=== PATIENT | female | born 1950 | race Caucasian/White ===

== ENCOUNTER → 2018-07-02 | Outpatient (CLI) | payer MEDICARE ==
[2018-07-02 11:30] LABS: ALT 34 U/L (9-52); AST 30 U/L (14-36); Albumin 4.3 g/dL (3.5-5.0); Alkaline Phosphatase 88 U/L (38-126); Anion Gap 11 mmol/L; Blood Urea Nitrogen 9 mg/dL (7-17); Calcium 9.6 mg/dL (8.4-10.2); Carbon Dioxide 23 mmol/L (22-30); Chloride 93 mmol/L (98-107); Glucose 94 mg/dL (74-99); Potassium 4.2 mmol/L (3.5-5.1); Sodium 127 mmol/L (137-145); Total Bilirubin 0.9 mg/dL (0.2-1.3); Total Protein 7.5 g/dL (6.3-8.2)
== END | disposition home or self-care (01) ==
LOC: LABWHC1 10:16
PROVIDERS: ATTEND Surgery Plastic and Reconstructive Surgery
DX: K57.32 Diverticulitis of large intestine without perforation or abscess without bleeding (principal)
CPT/HCPCS: 36415; 80053

== ENCOUNTER → 2018-07-08 | Outpatient (CLI) | payer MEDICARE | END | disposition home or self-care (01) | LOC: LABWHC1 11:08 | PROVIDERS: ATTEND Surgery Plastic and Reconstructive Surgery | DX: K57.32 Diverticulitis of large intestine without perforation or abscess without bleeding (principal) | CPT/HCPCS: 36415; 86850; 86900; 86901 ==

== ENCOUNTER 2018-07-19 07:30 | Inpatient (IN) | payer MEDICARE, OTHER ==
[2018-07-12 17:30] VITALS: BMI 36.6
[~2018-07-19 07:30] MED LIST: DEXAMETHASONE SOD PHOSPHATE 10 MG/ML 1 ML VIAL IV ONE; HEPARIN SODIUM,PORCINE 5,000 UNIT/ML 1 ML VIAL SQ ONE; LIDOCAINE 1% 20 ML VIAL (10MG/ML) FOR IV START INTRADERMA PRN; MIDAZOLAM 2 MG/2 ML VIAL IV PRN; ONDANSETRON 4 MG/2 ML VIAL IVP ONE; ceFAZolin IN SWFI 2 GM/20 ML SYRINGE IVP ONE; fentaNYL (PF) 50 MCG/ML 2 ML AMP IV PRN; metroNIDAZOLE-NS PMX 500 MG in SALINE 1 100ML.BAG IVPB ONE
[2018-07-19] MEDS ORDERED: ALVIMOPAN 12 MG CAPSULE PO ONE (11:05)
[2018-07-19] MEDS ORDERED: Antibiotics per Pharmacy 1 EACH MISC MISCELLANE PRN (11:05)
[2018-07-19] MEDS ORDERED: ACETAMINOPHEN TAB 500 MG TAB PO ONE (11:05)
--- NOTE | 2018-07-19 11:05 | P.GSHP ---
History of Present Illness H&P Date: 07/19/18 CHIEF COMPLAINT: History of colostomy. HISTORY OF PRESENT ILLNESS: Omaira Vazquez is a 68-year-old female who had a colostomy creation over one year ago by a different provider. She has developed parastomal hernia. She reports increased lower abdominal pain and gas bloat. She completed cardiac risk assessment where Dr. Piedra adjusted her blood pressure medication. Now the patient presents for further evaluation and management. She labors as a mckeon. PAST MEDICAL HISTORY: Please see list. PAST SURGICAL HISTORY: Please see list. MEDICATIONS: Please see list. ALLERGIES: Please see list. SOCIAL HISTORY: No illicit drug use FAMILY HISTORY: No reports of Crohn disease or ulcerative colitis. REVIEW OF ORGAN SYSTEMS: Additionally reports: CONSTITUTIONAL: No fevers or chills. HEENT: Denies any trouble with vision, hearing or nosebleeds. No difficulty swallowing. LYMPHATIC: The patient denies any lumps and bumps around the neck. ENDOCRINE: Denies any thyroid disorders. Denies any blood sugar glucose intolerance. RESPIRATORY: Denies pneumonia. Denies any troubles with breathing or dyspnea on exertion. CARDIOVASCULAR: Denies any chest pain, palpitations, or recent heart attacks. On coumadin. GASTROINTESTINAL: Denies fatty food intolerance. Denies change in bowel habits and gas bloat. Has colostomy. GENITOURINARY: Denies any blood in urine or increased urinary frequency. MUSCULOSKELETAL: Has back pain, stiffness or joint arthritis. NEUROLOGIC: Denies any numbness or tingling along the distal extremities. No seizure disorders or headaches. PSYCHIATRIC: Denies any depression or suicidal ideation. HEMATOLOGIC: Denies any abnormal bleeding or bruising. BREASTS: Denies any breast lumps, pain or nipple discharge. SKIN: No current skin cancer. No rash. PHYSICAL EXAM: Patient is a 67-year-old female. Abdomen: Palpable parastomal hernia. Ostomy patent with solid stool. Well healed midline incision. GENERAL: Well developed and in no acute distress. Pleasant. HEENT: No sclera icterus. Extraocular movements grossly intact. Moist buccal mucosa. Head is atraumatic, normocephalic. Hears conversational speech. No nasal drainage. NECK: Supple without lymphadenopathy. No JV distention. CHEST: Non-labored respirations and equal bilateral excursions. CARDIOVASCULAR: Regular rate and rhythm. Palpable 2+ radial pulses. MUSCULOSKELETAL: No clubbing, cyanosis or edema. NEUROLOGIC: No focal or lateralizing signs. PSYCH: Appropriate affect. Alert and oriented to person, place and time. SKIN: Well perfused. Good skin turgor. MISCELLANEOUS: Cardiology recommendations were reviewed with Lisinopril increase from 10 mg to 20 mg. STUDIES: Colonoscopy completed with diverticulosis. ASSESSMENT: 1. History of diverticulitis perforation. 2. History of colostomy reversal. 3. History of hypertensive heart disease. PLAN: 1. I have gone over the nutritional aspect of increasing her strength for surgery. I have asked her to undergo an 80 gm high protein low calorie diet. 2. Preoperative expectations including inpatient hospitalization for 7-10 days was described. 3. She will need an enhanced colon recovery protocol. The office will obtain package. 4. The patient and family are agreeable to proceed with surgery for the month of June to July. 5. Also, postoperative recovery and placement of a wound V.A.C. and drain were also reviewed in detail. Past Medical History Past Medical History: Hypertension, Osteoarthritis (OA) Additional Past Medical History / Comment(s): HX Low Sodium. HX STOMACH ULCER. PERFORATED DIVERTICULTUM, COLOSTOMY 03/2016. LT KNEE OA PAIN. C/O ABD GAS PAIN FOR FEW DAYS. SPOUSE SAID PATIENT HAD STRESS TEST, PER DR GREY'S REQUEST. History of Any Multi-Drug Resistant Organisms: None Reported Past Surgical History: Bowel Resection, Orthopedic Surgery Additional Past Surgical History / Comment(s): TOTAL RT Knee, RT HIP. PERFORATED DIVERTICULUM W/ COLOSTOMY 03/2016. Past Anesthesia/Blood Transfusion Reactions: No Reported Reaction Additional Past Anesthesia/Blood Transfusion Reaction / Comment(s): Pt states she did receive blood with total knee surgery few weeks ago. Smoking Status: Former smoker - Past Family History Father Family Medical History: Coronary Artery Disease (CAD), Myocardial Infarction ([place] ), Renal Disease Additional Family Medical History / Comment(s): Father of renal failure at the age of 72 yrs. Mother Family Medical History: Cancer Additional Family Medical History / Comment(s): Mother had colon cancer and of this at age 67 yrs. Medications and Allergies Home Medications Medication Instructions Recorded Confirmed Type Lisinopril [Zestril] 20 mg PO DAILY 03/22/16 07/12/18 History Triamterene-Hctz 37.5-25Mg 1 cap PO DAILY 03/22/16 07/12/18 History [Dyazide 37.5-25 Capsule] Cholecalciferol (Vitamin D3) 2,000 unit PO DAILY 07/12/18 07/12/18 History [Vitamin D3] Gas Release (Otc) 1 - 2 cap PO DIRECTED PRN 07/12/18 History Lisinopril [Zestril] 10 mg PO HS 07/12/18 07/12/18 History Allergies Allergy/AdvReac Type Severity Reaction Status Date / Time lactose AdvReac C/O GAS Verified 07/12/18 17:35
[2018-07-19] MEDS: LACTATED RINGERS 1,000 ML IV SCH (14:26)
[2018-07-19 14:31] LABS: Basophils % (A) 1 %; Eosinophils # (A) 0.1 k/uL (0-0.7); Eosinophils % (A) 2 %; HCT 43.9 % (34.0-46.0); HGB 14.6 gm/dL (11.4-16.0); Lymphocytes # (A) 1.5 k/uL (1.0-4.8); Lymphocytes % (A) 19 %; MCH 30.5 pg (25.0-35.0); MCHC 33.4 g/dL (31.0-37.0); MCV 91.5 fL (80.0-100.0); Mean Platelet Volume 7.2; Monocytes # (A) 0.5 k/uL (0-1.0); Monocytes % (A) 6 %; Neutrophils # (A) 5.7 k/uL (1.3-7.7); Neutrophils % (A) 71 %; Platelet Count 237 k/uL (150-450)
[2018-07-19 14:31] LABS: Glucose,Whole Blood 83 mg/dL (75-99)
[2018-07-19 14:41] LABS: INR 1.2 (<1.2); Prothrombin Time 11.1 sec (9.0-12.0)
[2018-07-19 14:46] LABS: ALT 33 U/L (9-52); AST 35 U/L (14-36); Albumin 4.3 g/dL (3.5-5.0); Alkaline Phosphatase 75 U/L (38-126); Anion Gap 13 mmol/L; Blood Urea Nitrogen 11 mg/dL (7-17); Calcium 9.3 mg/dL (8.4-10.2); Carbon Dioxide 21 mmol/L (22-30); Chloride 93 mmol/L (98-107); Glucose 87 mg/dL (74-99); Potassium 3.7 mmol/L (3.5-5.1); Sodium 127 mmol/L (137-145); Total Bilirubin 1.3 mg/dL (0.2-1.3); Total Protein 7.3 g/dL (6.3-8.2)
[2018-07-19] MEDS ORDERED: diphenhydrAMINE 50 MG/ML 1 ML VIAL ONE (17:29)
[2018-07-19] MEDS ORDERED: HYDROmorphone (PF) 1 MG/ML ONE (17:29)
[2018-07-19] MEDS ORDERED: LIDOCAINE 1% INJ 10MG/ML (20 ML MDV) ONE (17:29)
[2018-07-19] MEDS ORDERED: MORPHINE SULFATE 10 MG/ML SYRINGE ONE (17:29)
[2018-07-19] MEDS ORDERED: DEXAMETHASONE SOD PHOS (MDV) 100 MG/10 ML VIAL ONE (17:29)
[2018-07-19] MEDS ORDERED: GLYCOPYRROLATE 0.2 MG/ML 2 ML VIAL ONE (17:29)
[2018-07-19] MEDS ORDERED: SUCCINYLCHOLINE CHLORIDE 100 MG/5 ML SYR IV ONE (17:29)
[2018-07-19] MEDS ORDERED: NEOSTIGMINE 1 MG/ML 10 ML VIAL ONE (17:29)
[2018-07-19] MEDS ORDERED: ROCURONIUM BROMIDE 10 MG/ML 10 ML VIAL IV ONE (17:29)
[2018-07-19] MEDS ORDERED: ONDANSETRON 4 MG/2 ML VIAL ONE (17:29)
[2018-07-19] MEDS ORDERED: PHENYLEPHRINE-0.9% NACL SYG 1 MG/10 ML SYRINGE ONE (17:29)
[2018-07-19] MEDS ORDERED: PROPOFOL 10 MG/ML 20 ML VIAL IV ONE (17:29)
[2018-07-19] MEDS ORDERED: fentaNYL (PF) 50 MCG/ML 2 ML AMP ONE (17:29)
[2018-07-19] MEDS ORDERED: MIDAZOLAM 2 MG/2 ML VIAL ONE (17:29)
[2018-07-19] MEDS ORDERED: ePHEDrine SULFATE/0.9% NACL/PF 50 MG/5 ML SYRINGE IV ONE (17:29)
[2018-07-19] MEDS ORDERED: LACTATED RINGERS 1,000 ML IV ONE ×4 (18:12→21:47)
[2018-07-19] MEDS ORDERED: SODIUM CHLORIDE 0.9% 50 ML with ceFAZolin 2,000 MG IV ONE ×2 (21:15)
[2018-07-19] MEDS ORDERED: HYDROmorphone 1 MG/ML 1 ML SYRINGE IVP PRN (22:48)
[2018-07-19] MEDS ORDERED: ONDANSETRON 4 MG/2 ML VIAL IVP PRN (22:48)
--- NOTE | 2018-07-19 23:04 | P.PCN ---
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 Takedown of descending colostomy 2. Extensive lysis of adhesions over 3 hours 3. Reduction and closure of incarcerated parastomal hernia, descending colostomy 4. Pericardial lavage 3 L normal saline 5. Reduction of mesenteric colon volvulus 6. Drainage of right simple ovarian cyst 5 cm 7. Colostomy reversal using a 25 mm EEA 8. Application of portable wound VAC along colostomy closure side and midline incision 9. Placement of XIX ELOY drain right lower quadrant 10. Intraoperative colonoscopy for sigmoidoscopy Anesthesia: BRUCE Surgeon: Moon Kelly Estimated Blood Loss (ml): 300 Pathology: other (Parastomal hernia sac, descending colostomy, sigmoid colon) Condition: stable Disposition: floor Operative Findings: 1. Intra-abdominal adhesions over 3 hours lysing adhesions including intraloop adhesions and colostomy volvulus 2. Intraoperative colonoscopy performed to assess remnant rectal length of 18- 20 cm from the anal verge 3. Moderately redundant transverse colon extending into pelvis 4. Parastomal hernia containing contents of omentum including descending colon within the subcutaneous tissue reduced and closed 5. Dense lower midline cicatrix from previous surgery 6. EEA using 25 mm stapler from severely spastic colon 7. End to side anastomosis performed via air anterior colotomy of descending colon with anvil along the rectum using pursestring suture 8. Complex 5 cm right ovarian cyst drained to allow access of the rectum 9. ELOY drain placed within the pelvis 10. Complete full-thickness donuts 11. Multiple interloop adhesions with findings of intermittent small bowel obstruction lysed 12. Skin closure using skin chon after cleansing the skin with dilute hydrogen peroxide
[2018-07-20] MEDS: LACTATED RINGERS 1,000 ML IV SCH (00:22)
[2018-07-20] MEDS: SODIUM CHLORIDE 0.9% 1,000 ML IV SCH ×2 (00:23→08:53)
[2018-07-20] MEDS: ceFAZolin IN SWFI 2 GM/20 ML SYRINGE IVP SCH ×2 (00:44→08:51)
[2018-07-20] MEDS: METOCLOPRAMIDE 5 MG/ML 2 ML VIAL IVP SCH ×4 (00:45→17:15)
[2018-07-20] MEDS: metroNIDAZOLE-NS PMX 500 MG in SALINE 1 100ML.BAG IVPB SCH ×4 (00:45→17:17)
[2018-07-20] MEDS: HEPARIN SODIUM,PORCINE 5,000 UNIT/ML 1 ML VIAL SQ SCH ×3 (00:45→15:39)
[2018-07-20] MEDS: ONDANSETRON 4 MG/2 ML VIAL IVP SCH ×4 (00:46→17:17)
[2018-07-20 07:46] LABS: HCT 49.8 % (34.0-46.0); HGB 15.7 gm/dL (11.4-16.0); MCH 29.8 pg (25.0-35.0); MCHC 31.5 g/dL (31.0-37.0); MCV 94.5 fL (80.0-100.0); Platelet Count 248 k/uL (150-450); RBC 5.27 m/uL (3.80-5.40); RDW 12.2 % (11.5-15.5); WBC 26.2 k/uL (3.8-10.6)
[2018-07-20 07:55] LABS: Anion Gap 14 mmol/L; Blood Urea Nitrogen 11 mg/dL (7-17); Calcium 8.4 mg/dL (8.4-10.2); Carbon Dioxide 17 mmol/L (22-30); Chloride 98 mmol/L (98-107); Glucose 148 mg/dL (74-99); Potassium 3.9 mmol/L (3.5-5.1); Sodium 129 mmol/L (137-145)
[2018-07-20] MEDS: KETOROLAC 30 MG/ML 1 ML VIAL IVP PRN ×2 (08:48→17:16)
[2018-07-20] MEDS: PANTOPRAZOLE 40 MG/10 ML VIAL IVP SCH (08:49)
[2018-07-20] MEDS: ALVIMOPAN 12 MG CAPSULE PO SCH ×2 (08:59→20:35)
[2018-07-20] MEDS ORDERED: FAMOTIDINE 20 MG/2 ML VIAL IV SCH (09:00)
[2018-07-20] MEDS ORDERED: PIPERACILLIN-TAZOBACTAM 3.375 GM in DEXTROSE/WATER 1 50ML.BAG IVPB SCH (10:15)
--- NOTE | 2018-07-20 10:15 | P.PN ---
Progress Note - Text Progress Note Date: 07/20/18 The patient is status post reversal of colostomy. She is doing quite well. There is no bowel function. Her incisions clean dry tach. The pervena wound care devices in place. Status post reversal colostomy. Patient is doing fairly well postoperatively 1. We will continue supportive care.
[2018-07-20 10:54] LABS: Band Neutrophils % 7 %; Lymphocytes # (M) 1.05 k/uL (1.0-4.8); Monocytes # (M) 1.31 k/uL (0-1.0); Neutrophils % (M) 85 %; Nucleated Red Blood Cells 0 /100 WBC (0-0); Total Cells Counted 200
[2018-07-20] MEDS: LEVOFLOXACIN 500MG-D5W PMX 500 MG in DEXTROSE/WATER 1 100ML.BAG IVPB SCH (11:21)
--- NOTE | 2018-07-20 22:56 | CONS ---
CONSULTATION DATE OF CONSULTATION: 07/20/18. REASON FOR CONSULTATION: Medical management requested by Dr. Kelly. CONSULTATION: This is a 68-year-old patient of Dr. Meek Disla who back in March of 2016 had a perforated sigmoid colon resulting in colostomy. The patient underwent reversal of the same. Post reversal the patient had some pain, has a NG tube in place. Lying in bed, tired. No chest pain or shortness of breath. The patient has a slight cough, getting IV fluids. Chronic stable medical conditions include hypertension, osteoarthritis, stomach ulcers. REVIEW OF SYSTEMS: CONSTITUTIONAL: Tired. HEENT: NG tube in place. RESPIRATORY: None. Slight cough. CARDIOVASCULAR: None. GASTROINTESTINAL: As above. GENITOURINARY: None. MUSCULOSKELETAL: Arthritic pain in joints. DERMATOLOGICAL: Had some varicose stasis dermatitis. HEMATOLOGIC, LYMPHATICS: None. PSYCHIATRY: None. NEUROLOGICAL: None. PAST MEDICAL HISTORY: Hypertension, osteoarthritis, stomach ulcer, perforated diverticulosis, left knee arthritis pain. PAST SURGICAL HISTORY: Bowel resection, colostomy, total right knee, right hip replacement, perforated sigmoid diverticulosis with colostomy in 2015. SOCIAL HISTORY: , does not smoke or drink alcohol. FAMILY HISTORY: Coronary artery disease. Father of renal failure. HOME MEDICATIONS: 1. Dyazide 37.5/25 1 capsule p.o. daily. 2. Zestril 10 mg p.o. q.h.s. 3. Gas Relief [id number] p.r.n. 4. Vitamin D3 2000 units p.o. daily. ALLERGIES: To LACTOSE. PHYSICAL EXAMINATION: Temperature 98, pulse 91, respiration 14, blood pressure 116/69, pulse ox 97 percent on 2 L. GENERAL APPEARANCE: Well built, BMI 36.7, lying in bed, tired-appearing. EYES: Pupils equal. Conjunctivae normal. HEENT: External appearance of nose and ears normal. Oral cavity dry. NG tube in place. NECK: JVD unable to assess. Mass not palpable. RESPIRATORY: Effort normal. Lungs, slightly decreased breath sounds. CARDIOVASCULAR: 1st and 2nd sounds normal. No edema. ABDOMEN: Tender, dressing over the stitches. Bowel sounds sluggish. Liver and spleen not palpable. LYMPHATIC: No lymph node palpable in neck or axillae. PSYCHIATRY: Alert and oriented x3. Mood and affect normal. NEUROLOGICAL: Pupils equal. Cranial nerves grossly intact. Power and sensation grossly intact. INVESTIGATIONS: White count 8, repeat 26.2, hemoglobin 14.6, sodium 127, bicarb 21. ASSESSMENT: 1. Reversal of colostomy. 2. Hyponatremia, suspect hypoosmolar. The patient is not really eating. 3. Metabolic acidosis. 4. Essential hypertension. 5. Primary osteoarthritis. 6. Obesity; BMI 36.7. 7. Leukocytosis likely reactive. PLAN: Patient is on IV Levaquin and Flagyl to cover infectious aspects. Also getting IV fluids. Also on Entereg, enhance bowel movements. NG tube is in place. We will follow I's and O's closely. Repeat electrolytes in the morning. Venodyne boots are in place for DVT prophylaxis. Care was discussed with the patient. Questions were answered. Thank you Dr. Kelly. MAGDALENA / GABIN: [id number] /
[2018-07-21] MEDS: metroNIDAZOLE-NS PMX 500 MG in SALINE 1 100ML.BAG IVPB SCH ×4 (00:25→17:02)
[2018-07-21] MEDS: ONDANSETRON 4 MG/2 ML VIAL IVP SCH ×4 (00:25→17:02)
[2018-07-21] MEDS: METOCLOPRAMIDE 5 MG/ML 2 ML VIAL IVP SCH ×4 (00:26→16:58)
[2018-07-21] MEDS: SODIUM CHLORIDE 0.9% 1,000 ML IV SCH ×3 (00:26→14:40)
[2018-07-21] MEDS: HEPARIN SODIUM,PORCINE 5,000 UNIT/ML 1 ML VIAL SQ SCH ×3 (00:26→17:02)
[2018-07-21] MEDS: KETOROLAC 30 MG/ML 1 ML VIAL IVP PRN (00:43)
[2018-07-21 07:37] LABS: Basophils % (A) 0 %; Eosinophils % (A) 0 %; HCT 38.2 % (34.0-46.0); Lymphocytes # (A) 0.9 k/uL (1.0-4.8); Lymphocytes % (A) 7 %; MCH 30.7 pg (25.0-35.0); MCV 93.1 fL (80.0-100.0); Mean Platelet Volume 7.6; Monocytes # (A) 0.8 k/uL (0-1.0); Monocytes % (A) 6 %; Neutrophils # (A) 11.2 k/uL (1.3-7.7); Neutrophils % (A) 86 %; Platelet Count 218 k/uL (150-450); RDW 12.3 % (11.5-15.5); WBC 12.9 k/uL (3.8-10.6)
[2018-07-21 07:38] LABS: HGB 12.6 gm/dL (11.4-16.0)
[2018-07-21 07:49] LABS: Anion Gap 9 mmol/L; Blood Urea Nitrogen 14 mg/dL (7-17); Carbon Dioxide 18 mmol/L (22-30); Chloride 104 mmol/L (98-107); Glucose 82 mg/dL (74-99); Potassium 3.7 mmol/L (3.5-5.1); Sodium 131 mmol/L (137-145)
[2018-07-21] MEDS: ALVIMOPAN 12 MG CAPSULE PO SCH ×2 (08:08→21:00)
[2018-07-21] MEDS: PANTOPRAZOLE 40 MG/10 ML VIAL IVP SCH (08:08)
[2018-07-21] MEDS: LEVOFLOXACIN 500MG-D5W PMX 500 MG in DEXTROSE/WATER 1 100ML.BAG IVPB SCH (11:50)
--- NOTE | 2018-07-21 12:43 | P.PN ---
Progress Note - Text Progress Note Date: 07/21/18 The patient has complaints of incisional pain. She has been roughly stable overnight. Her white count has gone from 26 yesterday to 12 today. On exam her vital signs are stable. Her abdomen soft. Her incision site is clean dry tach. Status post reversal of colostomy. Patient has had no significant bowel function. We will advance her diet once her bowel function is improved. Dr. Preciado will resume her care tomorrow.
--- NOTE | 2018-07-21 16:46 | PN ---
PROGRESS NOTE DATE OF SERVICE: 07/21/18. PRESENT COMPLAINT: Abdominal surgery. INTERVAL HISTORY: Patient is status post reversal of colostomy. NG tube remains in place. The patient also got abdominal drain. Slight cough. Resting in bed. Breathing is stable. REVIEW OF SYSTEMS: Done for constitutional, cardiovascular, GI, pulmonary; relevant findings as above. The patient can feel her gas rumbling but no flatus. CURRENT MEDICATIONS: Reviewed that include IV Levaquin, IV Flagyl, IV fluids. PHYSICAL EXAMINATION: Temperature 98, pulse 72, respiration 14, blood pressure 140/78, pulse 96 percent on 2 L. GENERAL APPEARANCE: Lying in bed, awake, tired. EYES: Pupils equal. Conjunctivae normal. HEENT: External appearance of nose and ears normal. Oral cavity dry. NG tube in place. NECK: JVD unable to assess. Mass not palpable. Respiratory effort normal. LUNGS: Diminished breath sounds. CARDIOVASCULAR: First and second sounds. No edema. ABDOMEN: Tender. Abdominal binder in place. A drain in place. Dressing over the incision site. PSYCHIATRY: Alert and oriented x3. Mood and affect normal. INVESTIGATIONS: White count 12.9, potassium 3.7, bicarb 18, BUN 14, creatinine 0.74, sodium 131. ASSESSMENT: 1. Reversal of colostomy. 2. Hyponatremia, suspect hypoosmolar. 3. Metabolic acidosis. 4. Essential hypertension. 5. Primary osteoarthritis. 6. Obesity; BMI 36.7. 7. Leukocytosis likely reactive, improving. Continue current medication and treatment plan. Will add bicarb to the IV fluids. Care was discussed with the patient. Follow. MMODL / IJN: [id number] /
[2018-07-21] MEDS: SODIUM CHLORIDE 0.9% 1,000 ML with SODIUM BICARB (1 MEQ/ML) 50 ML IV SCH ×2 (17:02)
[2018-07-22] MEDS: ONDANSETRON 4 MG/2 ML VIAL IVP SCH ×5 (00:07→23:46)
[2018-07-22] MEDS: METOCLOPRAMIDE 5 MG/ML 2 ML VIAL IVP SCH ×5 (00:07→23:46)
[2018-07-22] MEDS: HEPARIN SODIUM,PORCINE 5,000 UNIT/ML 1 ML VIAL SQ SCH ×4 (00:08→23:46)
[2018-07-22] MEDS: metroNIDAZOLE-NS PMX 500 MG in SALINE 1 100ML.BAG IVPB SCH ×5 (00:08→23:46)
[2018-07-22] MEDS: SODIUM CHLORIDE 0.9% 1,000 ML with SODIUM BICARB (1 MEQ/ML) 50 ML IV SCH ×6 (05:23→23:51)
[2018-07-22 08:07] LABS: Basophils % (A) 0 %; Eosinophils # (A) 0.1 k/uL (0-0.7); Eosinophils % (A) 1 %; HGB 11.7 gm/dL (11.4-16.0); Lymphocytes # (A) 0.9 k/uL (1.0-4.8); Lymphocytes % (A) 9 %; MCH 30.9 pg (25.0-35.0); MCHC 33.3 g/dL (31.0-37.0); MCV 92.7 fL (80.0-100.0); Mean Platelet Volume 7.7; Monocytes # (A) 0.5 k/uL (0-1.0); Monocytes % (A) 5 %; Neutrophils # (A) 8.1 k/uL (1.3-7.7); Neutrophils % (A) 84 %; Platelet Count 196 k/uL (150-450); RBC 3.77 m/uL (3.80-5.40); RDW 12.3 % (11.5-15.5); WBC 9.7 k/uL (3.8-10.6)
[2018-07-22 08:24] LABS: Anion Gap 10 mmol/L; Blood Urea Nitrogen 13 mg/dL (7-17); Calcium 8.1 mg/dL (8.4-10.2); Carbon Dioxide 19 mmol/L (22-30); Chloride 107 mmol/L (98-107); Glucose 82 mg/dL (74-99); Potassium 3.6 mmol/L (3.5-5.1); Sodium 136 mmol/L (137-145)
[2018-07-22] MEDS: PANTOPRAZOLE 40 MG/10 ML VIAL IVP SCH (09:15)
[2018-07-22] MEDS: ALVIMOPAN 12 MG CAPSULE PO SCH ×2 (09:15→20:08)
--- NOTE | 2018-07-22 09:29 | P.PN ---
<Brigitte Bruce - Last Filed: 07/22/18 11:46> Subjective Progress Note Date: 07/22/18 68-year-old female seen sitting up in a chair. Nasogastric tube to suction pervena wound VAC system in place abdominal binder on. States not passing gas no stool ELOY drain in place white count down to 9.7 patient states anxious to get the nasogastric tube out. Postop July 19 takedown of descending colostomy, extensive lysis of adhesions, reduction and closure of incarcerated peristomal hernia application wound VAC placement ELOY drain right lower quadrant reduction of mesenteric colon volvulus Objective - Vital Signs Vital signs: Vital Signs Temp 98.4 F 07/22/18 07:05 Pulse 65 07/22/18 07:05 Resp 17 07/22/18 07:06 BP 131/71 07/22/18 07:05 Pulse Ox 95 07/22/18 07:05 Intake & Output 07/21/18 07/22/18 07/22/18 18:59 06:59 18:59 Intake Total 200 1300 Output Total 510 55 Balance -310 1245 Intake: Intake, IV Titration 200 1300 Amount Levofloxacin 500Mg-D5w 100 Pmx 500 mg In Dextrose/ Water 1 100ml.bag @ 100 mls/hr IVPB Q24HR@1100 [facility] Rx#:[id number] Sodium Chloride 0.9% 1, 1100 000 ml @ 100 mls/hr IV . [id number] [facility] with Sodium Bicarb (1 Meq/ml) 50 ml Rx#:[id number] metroNIDAZOLE-NS PMX 500 100 200 mg In Saline 1 100ml.bag @ 100 mls/hr IVPB Q6HR [facility] Rx#:[id number] Output: Gastric Drainage 100 Drainage 10 55 Abdomen 10 55 Urine 400 Uretheral (Lee) 200 Other: Voiding Method Bedside Commode Bedside Commode Bedside Commode # Voids 1 3 1 - Exam Physical exam 68-year-old female sitting up in a chair appears in no acute distress Lungs on room air no shortness of breath adequate air movement Heart S1-S2 audible regular denying chest pain Abdomen abdominal binder in place ELOY drain right lower quadrant serous drainage nasal gastric tube connected to suction no bowel movement not passing gas few hypoactive bowel tones present urinating no difficulty Extremities Venodyne's on to the bilateral lower extremities - Labs CBC & Chem 7: 07/22/18 07:36 07/22/18 07:36 Labs: Abnormal Lab Results - Last 24 Hours (Table) 07/22/18 07/22/18 Range/Units 07:36 07:36 RBC 3.77 L (3.80-5.40) m/uL Neutrophils # 8.1 H (1.3-7.7) k/uL Lymphocytes # 0.9 L (1.0-4.8) k/uL Sodium 136 L (137-145) mmol/L Carbon Dioxide 19 L (22-30) mmol/L Calcium 8.1 L (8.4-10.2) mg/dL Assessment and Plan Assessment: Impression History of perforated diverticulitis with descending colostomy Morbid obesity BMI 36.7 Peristomal hernia Hypertensive heart disease July 19 status post takedown of descending colostomy, extensive lysis of adhesions, reduction and closure of incarcerated parastomal hernia descending colostomy, reduction of mesenteric colon volvulus, placement ELOY drain right lower quadrant, placement portable wound VAC Leukocytosis likely reactive improving Plan Continue postop surgical care Remove the nasal gastric tube now start clear liquids monitor response Pain control Increase activity Wound VAC as ordered IV Levaquin and Flagyl as ordered DVT and GI prophylaxis The above impression and plan of care have been discussed and directed by signing physician. Brigitte Bruce nurse practitioner acting as scribe for signing physician. <Moon Kelly N - Last Filed: 07/22/18 14:34> Objective - Vital Signs Vital signs: Vital Signs Temp 98.4 F 07/22/18 07:05 Pulse 65 07/22/18 07:05 Resp 17 07/22/18 07:06 BP 131/71 07/22/18 07:05 Pulse Ox 95 07/22/18 07:05 Intake & Output 07/21/18 07/22/18 07/22/18 18:59 06:59 18:59 Intake Total 200 1300 30 Output Total 510 55 Balance -310 1245 30 Intake: Intake, IV Titration 200 1300 Amount Levofloxacin 500Mg-D5w 100 Pmx 500 mg In Dextrose/ Water 1 100ml.bag @ 100 mls/hr IVPB Q24HR@1100 [facility] Rx#:[id number] Sodium Chloride 0.9% 1, 1100 000 ml @ 100 mls/hr IV . [id number] [facility] with Sodium Bicarb (1 Meq/ml) 50 ml Rx#:[id number] metroNIDAZOLE-NS PMX 500 100 200 mg In Saline 1 100ml.bag @ 100 mls/hr IVPB Q6HR [facility] Rx#:[id number] Oral 30 Output: Gastric Drainage 100 Drainage 10 55 Abdomen 10 55 Urine 400 Uretheral (Lee) 200 Other: Voiding Method Bedside Commode Bedside Commode Bedside Commode # Voids 1 3 1 - Labs CBC & Chem 7: 07/22/18 07:36 07/22/18 07:36 Labs: Abnormal Lab Results - Last 24 Hours (Table) 07/22/18 07/22/18 Range/Units 07:36 07:36 RBC 3.77 L (3.80-5.40) m/uL Neutrophils # 8.1 H (1.3-7.7) k/uL Lymphocytes # 0.9 L (1.0-4.8) k/uL Sodium 136 L (137-145) mmol/L Carbon Dioxide 19 L (22-30) mmol/L Calcium 8.1 L (8.4-10.2) mg/dL
[2018-07-22] MEDS: LEVOFLOXACIN 500MG-D5W PMX 500 MG in DEXTROSE/WATER 1 100ML.BAG IVPB SCH (10:25)
--- NOTE | 2018-07-22 14:36 | P.PN ---
Progress Note - Text Progress Note Date: 07/22/18 Patient seen and evaluated. At the time of my assessment she appeared increasingly dyspneic. She had wheezing on exam. Dressing along the midline reassessed for leaks for wound VAC and clean dry and intact.. No signs of infection. WBC normal. Hemoglobin low. Chest x-ray recommended. Incentive spirometry advised. Albuterol nebulizer started.
--- NOTE | 2018-07-22 15:33 | XR ---
EXAMINATION TYPE: XR chest 2V DATE OF EXAM: 07/22/2018 COMPARISON: Prior chest x-ray 03/28/2016 HISTORY: Wheezing TECHNIQUE: Frontal and lateral views of the chest are obtained. FINDINGS: There is no pleural effusion or pneumothorax seen. Bandlike areas of increased density in the central lungs are compatible with atelectasis. Patient is rotated, exam is expiratory. The cardi ac silhouette size is stable. The osseous structures are intact. IMPRESSION: Expiratory rotated exam. Probable atelectasis rather than pneumonia, follow-up recommend ed.
[2018-07-22] MEDS: ALBUTEROL NEBULIZED 2.5 MG/3 ML INHALATION SCH ×3 (16:27→20:47)
--- NOTE | 2018-07-22 17:49 | P.OP ---
Date of Procedure: 07/19/18 Description of Procedure: SURGEON: NICOLAS KELLY MD Preoperative Diagnosis: 1. History of perforated diverticulitis 2. Descending colostomy status 3. Hyponatremia, chronic 4. Hypertensive heart disease 5. Morbid obesity due to excess calories, BMI 36.7 6. Parastomal hernia Postoperative Diagnosis: 1. History of perforated diverticulitis 2. Descending colostomy status 3. Hyponatremia, chronic 4. Hypertensive heart disease 5. Morbid obesity due to excess calories, BMI 36.7 6. Severe intra-abdominal adhesions 7. Internal hernias of greater omentum 8. Parastomal hernia 9. 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 Interloop small bowel adhesions 11. Right simple ovarian cyst, 5 cm Procedure(s) Performed: 1. Takedown of descending colostomy 2. Extensive lysis of adhesions over 3 hours 3. Reduction and closure of incarcerated parastomal hernia, descending colostomy 4. Peritoneal lavage 3 L normal saline 5. Reduction of mesenteric descending colon volvulus 6. Drainage of right simple ovarian cyst 5 cm 7. Colostomy reversal using a 25 mm EEA 8. Application of PREVENA wound VAC along colostomy closure site and midline incision 9. Placement of#19 ELOY drain right lower quadrant 10. Intraoperative colonoscopy for sigmoidoscopy Anesthesia: GETA Surgeon: Nicolas Kelly Estimated Blood Loss (ml): 300 Pathology: other (Parastomal hernia sac, descending colostomy, sigmoid colon) Condition: stable Disposition: floor Operative Findings: 1. Intra-abdominal adhesions over 3 hours lysis of adhesions including intraloop adhesions and take down of colostomy volvulus 2. Intraoperative colonoscopy performed to assess remnant rectal length of 18- 20 cm from the anal verge 3. Moderately redundant transverse colon extending into pelvis 4. Parastomal hernia containing contents of omentum including descending colon within the subcutaneous tissue reduced and closed 5. Dense lower midline cicatrix from previous surgery 6. EEA using 25 mm stapler for severely spastic colon 7. End to side anastomosis performed via anterior colotomy of descending colon with anvil along the rectum using pursestring suture 8. Complex 5 cm right ovarian cyst drained to allow access to the rectum 9. ELOY drain placed within the pelvis 10. Complete full-thickness donuts 11. Multiple interloop adhesions lysed with findings of intermittent small bowel obstruction 12. Skin closure using skin chon after cleansing the skin with dilute hydrogen peroxide INDICATIONS: The patient is a 68-year-old female who was electively scheduled for a descending colostomy reversal secondary to perforated diverticulitis almost 2 years ago. She underwent an enhanced colon recovery program. Benefits and risks of surgical intervention were described in detail. Informed consent was obtained. DESCRIPTION: The patient was brought to the operating room. After general induction, a Lee catheter was placed. The abdomen was prepped and draped in standard sterile fashion. Ioban draping was also placed. A 4 x 4 was used to cover her colostomy site. Prior to incision, a timeout protocol was confirmed with surgical team regarding patient's name including procedures to be performed. Preoperative medications were confirmed. Attention was brought to the abdomen whereby a well healed lower midline incision was encountered. Next, a #10 blade was used to enter along the epigastrium and extended down to the pubis. Carefully the abdomen was entered using electro- Bovie cautery. The greater omentum was adhered to the abdominal wall. Adhesions were addressed with a combination of blunt dissection with minimal electro-Bovie cautery. Interloop adhesions were similarly addressed using Metzenbaum scissors. Internal hernia was identified of the greater omentum and divided using a LigaSure. All adhesions were addressed from the ligament of Treitz to the ileocecal valve. Extensive lysis adhesions were performed for over 3 hours. The small bowel was found adherent to the deep pelvis and remnant sigmoid colon which was also divided. No enterotomies occurred. Next, the rectal stump was palpated. I went to the foot of the bed to perform an intraoperative flexible sigmoidoscopy and confirm the length of the rectal stump prior to proceed with takedown of the colostomy. Length of rectal stump was 18 to 20 cm was confirmed. I re-scrubbed into the case. Attention is now brought to the colostomy site where #10 blade was used to incise around the colostomy into the subcutaneous tissue. A Bovie cautery was used to circumferentially dissect the ostomy to the fascia. Next a large peristomal hernia was encountered involving majority of the descending colon including the omentum immediately deep to the skin. [place] retractors were used to provide exposure. From within the abdomen, the colostomy was carefully dissected free from the abdominal wall. Spillage of stool did occur in the case hence contaminated. A large right simple ovarian cyst was identified obscuring view of the rectal stump. Pursestring suture using 4-0 Prolene was made along the anterior surface of the cyst wall and incised using Bovie cautery. The cyst was drained to provide exposure of the rectal stump. A colotomy was made along the anterior surface of the rectal stump for placement of a 25 mm anvil. A pursestring suture was placed using 2-0 Prolene and the 25 mm anvil was secured. A transverse colon was highly redundant extending into the pelvis. Next, via the open colotomy site of the descending colon a 25 mm ILS was inserted and the anvil and staple were mated for 1 minute. The donuts were inspected and intact. The colotomy was closed using Kynded 60 mm purple stapler. The abdomen was irrigated using 3000 mL of normal saline The peritoneal lavage. A round #19 Eder drain was placed anterior to the staple line and exited via the right lower abdomen. A drain stitch of 2-0 nylon was placed. Hemostasis was checked. The colostomy site was oversewn via the peritoneum and abdominal wall using double-stranded 0 PDS. Along the skin site of the colostomy, the wound was irrigated using dilute hydrogen peroxide. 0-Vicryl was used for closure of the fascia from the subcutaneous portion. The abdomen was inspected for hemostasis and closed using 2 sutures of double- stranded 0 PDS from inferiorly and superiorly. The skin was cleansed and the Ioban draping was removed. An Optifoam small square dressing was placed over the drain site. The colostomy site was closed transversely using skin chon with redundant skin excised. A customizable Prevena wound VAC system was placed over the skin colostomy site and at the midline as it was closed transversely. The apparatus was set to suction. At the end of the procedure, needle, sponge, and instrument count had been verified correct by the surgical services tech. The patient was sent to the postanesthesia care unit in stable condition. Intraoperative findings were described to the patient's family.
[2018-07-22] MEDS: LISINOPRIL 10 MG TAB PO SCH (20:08)
[2018-07-23] MEDS: ONDANSETRON 4 MG/2 ML VIAL IVP SCH ×4 (05:47→23:38)
[2018-07-23] MEDS: METOCLOPRAMIDE 5 MG/ML 2 ML VIAL IVP SCH ×4 (05:47→23:39)
[2018-07-23] MEDS: metroNIDAZOLE-NS PMX 500 MG in SALINE 1 100ML.BAG IVPB SCH ×4 (05:47→23:39)
--- NOTE | 2018-07-23 06:15 | PN ---
PROGRESS NOTE DATE OF SERVICE: 07/22/18. PRESENTING COMPLAINT: Abdominal surgery. INTERVAL HISTORY: Patient is status post reversal of colostomy. NG tube was taken out. Has an abdominal drain. Slight cough, minimal wheezing. Has been allowed clear liquid diet. REVIEW OF SYSTEMS: Done for constitutional, cardiovascular, GI, pulmonary; relevant findings as above. The patient has not passed any flatus. CURRENT MEDICATIONS: Reviewed that include IV Levaquin, IV Flagyl, IV fluids. EXAMINATION: Temperature 98.4, pulse 55, respiration 17, blood pressure 130/71, pulse ox 95 percent on room air. GENERAL APPEARANCE: Lying in bed, awake tired. EYES: Pupils equal. Conjunctivae normal. HEENT: External appearance of nose and ears normal. Oral cavity dry. NECK: JVD unable to assess. Mass not palpable. RESPIRATORY: Effort normal. LUNGS: Diminished breath sounds, minimal wheezing. CARDIOVASCULAR: 1st and 2nd sounds normal. No edema. ABDOMEN: Some tenderness, binder in place and drain is in place. Dressing on the incision site. PSYCHIATRY: Alert and oriented x3. Mood and affect normal. INVESTIGATIONS: White count 9.7, potassium 3.6. BUN and creatinine normal. ASSESSMENT: 1. Reversal of colostomy. 2. Hyponatremia, suspect hypoosmolar. 3. Metabolic acidosis. 4. Essential hypertension. 5. Primary osteoarthritis. 6. Obesity; BMI 36.7. 7. Leukocytosis likely reactive with clinical improvement. 8. Bronchospasm. PLAN: Continue medication and treatment plan. Continue IV fluids, bicarb, antibiotics and bronchodilators to be used. Care was discussed with the patient. Follow. MMODL / IJN: [id number] /
[2018-07-23] MEDS: HEPARIN SODIUM,PORCINE 5,000 UNIT/ML 1 ML VIAL SQ SCH ×3 (08:24→23:38)
[2018-07-23] MEDS: TRIAMTERENE-HCTZ 37.5-25MG 1 EACH CAP PO SCH (08:24)
[2018-07-23] MEDS: PANTOPRAZOLE 40 MG/10 ML VIAL IVP SCH (08:24)
[2018-07-23] MEDS: ALVIMOPAN 12 MG CAPSULE PO SCH ×2 (08:24→21:12)
[2018-07-23] MEDS: ALBUTEROL NEBULIZED 2.5 MG/3 ML INHALATION SCH ×4 (08:40→21:00)
[2018-07-23 08:41] LABS: Anion Gap 10 mmol/L; Blood Urea Nitrogen 16 mg/dL (7-17); Calcium 8.3 mg/dL (8.4-10.2); Carbon Dioxide 20 mmol/L (22-30); Chloride 108 mmol/L (98-107); Glucose 90 mg/dL (74-99); Potassium 3.8 mmol/L (3.5-5.1); Sodium 138 mmol/L (137-145)
--- NOTE | 2018-07-23 09:23 | P.PN ---
<Autumn Brucene M - Last Filed: 07/23/18 09:16> Subjective Progress Note Date: 07/23/18 68-year-old female sitting up in a chair bathing. Nursing reports patient just returned from ambulating in the hallway with physical therapy. Sats on room air 97%. Patient states does not feel short of breath. No conversational dyspnea noted no cough noted able to use incentive spirometer with coaching can achieve 1000. Lungs posterior diminished few bilateral prolonged expiratory wheezing noted afebrile labs reviewed reportedly tolerating a diet of clear liquids Postop July 19 takedown of descending colostomy, extensive lysis of adhesions, reduction and closure of incarcerated peristomal hernia application wound VAC placement ELOY drain right lower quadrant reduction of mesenteric colon volvulus Objective - Vital Signs Vital signs: Vital Signs Temp 98.4 F 07/23/18 08:19 Pulse 65 07/23/18 08:19 Resp 17 07/23/18 08:19 BP 163/82 07/23/18 08:19 Pulse Ox 97 07/23/18 08:19 Intake & Output 07/22/18 07/23/18 07/23/18 18:59 06:59 18:59 Intake Total 151 1200 Output Total 20 15 Balance 131 1185 Intake: Intake, IV Titration 1000 Amount Sodium Chloride 0.9% 1, 1000 000 ml @ 100 mls/hr IV . [id number] YURY with Sodium Bicarb (1 Meq/ml) 50 ml Rx#:[id number] Oral 151 Other 200 Output: Drainage 20 15 Abdomen 20 15 Other: Voiding Method Bedside Commode Bedside Commode Bedside Commode # Voids 1 1 - Exam Physical exam 68-year-old female sitting up in a chair taking a bath appears in no acute distress Lungs posterior diminished at the bases a few prolonged expiratory wheezing no cough noted on room air sats 97% no shortness of breath with conversation or activity Heart S1-S2 audible regular Abdomen prevena wound system in place surgical dressing site dry surgical tenderness appropriate states belching no gas reports no nausea no vomiting nondistended urinating no difficulty per patient report ELOY drain in place serous drainage Extremities no edema noted - Labs CBC & Chem 7: 07/22/18 07:36 07/23/18 08:03 Labs: Abnormal Lab Results - Last 24 Hours (Table) 07/23/18 Range/Units 08:03 Chloride 108 H (98-107) mmol/L Carbon Dioxide 20 L (22-30) mmol/L Calcium 8.3 L (8.4-10.2) mg/dL Assessment and Plan Assessment: Impression History of perforated diverticulitis with descending colostomy Morbid obesity BMI 36.7 Peristomal hernia Hypertensive heart disease July 19 status post takedown of descending colostomy, extensive lysis of adhesions, reduction and closure of incarcerated parastomal hernia descending colostomy, reduction of mesenteric colon volvulus, placement ELOY drain right lower quadrant, placement portable wound VAC Leukocytosis likely reactive improving Plan Continue postop surgical care Pain control Increase activity Wound VAC as ordered IV Levaquin and Flagyl as ordered DVT and GI prophylaxis heparin and protonix The above impression and plan of care have been discussed and directed by signing physician. Brigitte Bruce nurse practitioner acting as scribe for signing physician. <Moon Kelly N - Last Filed: 07/23/18 13:54> Objective - Vital Signs Vital signs: Vital Signs Temp 98.4 F 07/23/18 08:19 Pulse 80 07/23/18 10:40 Resp 17 07/23/18 08:19 BP 163/82 07/23/18 08:19 Pulse Ox 97 07/23/18 08:19 Intake & Output 07/22/18 07/23/18 07/23/18 18:59 06:59 18:59 Intake Total 151 1200 Output Total 20 15 Balance 131 1185 Intake: Intake, IV Titration 1000 Amount Sodium Chloride 0.9% 1, 1000 000 ml @ 100 mls/hr IV . [id number] YURY with Sodium Bicarb (1 Meq/ml) 50 ml Rx#:[id number] Oral 151 Other 200 Output: Drainage 20 15 Abdomen 20 15 Other: Voiding Method Bedside Commode Bedside Commode Bedside Commode # Voids 1 1 1 - Labs CBC & Chem 7: 07/23/18 08:03 07/23/18 08:03 Labs: Abnormal Lab Results - Last 24 Hours (Table) 07/23/18 07/23/18 Range/Units 08:03 08:03 RBC 3.78 L (3.80-5.40) m/uL Lymphocytes # 0.9 L (1.0-4.8) k/uL Chloride 108 H (98-107) mmol/L Carbon Dioxide 20 L (22-30) mmol/L Calcium 8.3 L (8.4-10.2) mg/dL Assessment and Plan Plan: Had long discussion with on the phone. Will arrange for home healthcare with possibility of rehab needs if needed. She is overall doing very well. Prolonged antibiotics for contaminated case.
[2018-07-23] MEDS: LEVOFLOXACIN 500MG-D5W PMX 500 MG in DEXTROSE/WATER 1 100ML.BAG IVPB SCH (10:13)
[2018-07-23 10:19] LABS: Basophils % (A) 0 %; Eosinophils # (A) 0.1 k/uL (0-0.7); Eosinophils % (A) 1 %; HCT 35.7 % (34.0-46.0); HGB 11.5 gm/dL (11.4-16.0); Lymphocytes # (A) 0.9 k/uL (1.0-4.8); Lymphocytes % (A) 10 %; MCH 30.5 pg (25.0-35.0); MCHC 32.3 g/dL (31.0-37.0); MCV 94.5 fL (80.0-100.0); Mean Platelet Volume 7.8; Monocytes # (A) 0.5 k/uL (0-1.0); Monocytes % (A) 6 %; Neutrophils # (A) 7.2 k/uL (1.3-7.7); Neutrophils % (A) 83 %; Platelet Count 255 k/uL (150-450); RBC 3.78 m/uL (3.80-5.40); RDW 12.5 % (11.5-15.5); WBC 8.8 k/uL (3.8-10.6)
[2018-07-23] MEDS: SODIUM CHLORIDE 0.9% 1,000 ML with SODIUM BICARB (1 MEQ/ML) 50 ML IV SCH ×4 (12:04→20:50)
[2018-07-23] MEDS: LISINOPRIL 10 MG TAB PO SCH (21:12)
--- NOTE | 2018-07-23 22:29 | PN ---
PROGRESS NOTE DATE OF SERVICE: 07/23/2018 PRESENTING COMPLAINT: Abdominal surgery. INTERVAL HISTORY: Patient is status post reversal of colostomy and tolerating a diet, has not had any flatus or bowel movements. Sitting up. Pain is controlled. No nausea or vomiting. REVIEW OF SYSTEMS: Done for constitutional, cardiovascular, GI, pulmonary; relevant findings as above. CURRENT MEDICATIONS: Reviewed that include: 1. Levaquin and. 2. Flagyl. EXAMINATION: Temperature 98.4, pulse 73, respirations 18, blood pressure 152/77, pulse ox 94% on room air. GENERAL: Sitting at the edge of bed, awake. EYES: Pupils equal. Conjunctivae normal. HEENT: External nose and ears normal. Oral cavity normal. NECK: JVD not raised. Mass not palpable. RESPIRATORY: Effort normal. LUNGS: Improved air entry and no wheezing. CARDIOVASCULAR: First and second sounds normal. No edema. ABDOMEN: Soft, some tenderness with a binder in place and a Hemovac in place. PSYCH: AO x3. Mood and affect were normal. INVESTIGATIONS: White count 8.8, potassium 3.8. ASSESSMENT: 1. Reversal of colostomy. 2. Hyponatremia, suspect hypoosmolar. 3. Metabolic acidosis. 4. Essential hypertension. 5. Primary osteoarthritis. 6. Obesity; BMI 36.7. 7. Leukocytosis, likely reactive from surgery with improvement. 8. Bronchospasm, clinically improving. PLAN: Continue current medication and treatment plan. Care was discussed with the patient. Questions were answered. MMODL / IJN: [id number] /
[2018-07-24 02:35] LABS: Appearance,Urine Cloudy (Clear); Bilirubin,Urine Negative (Negative); Blood,Urine Negative (Negative); Budding Yeast,Urine Occasional /hpf; Color,Urine Light Red; Glucose,Urine (UA) Negative (Negative); Ketones,Urine 2+ (Negative); Leukocyte Esterase,Urine Large (Negative); Mucus,Urine Rare /hpf; Nitrite,Urine Negative (Negative); PH, Urine 6.5 (5.0-8.0); Protein,Urine Negative (Negative); RBC,Urine 6 /hpf (0-5); Specific Gravity,Urine 1.019 (1.001-1.035); Squamous Epithelial Cell,Urine 8 /hpf (0-4); Urobilinogen,Urine <2.0 mg/dL (<2.0); WBC,Urine 35 /hpf (0-5)
[2018-07-24] MEDS: metroNIDAZOLE-NS PMX 500 MG in SALINE 1 100ML.BAG IVPB SCH ×4 (06:04→23:51)
[2018-07-24] MEDS: METOCLOPRAMIDE 5 MG/ML 2 ML VIAL IVP SCH ×4 (06:05→23:51)
[2018-07-24] MEDS: ONDANSETRON 4 MG/2 ML VIAL IVP SCH ×4 (06:05→23:51)
[2018-07-24] MEDS: SODIUM CHLORIDE 0.9% 1,000 ML with SODIUM BICARB (1 MEQ/ML) 50 ML IV SCH ×4 (06:05→14:22)
[2018-07-24 08:09] LABS: Anion Gap 12 mmol/L; Blood Urea Nitrogen 15 mg/dL (7-17); Calcium 8.3 mg/dL (8.4-10.2); Carbon Dioxide 19 mmol/L (22-30); Chloride 107 mmol/L (98-107); Glucose 107 mg/dL (74-99); Potassium 3.5 mmol/L (3.5-5.1); Sodium 138 mmol/L (137-145)
[2018-07-24] MEDS: ALBUTEROL NEBULIZED 2.5 MG/3 ML INHALATION SCH ×3 (08:22→16:28)
[2018-07-24] MEDS: PANTOPRAZOLE 40 MG/10 ML VIAL IVP SCH (09:54)
[2018-07-24] MEDS: ALVIMOPAN 12 MG CAPSULE PO SCH ×2 (09:54→20:09)
[2018-07-24] MEDS: HEPARIN SODIUM,PORCINE 5,000 UNIT/ML 1 ML VIAL SQ SCH ×3 (09:55→23:52)
[2018-07-24] MEDS: TRIAMTERENE-HCTZ 37.5-25MG 1 EACH CAP PO SCH (10:07)
--- NOTE | 2018-07-24 10:36 | P.PN ---
<Brigitte Bruce - Last Filed: 07/24/18 10:35> Subjective Progress Note Date: 07/24/18 68-year-old seen at bedside resting comfortably in bed reports no nausea no vomiting. pureed diet tolerated states no bowel movement not passing gas no labs pending potassium 3.5 afebrile E[address]Y drain in place serous drainage. Abdomen soft surgical tenderness appropriate prevena wound system in place Discharge plan in progress case therapist pursuing rehab closer to patient's home in [place] Postop July 19 takedown of descending colostomy, extensive lysis of adhesions, reduction and closure of incarcerated peristomal hernia application wound VAC placement ELOY drain right lower quadrant reduction of mesenteric colon volvulus Objective - Vital Signs Vital signs: Vital Signs Temp 98 F 07/24/18 07:44 Pulse 72 07/24/18 08:32 Resp 16 07/24/18 07:44 BP 163/80 07/24/18 07:44 Pulse Ox 96 07/24/18 07:44 Intake & Output 07/23/18 07/24/18 07/24/18 18:59 06:59 18:59 Output Total 5 Balance -5 Output: Drainage 5 Abdomen 5 Other: Voiding Method Bedside Commode Bedside Commode Bedside Commode # Voids 1 1 - Exam Physical exam 68-year-old female sitting up in bed appears in no acute distress Lungs on room air sats 96% no shortness of breath at rest or conversation. No cough noted not able to appreciate any wheezing this morning Heart S1-S2 audible regular Abdomen prevena wound system in place surgical dressing site dry surgical tenderness appropriate states no gas reports no nausea no vomiting nondistended urinating no difficulty per patient report ELOY drain in place serous drainage no stool tolerating a pureed diet Extremities no edema noted - Labs CBC & Chem 7: 07/23/18 08:03 07/24/18 06:54 Labs: Abnormal Lab Results - Last 24 Hours (Table) 07/24/18 07/24/18 Range/Units 00:54 06:54 Carbon Dioxide 19 L (22-30) mmol/L Glucose 107 H (74-99) mg/dL Calcium 8.3 L (8.4-10.2) mg/dL Urine Appearance Cloudy H (Clear) Urine Ketones 2+ H (Negative) Ur Leukocyte Esterase Large H (Negative) Urine RBC 6 H (0-5) /hpf Urine WBC 35 H (0-5) /hpf Ur Squamous Epith Cells 8 H (0-4) /hpf Urine Mucus Rare H (None) /hpf Urine Yeast (Budding) Occasional H (None) /hpf Assessment and Plan Assessment: Impression History of perforated diverticulitis with descending colostomy Morbid obesity BMI 36.7 Peristomal hernia Hypertensive heart disease July 19 status post takedown of descending colostomy, extensive lysis of adhesions, reduction and closure of incarcerated parastomal hernia descending colostomy, reduction of mesenteric colon volvulus, placement ELOY drain right lower quadrant, placement portable wound VAC Leukocytosis likely reactive improving Plan Discharge plan ECF Continue postop surgical care Pain control Increase activity Wound VAC as ordered IV Levaquin and Flagyl as ordered Prolonged antibiotics for contaminated case will be needed DVT and GI prophylaxis heparin and protonix The above impression and plan of care have been discussed and directed by signing physician. Brigitte Burce nurse practitioner acting as scribe for signing physician. <Moon Kelly N - Last Filed: 07/24/18 12:37> Objective - Vital Signs Vital signs: Vital Signs Temp 98 F 07/24/18 07:44 Pulse 76 07/24/18 11:13 Resp 16 07/24/18 07:44 BP 163/80 07/24/18 07:44 Pulse Ox 96 07/24/18 07:44 Intake & Output 07/23/18 07/24/18 07/24/18 18:59 06:59 18:59 Output Total 5 30 Balance -5 -30 Output: Drainage 5 30 Abdomen 5 30 Other: Voiding Method Bedside Commode Bedside Commode Bedside Commode # Voids 1 1 - Labs CBC & Chem 7: 07/23/18 08:03 07/24/18 06:54 Labs: Abnormal Lab Results - Last 24 Hours (Table) 07/24/18 07/24/18 Range/Units 00:54 06:54 Carbon Dioxide 19 L (22-30) mmol/L Glucose 107 H (74-99) mg/dL Calcium 8.3 L (8.4-10.2) mg/dL Urine Appearance Cloudy H (Clear) Urine Ketones 2+ H (Negative) Ur Leukocyte Esterase Large H (Negative) Urine RBC 6 H (0-5) /hpf Urine WBC 35 H (0-5) /hpf Ur Squamous Epith Cells 8 H (0-4) /hpf Urine Mucus Rare H (None) /hpf Urine Yeast (Budding) Occasional H (None) /hpf
[2018-07-24] MEDS: LEVOFLOXACIN 500MG-D5W PMX 500 MG in DEXTROSE/WATER 1 100ML.BAG IVPB SCH (11:56)
--- NOTE | 2018-07-24 12:43 | P.DS ---
Providers Date of admission: 07/19/18 12:31 Expected date of discharge: 07/24/18 Attending physician: Moon Kelly Consults: 07/19/18 22:54 Consult Physician Routine Consulting Provider: Poncho Cote Consult Reason/Comments: Medical management Do you want consulting provider notified?: Yes Primary care physician: Meek Patel Disla - Discharge Diagnosis(es) (1) Colostomy status Current Visit: Yes Status: Acute (2) Parastomal hernia with obstruction, without gangrene Current Visit: Yes Status: Acute (3) Peritoneal adhesions Current Visit: Yes Status: Acute (4) Morbid (severe) obesity due to excess calories Current Visit: Yes Status: Acute (5) Hyponatremia Current Visit: Yes Status: Acute Hospital Course: Postoperative Diagnosis: 1. History of perforated diverticulitis 2. Descending colostomy status 3. Hyponatremia, chronic 4. Hypertensive heart disease 5. Morbid obesity due to excess calories, BMI 36.7 6. Severe intra-abdominal adhesions 7. Internal hernias of greater omentum 8. Parastomal hernia 9. 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 Interloop small bowel adhesions 11. Right simple ovarian cyst, 5 cm COURSE: The patient is a 68-year-old female with previous history of perforated diverticulitis and descending colostomy status. She had a parastomal hernia. She underwent colostomy reversal with repair of peristomal hernia including extensive lysis of adhesions. Postprocedure her pain was controlled. Her surgical case was contaminated hence antibiotics was continued throughout the extent of her care. Medical consultation was obtained for generalized medical care. Prior to discharge, she was tolerating diet. No reports of nausea and vomiting. Her dressings were changed including removal of wound VAC system. No signs of infection was identified. She was maintained on Levaquin and Flagyl for a history of contaminated case which we'll continue following discharge. I personally contacted the patient's regarding her overall care and immediately to follow-up upon discharge. Pertinent Studies: Chest xray demonstrated atelectasis. No evidence of pneumonia Procedures: Procedure(s) Performed: 1. Takedown of descending colostomy 2. Extensive lysis of adhesions over 3 hours 3. Reduction and closure of incarcerated parastomal hernia, descending colostomy 4. Peritoneal lavage 3 L normal saline 5. Reduction of mesenteric descending colon volvulus 6. Drainage of right simple ovarian cyst 5 cm 7. Colostomy reversal using a 25 mm EEA 8. Application of PREVENA wound VAC along colostomy closure site and midline incision 9. Placement of#19 ELOY drain right lower quadrant 10. Intraoperative colonoscopy for sigmoidoscopy Anesthesia: BRUCE Surgeon: Moon Kelly Estimated Blood Loss (ml): 300 Pathology: other (Parastomal hernia sac, descending colostomy, sigmoid colon) Condition: stable Disposition: floor Operative Findings: 1. Intra-abdominal adhesions over 3 hours lysis of adhesions including intraloop adhesions and take down of colostomy volvulus 2. Intraoperative colonoscopy performed to assess remnant rectal length of 18- 20 cm from the anal verge 3. Moderately redundant transverse colon extending into pelvis 4. Parastomal hernia containing contents of omentum including descending colon within the subcutaneous tissue reduced and closed 5. Dense lower midline cicatrix from previous surgery 6. EEA using 25 mm stapler for severely spastic colon 7. End to side anastomosis performed via anterior colotomy of descending colon with anvil along the rectum using pursestring suture 8. Complex 5 cm right ovarian cyst drained to allow access to the rectum 9. ELOY drain placed within the pelvis 10. Complete full-thickness donuts 11. Multiple interloop adhesions lysed with findings of intermittent small bowel obstruction 12. Skin closure using skin chon after cleansing the skin with dilute hydrogen peroxide Patient Condition at Discharge: Fair Plan - Discharge Summary Discharge Rx Participant: Yes New Discharge Prescriptions: New HYDROcodone/APAP 5-325MG [Sprague 5-325] 1 tab PO Q4HR PRN 3 Days #18 tab PRN Reason: Pain metroNIDAZOLE [Flagyl] 500 mg PO TID #15 tab Levofloxacin [Levaquin] 500 mg PO DAILY #5 tab Continue Triamterene-Hctz 37.5-25Mg [Dyazide 37.5-25 Capsule] 1 cap PO DAILY Lisinopril [Zestril] 10 mg PO HS Discontinued Cholecalciferol (Vitamin D3) [Vitamin D3] 2,000 unit PO DAILY Gas Release (Otc) 1 - 2 cap PO DIRECTED PRN PRN Reason: GAS Discharge Medication List Triamterene-Hctz 37.5-25Mg [Dyazide 37.5-25 Capsule] 1 cap PO DAILY 03/22/16 [ History] Lisinopril [Zestril] 10 mg PO HS 07/12/18 [History] HYDROcodone/APAP 5-325MG [Sprague 5-325] 1 tab PO Q4HR PRN 3 Days #18 tab [Rx] Levofloxacin [Levaquin] 500 mg PO DAILY #5 tab 07/24/18 [Rx] metroNIDAZOLE [Flagyl] 500 mg PO TID #15 tab 07/24/18 [Rx] Follow up Appointment(s)/Referral(s): Moon Kelyl MD [STAFF PHYSICIAN] - 07/29/18 4:30 pm Patient Instructions/Handouts: Rc-[place] Drain Care (DC), Abdominal Binder (DC), Open Colostomy Reversal (DC) Activity/Diet/Wound Care/Special Instructions: No showering. No bath tub soaks. Sponge bath only. DO NOT REMOVE DRESSING. No lifting over 4 pounds in 4 weeks. May have soft diet. Discharge Disposition: HOME WITH HOME HEALTH SERVICES
[2018-07-24] MEDS ORDERED: HYDROmorphone 4 MG TABLET PO PRN (13:45)
[2018-07-24] MEDS ORDERED: HYDROcodone/APAP 5-325MG 1 EACH TAB PO PRN (18:42)
[2018-07-24] MEDS ORDERED: POTASSIUM CHLORIDE ER 20 MEQ TAB.ER PO STA (18:44)
--- NOTE | 2018-07-24 18:53 | XR ---
EXAMINATION TYPE: XR chest 2V DATE OF EXAM: 07/24/2018 COMPARISON: 07/22/2018 HISTORY: Cough TECHNIQUE: Frontal and lateral views of the chest are obtained. FINDINGS: There is some linear density in the lower lung hernandez. There is no heart failure. Bony tho rax is intact. Heart size is normal. There is poor inspiration. IMPRESSION: Bilateral atelectasis unchanged compared to last exam. No gross heart failure.
[2018-07-24 19:15] LABS: Basophils % (A) 0 %; Eosinophils # (A) 0.2 k/uL (0-0.7); Eosinophils % (A) 2 %; HCT 37.1 % (34.0-46.0); HGB 12.2 gm/dL (11.4-16.0); Lymphocytes # (A) 0.8 k/uL (1.0-4.8); Lymphocytes % (A) 7 %; MCH 30.4 pg (25.0-35.0); MCHC 32.8 g/dL (31.0-37.0); MCV 92.6 fL (80.0-100.0); Monocytes # (A) 0.6 k/uL (0-1.0); Monocytes % (A) 6 %; Neutrophils # (A) 8.5 k/uL (1.3-7.7); Neutrophils % (A) 84 %; Platelet Count 263 k/uL (150-450); RBC 4.01 m/uL (3.80-5.40); RDW 12.8 % (11.5-15.5); WBC 10.2 k/uL (3.8-10.6)
[2018-07-24] MEDS: LISINOPRIL 10 MG TAB PO SCH (20:09)
[2018-07-24] MEDS: BUDESONIDE 1 MG/2 ML NEBU INHALATION SCH (20:56)
[2018-07-24] MEDS: IPRATROPIUM-ALBUTEROL 3 ML NEB INHALATION SCH (20:56)
--- NOTE | 2018-07-24 23:39 | PN ---
PROGRESS NOTE DATE OF SERVICE: 07/24/2018 PRESENTING COMPLAINT: Wheezing. INTERVAL HISTORY: Patient is status post reversal of colostomy. Tolerating some diet. No nausea, vomiting. Sitting up. Later in the evening patient was having a bit more wheezing, minimal cough. REVIEW OF SYSTEMS: Done for constitutional, cardiovascular, GI, pulmonary; relevant findings as above. CURRENT MEDICATIONS: Reviewed. They include bronchodilator, IV Levaquin and Flagyl. PHYSICAL EXAMINATION: Temperature 98.8, pulse 82, respiration 20, blood pressure 142/84, pulse ox 95%. GENERAL APPEARANCE: Sitting up. Awake. EYES: Pupils equal. Conjunctivae normal. HEENT: External appearance of nose and ears normal. Oral cavity normal. NECK: JVD not raised. Mass not palpable. RESPIRATORY: Effort increased. LUNGS: Some wheezing. CARDIOVASCULAR: First and second sounds normal. No edema. ABDOMEN: Soft, non-tender. Liver and spleen not palpable. Binder in place. Drain in place. PSYCHIATRY: Alert and oriented x3. Mood and affect normal. INVESTIGATIONS: Chest x-ray shows atelectasis. White count 10.2. ASSESSMENT: 1. Reversal of colostomy. 2. Hyponatremia; suspect hypo-osmolar. 3. Metabolic acidosis. 4. Essential hypertension. 5. Primary osteoarthritis. 6. Obesity; body mass index 36.7. 7. Leukocytosis, likely reactive from surgery, improved. 8. Bronchospasm and a worsening bout today. 9. Bilateral bronchiectasis. PLAN: Patient to use incentive spirometry. Will increase breathing treatments every 4 hours. Change to DuoNeb until tomorrow. Give a short course of inhaled steroids. Patient otherwise does not have any prior pulmonary history and has not smoked in the past. Hopefully incentive spirometry will help. MMODL / IJN: [id number] /
[2018-07-25] MEDS: IPRATROPIUM-ALBUTEROL 3 ML NEB INHALATION SCH ×2 (02:39→08:48)
[2018-07-25] MEDS: metroNIDAZOLE-NS PMX 500 MG in SALINE 1 100ML.BAG IVPB SCH (06:05)
[2018-07-25] MEDS: METOCLOPRAMIDE 5 MG/ML 2 ML VIAL IVP SCH (06:05)
[2018-07-25] MEDS: ONDANSETRON 4 MG/2 ML VIAL IVP SCH (06:05)
[2018-07-25] MEDS: BUDESONIDE 1 MG/2 ML NEBU INHALATION SCH (08:48)
[2018-07-25] MEDS: PANTOPRAZOLE 40 MG/10 ML VIAL IVP SCH (09:27)
[2018-07-25] MEDS: ALVIMOPAN 12 MG CAPSULE PO SCH (09:28)
[2018-07-25] MEDS: HEPARIN SODIUM,PORCINE 5,000 UNIT/ML 1 ML VIAL SQ SCH (09:28)
--- NOTE | 2018-07-25 10:53 | P.PN ---
Subjective Progress Note Date: 07/25/18 She is tolerating diet. She passed flatus yesterday. No bowel movement. No abdominal distention. Objective - Vital Signs Vital signs: Vital Signs Temp 98.6 F 07/24/18 23:47 Pulse 80 07/24/18 23:47 Resp 20 07/24/18 23:47 BP 148/79 07/24/18 23:47 Pulse Ox 97 07/24/18 23:47 Intake & Output 07/24/18 07/25/18 07/25/18 18:59 06:59 18:59 Output Total 580 10 Balance -580 -10 Output: Drainage 30 10 Abdomen 30 10 Urine 550 Other: Voiding Method Bedside Commode # Voids 1 - Exam GENERAL: Well developed and in no acute distress. Pleasant. HEENT: No sclera icterus. Extraocular movements grossly intact. Moist buccal mucosa. Head is atraumatic, normocephalic. Hears conversational speech. No nasal drainage. NECK: Supple without lymphadenopathy. No JV distention. CHEST: Non-labored respirations and equal bilateral excursions. Resolved wheezing this morning. CARDIOVASCULAR: Regular rate and rhythm. Palpable 2+ radial pulses. ABDOMEN: Soft, dressing intact and changed yesterday with Optifoam. ELOY serosanguinous. MUSCULOSKELETAL: No clubbing, cyanosis or edema. NEUROLOGIC: No focal or lateralizing signs. Cranial nerves II-12 grossly intact PSYCH: Appropriate affect. Alert and oriented to person, place and time. SKIN: Good skin turgor. Well perfused. - Labs CBC & Chem 7: 07/24/18 18:59 07/24/18 06:54 Labs: Abnormal Lab Results - Last 24 Hours (Table) 07/24/18 Range/Units 18:59 Neutrophils # 8.5 H (1.3-7.7) k/uL Lymphocytes # 0.8 L (1.0-4.8) k/uL Assessment and Plan (1) Colostomy status Current Visit: Yes Status: Acute Code(s): Z93.3 - COLOSTOMY STATUS SNOMED Code(s): 629199074 (2) Parastomal hernia with obstruction, without gangrene Current Visit: Yes Status: Acute Code(s): K43.3 - PARASTOMAL HERNIA WITH OBSTRUCTION, WITHOUT GANGRENE SNOMED Code(s): 621045560 (3) Peritoneal adhesions Current Visit: Yes Status: Acute Code(s): K66.0 - PERITONEAL ADHESIONS ( POSTPROCEDURAL) (POSTINFECTION) SNOMED Code(s): 07843472 (4) Morbid (severe) obesity due to excess calories Current Visit: Yes Status: Acute Code(s): E66.01 - MORBID (SEVERE) OBESITY DUE TO EXCESS CALORIES SNOMED Code(s): 341218709 (5) Hyponatremia Current Visit: Yes Status: Acute Code(s): E87.1 - HYPO-OSMOLALITY AND HYPONATREMIA SNOMED Code(s): 47329361 Plan: 1. Agreeable with transfer to rehab 2. Follow up in office in 5 days. 3. Soft diet.
[2018-07-25 11:29] VITALS: BP 155/97; PULSE 85; RESP 16; TEMP 97.8
[2018-07-28] MEDS ORDERED: METOPROLOL TARTRATE 25 MG TAB PO SCH (09:00)
--- NOTE | 2018-07-28 12:38 | PN ---
PROGRESS NOTE DATE OF SERVICE: 07/25/18 PRESENT COMPLAINT: Tired. INTERVAL HISTORY: Patient is status post reversal of colostomy. Tolerating a diet. No nausea, vomiting. The patient has been having wheezing yesterday evening, ordered inhaled steroids and bronchodilators. The patient refused the same. She did not want to take it. Up and about. Denies any abdominal pain. REVIEW OF SYSTEMS: Done for constitutional, cardiovascular, GI, pulmonary; relevant findings as above. CURRENT MEDICATIONS: Reviewed include Levaquin and Flagyl. EXAMINATION: Temperature 97.8, pulse 85, respiration 16, blood pressure 150/97, pulse ox 98 percent on room air. GENERAL APPEARANCE: Sitting up, awake, comfortable. EYES: Pupils equal. Conjunctivae normal. HEENT: External appearance of nose and ears normal. Oral cavity normal. NECK: JVD not raised. Mass not palpable. RESPIRATORY: Effort increased. Lungs improved air entry. CARDIOVASCULAR: 1st and 2nd sounds normal. No edema. ABDOMEN: Soft, nontender. Liver and spleen not palpable. Binder in place. PSYCHIATRY: Alert and oriented x3. Mood and affect normal. INVESTIGATIONS: White count 10.2, hemoglobin 12.2. ASSESSMENT: 1. Reversal of colostomy. 2. Hyponatremia, suspect hypoosmolar. 3. Metabolic acidosis. 4. Essential hypertension. 5. Primary osteoarthritis. 6. Obesity; BMI 36.7. 7. Leukocytosis likely reactive from surgery, improved. 8. Bronchospasm. The patient did not want to take her inhalers prescribed that is bronchodilators. 9. Bilateral bronchiectasis on the x-ray. PLAN: Care was discussed with the patient. Bronchospasm actually is improved, very keen to go home. She is not keen to bronchodilators and that will be discontinued. Should follow with Dr. Kelly and her family doctor. Other surgical DC orders as per Dr. Kelly. MMODL / IJN: [id number] /
== END 2018-07-25 11:28 | disposition home health service (06) | DRG 329 ==
LOC: 2ORMAIN 12:31 → 3SUR 23:12
PROVIDERS: ADMIT Surgery Plastic and Reconstructive Surgery; ATTEND Surgery Plastic and Reconstructive Surgery
PROC: 0DBM0ZZ Excision of Descending Colon, Open Approach (ICD-10-PCS; 2018-07-19)
PROC: 0WQF0ZZ Repair Abdominal Wall, Open Approach (ICD-10-PCS; 2018-07-19)
PROC: 0DNW0ZZ Release Peritoneum, Open Approach (ICD-10-PCS; 2018-07-19)
PROC: 0DSM0ZZ Reposition Descending Colon, Open Approach (ICD-10-PCS; 2018-07-19)
PROC: 0U900ZZ Drainage of Right Ovary, Open Approach (ICD-10-PCS; 2018-07-19)
PROC: 0W9G00Z Drainage of Peritoneal Cavity with Drainage Device, Open Approach (ICD-10-PCS; 2018-07-19)
PROC: 0DJD8ZZ Inspection of Lower Intestinal Tract, Via Natural or Artificial Opening Endoscopic (ICD-10-PCS; 2018-07-19)
PROC: 3E1M38Z Irrigation of Peritoneal Cavity using Irrigating Substance, Percutaneous Approach (ICD-10-PCS; 2018-07-19)
PROC: 0DQV0ZZ Repair Mesentery, Open Approach (ICD-10-PCS; principal; 2018-07-19 15:05)
DX: K94.09 Other complications of colostomy (principal); K56.2 Volvulus; K56.50 Intestinal adhesions [bands], unspecified as to partial versus complete obstruction; E87.1 Hypo-osmolality and hyponatremia; E87.2 Acidosis; K43.3 Parastomal hernia with obstruction, without gangrene; Q43.8 Other specified congenital malformations of intestine; Y83.3 Surgical operation with formation of external stoma as the cause of abnormal reaction of the patient, or of later complication, without mention of misadventure at the time of the procedure; D72.828 Other elevated white blood cell count; I11.9 Hypertensive heart disease without heart failure; J47.9 Bronchiectasis, uncomplicated; J98.01 Acute bronchospasm; K25.7 Chronic gastric ulcer without hemorrhage or perforation; K58.9 Irritable bowel syndrome, unspecified; M17.12 Unilateral primary osteoarthritis, left knee; N83.291 Other ovarian cyst, right side; Z68.36 Body mass index [BMI] 36.0-36.9, adult; Z80.0 Family history of malignant neoplasm of digestive organs; Z82.49 Family history of ischemic heart disease and other diseases of the circulatory system; Z84.1 Family history of disorders of kidney and ureter; Z87.891 Personal history of nicotine dependence; Z96.641 Presence of right artificial hip joint; Z96.651 Presence of right artificial knee joint; K45.8 Other specified abdominal hernia without obstruction or gangrene
CPT/HCPCS: 36415; 71046; 80048; 80053; 81001; 85025; 85610; 86850; 86900; 86901; 88304; 88305; 88307; 94640

== ENCOUNTER 2018-07-26 20:43 | Inpatient (IN) | payer MEDICARE, OTHER ==
--- NOTE | 2018-07-26 21:40 | ED ---
General Adult HPI - General Chief complaint: Recheck/Abnormal Lab/Rx Stated complaint: hypotension Time Seen by Provider: 07/26/18 21:11 Source: patient, EMS Mode of arrival: EMS Limitations: no limitations - History of Present Illness Initial comments: Omaira is a 68-year-old female who presents to our emergency department via ambulance from an outside facility for further evaluation of possible postoperative infection. The patient had a reversal of her colostomy last week in this hospital, she was doing well in the postoperative period however over the past day has developed worsening abdominal pain and reports she's just not feeling well. Today she noted that there was yellow and whitish or pus appearing discharge from around her drainage tube. The patient had labs drawn at her long-term care facility and was told that she had leukocytosis with a white count of greater than 18, this prompted them to transfer her to the hospital where she had basic labs drawn and was given a dose of Levaquin and Flagyl. Patient denies any fevers, chills, nausea or vomiting. She reports she had been eating well until today. She denies any chest pain palpitations or shortness of breath, she states that she wheezes at baseline and doesn't feel like her COPD is exacerbated at this time. She does note worsening edema of her bilateral lower extremities which is attributed to fluid she received from the hospital. - Related Data Home Medications Medication Instructions Recorded Confirmed Triamterene-Hctz 37.5-25Mg 1 cap PO DAILY 03/22/16 07/26/18 [Dyazide 37.5-25 Capsule] Lisinopril [Zestril] 10 mg PO DAILY 07/12/18 07/26/18 Previous Rx's Medication Instructions Recorded HYDROcodone/APAP 5-325MG [[place] 1 tab PO Q4HR PRN 3 Days #18 tab 07/24/18 5-325] Levofloxacin [Levaquin] 500 mg PO DAILY #5 tab 07/24/18 metroNIDAZOLE [Flagyl] 500 mg PO TID #15 tab 07/24/18 Allergies Allergy/AdvReac Type Severity Reaction Status Date / Time lactose AdvReac Unknown C/O GAS Verified 07/26/18 22:47 Review of Systems ROS Statement: Those systems with pertinent positive or pertinent negative responses have been documented in the HPI. ROS Other: All systems not noted in ROS Statement are negative. Past Medical History Past Medical History: Hypertension, Osteoarthritis (OA) Additional Past Medical History / Comment(s): HX Low Sodium. HX STOMACH ULCER. PERFORATED DIVERTICULTUM, COLOSTOMY 03/2016. LT KNEE OA PAIN. C/O ABD GAS PAIN FOR FEW DAYS. SPOUSE SAID PATIENT HAD STRESS TEST, PER DR KELLY'S REQUEST. History of Any Multi-Drug Resistant Organisms: None Reported Past Surgical History: Bowel Resection, Orthopedic Surgery Additional Past Surgical History / Comment(s): TOTAL RT Knee, RT HIP. PERFORATED DIVERTICULUM W/ COLOSTOMY 03/2016. Past Anesthesia/Blood Transfusion Reactions: No Reported Reaction Additional Past Anesthesia/Blood Transfusion Reaction / Comment(s): Pt states she did receive blood with total knee surgery few weeks ago. Past Psychological History: No Psychological Hx Reported Smoking Status: Never smoker Past Alcohol Use History: None Reported Past Drug Use History: None Reported - Past Family History Father Family Medical History: Coronary Artery Disease (CAD), Myocardial Infarction ([place] ), Renal Disease Additional Family Medical History / Comment(s): Father of renal failure at the age of 72 yrs. Mother Family Medical History: Cancer Additional Family Medical History / Comment(s): Mother had colon cancer and of this at age 67 yrs. General Exam - General Exam Comments Initial Comments: GENERAL: Chronically ill-appearing, appears uncomfortable HENT: Normocephalic, Atraumatic. Neck is soft and supple. No significant lymphadenopathy is noted. Oropharynx is clear. Moist mucous membranes. Neck has full range of motion without eliciting any pain. EYES: The sclera were anicteric and conjunctiva were pink and moist. Extraocular movements were intact and pupils were equal round and reactive to light. Eyelids were unremarkable. PULMONARY: Wheezing in all lung hernandez CARDIOVASCULAR: There is a regular rate and rhythm without any murmurs gallops or rubs. ABDOMEN: Abdomen is soft, there is some midline and left lower abdominal dressing in place with no blush, no surrounding erythema or tenderness to palpation. There is a drain in the right lower quadrant with dressing with serosanguineous and purulent fluid noted. SKIN: Surgical incisions as noted above NEUROLOGIC: Patient is alert and oriented x3. Cranial nerves II through XII are grossly intact. MUSCULOSKELETAL: Normal extremities with adequate strength and full range of motion. Bilateral lower extremity edema LYMPHATICS: No significant lymphadenopathy is noted PSYCHIATRIC: Normal psychiatric evaluation. Limitations: no limitations Limitations: no limitations Course Vital Signs 07/26/18 07/26/18 07/27/18 20:49 21:26 00:09 Temperature 97.5 F L 97.3 F L Pulse Rate 117 H 107 H Respiratory 16 20 18 Rate Blood Pressure 108/61 121/58 O2 Sat by Pulse 95 94 L Oximetry EKG Findings - EKG Comments: EKG Findings:: EKG obtained at 2128, rate is 113, rhythm is sinus tachycardia, normal axis, normal intervals, [place] 120, QRS 104, QTC [address] elevations or depressions. Medical Decision Making - Medical Decision Making The patient was seen and evaluated, history was obtained from the patient, medical record as well as her surgeon at bedside Patient was evaluated an outside hospital and received IV Flagyl and Levaquin prior to arrival in our emergency department A sepsis workup as well as CT pulmonary embolism study, venous Dopplers and a CT of the abdomen were ordered As and imaging were reviewed There is no acute pulmonary embolism on CT however there does appear to be bilateral interstitial infiltrates suggestive of pneumonia, there is fluid in the abdomen and stranding, there is concern for ileus Patient admitted to Dr. Kelly - Lab Data Result diagrams: 07/26/18 22:23 07/26/18 22:23 Disposition Clinical Impression: HCAP (healthcare-associated pneumonia), Ileus following gastrointestinal surgery Disposition: ADMITTED IP TO THIS HOSP
--- NOTE | 2018-07-26 22:11 | P.GSHP ---
History of Present Illness H&P Date: 07/26/18 CHIEF COMPLAINT: New tachycardia HISTORY OF PRESENT ILLNESS: The patient is a 68-year-old female recently discharged from the hospital less than 48 hours ago. She was transferred to rehab at [facility] after hospitalization of approximately a week following colostomy reversal including lysis of adhesions and parastomal hernia repair. She was on IV antibiotics including levofloxacin and Flagyl during the hospitalization and had done well. She had been tolerating diet prior to discharge including voiding spontaneously and ambulating with physical therapy and occupational therapy. This morning, she had increased drainage from around her ELOY site. Her white blood cell count was checked and found to be over 18, 000 today whereas upon her initial arrival at the facility was normal yesterday. As result of these findings, patient was recommended transfer back to the hospital for further evaluation and assessment. She denies any increased dyspnea. I spoke to her who reports increased swelling of the lower legs bilaterally. The patient has had minimal urine output and only urinated once today. She reports no passage of flatus and no bowel movements. She reports mild increase abdominal pain. No reports of fevers. PAST MEDICAL HISTORY: See list. PAST SURGICAL HISTORY: See list. MEDICATIONS: See list. ALLERGIES: See list. SOCIAL HISTORY: No illicit drug use FAMILY HISTORY: No reports of Crohn's disease or inflammatory bowel disease REVIEW OF ORGAN SYSTEMS: CONSTITUTIONAL: No fevers or chills HEENT: No troubles with vision or hearing. No reports of dysphagia. ENDOCRINE: No reports of thyroid disorders. No diabetes. CARDIOVASCULAR: No heart attack. No chest pain. RESPIRATORY: Previous history of atelectasis. GASTROINTESTINAL: Recent colostomy reversal. Previous history of chronic constipation. NEURO: No reports of stroke or seizure disorders. PSYCH: No depression or suicidal ideation HEMATOLOGIC: No easy bruising or bleeding LYMPHATIC: The patient denies any lumps and bumps around the neck. GENITOURINARY: Denies any blood in urine or increased urinary frequency. MUSCULOSKELETAL: Denies back pain, stiffness or joint arthritis. SKIN: No skin cancer or rash per PHYSICAL EXAM: VITAL SIGNS: Currently stable. GENERAL: Well-developed in no acute distress. HEENT: No sclera icterus. Extraocular movements grossly intact. Moist buccal mucosa. Head is atraumatic, normocephalic. Hears conversational speech. No nasal drainage. NECK: Supple without lymphadenopathy. CHEST: Non-labored respirations and equal bilateral excursions. CARDIOVASCULAR: Tachycardic. 2+ radial pulses. ABDOMEN: Soft. Nondistended. No peritonitis. Minimal diffuse tenderness. Mental light dressing and left lateral dress in dry and intact with minimal serosanguineous shadowing. ELOY site with serous drainage around the tubing including serosanguineous drainage within the tubing. MUSCULOSKELETAL: No clubbing, cyanosis. 2+ bilateral pitting edema. NEUROLOGIC: No focal or lateralizing signs. Cranial nerves II through XII grossly intact. PSYCH: Appropriate affect. Alert and oriented to person, place and time. SKIN: Well perfused. Good skin turgor. LABS: Pending ASSESSMENT: 1. New tachycardia 2. History of leukocytosis 3. History of previous atelectasis 4. Status post colostomy reversal 5. Ileus 6. Urinary retention PLAN: 1. Recommend CT of the abdomen pelvis with increased drainage around ELOY site. 2. Recommend readmission following recent discharge and acute clinical change 3. Resume IV antibiotics levofloxacin and Flagyl 4. Ultrasound of the bilateral lower extremities for lower extremity edema 5. CT of the chest for increased risk for pulmonary embolism following recent hospitalization 6. Lee catheter placement for urinary retention Care plan discussed with patient and her who was on the phone Past Medical History Past Medical History: Hypertension, Osteoarthritis (OA) Additional Past Medical History / Comment(s): HX Low Sodium. HX STOMACH ULCER. PERFORATED DIVERTICULTUM, COLOSTOMY 03/2016. LT KNEE OA PAIN. C/O ABD GAS PAIN FOR FEW DAYS. SPOUSE SAID PATIENT HAD STRESS TEST, PER DR GREY'S REQUEST. History of Any Multi-Drug Resistant Organisms: None Reported Past Surgical History: Bowel Resection, Orthopedic Surgery Additional Past Surgical History / Comment(s): TOTAL RT Knee, RT HIP. PERFORATED DIVERTICULUM W/ COLOSTOMY 03/2016. Past Anesthesia/Blood Transfusion Reactions: No Reported Reaction Additional Past Anesthesia/Blood Transfusion Reaction / Comment(s): Pt states she did receive blood with total knee surgery few weeks ago. Past Psychological History: No Psychological Hx Reported Smoking Status: Never smoker Past Alcohol Use History: None Reported Past Drug Use History: None Reported - Past Family History Father Family Medical History: Coronary Artery Disease (CAD), Myocardial Infarction ([place] ), Renal Disease Additional Family Medical History / Comment(s): Father of renal failure at the age of 72 yrs. Mother Family Medical History: Cancer Additional Family Medical History / Comment(s): Mother had colon cancer and of this at age 67 yrs. Medications and Allergies Home Medications Medication Instructions Recorded Confirmed Type Triamterene-Hctz 37.5-25Mg 1 cap PO DAILY 03/22/16 07/26/18 History [Dyazide 37.5-25 Capsule] Lisinopril [Zestril] 10 mg PO DAILY 07/12/18 07/26/18 History HYDROcodone/APAP 5-325MG [[place] 1 tab PO Q4HR PRN 3 Days #18 tab 07/24/18 Rx 5-325] Levofloxacin [Levaquin] 500 mg PO DAILY #5 tab 07/24/18 07/26/18 Rx metroNIDAZOLE [Flagyl] 500 mg PO TID #15 tab 07/24/18 07/26/18 Rx Allergies Allergy/AdvReac Type Severity Reaction Status Date / Time lactose AdvReac C/O GAS Verified 07/26/18 20:57 Surgical - Exam Vital Signs Temp Pulse Resp BP Pulse Ox 97.5 F L 117 H 16 108/61 95 07/26/18 20:49 07/26/18 20:49 07/26/18 20:49 07/26/18 20:49 07/26/18 20:49
[2018-07-26] MEDS ORDERED: LEVOFLOXACIN 500MG-D5W PMX 500 MG in DEXTROSE/WATER 1 100ML.BAG IVPB STA (22:31)
[2018-07-26] MEDS ORDERED: metroNIDAZOLE-NS PMX 500 MG in SALINE 1 100ML.BAG IVPB STA (22:31)
[2018-07-26 22:34] LABS: Basophils % (A) 0 %; Eosinophils # (A) 0.4 k/uL (0-0.7); Eosinophils % (A) 2 %; HCT 49.5 % (34.0-46.0); Lymphocytes # (A) 0.9 k/uL (1.0-4.8); Lymphocytes % (A) 4 %; MCH 30.2 pg (25.0-35.0); MCHC 32.4 g/dL (31.0-37.0); MCV 93.1 fL (80.0-100.0); Mean Platelet Volume 7.8; Monocytes # (A) 0.7 k/uL (0-1.0); Monocytes % (A) 3 %; Neutrophils # (A) 21.5 k/uL (1.3-7.7); Neutrophils % (A) 91 %; Platelet Count 348 k/uL (150-450); RBC 5.32 m/uL (3.80-5.40); RDW 13.3 % (11.5-15.5); WBC 23.7 k/uL (3.8-10.6)
[2018-07-26 22:36] LABS: HGB 16.1 gm/dL (11.4-16.0)
[2018-07-26 22:42] LABS: INR 1.5 (<1.2); Partial Thromboplastin Time 26.6 sec (22.0-30.0)
[2018-07-26 22:43] LABS: Albumin 2.7 g/dL (3.5-5.0); Calcium 8.3 mg/dL (8.4-10.2); Potassium 3.8 mmol/L (3.5-5.1); Total Bilirubin 1.2 mg/dL (0.2-1.3)
[2018-07-26 23:05] LABS: Appearance,Urine Turbid (Clear); Bilirubin,Urine 1+ (Negative); Blood,Urine Trace (Negative); Budding Yeast,Urine Few /hpf; Color,Urine Dark Brown; Glucose,Urine (UA) Trace (Negative); Ketones,Urine Negative (Negative); Leukocyte Esterase,Urine Large (Negative); Mucus,Urine Many /hpf; Nitrite,Urine Negative (Negative); Protein,Urine 2+ (Negative); RBC,Urine 78 /hpf (0-5); Specific Gravity,Urine 1.026 (1.001-1.035); Squamous Epithelial Cell,Urine 52 /hpf (0-4); Urobilinogen,Urine <2.0 mg/dL (<2.0); WBC,Urine 92 /hpf (0-5)
[2018-07-26] MEDS ORDERED: SODIUM CHLORIDE 0.9% 1,000 ML IV ONE (23:07)
--- NOTE | 2018-07-26 23:54 | CT ---
EXAMINATION TYPE: CT chest angio for PE DATE OF EXAM: 07/26/2018 COMPARISON: None HISTORY: No prior, R/O PE, recent surgery 1 week ago on bowel, [id number] 65ml, due to elevated lab va jordon, DLP:1719.50 CT DLP: 425.60 mGycm Automated exposure control for dose reduction was used. CONTRAST: CT Chest for pulmonary embolism performed with with IV Contrast, patient injected with 65 mL of Isovu e 370. FINDINGS: There are 3-D post processed images. There is some coarsening of interstitial pulmonary markings. There is linear infiltrate and atelectas is at the posterior lung bases. There is mild pleural thickening at the left posterior lung base. The re is probably some fatty infiltration of the liver. There is no pericardial effusion. Heart appears enlarged. I see no filling defects in the pulmonary arteries. Thoracic aorta shows no evidence of aneurysm or d issection. Ascending aorta measures 3 cm. There is no mediastinal adenopathy. There are no hilar mass es. The bony thorax is intact. IMPRESSION: No evidence of pulmonary embolism. Bilateral lower lobe pulmonary infiltrates and atelectasis.
[2018-07-26] MEDS: DEXTROSE 5%-0.9% NACL 1,000 ML with POTASSIUM CHLORIDE 20 MEQ IV SCH ×2 (23:59)
--- NOTE | 2018-07-27 00:11 | CT ---
EXAMINATION TYPE: CT abdomen pelvis w con DATE OF EXAM: 07/26/2018 COMPARISON: 03/21/2016 HISTORY: No prior, recent surgery [address] on bowel CT DLP: 1293.90 mGycm Automated exposure control for dose reduction was used. TECHNIQUE: Helical acquisition of images was performed from the lung bases through the pelvis. CONTRAST: Performed without Oral Contrast and with IV Contrast, patient injected with 65 mL of Isovue 370. FINDINGS: The heart appears enlarged. There is some infiltrate and atelectasis in the left lower lobe with pleu ral thickening. There is mild atelectasis at the right posterior lung base. Liver shows no focal defect. Gallbladder appears normal. Spleen appears normal. There is no evidence of a pancreatic mass. There is no adrenal mass. Kidneys show satisfactory contrast opacification. There is no hydronephrosi s. There is a percutaneous abdominal drainage catheter that has tip in the anterior pelvis. There is fluid stranding in the small bowel mesentery. There is small amount of fluid in the paracolic gutters . There is no retroperitoneal adenopathy. There is no sign of free air. There are multiple distended loops of fluid-filled small bowel. There is distended right colon with fluid levels. There is anastom osis apparently at the sigmoid colon. Bony structures are intact. IMPRESSION: EXTENSIVE FLUID STRANDING IN THE ABDOMEN. FLUID IN THE LEFT PARACOLIC GUTTER. SIGMOID COLON SURGERY. THERE IS BEEN APPARENT RESECTION OF DIVERTICULA DISEASE IN THE SIGMOID COLON COMPARED TO OLD EXAM. NO FREE AIR. INFILTRATE AND ATELECTASIS IN THE LEFT LOWER LOBE. INTESTINAL FLUID LEVELS CONSISTENT WITH MODERATE ILEUS.
--- NOTE | 2018-07-27 00:12 | US ---
EXAMINATION TYPE: US venous doppler duplex LE BI DATE OF EXAM: 07/26/2018 11:52 PM COMPARISON: NONE CLINICAL HISTORY: DVT. Leg swelling SIDE PERFORMED: Bilateral TECHNIQUE: The lower extremity deep venous system is examined utilizing real time linear array sonog ashley with graded compression, doppler sonography and color-flow sonography. VESSELS IMAGED: External Iliac Vein (EIV) Common Femoral Vein Deep Femoral Vein Greater Saphenous Vein * Femoral Vein Popliteal Vein Small Saphenous Vein * Proximal Calf Veins (* superficial vessels) Right Leg: Negative for DVT Left Leg: Negative for DVT, proximal calf veins not visualized due to edema/ Left Antonio's Cyst= 7.5 x 2.9 x 3.7 cm IMPRESSION: No evidence of deep venous thrombosis in both legs. Left side popliteal cyst is noted.
[2018-07-27 03:08] LABS: Basophils % (A) 0 %; Eosinophils # (A) 0.3 k/uL (0-0.7); Eosinophils % (A) 1 %; HCT 47.3 % (34.0-46.0); HGB 14.8 gm/dL (11.4-16.0); Lymphocytes # (A) 0.8 k/uL (1.0-4.8); Lymphocytes % (A) 3 %; MCH 29.8 pg (25.0-35.0); MCHC 31.2 g/dL (31.0-37.0); MCV 95.5 fL (80.0-100.0); Mean Platelet Volume 7.2; Monocytes # (A) 0.7 k/uL (0-1.0); Monocytes % (A) 3 %; Neutrophils # (A) 21.8 k/uL (1.3-7.7); Neutrophils % (A) 92 %; Platelet Count 332 k/uL (150-450); RBC 4.95 m/uL (3.80-5.40); RDW 13.4 % (11.5-15.5); WBC 23.8 k/uL (3.8-10.6)
[2018-07-27 03:22] LABS: Albumin 2.4 g/dL (3.5-5.0); Calcium 8.1 mg/dL (8.4-10.2); Phosphorus 2.8 mg/dL (2.5-4.5); Total Bilirubin 1.2 mg/dL (0.2-1.3); Total Protein 4.7 g/dL (6.3-8.2)
[2018-07-27 03:25] LABS: Potassium 3.9 mmol/L (3.5-5.1)
[2018-07-27 03:26] LABS: Magnesium 1.9 mg/dL (1.6-2.3)
[2018-07-27] MEDS ORDERED: TRIAMTERENE-HCTZ 37.5-25MG 1 EACH CAP PO SCH (09:00)
[2018-07-27] MEDS ORDERED: LISINOPRIL 10 MG TAB PO SCH (09:00)
[2018-07-27] MEDS: ENOXAPARIN 40 MG/0.4 ML SYRINGE SQ SCH ×2 (09:30→09:37)
[2018-07-27] MEDS: PANTOPRAZOLE 40 MG/10 ML VIAL IV SCH (09:30)
[2018-07-27] MEDS: DOCUSATE 100 MG CAP PO SCH ×2 (09:30→21:45)
[2018-07-27] MEDS ORDERED: D5-0.9% NACL WITH KCL 20 MEQ/L 1,000 ML IV SCH (10:00)
[2018-07-27] MEDS: metroNIDAZOLE-NS PMX 500 MG in SALINE 1 100ML.BAG IVPB SCH ×3 (10:58→23:59)
[2018-07-27] MEDS: DEXTROSE 5%-0.9% NACL 1,000 ML with POTASSIUM CHLORIDE 20 MEQ IV SCH ×2 (11:00)
[2018-07-27] MEDS ORDERED: SODIUM CHLORIDE 0.9% 1,000 ML IV ONE ×2 (13:42→15:54)
[2018-07-27] MEDS ORDERED: LEVOFLOXACIN 750MG-D5W PMX 750 MG in DEXTROSE/WATER 1 150ML.BAG IVPB SCH (14:00)
--- NOTE | 2018-07-27 16:07 | P.PN ---
Subjective Progress Note Date: 07/27/18 HISTORY OF PRESENT ILLNESS: The patient is a 68-year-old female who is POD 7 from a colostomy reversal including parastomal hernia repair, extensive lysis of adhesions. She was recently discharged and return back to hospital 48 hours after developing acute dehydration and oliguria. She presented to the hospital yesterday. She presents with severe dehydration including leukocytosis and oliguria hence her admission. She reports feeling fair. No increased abdominal pain. Her family is at bedside. She has history of medical noncompliance with her pulmonary care including incentive spirometry. She denies any passage of flatus. She denies any bowel movements. She does have personal history of previous chronic constipation and hyponatremia as well. She reports moderate thirst. She had poor urine output at her outside facility. She is currently undergoing fluid boluses. PHYSICAL EXAM: GENERAL: Well-developed in no distress. HEENT: No scleral icterus. Extraocular movements grossly intact. Hears conversational speech. No nasal drainage. NECK: Supple without lymphadenopathy. CHEST: Nonlabored respirations with equal bilateral excursions. CARDIOVASCULAR: Regular rate and regular rhythm. Distal 2+ pulses. ABDOMEN: No peritonitis. Soft. Mild distention. Midline dressing and left lower quadrant dressing intact with minimal serosanguineous shadowing. ELOY site dressing change. ELOY serosanguineous. MUSCULOSKELETAL: No clubbing, cyanosis. 2+ bilateral lower extremity edema NEURO: No focal or lateralizing signs. Cranial nerves 2 through 12 grossly within normal limits. PSYCH: Alert and oriented to person, place and time. SKIN: Good skin turgor. Well perfused. ASSESSMENT: 1. Expected postoperative ileus 2. Acute dehydration with oliguria and acute kidney injury 3. Personal history of hyponatremia 4. Status post colostomy reversal PLAN: 1. Additional consultants including nephrology requested with acute kidney injury and baseline history of pre-existing hyponatremia 2. Pulmonary consultation for atelectasis and potential underlying COPD 3. Medical management for medical comorbidities 4. Infectious disease consultation for antibiotic management. Patient had previous perforation in March 2016 demonstrating multiple resistant organisms to penicillin and Unasyn and may benefit from adjustment of antibiotics 5. Full inpatient admission anticipated beyond 2 days 6. Reglan for Perez motility 7. Send ELOY fluid for cultures and tailor antibiotics Objective - Vital Signs Vital signs: Vital Signs Temp 97.8 F 07/27/18 07:56 Pulse 112 H 07/27/18 07:56 Resp 16 07/27/18 07:56 BP 109/75 07/27/18 07:56 Pulse Ox 94 L 07/27/18 07:56 Intake & Output 07/26/18 07/27/18 07/27/18 18:59 06:59 18:59 Output Total 225 Balance -225 Weight 87.997 kg Output: Urine 225 Uretheral (Lee) 225 Other: Voiding Method Bedside Commode Indwelling Catheter - Labs CBC & Chem 7: 07/27/18 02:52 07/27/18 02:52 Labs: Abnormal Lab Results - Last 24 Hours (Table) 07/26/18 07/26/18 07/26/18 Range/Units 22:23 22:23 22:23 WBC 23.7 H (3.8-10.6) k/uL Hgb 16.1 H D (11.4-16.0) gm/dL Hct 49.5 H (34.0-46.0) % Neutrophils # 21.5 H (1.3-7.7) k/uL Lymphocytes # 0.9 L (1.0-4.8) k/uL PT 14.0 H (9.0-12.0) sec INR 1.5 H (<1.2) Sodium (137-145) mmol/L Carbon Dioxide (22-30) mmol/L BUN 31 H (7-17) mg/dL Creatinine 1.24 H (0.52-1.04) mg/dL Glucose 130 H (74-99) mg/dL Plasma Lactic Acid Roel (0.7-2.0) mmol/L Calcium 8.3 L (8.4-10.2) mg/dL Total Protein 5.0 L (6.3-8.2) g/dL Albumin 2.7 L (3.5-5.0) g/dL Urine Appearance (Clear) Urine Protein (Negative) Urine Glucose (UA) (Negative) Urine Blood (Negative) Urine Bilirubin (Negative) Ur Leukocyte Esterase (Negative) Urine RBC (0-5) /hpf Urine WBC (0-5) /hpf Ur Squamous Epith Cells (0-4) /hpf Urine Mucus (None) /hpf Urine Yeast (Budding) (None) /hpf 07/26/18 07/26/18 07/27/18 Range/Units 22:23 22:38 02:52 WBC 23.8 H (3.8-10.6) k/uL Hgb (11.4-16.0) gm/dL Hct 47.3 H (34.0-46.0) % Neutrophils # 21.8 H (1.3-7.7) k/uL Lymphocytes # 0.8 L (1.0-4.8) k/uL PT (9.0-12.0) sec INR (<1.2) Sodium (137-145) mmol/L Carbon Dioxide (22-30) mmol/L BUN (7-17) mg/dL Creatinine (0.52-1.04) mg/dL Glucose (74-99) mg/dL Plasma Lactic Acid Roel 2.2 H* (0.7-2.0) mmol/L Calcium (8.4-10.2) mg/dL Total Protein (6.3-8.2) g/dL Albumin (3.5-5.0) g/dL Urine Appearance Turbid H (Clear) Urine Protein 2+ H (Negative) Urine Glucose (UA) Trace H (Negative) Urine Blood Trace H (Negative) Urine Bilirubin 1+ H (Negative) Ur Leukocyte Esterase Large H (Negative) Urine RBC 78 H (0-5) /hpf Urine WBC 92 H (0-5) /hpf Ur Squamous Epith Cells 52 H (0-4) /hpf Urine Mucus Many H (None) /hpf Urine Yeast (Budding) Few H (None) /hpf 07/27/18 Range/Units 02:52 WBC (3.8-10.6) k/uL Hgb (11.4-16.0) gm/dL Hct (34.0-46.0) % Neutrophils # (1.3-7.7) k/uL Lymphocytes # (1.0-4.8) k/uL PT (9.0-12.0) sec INR (<1.2) Sodium 135 L (137-145) mmol/L Carbon Dioxide 20 L (22-30) mmol/L BUN 31 H (7-17) mg/dL Creatinine 1.06 H (0.52-1.04) mg/dL Glucose 142 H (74-99) mg/dL Plasma Lactic Acid Roel (0.7-2.0) mmol/L Calcium 8.1 L (8.4-10.2) mg/dL Total Protein 4.7 L (6.3-8.2) g/dL Albumin 2.4 L (3.5-5.0) g/dL Urine Appearance (Clear) Urine Protein (Negative) Urine Glucose (UA) (Negative) Urine Blood (Negative) Urine Bilirubin (Negative) Ur Leukocyte Esterase (Negative) Urine RBC (0-5) /hpf Urine WBC (0-5) /hpf Ur Squamous Epith Cells (0-4) /hpf Urine Mucus (None) /hpf Urine Yeast (Budding) (None) /hpf Microbiology - Last 24 Hours (Table) 07/26/18 22:38 Urine Culture - Preliminary Urine,Clean Catch - Imaging and Cardiology CT scan - abdomen: report reviewed, image reviewed CT scan - chest: report reviewed, image reviewed (No abscess identified. Findings consistent with ileus with air within the colon and minimal within the rectum. No pulmonary embolism identified) CT scan - pelvis: report reviewed, image reviewed Assessment and Plan (1) Atelectasis Current Visit: Yes Status: Acute Code(s): J98.11 - ATELECTASIS SNOMED Code (s): 20103312 (2) Acute kidney injury Current Visit: Yes Status: Acute Code(s): N17.9 - ACUTE KIDNEY FAILURE, UNSPECIFIED SNOMED Code(s): 77249029 (3) Dehydration Current Visit: Yes Status: Acute Code(s): E86.0 - DEHYDRATION SNOMED Code( s): 68103504 (4) Leukocytosis Current Visit: Yes Status: Acute Code(s): D72.829 - ELEVATED WHITE BLOOD CELL COUNT, UNSPECIFIED SNOMED Code(s): 818998984 (5) Oliguria Current Visit: Yes Status: Acute Code(s): R34 - ANURIA AND OLIGURIA SNOMED Code(s): 27326654 (6) Ileus following gastrointestinal surgery Current Visit: Yes Status: Acute Code(s): K91.30 - POSTPROC INTESTINAL OBST , UNSP TO PARTIAL VERSUS COMPLETE SNOMED Code(s): 212522841 (7) Morbid (severe) obesity due to excess calories Current Visit: No Status: Acute Code(s): E66.01 - MORBID (SEVERE) OBESITY DUE TO EXCESS CALORIES SNOMED Code(s): 274665339 (8) Sigmoid diverticulitis Current Visit: No Status: Acute Code(s): K57.32 - DVTRCLI OF LG INT W/O PERFORATION OR ABSCESS W/O BLEEDING SNOMED Code(s): 133793442 (9) S/P colostomy takedown Current Visit: Yes Status: Acute Code(s): Z98.890 - OTHER SPECIFIED POSTPROCEDURAL STATES SNOMED Code(s): 87114653710091596 (10) Chronic constipation Current Visit: Yes Status: Acute Code(s): K59.09 - OTHER CONSTIPATION SNOMED Code(s): 158419950 (11) Hyponatremia Current Visit: No Status: Acute Code(s): E87.1 - HYPO-OSMOLALITY AND HYPONATREMIA SNOMED Code(s): 31149674
[2018-07-27] MEDS ORDERED: ONDANSETRON 4 MG/2 ML VIAL IVP PRN (16:22)
[2018-07-27] MEDS: PIPERACILLIN-TAZOBACTAM 3.375 GM in DEXTROSE/WATER 1 50ML.BAG IVPB SCH ×2 (17:18→23:59)
[2018-07-27] MEDS: METOCLOPRAMIDE 5 MG/ML 2 ML VIAL IVP SCH ×2 (17:21→23:59)
[2018-07-27] MEDS: SODIUM CHLORIDE 0.9% 1,000 ML IV SCH (17:43)
[2018-07-28] MEDS: METOCLOPRAMIDE 5 MG/ML 2 ML VIAL IVP SCH ×3 (05:24→18:27)
[2018-07-28] MEDS: metroNIDAZOLE-NS PMX 500 MG in SALINE 1 100ML.BAG IVPB SCH ×3 (05:24→18:27)
[2018-07-28] MEDS: SODIUM CHLORIDE 0.9% 1,000 ML IV SCH ×3 (05:24→20:33)
[2018-07-28 06:56] LABS: Basophils % (A) 0 %; Eosinophils # (A) 0.3 k/uL (0-0.7); Eosinophils % (A) 1 %; HCT 39.4 % (34.0-46.0); HGB 12.7 gm/dL (11.4-16.0); Lymphocytes # (A) 0.4 k/uL (1.0-4.8); Lymphocytes % (A) 2 %; MCH 30.7 pg (25.0-35.0); MCHC 32.2 g/dL (31.0-37.0); MCV 95.3 fL (80.0-100.0); Mean Platelet Volume 7.7; Monocytes # (A) 0.6 k/uL (0-1.0); Monocytes % (A) 3 %; Neutrophils # (A) 21.8 k/uL (1.3-7.7); Neutrophils % (A) 94 %; Platelet Count 334 k/uL (150-450); RBC 4.13 m/uL (3.80-5.40); RDW 13.3 % (11.5-15.5); WBC 23.3 k/uL (3.8-10.6)
[2018-07-28 07:09] LABS: ALT 16 U/L (9-52); AST 18 U/L (14-36); Albumin 2.2 g/dL (3.5-5.0); Alkaline Phosphatase 44 U/L (38-126); Anion Gap 9 mmol/L; Blood Urea Nitrogen 33 mg/dL (7-17); Calcium 7.8 mg/dL (8.4-10.2); Carbon Dioxide 19 mmol/L (22-30); Chloride 113 mmol/L (98-107); Glucose 100 mg/dL (74-99); Potassium 3.7 mmol/L (3.5-5.1); Sodium 141 mmol/L (137-145); Total Bilirubin 0.9 mg/dL (0.2-1.3); Total Protein 4.4 g/dL (6.3-8.2)
--- NOTE | 2018-07-28 08:26 | CONS ---
CONSULTATION DATE OF SERVICE: 07/27/2018. REASON FOR CONSULTATION: Possible infection. HISTORY OF PRESENT ILLNESS: The patient is a 68 -year-old female, who was recently admitted at this facility with the patient did underwent colostomy reversal including lysis of adhesion and parastomal hernia repair. The patient was treated with IV Levaquin and Flagyl and subsequently discharged to [facility] for rehabilitation. The patient apparently on rehab was noticed to have increased drainage around her ELOY tube site and also noticed to have elevated white count of 18,000. With these symptoms, the patient has been sent back to the [facility] ER for further evaluation of the same. The patient apparently was also complaining of some lower abdominal pain and bloating, more of a dull aching pain 4 to 5/10, and no radiation. The patient has felt nauseated but no vomiting and currently has not passed any gas or any bowel movement. With these symptoms, the patient has been evaluated. On arrival to the ER, the patient has been afebrile. The patient noticed to be tachycardic with a heart rate at 107 to 118. The patient is hemodynamically stable with no hypertension. The patient's white count was 23.7 and repeat is 23.8 today. The patient's urine noticed to be positive with large leukocyte esterase of 192 WBC. 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 No free air infiltrate the left lower lobe. The patient was started on Levaquin and Flagyl. Infectious Disease was consulted for further recommendations regarding antibiotic therapy. REVIEW OF SYSTEMS: Constitutional: Positive for weakness, chills but denies any high-grade fever. Eyes: No complaint. ENT no complaint. Respiratory: Mild cough. Cardiovascular: No complaint. Genitourinary as per HPI. GASTROINTESTINAL: As per HPI. Musculoskeletal: No complaint. Integumentary: No complaint. Psychological no complaint. Endocrine no complaint. Neurologic no complaint. PAST MEDICAL HISTORY: Significant for hypertension, osteoarthritis, history of stomach ulcer, perforated diverticulum and colostomy March of 2016, left knee osteoarthritis. PAST SURGICAL HISTORY: Bowel resection, colostomy and recent reversal, total right knee replacement, right hip surgery. SOCIAL HISTORY: No history of smoking, drinking or drug use. , lives with her . FAMILY HISTORY: Father history coronary disease and GA, . Mother history of colon cancer. from it age of 67. ALLERGIES: LACTOSE. MEDICATION: Medications include the patient is currently on Tylenol, Colace, Lovenox, Dilaudid, Fragmin, Lopressor, Levaquin, Flagyl, Zofran, Protonix. PHYSICAL EXAMINATION: Her blood pressure is 133/85 with a pulse of 118, temperature 97.9. She is 94% on room air. General description is an elderly female lying in bed in no distress. No tachypnea or accessory muscles of respiration use. HEENT: Shows no pallor or scleral icterus. Oral mucosa membranes are dry. No pharyngeal erythema or thrush. NECK: Trachea central. No thyromegaly. LUNGS: Unlabored breathing. Clear to auscultation anteriorly. No wheeze or crackles. Heart S1, S2. Tachycardic. ABDOMEN: Soft, mild tenderness. No guarding. No rigidity. ELOY drainage is mostly wet secretion. No blood. EXTREMITIES: No edema of feet. Skin examination: No rash or mass palpable. Neurological: Patient is awake, alert, oriented x3. Mood and affect normal. LABS: Hemoglobin is 14.8, white count 23.8. BUN of 31, creatinine 1.06. Electrolytes have been normal. Liver enzymes are normal. Urine has been positive. DIAGNOSTIC IMPRESSION AND PLAN: Patient admitted to the hospital with leukocytosis, tachycardia, in a patient who apparently did have increasing drainage around the CP site. The CT abdomen and pelvis shows extensive ascites. However, did not mention any perforated bowel or any evidence of any abscess. Source of elevated white count and the tachycardia could be abdominal. However underlying UTI or pneumonia not entirely excluded. The patient has been previously on Levaquin. We will concern for possible quinolone resistant pathogen. PLAN: 1. Discontinue the Levaquin. 2. We will start the patient on Zosyn 3.75 g q.8h and continue the Flagyl. 3. IV fluid. 4. We will follow up on clinical condition and culture closely to further adjust medication if needed. Thank you for this consultation. We will follow the patient along with you. MMODL / IJN: [id number] /
[2018-07-28] MEDS: ACETAMINOPHEN TAB 325 MG TAB PO PRN (08:28)
[2018-07-28] MEDS ORDERED: SODIUM CHLORIDE 0.9% 1,000 ML IV ONE ×2 (09:39→19:27)
[2018-07-28] MEDS ORDERED: SODIUM CHLORIDE 0.45% 1,000 ML IV SCH (09:45)
[2018-07-28] MEDS: PIPERACILLIN-TAZOBACTAM 3.375 GM in DEXTROSE/WATER 1 50ML.BAG IVPB SCH ×2 (10:15→16:51)
--- NOTE | 2018-07-28 11:00 | P.PN ---
Subjective Progress Note Date: 07/28/18 HISTORY OF PRESENT ILLNESS: The patient is a 68-year-old female who is POD 8 from a colostomy reversal including parastomal hernia repair, extensive lysis of adhesions. This morning, patient now complains of new onset acute and severe right lower quadrant abdominal pain. Nursing identified brown drainage around the ELOY which is new. Patient however has been afebrile and is currently on antibiotics. PHYSICAL EXAM: GENERAL: Well-developed in mild distress HEENT: No scleral icterus. Extraocular movements grossly intact. Hears conversational speech. No nasal drainage. NECK: Supple without lymphadenopathy. CHEST: Nonlabored respirations with equal bilateral excursions. CARDIOVASCULAR: Tachycardic. Distal 2+ pulses. ABDOMEN: Increased abdominal distention. Peritonitis on exam. Midline dressing intact. ELOY site with dark yellow brown drainage. MUSCULOSKELETAL: No clubbing, cyanosis. 3+ bilateral lower extremity edema NEURO: No focal or lateralizing signs. Cranial nerves 2 through 12 grossly within normal limits. : Dark urine. PSYCH: Alert and oriented to person, place and time. SKIN: Good skin turgor. Well perfused. ASSESSMENT: 1. New peritonitis on exam 2. s/p colostomy reversal PLAN: 1. Patient has been assessed by critical care team. Postoperative recurrent ICU discussed with Dr. Mckeon 2. I personally contacted the patient's regarding clinical change. We' ll proceed with exploratory laparotomy and placement of colostomy 3. Broad-spectrum antibiotics 4. Disposition pending resolution of peritonitis and recovery after surgery Objective - Vital Signs Vital signs: Vital Signs Temp 99 F 07/28/18 09:40 Pulse 111 H 07/28/18 08:12 Resp 24 07/28/18 08:12 BP 154/101 07/28/18 08:12 Pulse Ox 94 L 07/28/18 08:12 Intake & Output 07/27/18 07/28/18 07/28/18 18:59 06:59 18:59 Intake Total 1800 1200 Output Total 595 490 100 Balance 1205 710 -100 Weight 87.997 kg Intake: IV 1800 D5-0.9% NaCl with KCl 20 800 Meq/l 1,000 ml @ 100 mls/ hr IV .Q10H [facility] Rx#: [id number] Sodium Chloride 0.9% 1, 1000 000 ml @ 999 mls/hr IV . Q1H1M ONE Rx#:[id number] Intake, IV Titration 1200 Amount Sodium Chloride 0.9% 1, 1200 000 ml @ 100 mls/hr IV . Q10H [facility] Rx#:[id number] Output: Drainage 30 15 Right Lower Abdomen 30 15 Urine 565 475 100 Uretheral (Lee) 365 100 Other: Voiding Method Indwelling Catheter Indwelling Catheter - Labs CBC & Chem 7: 07/28/18 06:28 07/28/18 06:28 Labs: Abnormal Lab Results - Last 24 Hours (Table) 07/28/18 07/28/18 Range/Units 06:28 06:28 WBC 23.3 H (3.8-10.6) k/uL Neutrophils # 21.8 H (1.3-7.7) k/uL Lymphocytes # 0.4 L (1.0-4.8) k/uL Chloride 113 H (98-107) mmol/L Carbon Dioxide 19 L (22-30) mmol/L BUN 33 H (7-17) mg/dL Glucose 100 H (74-99) mg/dL Calcium 7.8 L (8.4-10.2) mg/dL Total Protein 4.4 L (6.3-8.2) g/dL Albumin 2.2 L (3.5-5.0) g/dL Microbiology - Last 24 Hours (Table) 07/27/18 13:45 Gram Stain - Preliminary [facility] Body Fluid Culture - Preliminary 07/26/18 22:23 Blood Culture - Preliminary Blood No Growth after 24 hours Assessment and Plan (1) Atelectasis Current Visit: Yes Status: Acute Code(s): J98.11 - ATELECTASIS SNOMED Code (s): 52098691 (2) Acute kidney injury Current Visit: Yes Status: Acute Code(s): N17.9 - ACUTE KIDNEY FAILURE, UNSPECIFIED SNOMED Code(s): 53019513 (3) Dehydration Current Visit: Yes Status: Acute Code(s): E86.0 - DEHYDRATION SNOMED Code( s): 82671719 (4) Leukocytosis Current Visit: Yes Status: Acute Code(s): D72.829 - ELEVATED WHITE BLOOD CELL COUNT, UNSPECIFIED SNOMED Code(s): 753716085 (5) Oliguria Current Visit: Yes Status: Acute Code(s): R34 - ANURIA AND OLIGURIA SNOMED Code(s): 90995802 (6) Ileus following gastrointestinal surgery Current Visit: Yes Status: Acute Code(s): K91.30 - POSTPROC INTESTINAL OBST , UNSP TO PARTIAL VERSUS COMPLETE SNOMED Code(s): 821576703 (7) Morbid (severe) obesity due to excess calories Current Visit: No Status: Acute Code(s): E66.01 - MORBID (SEVERE) OBESITY DUE TO EXCESS CALORIES SNOMED Code(s): 335196530 (8) Sigmoid diverticulitis Current Visit: No Status: Acute Code(s): K57.32 - DVTRCLI OF LG INT W/O PERFORATION OR ABSCESS W/O BLEEDING SNOMED Code(s): 737344965 (9) S/P colostomy takedown Current Visit: Yes Status: Acute Code(s): Z98.890 - OTHER SPECIFIED POSTPROCEDURAL STATES SNOMED Code(s): 83142207830340295 (10) Chronic constipation Current Visit: Yes Status: Acute Code(s): K59.09 - OTHER CONSTIPATION SNOMED Code(s): 774873974 (11) Hyponatremia Current Visit: No Status: Acute Code(s): E87.1 - HYPO-OSMOLALITY AND HYPONATREMIA SNOMED Code(s): 44911685 (12) Peritonitis Current Visit: Yes Status: Acute Code(s): K65.9 - PERITONITIS, UNSPECIFIED SNOMED Code(s): 19471458
[2018-07-28] MEDS: METOPROLOL TARTRATE 25 MG TAB PO SCH ×2 (11:14→20:09)
[2018-07-28] MEDS: PANTOPRAZOLE 40 MG/10 ML VIAL IV SCH (11:15)
[2018-07-28] MEDS: DOCUSATE 100 MG CAP PO SCH (11:16)
[2018-07-28] MEDS: ENOXAPARIN 40 MG/0.4 ML SYRINGE SQ SCH (11:16)
[2018-07-28] MEDS ORDERED: NALOXONE 0.4 MG/ML 1 ML VIAL IV PRN (12:02)
[2018-07-28 12:24] LABS: Magnesium 1.9 mg/dL (1.6-2.3)
[2018-07-28] MEDS ORDERED: SUCCINYLCHOLINE CHLORIDE 100 MG/5 ML SYR IV ONE (12:26)
[2018-07-28] MEDS ORDERED: ONDANSETRON 4 MG/2 ML VIAL ONE (12:26)
[2018-07-28] MEDS ORDERED: NEOSTIGMINE 1 MG/ML 10 ML VIAL ONE (12:26)
[2018-07-28] MEDS ORDERED: DEXAMETHASONE SOD PHOS (MDV) 100 MG/10 ML VIAL ONE (12:26)
[2018-07-28] MEDS ORDERED: GLYCOPYRROLATE 0.2 MG/ML 2 ML VIAL ONE (12:26)
[2018-07-28] MEDS ORDERED: VECURONIUM 10 MG VIAL IV ONE (12:26)
[2018-07-28] MEDS ORDERED: LIDOCAINE 1% INJ 10MG/ML (20 ML MDV) ONE (12:26)
[2018-07-28] MEDS ORDERED: PROPOFOL 10 MG/ML 20 ML VIAL IV ONE (12:26)
[2018-07-28] MEDS ORDERED: fentaNYL (PF) 50 MCG/ML 2 ML AMP ONE (12:26)
[2018-07-28] MEDS ORDERED: LACTATED RINGERS 1,000 ML IV ONE ×6 (12:26→14:34)
[2018-07-28] MEDS ORDERED: IV FLUID CONTINUATION 600 ML IV ONE (12:26)
--- NOTE | 2018-07-28 12:46 | P.CNPUL ---
History of Present Illness Consult date: 07/28/18 Requesting physician: Moon Grey Reason for consult: dyspnea, other Chief complaint: Acute abdominal pain, fever, chills, shortness of breath History of present illness: This is a 68-year-old white female patient who was brought to the emergency department via ambulance from [facility] for evaluation of acute abdominal pain in the right lower quadrant. Patient had a reversal of her colostomy last week by Dr. Preciado in this hospital, she was doing well in the postoperative period, and subsequently was discharged to [facility]. 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 Patient had a ELOY drain placed within the right lower abdomen. Originally patient had colostomy placed for history of perforated diverticulitis in 2016. Postop patient was treated with Levaquin and Flagyl for a history of contaminated case CT of abdomen with contrast showed some fluid stranding in the small bowel mesentery, and some fluid in the pericolic gutters, no sign of free air, multiple distended loops of fluid-filled small bowel, consistent with moderate ileus. Labs showed leukocytosis with a PVC of 23.7, hemoglobin of 16.1, INR 1.5, BUN of 31, creatinine 1.24, was normal lactic acid was 2.2, LFTs normal, urinalysis showed evidence of large amount of leuks, many white and red blood cells, and yeast. In the emergency department there was some yellow and brown discharge from around her ELOY drain which was sent for cultures. Patient states she had fever and chills. He states she has not been passing any stools, but she has been taking an oral intake. She noted worsening edema of her bilateral lower extremities. Denies any nausea or vomiting. CT angios was obtained, which was negative for any evidence of pulmonary embolism, and showed some strandy bilateral atelectasis. Patient was given a total of 3 L of IV fluids, she was started on Zosyn in addition to Flagyl, and Levaquin was discontinued. She remains afebrile, she is tachycardic with a heart rate in the 110's. Blood pressure is 154/101, she is still having tenderness in the right lower quadrant around the ELOY insertion site. Bowel sounds are active. Surgical incisions are covered with surgical dressings with shadowing of old blood on them. Lung sounds are positive for a few rhonchi, but no wheezing. Patient only has occasional cough with production of yellowish sputum. Patient is diaphoretic. Her urine output is low, only 30 mL an hour after fluid boluses, and her urine color is light brown. We spoke to Dr. Preciado, and patient is suspected to have dehydration elated to combination of moderate ileus and possibility of peritonitis. It was decided to give the patient additional 1 L bolus of 0.9 normal saline, obtain lactic acid. And patient is scheduled surgery sometime today by Dr. Preciado for reexploration. Review of Systems All systems: negative Constitutional: Denies chills, Denies fever Eyes: denies blurred vision, denies pain Ears, nose, mouth and throat: Denies headache, Denies sore throat Cardiovascular: Reports edema, Denies chest pain, Denies shortness of breath Respiratory: Reports dyspnea, Denies cough Gastrointestinal: Reports abdominal pain, Reports change in bowel habits, Denies diarrhea, Denies nausea, Denies vomiting Genitourinary: Denies dysuria, Denies hematuria Musculoskeletal: Denies myalgias Integumentary: Denies pruritus, Denies rash Neurological: Denies numbness, Denies weakness Psychiatric: Denies anxiety, Denies depression Endocrine: Denies fatigue, Denies weight change Past Medical History Past Medical History: Hypertension, Osteoarthritis (OA) Additional Past Medical History / Comment(s): HX Low Sodium. HX STOMACH ULCER. PERFORATED DIVERTICULTUM, COLOSTOMY 03/2016. LT KNEE OA PAIN. C/O ABD GAS PAIN FOR FEW DAYS. SPOUSE SAID PATIENT HAD STRESS TEST, PER DR GREY'S REQUEST. History of Any Multi-Drug Resistant Organisms: None Reported Past Surgical History: Bowel Resection, Orthopedic Surgery Additional Past Surgical History / Comment(s): TOTAL RT Knee, RT HIP. PERFORATED DIVERTICULUM W/ COLOSTOMY 03/2016. Past Anesthesia/Blood Transfusion Reactions: No Reported Reaction Additional Past Anesthesia/Blood Transfusion Reaction / Comment(s): Pt states she did receive blood with total knee surgery few weeks ago. Past Psychological History: No Psychological Hx Reported Smoking Status: Never smoker Past Alcohol Use History: None Reported Past Drug Use History: None Reported - Past Family History Father Family Medical History: Coronary Artery Disease (CAD), Myocardial Infarction ([place] ), Renal Disease Additional Family Medical History / Comment(s): Father of renal failure at the age of 72 yrs. Mother Family Medical History: Cancer Additional Family Medical History / Comment(s): Mother had colon cancer and of this at age 67 yrs. Medications and Allergies Home Medications Medication Instructions Recorded Confirmed Type Triamterene-Hctz 37.5-25Mg 1 cap PO DAILY 03/22/16 07/26/18 History [Dyazide 37.5-25 Capsule] Lisinopril [Zestril] 10 mg PO DAILY 07/12/18 07/26/18 History HYDROcodone/APAP 5-325MG [Irving 1 tab PO Q4HR PRN 3 Days #18 tab 07/24/18 Rx 5-325] Levofloxacin [Levaquin] 500 mg PO DAILY #5 tab 07/24/18 07/26/18 Rx metroNIDAZOLE [Flagyl] 500 mg PO TID #15 tab 07/24/18 07/26/18 Rx Allergies Allergy/AdvReac Type Severity Reaction Status Date / Time lactose AdvReac Unknown C/O GAS Verified 07/27/18 05:34 Physical Exam Vitals: Vital Signs Temp Pulse Resp BP Pulse Ox 07/28/18 09:40 99 F 07/28/18 09:39 98.3 F 07/28/18 09:32 99 F 07/28/18 08:12 98.4 F 111 H 24 154/101 94 L 07/28/18 00:52 98.7 F 112 H 18 151/88 95 07/27/18 21:36 97.9 F 118 H 18 133/85 94 L 07/27/18 13:39 97.5 F L 112 H 16 131/80 93 L Intake and Output 07/27/18 07/28/18 07/28/18 22:59 06:59 14:59 Intake Total 400 800 Output Total 290 490 100 Balance 110 310 -100 Intake: Intake, IV Titration 400 800 Amount Sodium Chloride 0.9% 1, 400 800 000 ml @ 100 mls/hr IV . Q10H [facility] Rx#:[id number] Output: Drainage 15 Right Lower Abdomen 15 Urine 290 475 100 Uretheral (Lee) 90 100 Other: Voiding Method Indwelling Catheter Indwelling Catheter Weight 87.997 kg GENERAL EXAM: Alert, pleasant, 68-year-old white female, diaphoretic, mildly dyspneic comfortable in no apparent distress. HEAD: Normocephalic/atraumatic. EYES: Normal reaction of pupils, equal size. Conjunctiva pink, sclera white. NOSE: Clear with pink turbinates. THROAT: No erythema or exudates. NECK: No masses, no JVD, no thyroid enlargement, no adenopathy. CHEST: No chest wall deformity. Symmetrical expansion. LUNGS: Equal air entry with no crackles, wheeze, a few rhonchi or dullness. CVS: Regular rate and rhythm, normal S1 and S2, no gallops, no murmurs, no rubs. Patient is tachycardic ABDOMEN: Soft, tender in the right lower quadrant, mildly distended, No hepatosplenomegaly, normal bowel sounds, and there is guarding of the abdomen in the right lower quadrant. There is a ELOY drain with small amount of serosanguineous output, small amount of greenish drainage noted on the gauze at the ELOY insertion site. Surgical incisions over left lower quadrant and in the mid abdomen covered with surgical dressings, with evidence of old sanguineous drainage on them. EXTREMITIES: No clubbing, 1+ edema edema in bilateral lower extremities, no cyanosis, 2+ pulses and upper and lower extremities. MUSCULOSKELETAL: Muscle strength and tone normal. SPINE: No scoliosis or deformity SKIN: No rashes CENTRAL NERVOUS SYSTEM: Alert and oriented -3. No focal deficits, tone is normal in all 4 extremities. PSYCHIATRIC: Alert and oriented -3. Appropriate affect. Intact judgment and insight. Results - Laboratory Findings CBC and BMP: 07/28/18 06:28 07/28/18 06:28 PT/INR, D-dimer PT 14.0 sec (9.0-12.0) H 07/26/18 22:23 INR 1.5 (<1.2) H 07/26/18 22:23 Abnormal lab findings: Abnormal Labs 07/26/18 07/26/18 07/26/18 22:23 22:23 22:23 WBC 23.7 H Hgb 16.1 H D Hct 49.5 H Neutrophils # 21.5 H Lymphocytes # 0.9 L PT 14.0 H INR 1.5 H Sodium Chloride Carbon Dioxide BUN 31 H Creatinine 1.24 H Glucose 130 H Plasma Lactic Acid Roel Calcium 8.3 L Total Protein 5.0 L Albumin 2.7 L Urine Appearance Urine Protein Urine Glucose (UA) Urine Blood Urine Bilirubin Ur Leukocyte Esterase Urine RBC Urine WBC Ur Squamous Epith Cells Urine Mucus Urine Yeast (Budding) 07/26/18 07/26/18 07/27/18 22:23 22:38 02:52 WBC 23.8 H Hgb Hct 47.3 H Neutrophils # 21.8 H Lymphocytes # 0.8 L PT INR Sodium Chloride Carbon Dioxide BUN Creatinine Glucose Plasma Lactic Acid Roel 2.2 H* Calcium Total Protein Albumin Urine Appearance Turbid H Urine Protein 2+ H Urine Glucose (UA) Trace H Urine Blood Trace H Urine Bilirubin 1+ H Ur Leukocyte Esterase Large H Urine RBC 78 H Urine WBC 92 H Ur Squamous Epith Cells 52 H Urine Mucus Many H Urine Yeast (Budding) Few H 07/27/18 07/28/18 07/28/18 02:52 06:28 06:28 WBC 23.3 H Hgb Hct Neutrophils # 21.8 H Lymphocytes # 0.4 L PT INR Sodium 135 L Chloride 113 H Carbon Dioxide 20 L 19 L BUN 31 H 33 H Creatinine 1.06 H Glucose 142 H 100 H Plasma Lactic Acid Roel Calcium 8.1 L 7.8 L Total Protein 4.7 L 4.4 L Albumin 2.4 L 2.2 L Urine Appearance Urine Protein Urine Glucose (UA) Urine Blood Urine Bilirubin Ur Leukocyte Esterase Urine RBC Urine WBC Ur Squamous Epith Cells Urine Mucus Urine Yeast (Budding) - Diagnostic Findings Chest x-ray: report reviewed, image reviewed Additional studies: CT angios results reviewed, CT abdomen Assessment and Plan Plan: Assessment: #1. Acute sepsis likely related to underlying peritonitis #2. Acute kidney injury related to the above #3. Dehydration due to moderate ileus and sepsis #4. Leucocytosis #5. Mild lactic acidosis #6. Recent colostomy reversal on 07/19/2018 with peritoneal lavage, and patient was sent to the subacute rehab on Levaquin and Flagyl for evidence of contaminated case #7. History of perforated diverticulitis with colon resection and colostomy placement in 2016 #8. Dyspnea , related to intra-abdominal sepsis obesity and abdominal pain, CT angios was negative for any evidence of PE, but showed strandy atelectasis at bilateral bases #9. Oliguria #10. Obesity #11. Acute urinary tract infection #12. Hypertension Plan: Case was discussed with surgery, patient was given addition 1 L IV fluid bolus, lactic acid has been ordered, and resulted in the normal value. Continue broad spectrum antibiotics, patient has been scheduled for surgery by Dr. Preciado sometime today for suspected underlying peritonitis. Patient has a high risk for postoperative complications related to sepsis, and she may need to be transferred to the intensive care for management. NT GI and DVT prophylaxis, patient remains nothing by mouth, she has been fluid resuscitated, and her lactic acid has improved. We'll continue to closely follow I performed a history & physical examination of the patient and discussed their management with my nurse practitioner, Lucy Paris. I reviewed the nurse practitioner's note and agree with the documented findings and plan of care. Lung sounds are positive for basilar crackles. The findings and the impression was discussed with the patient. I attest to the documentation by the nurse practitioner. Time with Patient: Greater than 30
--- NOTE | 2018-07-28 13:39 | P.PN ---
Progress Note - Text Patient is a in OR came in to evaluate the patient. will be evaluated tomorrow
[2018-07-28 16:41] LABS: Glucose,Whole Blood 93 mg/dL (75-99)
[2018-07-28] MEDS ORDERED: ACETAMINOPHEN IV (For NPO) 1,000 MG in EMPTY BAG 1 BAG IVPB ONE (17:00)
--- NOTE | 2018-07-28 17:10 | P.OP ---
Date of Procedure: 07/28/18 Description of Procedure: SURGEON: NICOLAS GREY MD PREOPERATIVE DIAGNOSES: 1. Previous history of perforated viscus from sigmoid diverticulitis with resultant descending colostomy 2. Status post colostomy reversal 3. Peritonitis 4. Dehydration 5. Hypertensive heart disease 6. Morbid obesity due to excess calories, BMI 36.7 7. Tachycardia 8. Leukocytosis 9. Systemic inflammatory response syndrome 10. Atelectasis 11. Bilateral lower extremity edema 12. Chronic hyponatremia 13. Acute tubular necrosis due to dehydration POSTOPERATIVE DIAGNOSES: 1. Previous history of perforated viscus from sigmoid diverticulitis with resultant descending colostomy 2. Status post colostomy reversal 3. Fecal peritonitis 4. Dehydration 5. Hypertensive heart disease 6. Morbid obesity due to excess calories, BMI 36.7 7. Tachycardia 8. Leukocytosis 9. Systemic inflammatory response syndrome 10. Atelectasis 11. Bilateral lower extremity edema 12. Chronic hyponatremia 13. Acute tubular necrosis due to dehydration 14. Perforated viscus ANESTHESIA: General ESTIMATED BLOOD LOSS: 100 mL. SPECIMENS REMOVED: Descending colon, aerobic and anaerobic culture peritoneal fluid, omentum COMPLICATIONS: None. OPERATION: 1. Exploratory laparotomy with descending colon resection for perforation 2. Descending colostomy. 3. Devitalized rectal stump. 4. Oma's procedure for perforated descending colon 5. Peritoneal lavage over 10 liters 6. Placement of intraabdominal #19 Eder drain along the right upper quadrant 7. Placement of intraabdominal #19 Eder drain along the right lower pelvis. 8. Placement of customizable PREVENA wound VAC system 9. Resection of omentum FINDINGS: 1. New perforation 4-cm proximal to colorectal anastomosis 2. Fecal peritonitis over 300 mL with fresh recent rupture 3. Diffuse fecal spillage along the bilateral upper abdomen, right lower quadrant, and contained small bowel interloop fluid collection INDICATIONS: The patient is a 68-year-old female who is postoperative day #9 status post descending colostomy reversal including extensive lysis of adhesions and repair of a parastomal hernia. Prior to discharge to rehab facility, patient was hemodynamics stable. She had no signs of infection. She then returned 48 hours later with new onset tachycardia, leukocytosis and dehydration. This morning however she reports new onset acute right lower quadrant abdominal pain. Clinical exam consistent with peritonitis. Benefits and risks of surgical intervention including replacement of her colostomy was described. All questions were answered and risks were reviewed with the patient including possibility of prolonged ventilatory status. Informed consent was obtained. DESCRIPTION: Patient was brought to the operating room after moderate IV hydration. She was started on IV antibiotics as well. The patient was placed in supine position whereby general induction was performed. Abdomen had been prepped and draped in the standard sterile fashion with placement of nasogastric tube. Lee catheter was present from the floor . Ioban draping was also placed to minimize any contamination to the skin. Skin chon were removed along the midline. Her previous ELOY drain was placed underneath Ioban dressing. Next, prior midline incision was reopened using hemostat. The subcutaneous tissue was without infection. The fascia was intact. The 0-Prolene's were cut using scissors and the abdomen was entered. No free spillage of peritoneal content was identified until attention was brought to the right lower quadrant. Immediately fresh enteric content was suctioned with anaerobic and aerobic cultures sent. No defined abscess was identified within the abdomen consistent with a very fresh perforation from the patient's clinical status change this morning. The transverse colon was moderately dilated. Adhesions were gently taken down using digital palpation without injury to the small bowel. A contained fluid collection was found between the small bowel of the distal jejunal mesentery and suctioned. For complete exposure of the pelvis, a universal retractor system was placed. The small bowel was toweled off along the upper abdomen. The colorectal anastomosis was intact. Three (3) centimeters proximal to the anastomosis, a fresh perforation of the descending colon was identified unrelated to her colorectal anastomosis. The descending colon was resected using purple loads of Covidien tri-stapler. Contour stapler was also used to resect just above the anastomosis. The omentum was densely adherent into the pelvis and resected to allow for her descending colostomy creation. The highly redundant transverse colon and descending colon was prepared and mobilized for her colostomy. The mesentery was thickened and addressed using Enseal LigaSure device. Specimens passed off include descending colon as well as omentum. Hemostasis was checked with electro Bovie cautery including Enseal. Peritoneal lavage was performed as fluid collection was confirmed along the bilateral upper abdomen including lower abdomen. Over 10-12 L of warm normal saline solution was used until the aspirant was clear. Her previous ELOY drain along the right lower quadrant was exchanged for a fresh ELOY tubing with extended length into the deep pelvis over the resected colon site. Separately, another drain was positioned along the right upper abdomen under liver and extending to the left upper abdomen. Next, attention was brought to the delivering and creating of the descending colostomy. A point along the abdominal wall and rectus muscle was selected for the colostomy. Trice was used to elevate the skin and a #10 blade was taken across in tangential manner to create the skin defect of approximately quarter-size. The fat of the skin was mobilized using a small rich. The rectus muscle was identified and scored with a cruciate scoring of electro- Bovie cautery. Next, using a muscle-splitting technique with a hemostat, the peritoneum was entered. The peritoneum was widened such that 3 fingerbreadths could easily pass for delivering and evaginating the descending portion of the colon through the skin. Next, the ELOY drains were tacked along the skin using a 2-0 nylon. JPs were attached to bulb suction. The midline incision was closed using double-stranded 0 PDS. Next, the subcutaneous tissue was copiously irrigated with normal saline and hydrogen peroxide. For the rest of the incision, stainless steel skin chon were applied. The midline incision was covered using PREVENA wound VAC and attention was brought to maturation of the colostomy. The staple edge was divided and removed. Next quadrant sutures at 12 o'clock, 3 o'clock, 6 o'clock, and 9 o'clock position was made using serosa and dermal bites using 3-0 Vicryl. Running suture 4-0 Monocryl was placed for the colostomy mucosa to dermal bites. Hemostasis was checked. A Coloplast was then placed. At the end of the procedure, needle, sponge, and instrument count had been verified correct by medical or surgical instrument maker. The patient's family was updated on level of care.
--- NOTE | 2018-07-28 17:35 | P.CONS ---
History of Present Illness - History of Present Illness This is a pleasant 68 years old female with past medical history of hypertension , hypernatremia, peptic ulcer, perforated diverticulum status post colostomy on 03/2016.. When I saw the patient in the PACU postop she was sleepy and could not provide information was taken from staff and medical records. Patient originally was transferred from [facility] for acute abdominal pain in the right upper quadrant. Patient had a reversal of her colostomy last week by Dr. Preciado in this hospital, she was doing well in the postoperative period, and subsequently was discharged to [facility]. However about 2 days ago, an increased drainage from around her ELOY site was noted. Her white blood cell count was checked and found to be over 18,000. As result of these findings, patient was recommended transfer back to the hospital for further evaluation and assessment. Also patient on admission was noticed to have look swollen and decreased urine, mostly prerenal acute kidney injury which is resolved now. Infectious disease has been requested and evaluated the patient. Patient is on Zosyn and Flagyl and IV fluids. Pulmonary team R following the case as well. CT angiogram of the chest showing no PE and possible bilateral lower lobe pulmonary infiltrates and atelectasis as per radiologist report. CT of the abdomen showing some fluid in the paracolic gutters and fluid stranding in this small bowel mesentery. No free air. On 07/28/2018 (the day of this note) patient underwent exploratory laparotomy with sigmoid colostomy, with new perforation 4 cm proximal to the colorectal anastomosis and fecal peritonitis and diffuse fecal spillage along the bilateral upper abdomen, right lower quadrant and contained small bowel interloop fluid collection. Review of Systems n/a as patient is drowsy postoperative Past Medical History Past Medical History: Hypertension, Osteoarthritis (OA) Additional Past Medical History / Comment(s): HX Low Sodium. HX STOMACH ULCER. PERFORATED DIVERTICULTUM, COLOSTOMY 03/2016. LT KNEE OA PAIN. C/O ABD GAS PAIN FOR FEW DAYS. SPOUSE SAID PATIENT HAD STRESS TEST, PER DR GREY'S REQUEST. History of Any Multi-Drug Resistant Organisms: None Reported Past Surgical History: Bowel Resection, Orthopedic Surgery Additional Past Surgical History / Comment(s): TOTAL RT Knee, RT HIP. PERFORATED DIVERTICULUM W/ COLOSTOMY 03/2016. Past Anesthesia/Blood Transfusion Reactions: No Reported Reaction Additional Past Anesthesia/Blood Transfusion Reaction / Comm: Pt states she did receive blood with total knee surgery few weeks ago. Past Psychological History: No Psychological Hx Reported Smoking Status: Never smoker Past Alcohol Use History: None Reported Past Drug Use History: None Reported - Past Family History Father Family Medical History: Coronary Artery Disease (CAD), Myocardial Infarction ([place] ), Renal Disease Additional Family Medical History / Comment(s): Father of renal failure at the age of 72 yrs. Mother Family Medical History: Cancer Additional Family Medical History / Comment(s): Mother had colon cancer and of this at age 67 yrs. Medications and Allergies Home Medications Medication Instructions Recorded Confirmed Type Triamterene-Hctz 37.5-25Mg 1 cap PO DAILY 03/22/16 07/26/18 History [Dyazide 37.5-25 Capsule] Lisinopril [Zestril] 10 mg PO DAILY 07/12/18 07/26/18 History HYDROcodone/APAP 5-325MG [[place] 1 tab PO Q4HR PRN 3 Days #18 tab 07/24/18 Rx 5-325] Levofloxacin [Levaquin] 500 mg PO DAILY #5 tab 07/24/18 07/26/18 Rx metroNIDAZOLE [Flagyl] 500 mg PO TID #15 tab 07/24/18 07/26/18 Rx Allergies Allergy/AdvReac Type Severity Reaction Status Date / Time lactose AdvReac Unknown C/O GAS Verified 07/27/18 05:34 Physical Exam Vitals: Vital Signs Temp Pulse Resp BP BP Pulse Ox 07/28/18 16:40 72 18 123/61 96 07/28/18 16:30 76 20 125/61 97 07/28/18 16:14 81 22 125/62 98 07/28/18 15:59 97.2 F L 92 16 113/55 97 07/28/18 09:40 99 F 07/28/18 09:39 98.3 F 07/28/18 09:32 99 F 07/28/18 08:12 98.4 F 111 H 24 154/101 94 L 07/28/18 00:52 98.7 F 112 H 18 151/88 95 07/27/18 21:36 97.9 F 118 H 18 133/85 94 L Intake and Output 07/28/18 07/28/18 07/28/18 06:59 14:59 22:59 Intake Total 800 3100 100 Output Total 490 100 250 Balance 310 3000 -150 Intake: IV 3100 100 Intake, IV Titration 800 Amount Sodium Chloride 0.9% 1, 800 000 ml @ 100 mls/hr IV . Q10H [facility] Rx#:[id number] Output: Drainage 15 Right Lower Abdomen 15 Urine 475 100 150 Uretheral (Lee) 100 Estimated Blood Loss 100 Other: Voiding Method Indwelling Catheter Weight 87.997 kg -GENERAL: The patient is drowsy and mildly confused from recent surgery from today, not in any acute distress. Well developed, well nourished. HEENT: Pupils are round and equally reacting to light. EOMI. No scleral icterus. No conjunctival pallor. Normocephalic, atraumatic. No pharyngeal erythema. No thyromegaly. CARDIOVASCULAR: S1 and S2 present. No murmurs, rubs, or gallops. PULMONARY: Chest is clear to auscultation, no wheezing or crackles. ABDOMEN: Soft, nontender, nondistended, normoactive bowel sounds. No palpable organomegaly. MUSCULOSKELETAL: No joint swelling or deformity. EXTREMITIES: No cyanosis, clubbing, or pedal edema. NEUROLOGICAL: Gross neurological examination did not reveal any focal deficits. SKIN: No rashes. Results CBC & Chem 7: 07/28/18 06:28 07/28/18 06:28 Labs: Abnormal Lab Results - Last 24 Hours (Table) 07/28/18 07/28/18 Range/Units 06:28 06:28 WBC 23.3 H (3.8-10.6) k/uL Neutrophils # 21.8 H (1.3-7.7) k/uL Lymphocytes # 0.4 L (1.0-4.8) k/uL Chloride 113 H (98-107) mmol/L Carbon Dioxide 19 L (22-30) mmol/L BUN 33 H (7-17) mg/dL Glucose 100 H (74-99) mg/dL Calcium 7.8 L (8.4-10.2) mg/dL Total Protein 4.4 L (6.3-8.2) g/dL Albumin 2.2 L (3.5-5.0) g/dL Microbiology - Last 24 Hours (Table) 07/27/18 13:45 Gram Stain - Preliminary [facility] Body Fluid Culture - Preliminary 07/26/18 22:23 Blood Culture - Preliminary Blood No Growth after 24 hours Assessment and Plan Assessment: Perforated colon , status post exploratory laparotomy Fecal peritonitis Dehydration hypertension h/o peptic ulcer perforated diverticulum status post colostomy on 03/2016 Plan: This is a pleasant 68 years old female presents with perforated viscus and:. Continue same treatment. Continue symptomatic treatment. Follow-up infectious disease recommendation and broad-spectrum antibiotics. Follow-up pulmonary recommendation. Continue with antibiotics and IV fluids. Follow up the culture results Monitor labs and vitals. Pain management. DVT and GI prophylaxis. Further recommendations is based on the clinical course of the patient DVT prophylaxis:On Lovenox GI prophylaxis: Protonix PT/OT: Pending Prognosis is guarded
[2018-07-28 18:54] LABS: Anion Gap 10 mmol/L; Blood Urea Nitrogen 33 mg/dL (7-17); Calcium 7.7 mg/dL (8.4-10.2); Carbon Dioxide 17 mmol/L (22-30); Chloride 115 mmol/L (98-107); Glucose 105 mg/dL (74-99); Magnesium 1.8 mg/dL (1.6-2.3); Sodium 142 mmol/L (137-145)
[2018-07-28 19:04] LABS: Potassium 5.4 mmol/L (3.5-5.1)
[2018-07-28] MEDS ORDERED: Magnesium Replacement Protocol 1 EACH MISC MISCELLANE PRN (19:27)
[2018-07-28] MEDS: MAGNESIUM SULFATE-D5W PMX 1 GM in DEXTROSE/WATER 1 100ML.BAG IVPB SCH ×2 (20:11→21:17)
[2018-07-28] MEDS ORDERED: LEVOFLOXACIN 500MG-D5W PMX 500 MG in DEXTROSE/WATER 1 100ML.BAG IVPB SCH (22:45)
--- NOTE | 2018-07-28 23:17 | PN ---
PROGRESS NOTE DATE OF SERVICE: 07/28/2018. REASON FOR FOLLOWUP: Perforated viscus with secondary peritonitis. INTERVAL HISTORY: The patient this morning was noticed to have stool like material coming thru her ELOY with concern for possible perforated viscus. Subsequently the patient was taken to the OR. The patient did have a laparotomy. The patient is status post resection of descending colon with collection of aerobic and anaerobic fluid for culture. Had creation of the Oma procedure. Patient seen in postop. The patient recovered from anesthesia. The pain was controlled with pain medication. No nausea, no vomiting. No chest pain, shortness of breath or cough. EXAMINATION: Blood pressure 115/62 with a pulse of 81, temperature 97.4, she is 99% on 2 L nasal cannula. General description is an elderly female lying in bed in no distress. Respiratory system unlabored breathing. Clear to auscultation anteriorly. Heart S1, S2. Regular rate and rhythm. Abdomen soft, nondistended. No guarding or rigidity. Extremities: No edema of the feet. LABS: BUN of 30 with creatinine 0.69. The cultures obtained from the have currently pending. Blood culture has been negative. DIAGNOSTIC IMPRESSION AND PLAN: Patient with perforated viscus with secondary peritonitis status post laparotomy and diverting colostomy. The patient currently covered with Zosyn which is likely to continue. We will follow cultures closely to adjust antibiotic further. Continue supportive care. MMODL / IJN: [id number] /
[2018-07-29] MEDS: METOCLOPRAMIDE 5 MG/ML 2 ML VIAL IVP SCH ×5 (00:01→23:14)
[2018-07-29] MEDS: metroNIDAZOLE-NS PMX 500 MG in SALINE 1 100ML.BAG IVPB SCH ×5 (00:01→23:10)
[2018-07-29] MEDS: PIPERACILLIN-TAZOBACTAM 3.375 GM in DEXTROSE/WATER 1 50ML.BAG IVPB SCH ×4 (00:01→23:14)
[2018-07-29 05:28] LABS: Basophils % (A) 0 %; Eosinophils # (A) 0.1 k/uL (0-0.7); Eosinophils % (A) 1 %; HCT 44.1 % (34.0-46.0); HGB 13.4 gm/dL (11.4-16.0); Hypochromasia Slight; Lymphocytes # (A) 0.4 k/uL (1.0-4.8); Lymphocytes % (A) 2 %; MCHC 30.5 g/dL (31.0-37.0); MCV 98.5 fL (80.0-100.0); Mean Platelet Volume 7.1; Monocytes # (A) 0.7 k/uL (0-1.0); Monocytes % (A) 3 %; Neutrophils # (A) 24.8 k/uL (1.3-7.7); Neutrophils % (A) 95 %; Platelet Count 390 k/uL (150-450); RBC 4.48 m/uL (3.80-5.40); RDW 13.3 % (11.5-15.5); WBC 26.1 k/uL (3.8-10.6)
[2018-07-29 05:35] LABS: INR 1.4 (<1.2); Prothrombin Time 13.2 sec (9.0-12.0)
[2018-07-29 05:45] LABS: ALT 25 U/L (9-52); AST 19 U/L (14-36); Albumin 1.9 g/dL (3.5-5.0); Alkaline Phosphatase 44 U/L (38-126); Anion Gap 9 mmol/L; Blood Urea Nitrogen 32 mg/dL (7-17); Calcium 7.7 mg/dL (8.4-10.2); Carbon Dioxide 18 mmol/L (22-30); Chloride 114 mmol/L (98-107); Glucose 112 mg/dL (74-99); Magnesium 2.1 mg/dL (1.6-2.3); Phosphorus 3.2 mg/dL (2.5-4.5); Potassium 4.1 mmol/L (3.5-5.1); Sodium 141 mmol/L (137-145); Total Bilirubin 1.2 mg/dL (0.2-1.3); Total Protein 3.9 g/dL (6.3-8.2)
[2018-07-29] MEDS: ACETAMINOPHEN TAB 325 MG TAB PO PRN ×2 (06:35→15:06)
[2018-07-29] MEDS: METOPROLOL TARTRATE 25 MG TAB PO SCH ×2 (08:05→21:31)
[2018-07-29] MEDS: ENOXAPARIN 40 MG/0.4 ML SYRINGE SQ SCH (08:05)
[2018-07-29] MEDS: PANTOPRAZOLE 40 MG/10 ML VIAL IV SCH (08:05)
[2018-07-29] MEDS: SODIUM CHLORIDE 0.9% 1,000 ML IV SCH ×2 (08:05→18:18)
[2018-07-29] MEDS ORDERED: FUROSEMIDE 10 MG/ML 4 ML VIAL IV STA (09:49)
--- NOTE | 2018-07-29 10:01 | P.NPCON ---
History of Present Illness - Reason for Consult acute renal failure - History of Present Illness Reason for consultation: Acute kidney injury History of present illness: Patient is a 68-year-old female seen in renal consultation for acute kidney injury. Her creatinine was 1.24 on admission and is down to 0.65 today. Patient presented to the hospital on July 26 with abdominal pain. Patient had a CAT scan of the abdomen and pelvis with IV contrast which revealed moderate ileus. She also had a CTA done which revealed no evidence of PE. About 10 days ago patient had a descending colostomy reversal and repair of parastomal hernia. Patient developed sudden right lower quadrant abdominal pain and went to the operating room on July 28. Patient underwent exploratory laparotomy with descending colon resection for perforated viscus. She is currently on ice chips. Admits to soreness at the surgical site. Denies chest pain. Admits to edema in her extremities. She is maintained on normal saline at 100 mL an hour. Denies any prior history of kidney disease. Denies use of NSAIDs. Hemodynamically stable. Vital signs are stable. General: The patient appeared well nourished and normally developed. HEENT: Head exam is unremarkable. Neck is without jugular venous distension. LUNGS: Lungs are clear to auscultation and percussion. Breath sounds decreased. HEART: Rate and Rhythm are regular. First and second heart sounds normal. No murmurs, rubs or gallops. ABDOMEN: Abdominal exam reveals normal bowel sounds. Non-tender and non- distended. No evidence of peritonitis. EXTREMITITES: 1+ edema. Past Medical History Past Medical History: Hypertension, Osteoarthritis (OA) Additional Past Medical History / Comment(s): HX Low Sodium. HX STOMACH ULCER. PERFORATED DIVERTICULTUM, COLOSTOMY 03/2016. LT KNEE OA PAIN. C/O ABD GAS PAIN FOR FEW DAYS. SPOUSE SAID PATIENT HAD STRESS TEST, PER DR GREY'S REQUEST. History of Any Multi-Drug Resistant Organisms: None Reported Past Surgical History: Bowel Resection, Orthopedic Surgery Additional Past Surgical History / Comment(s): TOTAL RT Knee, RT HIP. PERFORATED DIVERTICULUM W/ COLOSTOMY 03/2016. Past Anesthesia/Blood Transfusion Reactions: No Reported Reaction Additional Past Anesthesia/Blood Transfusion Reaction / Comment(s): Pt states she did receive blood with total knee surgery few weeks ago. Past Psychological History: No Psychological Hx Reported Smoking Status: Never smoker Past Alcohol Use History: None Reported Past Drug Use History: None Reported - Past Family History Father Family Medical History: Coronary Artery Disease (CAD), Myocardial Infarction ([place] ), Renal Disease Additional Family Medical History / Comment(s): Father of renal failure at the age of 72 yrs. Mother Family Medical History: Cancer Additional Family Medical History / Comment(s): Mother had colon cancer and of this at age 67 yrs. Medications and Allergies Home Medications Medication Instructions Recorded Confirmed Type Triamterene-Hctz 37.5-25Mg 1 cap PO DAILY 03/22/16 07/26/18 History [Dyazide 37.5-25 Capsule] Lisinopril [Zestril] 10 mg PO DAILY 07/12/18 07/26/18 History HYDROcodone/APAP 5-325MG [[place] 1 tab PO Q4HR PRN 3 Days #18 tab 07/24/18 Rx 5-325] Levofloxacin [Levaquin] 500 mg PO DAILY #5 tab 07/24/18 07/26/18 Rx metroNIDAZOLE [Flagyl] 500 mg PO TID #15 tab 07/24/18 07/26/18 Rx Allergies Allergy/AdvReac Type Severity Reaction Status Date / Time lactose AdvReac Unknown C/O GAS Verified 07/27/18 05:34 Physical Exam Vitals: Vital Signs Temp Pulse Pulse Resp BP BP Pulse Ox 07/29/18 09:00 85 24 101/63 95 07/29/18 08:00 97.5 F L 91 24 111/56 95 07/29/18 07:00 80 24 107/47 96 07/29/18 06:00 86 12 127/65 95 07/29/18 05:00 76 12 122/69 96 07/29/18 04:00 99.4 F 77 16 134/76 95 07/29/18 03:15 83 16 134/76 95 07/29/18 03:00 77 10 L 106/53 96 07/29/18 02:00 80 11 L 116/65 96 07/29/18 01:45 85 116/65 97 07/29/18 01:30 83 116/65 96 07/29/18 01:15 78 21 116/65 96 07/29/18 01:00 83 20 112/66 97 07/29/18 00:45 79 18 112/66 96 07/29/18 00:30 90 8 L 112/66 96 18 00:15 82 6 L 112/66 96 18 00:08 79 13 101/57 96 07/29/18 00:00 99.8 F H 88 18 101/57 95 18 23:45 87 16 109/58 96 18 23:30 84 16 99/58 97 07/28/18 23:15 81 14 105/57 97 07/28/18 23:00 82 8 L 108/59 97 18 22:45 85 8 L 102/59 97 18 22:30 79 10 L 103/54 98 07/28/18 22:15 77 10 L 103/60 97 07/28/18 22:00 80 16 114/63 98 07/28/18 21:45 79 12 106/58 99 07/28/18 21:30 89 10 L 97/59 98 07/28/18 21:15 97 6 L 99/62 99 07/28/18 21:00 84 12 100/60 97 18 20:45 78 10 L 114/63 99 18 20:44 97 07/28/18 20:30 79 8 L 114/70 97 07/28/18 20:15 88 12 133/70 95 07/28/18 20:00 81 14 115/62 99 07/28/18 19:45 97.4 F L 86 12 113/62 97 07/28/18 19:00 81 18 101/64 99 07/28/18 18:45 79 20 113/59 97 07/28/18 18:30 79 19 117/67 97 1618 18:15 77 20 119/66 97 18 18:00 78 20 125/66 98 1618 17:45 77 20 114/65 98 18 17:30 76 12 114/69 98 1618 17:15 75 14 119/64 98 16 17:00 97.4 F L 76 12 141/63 97 1618 16:45 75 95 1618 16:41 75 1618 16:40 72 18 123/61 96 1618 16:30 76 20 125/61 97 07/28/18 16:14 81 22 125/62 98 07/28/18 15:59 97.2 F L 92 16 113/55 97 Intake and Output 07/28/18 07/29/18 07/29/18 22:59 06:59 14:59 Intake Total 2125.0 1150 250 Output Total 472 400 120 Balance 1653.0 750 130 Intake: IV 2125.0 1150 250 ACETAMINOPHEN IV (For NPO 100 ) 1,000 mg In Empty Bag 1 bag @ 400 mls/hr IVPB ONCE ONE Rx#:[id number] Magnesium Sulfate-D5w Pmx 200 1 gm In Dextrose/Water 1 100ml.bag @ 100 mls/hr IVPB Q1H [facility] Rx#: [id number] Piperacillin-Tazobactam 3 50.0 50 50 .375 gm In Dextrose/Water 1 50ml.bag @ 12.5 mls/hr IVPB Q8HR [facility] Rx#: [id number] Sodium Chloride 0.9% 1, 575 900 200 000 ml @ 100 mls/hr IV . Q10H [facility] Rx#:[id number] Sodium Chloride 0.9% 1, 1000 000 ml @ 999 mls/hr IV . Q1H1M ONE Rx#:[id number] metroNIDAZOLE-NS PMX 500 100 200 mg In Saline 1 100ml.bag @ 100 mls/hr IVPB Q6HR [facility] Rx#:[id number] Output: Drainage 50 100 60 Right Lower Abdomen 30 80 40 Right Upper Abdomen 20 20 20 Urine 322 300 60 Estimated Blood Loss 100 Other: Voiding Method Indwelling Catheter Indwelling Catheter Indwelling Catheter Weight 108.4 kg Results - Lab Results Most recent lab results Calcium 7.7 mg/dL (8.4-10.2) L 07/29/18 04:39 Phosphorus 3.2 mg/dL (2.5-4.5) 07/29/18 04:39 Magnesium 2.1 mg/dL (1.6-2.3) 07/29/18 04:39 07/29/18 04:39 07/29/18 04:39 Assessment and Plan Plan: Assessment: 1. Nonoliguric acute kidney injury mostly prerenal improved with IV hydration. GFR back to baseline. 2. Metabolic acidosis secondary to IV fluids. 3. Volume overload. 4. Perforated viscus with secondary peritonitis status post exploratory laparotomy and and diverting colostomy on July 28. Plan: I will decrease rate of normal saline to 50 mL an hour. Lasix 40 mg IV once today. Continue to monitor renal function and urine output. Thank you for the consultation. I will continue to follow the patient with you during her hospital stay.
--- NOTE | 2018-07-29 10:16 | P.PN ---
Subjective Progress Note Date: 07/29/18 HISTORY OF PRESENT ILLNESS: The patient is a 68-year-old female who is POD 9 from a colostomy reversal including parastomal hernia repair, extensive lysis of adhesions, postop day #1 exploratory laparotomy with placement of descending colostomy. She had intraoperative findings of enteric contents and peritonitis. Today she reports feeling much better. She is in the ICU. She reports thirst. Her main concern includes moderate edema from her extremities. She has a history of being on chronic diuretics PHYSICAL EXAM: GENERAL: Well-developed in no acute distress HEENT: No scleral icterus. Extraocular movements grossly intact. Hears conversational speech. No nasal drainage. NECK: Supple without lymphadenopathy. CHEST: Nonlabored respirations with equal bilateral excursions. CARDIOVASCULAR: Tachycardic. Distal 2+ pulses. ABDOMEN: Soft. Bowel dressings clean dry and intact with wound VAC, PREVENA. Serosanguineous drainage. JPs upper and lower right side. No peritonitis. MUSCULOSKELETAL: No clubbing, cyanosis. 3+ bilateral lower extremity edema NEURO: No focal or lateralizing signs. Cranial nerves 2 through 12 grossly within normal limits. : Dark urine. PSYCH: Alert and oriented to person, place and time. SKIN: Good skin turgor. Well perfused. ASSESSMENT: 1. History of peritonitis status post exploratory laparotomy and colostomy creation 2. Leukocytosis PLAN: 1. Antibiotic management per infectious disease pending cultures from peritoneal fluid 2. Will likely need PICC line for history of peritonitis 3. May start clears. 4. Entereg protocol 5. PT and OT for likely rehab upon discharge Critical care time 22 minutes Objective - Vital Signs Vital signs: Vital Signs Temp 97.5 F L 07/29/18 08:00 Pulse 78 07/29/18 10:00 Resp 24 07/29/18 10:00 BP 118/69 07/29/18 10:00 Pulse Ox 96 07/29/18 10:00 Intake & Output 07/28/18 07/29/18 07/29/18 18:59 06:59 18:59 Intake Total 3500.0 2875.0 310 Output Total 420 552 145 Balance 3080.0 2323.0 165 Weight 108.4 kg Intake: IV 3500.0 2875.0 310 ACETAMINOPHEN IV (For NPO 100 ) 1,000 mg In Empty Bag 1 bag @ 400 mls/hr IVPB ONCE ONE Rx#:[id number] Magnesium Sulfate-D5w Pmx 200 1 gm In Dextrose/Water 1 100ml.bag @ 100 mls/hr IVPB Q1H [facility] Rx#: [id number] Piperacillin-Tazobactam 3 25.0 75.0 50 .375 gm In Dextrose/Water 1 50ml.bag @ 12.5 mls/hr IVPB Q8HR [facility] Rx#: [id number] Sodium Chloride 0.9% 1, 175 1300 260 000 ml @ 60 mls/hr IV . [id number] [facility] Rx#:[id number] Sodium Chloride 0.9% 1, 1000 000 ml @ 999 mls/hr IV . Q1H1M ONE Rx#:[id number] metroNIDAZOLE-NS PMX 500 300 mg In Saline 1 100ml.bag @ 100 mls/hr IVPB Q6HR [facility] Rx#:[id number] Output: Drainage 150 60 Right Lower Abdomen 110 40 Right Upper Abdomen 40 20 Urine 320 402 85 Uretheral (Lee) 100 Estimated Blood Loss 100 Other: Voiding Method Indwelling Catheter Indwelling Catheter Indwelling Catheter - Labs CBC & Chem 7: 07/29/18 04:39 07/29/18 04:39 Labs: Abnormal Lab Results - Last 24 Hours (Table) 07/28/18 07/28/18 07/29/18 Range/Units 06:28 18:24 04:39 WBC 26.1 H (3.8-10.6) k/uL MCHC 30.5 L (31.0-37.0) g/dL Neutrophils # 24.8 H (1.3-7.7) k/uL Lymphocytes # 0.4 L (1.0-4.8) k/uL PT (9.0-12.0) sec INR (<1.2) Potassium 5.4 H (3.5-5.1) mmol/L Chloride 113 H 115 H (98-107) mmol/L Carbon Dioxide 19 L 17 L (22-30) mmol/L BUN 33 H 33 H (7-17) mg/dL Glucose 100 H 105 H (74-99) mg/dL Calcium 7.8 L 7.7 L (8.4-10.2) mg/dL Total Protein 4.4 L (6.3-8.2) g/dL Albumin 2.2 L (3.5-5.0) g/dL 07/29/18 07/29/18 Range/Units 04:39 04:39 WBC (3.8-10.6) k/uL MCHC (31.0-37.0) g/dL Neutrophils # (1.3-7.7) k/uL Lymphocytes # (1.0-4.8) k/uL PT 13.2 H (9.0-12.0) sec INR 1.4 H (<1.2) Potassium (3.5-5.1) mmol/L Chloride 114 H (98-107) mmol/L Carbon Dioxide 18 L (22-30) mmol/L BUN 32 H (7-17) mg/dL Glucose 112 H (74-99) mg/dL Calcium 7.7 L (8.4-10.2) mg/dL Total Protein 3.9 L (6.3-8.2) g/dL Albumin 1.9 L (3.5-5.0) g/dL Microbiology - Last 24 Hours (Table) 07/28/18 13:06 Gram Stain - Preliminary Other - Other Wound Culture - Preliminary 07/28/18 13:06 Gram Stain - Preliminary Other - Other Wound Culture - Preliminary 07/26/18 22:38 Urine Culture - Final Urine,Clean Catch Rosangela sp,not albicans/galbr 07/26/18 22:23 Blood Culture - Preliminary Blood No Growth after 48 hours 07/28/18 13:06 Anaerobic Culture - Preliminary Other - Other 07/28/18 13:06 Anaerobic Culture - Preliminary Other - Other 07/27/18 13:45 Gram Stain - Preliminary [facility] Body Fluid Culture - Preliminary Assessment and Plan (1) Atelectasis Current Visit: Yes Status: Acute Code(s): J98.11 - ATELECTASIS SNOMED Code (s): 03047278 (2) Acute kidney injury Current Visit: Yes Status: Acute Code(s): N17.9 - ACUTE KIDNEY FAILURE, UNSPECIFIED SNOMED Code(s): 71132339 (3) Dehydration Current Visit: Yes Status: Acute Code(s): E86.0 - DEHYDRATION SNOMED Code( s): 77924686 (4) Leukocytosis Current Visit: Yes Status: Acute Code(s): D72.829 - ELEVATED WHITE BLOOD CELL COUNT, UNSPECIFIED SNOMED Code(s): 828406044 (5) Oliguria Current Visit: Yes Status: Acute Code(s): R34 - ANURIA AND OLIGURIA SNOMED Code(s): 58127964 (6) Ileus following gastrointestinal surgery Current Visit: Yes Status: Acute Code(s): K91.30 - POSTPROC INTESTINAL OBST , UNSP TO PARTIAL VERSUS COMPLETE SNOMED Code(s): 669966014 (7) Morbid (severe) obesity due to excess calories Current Visit: No Status: Acute Code(s): E66.01 - MORBID (SEVERE) OBESITY DUE TO EXCESS CALORIES SNOMED Code(s): 999218094 (8) Sigmoid diverticulitis Current Visit: No Status: Acute Code(s): K57.32 - DVTRCLI OF LG INT W/O PERFORATION OR ABSCESS W/O BLEEDING SNOMED Code(s): 591288245 (9) S/P colostomy takedown Current Visit: Yes Status: Acute Code(s): Z98.890 - OTHER SPECIFIED POSTPROCEDURAL STATES SNOMED Code(s): 36492838105108330 (10) Chronic constipation Current Visit: Yes Status: Acute Code(s): K59.09 - OTHER CONSTIPATION SNOMED Code(s): 752421789 (11) Hyponatremia Current Visit: No Status: Acute Code(s): E87.1 - HYPO-OSMOLALITY AND HYPONATREMIA SNOMED Code(s): 55383446 (12) Peritonitis Current Visit: Yes Status: Acute Code(s): K65.9 - PERITONITIS, UNSPECIFIED SNOMED Code(s): 19654369 (13) Colostomy status Current Visit: No Status: Acute Code(s): Z93.3 - COLOSTOMY STATUS SNOMED Code(s): 209535297
[2018-07-29 10:25] LABS: Hemoglobin A1C 5.5 % (4.0-6.0)
[2018-07-29] MEDS: ALVIMOPAN 12 MG CAPSULE PO SCH ×2 (12:27→21:31)
--- NOTE | 2018-07-29 12:47 | P.PN ---
Subjective Progress Note Date: 07/29/18 Principal diagnosis: Acute abdominal sepsis and peritonitis. This is a 68-year-old white female patient who was brought to the emergency department via ambulance from [facility] for evaluation of acute abdominal pain in the right lower quadrant. Patient had a reversal of her colostomy last week by Dr. Preciado in this hospital, she was doing well in the postoperative period, and subsequently was discharged to [facility]. 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 Patient had a ELOY drain placed within the right lower abdomen. Originally patient had colostomy placed for history of perforated diverticulitis in 2016. Postop patient was treated with Levaquin and Flagyl for a history of contaminated case CT of abdomen with contrast showed some fluid stranding in the small bowel mesentery, and some fluid in the pericolic gutters, no sign of free air, multiple distended loops of fluid-filled small bowel, consistent with moderate ileus. Labs showed leukocytosis with a PVC of 23.7, hemoglobin of 16.1, INR 1.5, BUN of 31, creatinine 1.24, was normal lactic acid was 2.2, LFTs normal, urinalysis showed evidence of large amount of leuks, many white and red blood cells, and yeast. In the emergency department there was some yellow and brown discharge from around her ELOY drain which was sent for cultures. Patient states she had fever and chills. He states she has not been passing any stools, but she has been taking an oral intake. She noted worsening edema of her bilateral lower extremities. Denies any nausea or vomiting. CT angios was obtained, which was negative for any evidence of pulmonary embolism, and showed some strandy bilateral atelectasis. Patient was given a total of 3 L of IV fluids, she was started on Zosyn in addition to Flagyl, and Levaquin was discontinued. She remains afebrile, she is tachycardic with a heart rate in the 110's. Blood pressure is 154/101, she is still having tenderness in the right lower quadrant around the ELOY insertion site. Bowel sounds are active. Surgical incisions are covered with surgical dressings with shadowing of old blood on them. Lung sounds are positive for a few rhonchi, but no wheezing. Patient only has occasional cough with production of yellowish sputum. Patient is diaphoretic. Her urine output is low, only 30 mL an hour after fluid boluses, and her urine color is light brown. We spoke to Dr. Preciado, and patient is suspected to have dehydration elated to combination of moderate ileus and possibility of peritonitis. It was decided to give the patient additional 1 L bolus of 0.9 normal saline, obtain lactic acid. And patient is scheduled surgery sometime today by Dr. Preciado for reexploration. Patient was reevaluated today on 07/29/2018, she underwent exploratory laparotomy yesterday, she underwent resection of descending colon for perforation, descending colostomy, Ford's procedure for perforated descending colon. She had peritoneal lavage with over 10 L. And she underwent placement of intra-abdominal Eder drain, 2, and underwent wound VAC system placement. Today the patient is on the ICU, she is on antibiotics as per infectious disease on the case, she is off mechanical ventilation, on nasal cannula, noted to be a bit dyspneic with any activity. Patient denies being short of breath, denies being in pain, she seems to be doing better than expected considering her surgical intervention. CBC showed leukocytosis with WBC of 26.1. Electrolytes are normal however her bicarb is 18 renal profile is normal. Objective - Vital Signs Vital signs: Vital Signs Temp 97.5 F L 07/29/18 08:00 Pulse 86 07/29/18 11:00 Resp 26 H 07/29/18 11:00 BP 127/73 07/29/18 11:00 Pulse Ox 95 07/29/18 11:00 Intake & Output 07/28/18 07/29/18 07/29/18 18:59 06:59 18:59 Intake Total 3500.0 2875.0 370 Output Total 420 552 445 Balance 3080.0 2323.0 -75 Weight 108.4 kg Intake: IV 3500.0 2875.0 370 ACETAMINOPHEN IV (For NPO 100 ) 1,000 mg In Empty Bag 1 bag @ 400 mls/hr IVPB ONCE ONE Rx#:[id number] Magnesium Sulfate-D5w Pmx 200 1 gm In Dextrose/Water 1 100ml.bag @ 100 mls/hr IVPB Q1H [facility] Rx#: [id number] Piperacillin-Tazobactam 3 25.0 75.0 50 .375 gm In Dextrose/Water 1 50ml.bag @ 12.5 mls/hr IVPB Q8HR [facility] Rx#: [id number] Sodium Chloride 0.9% 1, 175 1300 320 000 ml @ 60 mls/hr IV . [id number] [facility] Rx#:[id number] Sodium Chloride 0.9% 1, 1000 000 ml @ 999 mls/hr IV . Q1H1M [facility] Rx#:[id number] metroNIDAZOLE-NS PMX 500 300 mg In Saline 1 100ml.bag @ 100 mls/hr IVPB Q6HR [facility] Rx#:[id number] Output: Drainage 150 60 Right Lower Abdomen 110 40 Right Upper Abdomen 40 20 Urine 320 402 385 Uretheral (Lee) 100 Estimated Blood Loss 100 Other: Voiding Method Indwelling Catheter Indwelling Catheter Indwelling Catheter - Exam PHYSICAL EXAM: GENERAL: Physical exam revealed a 68-year-old female in no distress. Head: Atraumatic, normocephalic. HEENT: No scleral icterus. Extraocular movements grossly intact. Hears conversational speech. No nasal drainage. NECK: Supple without lymphadenopathy. CHEST: Diminished breath sounds at the bases, no crackles or rhonchi or wheezes , no chest wall tenderness. CARDIOVASCULAR: Tachycardic. Distal 2+ pulses. ABDOMEN: Soft. Bowel dressings clean dry and intact with wound VAC, Serosanguineous drainage. JPs upper and lower right side. MUSCULOSKELETAL: No clubbing, cyanosis. 3+ bilateral lower extremity edema NEURO: No focal or lateralizing signs. Cranial nerves 2 through 12 grossly within normal limits. : Dark urine. PSYCH: Alert and oriented to person, place and time. SKIN: Good skin turgor. No rashes. - Labs CBC & Chem 7: 07/29/18 04:39 07/29/18 04:39 Labs: Abnormal Lab Results - Last 24 Hours (Table) 07/28/18 07/29/18 07/29/18 Range/Units 18:24 04:39 04:39 WBC 26.1 H (3.8-10.6) k/uL MCHC 30.5 L (31.0-37.0) g/dL Neutrophils # 24.8 H (1.3-7.7) k/uL Lymphocytes # 0.4 L (1.0-4.8) k/uL PT (9.0-12.0) sec INR (<1.2) Potassium 5.4 H (3.5-5.1) mmol/L Chloride 115 H 114 H (98-107) mmol/L Carbon Dioxide 17 L 18 L (22-30) mmol/L BUN 33 H 32 H (7-17) mg/dL Glucose 105 H 112 H (74-99) mg/dL Calcium 7.7 L 7.7 L (8.4-10.2) mg/dL Total Protein 3.9 L (6.3-8.2) g/dL Albumin 1.9 L (3.5-5.0) g/dL 07/29/18 Range/Units 04:39 WBC (3.8-10.6) k/uL MCHC (31.0-37.0) g/dL Neutrophils # (1.3-7.7) k/uL Lymphocytes # (1.0-4.8) k/uL PT 13.2 H (9.0-12.0) sec INR 1.4 H (<1.2) Potassium (3.5-5.1) mmol/L Chloride (98-107) mmol/L Carbon Dioxide (22-30) mmol/L BUN (7-17) mg/dL Glucose (74-99) mg/dL Calcium (8.4-10.2) mg/dL Total Protein (6.3-8.2) g/dL Albumin (3.5-5.0) g/dL Microbiology - Last 24 Hours (Table) 07/28/18 09:46 Blood Culture - Preliminary Blood No Growth after 24 hours 07/28/18 13:06 Gram Stain - Preliminary Other - Other Wound Culture - Preliminary 07/28/18 13:06 Gram Stain - Preliminary Other - Other Wound Culture - Preliminary 07/26/18 22:38 Urine Culture - Final Urine,Clean Catch Rosangela sp,not albicans/galbr 07/26/18 22:23 Blood Culture - Preliminary Blood No Growth after 48 hours 07/28/18 13:06 Anaerobic Culture - Preliminary Other - Other 07/28/18 13:06 Anaerobic Culture - Preliminary Other - Other 07/27/18 13:45 Gram Stain - Preliminary [facility] Body Fluid Culture - Preliminary Assessment and Plan Assessment: #1. Acute abdominal sepsis secondary to perforation of descending colon and peritonitis, status post surgery as noted above, postoperative day #1. #2. Acute kidney injury related to the above #3. Dehydration due to moderate ileus and sepsis #4. Leucocytosis secondary to sepsis and peritonitis. #5. Mild lactic acidosis, secondary to sepsis #6. Recent colostomy reversal on 07/19/2018 with peritoneal lavage, and patient was sent to the subacute rehab on Levaquin and Flagyl for evidence of contaminated case #7. History of perforated diverticulitis with colon resection and colostomy placement in 2016 #8. Dyspnea , related to intra-abdominal sepsis obesity and abdominal pain, CT angios was negative for any evidence of PE, but showed strandy atelectasis at bilateral bases #9. Oliguria #10. Obesity #11. Acute urinary tract infection #12. Hypertension Recommendation: Continue antibiotics as per infectious disease on the case, continue GI and DVT prophylaxis, patient remains nothing by mouth for now, patient failed to keep her in the ICU for the next 24 hours, continues to have mild hyperchloremic metabolic acidosis, that will improve over the next 24 hours and then she could be transferred to a surgical bed. Time with Patient: Less than 30
[2018-07-29] MEDS: HYDROmorphone 1 MG/ML 1 ML SYRINGE IVP PRN ×2 (12:52→16:03)
--- NOTE | 2018-07-29 13:40 | P.PN ---
Subjective This is a pleasant 68 years old female with past medical history of hypertension , hypernatremia, peptic ulcer, perforated diverticulum status post colostomy on 03/2016.. When I saw the patient in the PACU postop she was sleepy and could not provide information was taken from staff and medical records. Patient originally was transferred from [facility] for acute abdominal pain in the right upper quadrant. Patient had a reversal of her colostomy last week by Dr. Preciado in this hospital, she was doing well in the postoperative period, and subsequently was discharged to [facility]. However about 2 days ago, an increased drainage from around her ELOY site was noted. Her white blood cell count was checked and found to be over 18,000. As result of these findings, patient was recommended transfer back to the hospital for further evaluation and assessment. Also patient on admission was noticed to have look swollen and decreased urine, mostly prerenal acute kidney injury which is resolved now. Infectious disease has been requested and evaluated the patient. Patient is on Zosyn and Flagyl and IV fluids. Pulmonary team R following the case as well. CT angiogram of the chest showing no PE and possible bilateral lower lobe pulmonary infiltrates and atelectasis as per radiologist report. CT of the abdomen showing some fluid in the paracolic gutters and fluid stranding in this small bowel mesentery. No free air. On 07/28/2018 (the day of this note) patient underwent exploratory laparotomy with sigmoid colostomy, with new perforation 4 cm proximal to the colorectal anastomosis and fecal peritonitis and diffuse fecal spillage along the bilateral upper abdomen, right lower quadrant and contained small bowel interloop fluid collection. 07/29/2018 Patient remains in the ICU. Patient is postop #1, for her sigmoid colostomy surgery from perforated viscus about 4 cm from her colorectal anastomosis. Looks tired and having difficulty talking because of her breathing and pain. She could not keep acid in all my questions. However she is awake and oriented. She has abdominal pain which looks controlled on the abdominal surgery site. Patient is on IV antibiotics Zosyn and Flagyl. Patient started on a clear liquid diet. Monitor vitals and lites culture results are still pending Objective - Vital Signs Vital signs: Vital Signs Temp 97.8 F 07/29/18 12:00 Pulse 83 07/29/18 13:00 Resp 24 07/29/18 13:00 BP 130/78 07/29/18 13:00 Pulse Ox 95 07/29/18 13:00 Intake & Output 07/28/18 07/29/18 07/29/18 18:59 06:59 18:59 Intake Total 3500.0 2875.0 790 Output Total 420 552 920 Balance 3080.0 2323.0 -130 Weight 108.4 kg Intake: IV 3500.0 2875.0 590 ACETAMINOPHEN IV (For NPO 100 ) 1,000 mg In Empty Bag 1 bag @ 400 mls/hr IVPB ONCE ONE Rx#:[id number] Magnesium Sulfate-D5w Pmx 200 1 gm In Dextrose/Water 1 100ml.bag @ 100 mls/hr IVPB Q1H [facility] Rx#: [id number] Piperacillin-Tazobactam 3 25.0 75.0 50 .375 gm In Dextrose/Water 1 50ml.bag @ 12.5 mls/hr IVPB Q8HR [facility] Rx#: [id number] Sodium Chloride 0.9% 1, 175 1300 440 000 ml @ 60 mls/hr IV . [id number] [facility] Rx#:[id number] Sodium Chloride 0.9% 1, 1000 000 ml @ 999 mls/hr IV . Q1H1M [facility] Rx#:[id number] metroNIDAZOLE-NS PMX 500 300 100 mg In Saline 1 100ml.bag @ 100 mls/hr IVPB Q6HR [facility] Rx#:[id number] Oral 200 Output: Drainage 150 60 Right Lower Abdomen 110 40 Right Upper Abdomen 40 20 Urine 320 402 860 Uretheral (Lee) 100 Estimated Blood Loss 100 Other: Voiding Method Indwelling Catheter Indwelling Catheter Indwelling Catheter - Exam -GENERAL: The patient is awake and oriented but she looks tired and dyspneic fluids with pain from her recent surgery. not in any acute distress. Well developed, well nourished. HEENT: Pupils are round and equally reacting to light. EOMI. No scleral icterus. No conjunctival pallor. Normocephalic, atraumatic. No pharyngeal erythema. No thyromegaly. CARDIOVASCULAR: S1 and S2 present. No murmurs, rubs, or gallops. PULMONARY: Chest is clear to auscultation, no wheezing or crackles. ABDOMEN: Abdomen looks soft. Tenderness from recent surgery. Dressing in place. Drains are in place. defer wound exam to the surgical team MUSCULOSKELETAL: No joint swelling or deformity. EXTREMITIES: No cyanosis, clubbing, or pedal edema. NEUROLOGICAL: Gross neurological examination did not reveal any focal deficits. SKIN: No rashes. - Labs CBC & Chem 7: 07/29/18 04:39 07/29/18 04:39 Labs: Abnormal Lab Results - Last 24 Hours (Table) 07/28/18 07/29/18 07/29/18 Range/Units 18:24 04:39 04:39 WBC 26.1 H (3.8-10.6) k/uL MCHC 30.5 L (31.0-37.0) g/dL Neutrophils # 24.8 H (1.3-7.7) k/uL Lymphocytes # 0.4 L (1.0-4.8) k/uL PT (9.0-12.0) sec INR (<1.2) Potassium 5.4 H (3.5-5.1) mmol/L Chloride 115 H 114 H (98-107) mmol/L Carbon Dioxide 17 L 18 L (22-30) mmol/L BUN 33 H 32 H (7-17) mg/dL Glucose 105 H 112 H (74-99) mg/dL Calcium 7.7 L 7.7 L (8.4-10.2) mg/dL Total Protein 3.9 L (6.3-8.2) g/dL Albumin 1.9 L (3.5-5.0) g/dL 07/29/18 Range/Units 04:39 WBC (3.8-10.6) k/uL MCHC (31.0-37.0) g/dL Neutrophils # (1.3-7.7) k/uL Lymphocytes # (1.0-4.8) k/uL PT 13.2 H (9.0-12.0) sec INR 1.4 H (<1.2) Potassium (3.5-5.1) mmol/L Chloride (98-107) mmol/L Carbon Dioxide (22-30) mmol/L BUN (7-17) mg/dL Glucose (74-99) mg/dL Calcium (8.4-10.2) mg/dL Total Protein (6.3-8.2) g/dL Albumin (3.5-5.0) g/dL Microbiology - Last 24 Hours (Table) 07/28/18 09:46 Blood Culture - Preliminary Blood No Growth after 24 hours 07/28/18 13:06 Gram Stain - Preliminary Other - Other Wound Culture - Preliminary 07/28/18 13:06 Gram Stain - Preliminary Other - Other Wound Culture - Preliminary 07/26/18 22:38 Urine Culture - Final Urine,Clean Catch Rosangela sp,not albicans/galbr 07/26/18 22:23 Blood Culture - Preliminary Blood No Growth after 48 hours 07/28/18 13:06 Anaerobic Culture - Preliminary Other - Other 07/28/18 13:06 Anaerobic Culture - Preliminary Other - Other 07/27/18 13:45 Gram Stain - Preliminary [facility] Fluid Culture - Preliminary Assessment and Plan Assessment: Perforated colon , status post exploratory laparotomy Fecal peritonitis Dehydration hypertension h/o peptic ulcer perforated diverticulum status post colostomy on 03/2016 Plan: This is a pleasant 68 years old female presents with perforated viscus and:. Continue same treatment. Continue symptomatic treatment. Follow-up infectious disease recommendation and broad-spectrum antibiotics. Follow-up pulmonary recommendation. Continue with antibiotics and IV fluids. Follow up the culture results Monitor labs and vitals. Pain management. DVT and GI prophylaxis. Further recommendations is based on the clinical course of the patient DVT prophylaxis:On Lovenox GI prophylaxis: Protonix PT/OT: Pending Prognosis is guarded
[2018-07-29] MEDS ORDERED: LIDOCAINE 2% SYG (PF) 100 MG/5 ML MISCELLANE ONE (14:02)
--- NOTE | 2018-07-29 14:39 | XR ---
EXAMINATION TYPE: XR chest 1V confirm line plcmt DATE OF EXAM: 07/29/2018 COMPARISON: 07/24/2018 HISTORY: PICC line insertion TECHNIQUE: Single frontal view of the chest is obtained. FINDINGS: Left-sided PICC line seen with the tip overlying the SVC. Bilateral consolidation and pleu ral effusion. Reduced inspiration. No pneumothorax. Arthropathy of the shoulders. Hypertrophic and de generative change of the spine. IMPRESSION: 1. Stable consolidation and pleural effusion 2. PICC line appears in good position.
--- NOTE | 2018-07-29 23:09 | PN ---
PROGRESS NOTE DATE OF SERVICE: 07/29/2018. REASON FOR FOLLOWUP: Abdominal sepsis with perforated bowel. INTERVAL HISTORY: The patient is currently afebrile. She is breathing comfortably. Denies any significant chest pain. Abdominal pain is currently controlled with pain medication. Some nausea, but no vomiting. Hemodynamically stable. EXAMINATION: Blood pressure 110/74 with a pulse of 80, temperature 97.8. She is 95% on 2 L nasal cannula. General description is an elderly female lying in bed in no distress. RESPIRATORY SYSTEM: Unlabored breathing, clear to auscultation anteriorly. HEART: S1, S2. Regular rate and rhythm. ABDOMEN: Soft, mildly distended. Minimal guarding. No rigidity. LABS: Hemoglobin 13.4, white count 6.1 with a BUN of 32, creatinine 0.65. DIAGNOSTIC IMPRESSION AND PLAN: Patient with secondary peritonitis from perforated , status post diverting colostomy and laparotomy. The patient is currently covered with Zosyn and Flagyl. We will continue watching her clinical course and white count closely, as well as culture and adjust antibiotic further on the basis of the culture report. Continue supportive care. MMODL / IJN: [id number] /
[2018-07-30 04:51] LABS: Basophils % (A) 0 %; Eosinophils # (A) 0.2 k/uL (0-0.7); Eosinophils % (A) 1 %; HCT 40.3 % (34.0-46.0); Lymphocytes # (A) 0.6 k/uL (1.0-4.8); Lymphocytes % (A) 2 %; MCH 30.8 pg (25.0-35.0); MCHC 32.4 g/dL (31.0-37.0); MCV 95.2 fL (80.0-100.0); Mean Platelet Volume 7.3; Monocytes # (A) 0.9 k/uL (0-1.0); Monocytes % (A) 4 %; Neutrophils # (A) 24.8 k/uL (1.3-7.7); Neutrophils % (A) 93 %; Platelet Count 338 k/uL (150-450); RBC 4.23 m/uL (3.80-5.40); RDW 13.4 % (11.5-15.5); WBC 26.6 k/uL (3.8-10.6)
[2018-07-30 05:01] LABS: Anion Gap 5 mmol/L; Blood Urea Nitrogen 36 mg/dL (7-17); Calcium 7.7 mg/dL (8.4-10.2); Carbon Dioxide 24 mmol/L (22-30); Chloride 111 mmol/L (98-107); Glucose 110 mg/dL (74-99); Magnesium 1.9 mg/dL (1.6-2.3); Phosphorus 2.9 mg/dL (2.5-4.5); Sodium 140 mmol/L (137-145)
[2018-07-30] MEDS: metroNIDAZOLE-NS PMX 500 MG in SALINE 1 100ML.BAG IVPB SCH ×3 (06:53→17:18)
[2018-07-30] MEDS: METOCLOPRAMIDE 5 MG/ML 2 ML VIAL IVP SCH ×3 (06:53→17:19)
[2018-07-30] MEDS: PANTOPRAZOLE 40 MG/10 ML VIAL IV SCH (08:22)
[2018-07-30] MEDS: PIPERACILLIN-TAZOBACTAM 3.375 GM in DEXTROSE/WATER 1 50ML.BAG IVPB SCH ×2 (08:24→15:26)
[2018-07-30] MEDS: ENOXAPARIN 40 MG/0.4 ML SYRINGE SQ SCH (08:24)
[2018-07-30] MEDS: ALVIMOPAN 12 MG CAPSULE PO SCH ×2 (08:24→22:17)
[2018-07-30] MEDS: METOPROLOL TARTRATE 25 MG TAB PO SCH ×2 (08:24→22:17)
--- NOTE | 2018-07-30 10:17 | XR ---
EXAMINATION TYPE: XR chest 1V portable DATE OF EXAM: 07/30/2018 COMPARISON: 07/29/2018 HISTORY: PICC line placement TECHNIQUE: Single frontal view of the chest is obtained. FINDINGS: There is bilateral consolidation small effusion. Left-sided PICC line noted. No pneumothor ax. Interstitium is prominent. Heart size stable. Hypertrophic change of the spine arthropathy of the shoulder. IMPRESSION: Bilateral infiltrate and pleural effusion is stable. Underlying pneumonia versus CHF.
[2018-07-30] MEDS ORDERED: ANIDULAFUNGIN 200 MG in SODIUM CHLORIDE 0.9% 200 ML IVPB ONE (10:19)
--- NOTE | 2018-07-30 10:28 | IR ---
PICC LINE PLACEMENT: HISTORY: Infection requiring long-term antibiotic therapy PROCEDURE: Ultrasound guidance of PICC line placement. LEARNING AND DEVELOPMENT SPECIALIST: Dr. Stover. COMPLICATIONS: None ANESTHESIA: 1. 1% Lidocaine locally. FINDINGS/TECHNIQUE: The procedure was explained to the patient. The risks, complications, benefits and alternatives were discussed and any questions were answered. Informed consent was obtained. The patient was placed supine on the fluoroscopic table and prepped and draped in the usual sterile fas ion. Utilizing a 21 gauge needle and sonographic guidance, access in the left basilic vein was achi eved and there is placement of a 0.018 guidewire. The vein is patent. A 5-F. sheath was placed over the guidewire. The guidewire and dilator were removed and a 5-F. Double lumen PICC line was placed through the sheath with the chest x-ray confirming the tip at the level of the SVC. The sheath was r emoved, the catheter was flushed and sutured into position. The patient was stable throughout the pr ocedure and remained stable upon discharge from the Department of Radiology. The vein puncture was patent under ultrasound. A penn scale image was obtained to document patency of the vein punctured. All elements of the maximal barrier technique were utilized. IMPRESSION: 1. Successful PICC line placement under ultrasound performed bedside within the ICU.
--- NOTE | 2018-07-30 10:31 | P.PN ---
Subjective Patient is seen in follow-up for acute kidney injury. Creatinine was 1.24 on admission and is now stable at 0.65. She continues to have edema in her extremity is. Patient underwent exploratory laparotomy with descending colon resection for perforated viscus on July 28. Admits to pain at the surgical site. Denies chest pain or shortness of breath. Vital signs are stable. General: The patient appeared well nourished and normally developed. HEENT: Head exam is unremarkable. Neck is without jugular venous distension. LUNGS: Lungs are clear to auscultation and percussion. Breath sounds decreased. HEART: Rate and Rhythm are regular. First and second heart sounds normal. No murmurs, rubs or gallops. ABDOMEN: Abdominal exam reveals normal bowel sounds. Non-tender and non- distended. No evidence of peritonitis. EXTREMITITES: 1+ edema. Objective - Vital Signs Vital signs: Vital Signs Temp 98.6 F 07/30/18 04:00 Pulse 109 H 07/30/18 09:00 Resp 22 07/30/18 09:00 BP 119/61 07/30/18 09:00 Pulse Ox 98 07/30/18 09:00 Intake & Output 07/29/18 07/30/18 07/30/18 18:59 06:59 18:59 Intake Total 1600 870.0 220 Output Total 1935 515 95 Balance -335 355.0 125 Weight 108.8 kg Intake: IV 1040 870.0 220 Piperacillin-Tazobactam 3 100 50.0 .375 gm In Dextrose/Water 1 50ml.bag @ 12.5 mls/hr IVPB Q8HR [facility] Rx#: [id number] Sodium Chloride 0.9% 1, 740 720 120 000 ml @ 60 mls/hr IV . [id number] [facility] Rx#:[id number] metroNIDAZOLE-NS PMX 500 200 100 100 mg In Saline 1 100ml.bag @ 100 mls/hr IVPB Q6HR [facility] Rx#:[id number] Oral 560 Output: Drainage 135 Right Lower Abdomen 100 Right Upper Abdomen 35 Urine 1800 515 95 Other: Voiding Method Indwelling Catheter Indwelling Catheter Indwelling Catheter - Labs CBC & Chem 7: 07/30/18 04:45 07/30/18 04:45 Labs: Abnormal Lab Results - Last 24 Hours (Table) 07/30/18 07/30/18 Range/Units 04:45 04:45 WBC 26.6 H (3.8-10.6) k/uL Neutrophils # 24.8 H (1.3-7.7) k/uL Lymphocytes # 0.6 L (1.0-4.8) k/uL Chloride 111 H (98-107) mmol/L BUN 36 H (7-17) mg/dL Glucose 110 H (74-99) mg/dL Calcium 7.7 L (8.4-10.2) mg/dL Microbiology - Last 24 Hours (Table) 07/26/18 22:23 Blood Culture - Preliminary Blood No Growth after 72 hours 07/27/18 13:45 Gram Stain - Preliminary [facility] Body Fluid Culture - Preliminary Rosangela albicans 07/28/18 13:06 Gram Stain - Preliminary Other - Other Wound Culture - Preliminary Yeast species 07/28/18 13:06 Gram Stain - Preliminary Other - Other Wound Culture - Preliminary Yeast species 07/28/18 09:46 Blood Culture - Preliminary Blood No Growth after 24 hours Assessment and Plan Plan: Assessment: 1. Nonoliguric acute kidney injury mostly prerenal improved with IV hydration. GFR back to baseline. 2. Metabolic acidosis secondary to IV fluids. Improved. 3. Volume overload. 4. Perforated viscus with secondary peritonitis status post exploratory laparotomy and and diverting colostomy on July 28. Plan: I will decrease rate of normal saline to 40 mL an hour. Repeat lasix 40 mg IV once today. Continue to monitor renal function and urine output.
[2018-07-30] MEDS ORDERED: FUROSEMIDE 10 MG/ML 4 ML VIAL IV STA (10:43)
[2018-07-30] MEDS ORDERED: FUROSEMIDE 10 MG/ML 4 ML VIAL ONE (10:54)
--- NOTE | 2018-07-30 10:54 | P.PN ---
Subjective Progress Note Date: 07/30/18 Principal diagnosis: Acute abdominal sepsis and peritonitis. This is a 68-year-old white female patient who was brought to the emergency department via ambulance from [facility] for evaluation of acute abdominal pain in the right lower quadrant. Patient had a reversal of her colostomy last week by Dr. Preciado in this hospital, she was doing well in the postoperative period, and subsequently was discharged to [facility]. 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 Patient had a ELOY drain placed within the right lower abdomen. Originally patient had colostomy placed for history of perforated diverticulitis in 2016. Postop patient was treated with Levaquin and Flagyl for a history of contaminated case CT of abdomen with contrast showed some fluid stranding in the small bowel mesentery, and some fluid in the pericolic gutters, no sign of free air, multiple distended loops of fluid-filled small bowel, consistent with moderate ileus. Labs showed leukocytosis with a PVC of 23.7, hemoglobin of 16.1, INR 1.5, BUN of 31, creatinine 1.24, was normal lactic acid was 2.2, LFTs normal, urinalysis showed evidence of large amount of leuks, many white and red blood cells, and yeast. In the emergency department there was some yellow and brown discharge from around her ELOY drain which was sent for cultures. Patient states she had fever and chills. He states she has not been passing any stools, but she has been taking an oral intake. She noted worsening edema of her bilateral lower extremities. Denies any nausea or vomiting. CT angios was obtained, which was negative for any evidence of pulmonary embolism, and showed some strandy bilateral atelectasis. Patient was given a total of 3 L of IV fluids, she was started on Zosyn in addition to Flagyl, and Levaquin was discontinued. She remains afebrile, she is tachycardic with a heart rate in the 110's. Blood pressure is 154/101, she is still having tenderness in the right lower quadrant around the ELOY insertion site. Bowel sounds are active. Surgical incisions are covered with surgical dressings with shadowing of old blood on them. Lung sounds are positive for a few rhonchi, but no wheezing. Patient only has occasional cough with production of yellowish sputum. Patient is diaphoretic. Her urine output is low, only 30 mL an hour after fluid boluses, and her urine color is light brown. We spoke to Dr. Preciado, and patient is suspected to have dehydration elated to combination of moderate ileus and possibility of peritonitis. It was decided to give the patient additional 1 L bolus of 0.9 normal saline, obtain lactic acid. And patient is scheduled surgery sometime today by Dr. Preciado for reexploration. Patient was reevaluated today on 07/29/2018, she underwent exploratory laparotomy yesterday, she underwent resection of descending colon for perforation, descending colostomy, Ford's procedure for perforated descending colon. She had peritoneal lavage with over 10 L. And she underwent placement of intra-abdominal Eder drain, 2, and underwent wound VAC system placement. Today the patient is on the ICU, she is on antibiotics as per infectious disease on the case, she is off mechanical ventilation, on nasal cannula, noted to be a bit dyspneic with any activity. Patient denies being short of breath, denies being in pain, she seems to be doing better than expected considering her surgical intervention. CBC showed leukocytosis with WBC of 26.1. Electrolytes are normal however her bicarb is 18 renal profile is normal. Reevaluated today on 07/30/2018, feeling much better compared to yesterday, in no form of respiratory distress. Pain is also under control. Renal functioning has significantly improved, creatinine today is 0.65. Continues to have leukocytosis, antibiotics are addressed by infectious disease on the case. Chest x-ray showed small bilateral pleural effusions left more so than right. And atelectasis. Objective - Vital Signs Vital signs: Vital Signs Temp 98.6 F 07/30/18 04:00 Pulse 77 07/30/18 10:00 Resp 22 07/30/18 10:00 BP 118/69 07/30/18 10:00 Pulse Ox 99 07/30/18 10:00 Intake & Output 07/29/18 07/30/18 07/30/18 18:59 06:59 18:59 Intake Total 1600 870.0 380 Output Total 1935 515 225 Balance -335 355.0 155 Weight 108.8 kg Intake: IV 1040 870.0 380 Piperacillin-Tazobactam 3 100 50.0 .375 gm In Dextrose/Water 1 50ml.bag @ 12.5 mls/hr IVPB Q8HR Y[facility]Y Rx#: [id number] Sodium Chloride 0.9% 1, 740 720 280 000 ml @ 40 mls/hr IV . Q24H YURY Rx#:[id number] metroNIDAZOLE-NS PMX 500 200 100 100 mg In Saline 1 100ml.bag @ 100 mls/hr IVPB Q6HR YURY Rx#:[id number] Oral 560 Output: Drainage 135 Right Lower Abdomen 100 Right Upper Abdomen 35 Urine 1800 515 225 Other: Voiding Method Indwelling Catheter Indwelling Catheter Indwelling Catheter - Exam PHYSICAL EXAM: GENERAL: Physical exam revealed a 68-year-old female in no distress. Head: Atraumatic, normocephalic. HEENT: No scleral icterus. Extraocular movements grossly intact. Hears conversational speech. No nasal drainage. NECK: Supple without lymphadenopathy. CHEST: Diminished breath sounds at the bases, no crackles or rhonchi or wheezes , no chest wall tenderness. CARDIOVASCULAR: Tachycardic. Distal 2+ pulses. ABDOMEN: Soft. Bowel dressings clean dry and intact with wound VAC, Serosanguineous drainage. JPs upper and lower right side. MUSCULOSKELETAL: No clubbing, cyanosis. 3+ bilateral lower extremity edema NEURO: No focal or lateralizing signs. Cranial nerves 2 through 12 grossly within normal limits. : Dark urine. PSYCH: Alert and oriented to person, place and time. SKIN: Good skin turgor. No rashes. - Labs CBC & Chem 7: 07/30/18 04:45 07/30/18 04:45 Labs: Abnormal Lab Results - Last 24 Hours (Table) 07/30/18 07/30/18 Range/Units 04:45 04:45 WBC 26.6 H (3.8-10.6) k/uL Neutrophils # 24.8 H (1.3-7.7) k/uL Lymphocytes # 0.6 L (1.0-4.8) k/uL Chloride 111 H (98-107) mmol/L BUN 36 H (7-17) mg/dL Glucose 110 H (74-99) mg/dL Calcium 7.7 L (8.4-10.2) mg/dL Microbiology - Last 24 Hours (Table) 07/26/18 22:23 Blood Culture - Preliminary Blood No Growth after 72 hours 07/27/18 13:45 Gram Stain - Preliminary [facility] Body Fluid Culture - Preliminary Rosangela albicans 07/28/18 13:06 Gram Stain - Preliminary Other - Other Wound Culture - Preliminary Yeast species 07/28/18 13:06 Gram Stain - Preliminary Other - Other Wound Culture - Preliminary Yeast species 07/28/18 09:46 Blood Culture - Preliminary Blood No Growth after 24 hours Assessment and Plan Assessment: #1. Acute abdominal sepsis secondary to perforation of descending colon and peritonitis, status post surgery as noted above, postoperative day #2 #2. Acute kidney injury related to the above #3. Dehydration due to moderate ileus and sepsis #4. Leucocytosis secondary to sepsis and peritonitis. #5. Mild lactic acidosis, secondary to sepsis #6. Recent colostomy reversal on 07/19/2018 with peritoneal lavage, and patient was sent to the subacute rehab on Levaquin and Flagyl for evidence of contaminated case #7. History of perforated diverticulitis with colon resection and colostomy placement in 2016 #8. Dyspnea , related to intra-abdominal sepsis obesity and abdominal pain, CT angios was negative for any evidence of PE, but showed strandy atelectasis at bilateral bases #9. Oliguria #10. Obesity #11. Acute urinary tract infection #12. Hypertension Recommendation: Continue antibiotics as per infectious disease on the case, continue GI and DVT prophylaxis, we will arrange for the patient be transferred out of the ICU to a regular medical floor/surgical floor, no need for telemetry , continue present treatment plan otherwise. We'll continue to follow. Continue incentive spirometry. Time with Patient: Less than 30
[2018-07-30] MEDS: SODIUM CHLORIDE 0.9% 1,000 ML IV SCH (11:24)
--- NOTE | 2018-07-30 13:20 | P.PN ---
<Autumn Brucemichael Ziegler - Last Filed: 07/30/18 13:09> Subjective Progress Note Date: 07/30/18 68-year-old female seen in the intensive care unit sitting up taking a clear liquid diet tolerating reports no nausea no vomiting. moderate amount of stool out of the ostomy. ELOY drain dressing around the drain site dry serous drainage. Surgical dressing site dry Antibiotics are being followed by infectious disease. White count 26 with leukocytosis. Electrolytes are normal. Patient states feeling better. Pain medication effective for pain control. Placement of prevena system in place July 28 exploratory laparotomy with descending colon resection for perforation, descending colostomy,Devitalized rectal stump. Peritoneal lavage over 10 L, Oma's procedure for perforated descending colon. Objective - Vital Signs Vital signs: Vital Signs Temp 98.6 F 07/30/18 04:00 Pulse 78 07/30/18 11:00 Resp 20 07/30/18 11:00 BP 117/65 07/30/18 11:00 Pulse Ox 97 07/30/18 11:00 Intake & Output 07/29/18 07/30/18 07/30/18 18:59 06:59 18:59 Intake Total 1600 870.0 380 Output Total 1935 515 225 Balance -335 355.0 155 Weight 108.8 kg Intake: IV 1040 870.0 380 Piperacillin-Tazobactam 3 100 50.0 .375 gm In Dextrose/Water 1 50ml.bag @ 12.5 mls/hr IVPB Q8HR Y[facility]Y Rx#: [id number] Sodium Chloride 0.9% 1, 740 720 280 000 ml @ 40 mls/hr IV . Q24H Y[facility] Rx#:[id number] metroNIDAZOLE-NS PMX 500 200 100 100 mg In Saline 1 100ml.bag @ 100 mls/hr IVPB Q6HR Y[facility]Y Rx#:[id number] Oral 560 Output: Drainage 135 Right Lower Abdomen 100 Right Upper Abdomen 35 Urine 1800 515 225 Other: Voiding Method Indwelling Catheter Indwelling Catheter Indwelling Catheter - Exam Physical exam 68-year-old female sitting up in bed in the ICU taking a clear liquid diet no nausea no vomiting Lungs adequate air movement clear Heart S1-S2 audible regular Abdomen abdominal binder in place with ELOY drain, Provena wound system in place soft nondistended surgical tenderness appropriate reports no nausea no vomiting indwelling Lee catheter in place states less abdominal pain stoma red Extremities no edema Venodyne and below the knee RIVKA hose in place - Labs CBC & Chem 7: 07/30/18 04:45 07/30/18 04:45 Labs: Abnormal Lab Results - Last 24 Hours (Table) 07/30/18 07/30/18 Range/Units 04:45 04:45 WBC 26.6 H (3.8-10.6) k/uL Neutrophils # 24.8 H (1.3-7.7) k/uL Lymphocytes # 0.6 L (1.0-4.8) k/uL Chloride 111 H (98-107) mmol/L BUN 36 H (7-17) mg/dL Glucose 110 H (74-99) mg/dL Calcium 7.7 L (8.4-10.2) mg/dL Microbiology - Last 24 Hours (Table) 07/28/18 09:46 Blood Culture - Preliminary Blood No Growth after 48 hours 07/26/18 22:23 Blood Culture - Preliminary Blood No Growth after 72 hours 07/27/18 13:45 Gram Stain - Preliminary [facility] Body Fluid Culture - Preliminary Rosangela albicans 07/28/18 13:06 Gram Stain - Preliminary Other - Other Wound Culture - Preliminary Yeast species 07/28/18 13:06 Gram Stain - Preliminary Other - Other Wound Culture - Preliminary Yeast species Assessment and Plan Assessment: Impression Present on admission abdominal pain with acute abdominal sepsis secondary to perforation of descending colon and peritonitis Postop July 28 exploratory laparotomy with descending colon resection for perforation, descending colostomy, Oma's procedure for perforated descending colon, Present on admission dehydration due to moderate ileus and sepsis Leukocytosis secondary to sepsis and peritonitis Recent colostomy reversal on 07/19/2018 with peritoneal lavage, and patient was sent to the subacute rehab on Levaquin and Flagyl for evidence of contaminated case Acute urinary tract infection Morbid Obesity BMI 45 due to excessive calories Shortness of breath dyspnea related to intra-abdominal sepsis, obesity and abdominal pain computed tomography scan was negative the chest for evidence of PE. Ileus following gastrointestinal surgery Sigmoid diverticulitis Status post colostomy Chronic constipation oliquria Acute kidney injury Atelectasis per chest x-ray Peritonitis Hyponatremia Plan Continue postop surgical care PT OT Advance diet as tolerated Ostomy teaching to be initiated ostomy nurse to see patient Pain control Increase activity DVT and GI prophylaxis IV antibiotics per infectious disease Dr. Hancock Continue ICU nurse emergency room management The above impression and plan of care have been discussed and directed by signing physician. Brigitte Bruce nurse practitioner acting as scribe for signing physician. <RobinMoon N - Last Filed: 07/31/18 07:16> Objective - Vital Signs Vital signs: Vital Signs Temp 98.5 F 07/31/18 01:02 Pulse 79 07/31/18 01:02 Resp 17 07/31/18 01:02 BP 140/81 07/31/18 01:02 Pulse Ox 95 07/31/18 01:02 Intake & Output 07/30/18 07/31/18 07/31/18 18:59 06:59 18:59 Intake Total 1210 Output Total 1725 300 Balance -515 -300 Weight 108.8 kg Intake: IV 850 Piperacillin-Tazobactam 3 50 .375 gm In Dextrose/Water 1 50ml.bag @ 12.5 mls/hr IVPB Q8HR [facility] Rx#: [id number] Sodium Chloride 0.9% 1, 600 000 ml @ 40 mls/hr IV . Q24H YURY Rx#:[id number] metroNIDAZOLE-NS PMX 500 200 mg In Saline 1 100ml.bag @ 100 mls/hr IVPB Q6HR Y[facility]Y Rx#:[id number] Oral 360 Output: Drainage 150 50 Medial Abdomen 150 Right Lower Abdomen 30 Right Upper Abdomen 20 Urine 1525 250 Stool 50 Other: Voiding Method Indwelling Catheter Bedpan # Voids 1 - Labs CBC & Chem 7: 07/30/18 04:45 07/30/18 04:45 Labs: Microbiology - Last 24 Hours (Table) 07/26/18 22:23 Blood Culture - Preliminary Blood No Growth after 96 hours 07/27/18 13:45 Gram Stain - Final [facility] Body Fluid Culture - Final Rosangela albicans 07/28/18 13:06 Gram Stain - Final Other - Other Wound Culture - Final Rosangela albicans 07/28/18 13:06 Gram Stain - Final Other - Other Wound Culture - Final Rosangela albicans 07/28/18 09:46 Blood Culture - Preliminary Blood No Growth after 48 hours Assessment and Plan (1) Atelectasis Current Visit: Yes Status: Acute Code(s): J98.11 - ATELECTASIS SNOMED Code (s): 66579387 (2) Acute kidney injury Current Visit: Yes Status: Acute Code(s): N17.9 - ACUTE KIDNEY FAILURE, UNSPECIFIED SNOMED Code(s): 92101240 (3) Dehydration Current Visit: Yes Status: Acute Code(s): E86.0 - DEHYDRATION SNOMED Code( s): 93628823 (4) Leukocytosis Current Visit: Yes Status: Acute Code(s): D72.829 - ELEVATED WHITE BLOOD CELL COUNT, UNSPECIFIED SNOMED Code(s): 914114631 (5) Oliguria Current Visit: Yes Status: Acute Code(s): R34 - ANURIA AND OLIGURIA SNOMED Code(s): 88186208 (6) Ileus following gastrointestinal surgery Current Visit: Yes Status: Acute Code(s): K91.30 - POSTPROC INTESTINAL OBST , UNSP TO PARTIAL VERSUS COMPLETE SNOMED Code(s): 187669130 (7) Morbid (severe) obesity due to excess calories Current Visit: No Status: Acute Code(s): E66.01 - MORBID (SEVERE) OBESITY DUE TO EXCESS CALORIES SNOMED Code(s): 028965032 (8) Sigmoid diverticulitis Current Visit: No Status: Acute Code(s): K57.32 - DVTRCLI OF LG INT W/O PERFORATION OR ABSCESS W/O BLEEDING SNOMED Code(s): 132782074 (9) S/P colostomy takedown Current Visit: Yes Status: Acute Code(s): Z98.890 - OTHER SPECIFIED POSTPROCEDURAL STATES SNOMED Code(s): 41473992059484931 (10) Chronic constipation Current Visit: Yes Status: Acute Code(s): K59.09 - OTHER CONSTIPATION SNOMED Code(s): 822812451 (11) Hyponatremia Current Visit: No Status: Acute Code(s): E87.1 - HYPO-OSMOLALITY AND HYPONATREMIA SNOMED Code(s): 62922841 (12) Peritonitis Current Visit: Yes Status: Acute Code(s): K65.9 - PERITONITIS, UNSPECIFIED SNOMED Code(s): 18450994 (13) Colostomy status Current Visit: No Status: Acute Code(s): Z93.3 - COLOSTOMY STATUS SNOMED Code(s): 620935105 Plan: Cultures now showing yeast from her peritoneal fluid. Antifungal started. WBC still elevated. Will send for CDiff as well.
[2018-07-30] MEDS: ACETAMINOPHEN TAB 325 MG TAB PO PRN (15:24)
--- NOTE | 2018-07-30 16:47 | P.PN ---
Subjective This is a pleasant 68 years old female with past medical history of hypertension , hypernatremia, peptic ulcer, perforated diverticulum status post colostomy on 03/2016.. When I saw the patient in the PACU postop she was sleepy and could not provide information was taken from staff and medical records. Patient originally was transferred from [facility] for acute abdominal pain in the right upper quadrant. Patient had a reversal of her colostomy last week by Dr. Preciado in this hospital, she was doing well in the postoperative period, and subsequently was discharged to [facility]. However about 2 days ago, an increased drainage from around her ELOY site was noted. Her white blood cell count was checked and found to be over 18,000. As result of these findings, patient was recommended transfer back to the hospital for further evaluation and assessment. Also patient on admission was noticed to have look swollen and decreased urine, mostly prerenal acute kidney injury which is resolved now. Infectious disease has been requested and evaluated the patient. Patient is on Zosyn and Flagyl and IV fluids. Pulmonary team R following the case as well. CT angiogram of the chest showing no PE and possible bilateral lower lobe pulmonary infiltrates and atelectasis as per radiologist report. CT of the abdomen showing some fluid in the paracolic gutters and fluid stranding in this small bowel mesentery. No free air. On 07/28/2018 (the day of this note) patient underwent exploratory laparotomy with sigmoid colostomy, with new perforation 4 cm proximal to the colorectal anastomosis and fecal peritonitis and diffuse fecal spillage along the bilateral upper abdomen, right lower quadrant and contained small bowel interloop fluid collection. 07/29/2018 Patient remains in the ICU. Patient is postop #1, for her sigmoid colostomy surgery from perforated viscus about 4 cm from her colorectal anastomosis. Looks tired and having difficulty talking because of her breathing and pain. She could not keep acid in all my questions. However she is awake and oriented. She has abdominal pain which looks controlled on the abdominal surgery site. Patient is on IV antibiotics Zosyn and Flagyl. Patient started on a clear liquid diet. Monitor vitals and lites culture results are still pending 07/30/2018 Patient is seen and examined by me at bedside in the ICU. Patient is awake lying in bed not in distress. She has expected pain at the surgical site. Her pain is controlled with medication. She is awake and oriented. However she is disoriented for why she is in the hospital, patient has been updated with the her situation, including the problems she suffering from and treatment plan and she is in agreement. Chart shows fungal infection, thus is been addressed by the infectious disease and patient is a started on antifungal. Patient remains on Zosyn and Flagyl. With leukocytosis around 20 6K. Patient with no chest pain in his breathing looks quiet. Critical care and put is appreciated. Patient remains in the ICU currently Review of systems CONSTITUTIONAL: No fever, no malaise, no fatigue. HEENT: No recent visual problems or hearing problems. Denied any sore throat. CARDIOVASCULAR: No orthopnea, PND, no palpitations, no syncope. PULMONARY: No shortness of breath, no cough, no hemoptysis. GASTROINTESTINAL: No diarrhea, no nausea, no vomiting, no abdominal pain. Normoactive bowel sounds. NEUROLOGICAL: No headaches, no weakness, no numbness. HEMATOLOGICAL: Denies any bleeding or petechiae. GENITOURINARY: Denies any burning micturition, frequency, or urgency. MUSCULOSKELETAL/RHEUMATOLOGICAL: Denies any joint pain, swelling, or any muscle pain. ENDOCRINE: Denies any polyuria or polydipsia. Objective - Vital Signs Vital signs: Vital Signs Temp 98.4 F 07/30/18 12:00 Pulse 79 07/30/18 14:00 Resp 16 07/30/18 14:00 BP 128/81 07/30/18 14:00 Pulse Ox 97 07/30/18 14:00 Intake & Output 07/29/18 07/30/18 07/30/18 18:59 06:59 18:59 Intake Total 1600 870.0 380 Output Total 1935 515 225 Balance -335 355.0 155 Weight 108.8 kg 108.8 kg Intake: IV 1040 870.0 380 Piperacillin-Tazobactam 3 100 50.0 .375 gm In Dextrose/Water 1 50ml.bag @ 12.5 mls/hr IVPB Q8HR Y[facility]Y Rx#: [id number] Sodium Chloride 0.9% 1, 740 720 280 000 ml @ 40 mls/hr IV . Q24H Y[facility]Y Rx#:[id number] metroNIDAZOLE-NS PMX 500 200 100 100 mg In Saline 1 100ml.bag @ 100 mls/hr IVPB Q6HR YURY Rx#:[id number] Oral 560 Output: Drainage 135 Right Lower Abdomen 100 Right Upper Abdomen 35 Urine 1800 515 225 Other: Voiding Method Indwelling Catheter Indwelling Catheter Indwelling Catheter - Exam -GENERAL: The patient is awake and oriented but she looks tired and dyspneic fluids with pain from her recent surgery. not in any acute distress. Well developed, well nourished. HEENT: Pupils are round and equally reacting to light. EOMI. No scleral icterus. No conjunctival pallor. Normocephalic, atraumatic. No pharyngeal erythema. No thyromegaly. CARDIOVASCULAR: S1 and S2 present. No murmurs, rubs, or gallops. PULMONARY: Chest is clear to auscultation, no wheezing or crackles. ABDOMEN: Abdomen looks soft. Tenderness from recent surgery. Dressing in place. Drains are in place. defer wound exam to the surgical team MUSCULOSKELETAL: No joint swelling or deformity. EXTREMITIES: No cyanosis, clubbing, or pedal edema. NEUROLOGICAL: Gross neurological examination did not reveal any focal deficits. SKIN: No rashes. - Labs CBC & Chem 7: 07/30/18 04:45 07/30/18 04:45 Labs: Abnormal Lab Results - Last 24 Hours (Table) 07/30/18 07/30/18 Range/Units 04:45 04:45 WBC 26.6 H (3.8-10.6) k/uL Neutrophils # 24.8 H (1.3-7.7) k/uL Lymphocytes # 0.6 L (1.0-4.8) k/uL Chloride 111 H (98-107) mmol/L BUN 36 H (7-17) mg/dL Glucose 110 H (74-99) mg/dL Calcium 7.7 L (8.4-10.2) mg/dL Microbiology - Last 24 Hours (Table) 07/28/18 09:46 Blood Culture - Preliminary Blood No Growth after 48 hours 07/26/18 22:23 Blood Culture - Preliminary Blood No Growth after 72 hours 07/27/18 13:45 Gram Stain - Preliminary [facility] Body Fluid Culture - Preliminary Rosangela albicans 07/28/18 13:06 Gram Stain - Preliminary Other - Other Wound Culture - Preliminary Yeast species 07/28/18 13:06 Gram Stain - Preliminary Other - Other Wound Culture - Preliminary Yeast species Assessment and Plan Assessment: Perforated colon , status post exploratory laparotomy Fecal peritonitis Fungal infection Dehydration hypertension h/o peptic ulcer perforated diverticulum status post colostomy on 03/2016 Plan: This is a pleasant 68 years old female presents with perforated viscus and:. Continue same treatment. Continue symptomatic treatment. Follow-up infectious disease recommendation and broad-spectrum antibiotics. Follow-up pulmonary recommendation. Continue with antibiotics and IV fluids. Follow up the culture results Monitor labs and vitals. Pain management. DVT and GI prophylaxis. Further recommendations is based on the clinical course of the patient DVT prophylaxis:On Lovenox GI prophylaxis: Protonix PT/OT: Pending Prognosis is guarded Thank you for consulting us, his feel free to contact us for any further clarification or questions.
--- NOTE | 2018-07-30 22:28 | PN ---
PROGRESS NOTE DATE OF SERVICE: 07/30/2018 REASON FOR FOLLOWUP: Secondary peritonitis from perforated bowel. INTERVAL HISTORY: The patient is afebrile. She is breathing comfortably, hemodynamically stable. Pain is currently controlled with pain medication. No nausea. No vomiting. No output in colostomy bag. No chest pain, shortness of breath or cough. PHYSICAL EXAMINATION: Blood pressure 134/72 with a pulse of 97, temperature 97. She is 91% on room air. General description is an elderly female lying in bed in no distress. RESPIRATORY SYSTEM: Unlabored breathing. Clear to auscultation anteriorly. HEART: S1, S2. Regular rate and rhythm. ABDOMEN: Soft. Mildly distended. No guarding or rigidity. LABS: BUN of 36, creatinine 0.65. White count still elevated at 26.6. The abdominal culture is showing Rosangela albicans; however, the urine is showing Rosangela glabrata. DIAGNOSTIC IMPRESSION AND PLAN: Patient with abdominal sepsis from a perforated bowel, status post operative repair for the same, now with the abdominal culture showing Rosangela albicans; however, urine showing Rosangela glabrata. We will start the patient on anidulafungin. Continue with Zosyn and Flagyl at this point. Continue with supportive care. MMODL / IJN: [id number] /
[2018-07-31] MEDS: METOCLOPRAMIDE 5 MG/ML 2 ML VIAL IVP SCH ×5 (01:23→23:46)
[2018-07-31] MEDS: metroNIDAZOLE-NS PMX 500 MG in SALINE 1 100ML.BAG IVPB SCH ×5 (01:23→23:49)
[2018-07-31] MEDS: PIPERACILLIN-TAZOBACTAM 3.375 GM in DEXTROSE/WATER 1 50ML.BAG IVPB SCH ×4 (01:23→23:49)
[2018-07-31] MEDS: ACETAMINOPHEN TAB 325 MG TAB PO PRN (02:16)
[2018-07-31 07:52] LABS: Basophils # (A) 0.1 k/uL (0-0.2); Basophils % (A) 1 %; Eosinophils # (A) 0.3 k/uL (0-0.7); Eosinophils % (A) 1 %; HCT 40.4 % (34.0-46.0); HGB 12.6 gm/dL (11.4-16.0); Lymphocytes # (A) 0.7 k/uL (1.0-4.8); Lymphocytes % (A) 3 %; MCH 29.8 pg (25.0-35.0); MCHC 31.3 g/dL (31.0-37.0); MCV 95.2 fL (80.0-100.0); Mean Platelet Volume 7.8; Monocytes # (A) 0.7 k/uL (0-1.0); Monocytes % (A) 3 %; Neutrophils % (A) 91 %; Platelet Count 317 k/uL (150-450); RBC 4.25 m/uL (3.80-5.40); RDW 13.2 % (11.5-15.5)
[2018-07-31 08:05] LABS: Anion Gap 9 mmol/L; Blood Urea Nitrogen 36 mg/dL (7-17); Calcium 7.6 mg/dL (8.4-10.2); Carbon Dioxide 22 mmol/L (22-30); Chloride 110 mmol/L (98-107); Glucose 95 mg/dL (74-99); Magnesium 1.6 mg/dL (1.6-2.3); Potassium 3.8 mmol/L (3.5-5.1); Sodium 141 mmol/L (137-145)
--- NOTE | 2018-07-31 08:47 | P.PN ---
<Brigitte Bruce M - Last Filed: 07/31/18 08:30> Subjective Progress Note Date: 07/31/18 A 68-year-old female seen at the bedside this morning moderate amount of liquid brown stool out of the ostomy patient was transferred out of the ICU yesterday. Patient states pain medication has been effective for pain control. Anxious to get up out of bed and start moving "" reportedly is tolerating very diet. Patients being followed by infectious disease for IV antibiotic recommendations. Currently has a prevena wound system in place. Surgical dressing site dry area ostomy moderate amount of brown stool but in the ostomy bag. ELOY drain serous drainage noted 68-year-old female who was recently discharged from the hospital less than 48 hours. Was transferred to a subacute rehab heart beat. Proximally a week following colostomy reversal including lisinopril adhesions and a parastomal hernia repair was done. At that admission patient was on IV antibiotics Flagyl and Levaquin. Has done well postop. Tolerating a diet voiding spontaneous ambulating with physical and occupational therapy. Was felt to be appropriate to transfer at that time to the subacute rehab and her repeat. Patient was noted at the rehab center have increased drainage from the ELOY drain site. White count was 18,000 with increase shortness of given the above findings patient was recommended to be transferred back to [facility] [place] for further evaluation patient was noted to have poor urine output at the subacute rehab center. Does have a personal history of prior chronic constipation as well as hyponatremia. Patient did have a CAT scan of the chest to rule out pulmonary emboli for the progressive shortness of breath show no evidence of a PE. July 28 exploratory laparotomy with descending colon resection for perforation, descending colostomy,Devitalized rectal stump. Peritoneal lavage over 10 L, Oma's procedure for perforated descending colon. Objective - Vital Signs Vital signs: Vital Signs Temp 98.5 F 07/31/18 01:02 Pulse 79 07/31/18 01:02 Resp 17 07/31/18 01:02 BP 140/81 07/31/18 01:02 Pulse Ox 95 07/31/18 01:02 Intake & Output 07/30/18 07/31/18 07/31/18 18:59 06:59 18:59 Intake Total 1210 Output Total 1725 300 Balance -515 -300 Weight 108.8 kg Intake: IV 850 Piperacillin-Tazobactam 3 50 .375 gm In Dextrose/Water 1 50ml.bag @ 12.5 mls/hr IVPB Q8HR [facility] Rx#: [id number] Sodium Chloride 0.9% 1, 600 000 ml @ 40 mls/hr IV . Q24H [facility] Rx#:[id number] metroNIDAZOLE-NS PMX 500 200 mg In Saline 1 100ml.bag @ 100 mls/hr IVPB Q6HR [facility] Rx#:[id number] Oral 360 Output: Drainage 150 50 Medial Abdomen 150 Right Lower Abdomen 30 Right Upper Abdomen 20 Urine 1525 250 Stool 50 Other: Voiding Method Indwelling Catheter Bedpan # Voids 1 - Exam Physical exam 68-year-old female sitting up in bed appears in no acute distress ostomy moderate amount of liquid stool leaking onto patient Lungs anterior diminished at the bases no audible wheezing on room air sats are 91% Heart S1-S2 audible regular no murmur denying chest pain Abdomen ostomy left lower quadrant moderate amount of liquid stool ELOY drain serous drainage noted dressing dry to prevena wound system surgical tenderness appropriate active bowel tones reportedly urinating no difficulty tolerating. pureed Diet reports no nausea no vomiting Extremities Venodyne's on to the bilateral lower extremities - Labs CBC & Chem 7: 07/31/18 07:18 07/31/18 07:18 Labs: Abnormal Lab Results - Last 24 Hours (Table) 07/31/18 07/31/18 Range/Units 07:18 07:18 WBC 21.0 H (3.8-10.6) k/uL Neutrophils # 19.0 H (1.3-7.7) k/uL Lymphocytes # 0.7 L (1.0-4.8) k/uL Chloride 110 H (98-107) mmol/L BUN 36 H (7-17) mg/dL Calcium 7.6 L (8.4-10.2) mg/dL Microbiology - Last 24 Hours (Table) 07/26/18 22:23 Blood Culture - Preliminary Blood No Growth after 96 hours 07/27/18 13:45 Gram Stain - Final [facility] Body Fluid Culture - Final Rosangela albicans 07/28/18 13:06 Gram Stain - Final Other - Other Wound Culture - Final Rosangela albicans 07/28/18 13:06 Gram Stain - Final Other - Other Wound Culture - Final Rosangela albicans 07/28/18 09:46 Blood Culture - Preliminary Blood No Growth after 48 hours Assessment and Plan Assessment: Impression Present on admission abdominal pain with acute abdominal sepsis secondary to perforation of descending colon and peritonitis Postop July 28 exploratory laparotomy with descending colon resection for perforation, descending colostomy, Oma's procedure for perforated descending colon, Present on admission dehydration due to moderate ileus and sepsis Leukocytosis secondary to sepsis and peritonitis Recent colostomy reversal on 07/19/2018 with peritoneal lavage, and patient was sent to the subacute rehab on Levaquin and Flagyl for evidence of contaminated case Acute urinary tract infection Morbid Obesity BMI 45 due to excessive calories Shortness of breath dyspnea related to intra-abdominal sepsis, obesity and abdominal pain computed tomography scan was negative the chest for evidence of PE. Ileus following gastrointestinal surgery Sigmoid diverticulitis Status post colostomy Chronic constipation oliquria Acute kidney injury Atelectasis per chest x-ray Peritonitis Hyponatremia Metabolic acidosis secondary to IV fluids improving Volume overload Nonoliguric acute kidney injury mostly prerenal improved with IV hydration. GFR back to baseline. Secondary peritonitis from perforated bowel Wound cultures showing Rosangela albicans Urine culture showing Rosangela glabrata Plan Continue postop surgical care PT OT Advance diet as tolerated Ostomy teaching to be initiated ostomy nurse to see patient Pain control Increase activity DVT and GI prophylaxis IV antibiotics per infectious disease Dr. Brooksed Monitor lab The above impression and plan of care have been discussed and directed by signing physician. Brigitte Bruce nurse practitioner acting as scribe for signing physician. <Moon Kelly N - Last Filed: 07/31/18 18:54> Objective - Vital Signs Vital signs: Vital Signs Temp 97.2 F L 07/31/18 14:58 Pulse 94 07/31/18 14:58 Resp 16 07/31/18 14:58 BP 128/71 07/31/18 14:58 Pulse Ox 98 07/31/18 14:58 Intake & Output 07/30/18 07/31/18 07/31/18 18:59 06:59 18:59 Intake Total 1210 Output Total 1725 400 625 Balance -515 400 -321 Weight 108.8 kg Intake: IV 850 Piperacillin-Tazobactam 3 50 .375 gm In Dextrose/Water 1 50ml.bag @ 12.5 mls/hr IVPB Q8HR [facility] Rx#: [id number] Sodium Chloride 0.9% 1, 600 000 ml @ 40 mls/hr IV . Q24H [facility] Rx#:[id number] metroNIDAZOLE-NS PMX 500 200 mg In Saline 1 100ml.bag @ 100 mls/hr IVPB Q6HR [facility] Rx#:[id number] Oral 360 Output: Drainage 150 50 25 Medial Abdomen 150 Right Lower Abdomen 30 20 Right Upper Abdomen 20 5 Urine 1525 250 600 Stool 50 100 Other: Voiding Method Indwelling Catheter Bedpan Incontinent # Voids 1 - Labs CBC & Chem 7: 07/31/18 07:18 07/31/18 07:18 Labs: Abnormal Lab Results - Last 24 Hours (Table) 07/31/18 07/31/18 Range/Units 07:18 07:18 WBC 21.0 H (3.8-10.6) k/uL Neutrophils # 19.0 H (1.3-7.7) k/uL Lymphocytes # 0.7 L (1.0-4.8) k/uL Chloride 110 H (98-107) mmol/L BUN 36 H (7-17) mg/dL Calcium 7.6 L (8.4-10.2) mg/dL Microbiology - Last 24 Hours (Table) 07/28/18 09:46 Blood Culture - Preliminary Blood No Growth after 72 hours 07/26/18 22:23 Blood Culture - Preliminary Blood No Growth after 96 hours 07/27/18 13:45 Gram Stain - Final [facility] Body Fluid Culture - Final Rosangela albicans 07/28/18 13:06 Gram Stain - Final Other - Other Wound Culture - Final Rosangela albicans 07/28/18 13:06 Gram Stain - Final Other - Other Wound Culture - Final Rosangela albicans Assessment and Plan (1) Atelectasis Current Visit: Yes Status: Acute Code(s): J98.11 - ATELECTASIS SNOMED Code (s): 32595480 (2) Acute kidney injury Current Visit: Yes Status: Acute Code(s): N17.9 - ACUTE KIDNEY FAILURE, UNSPECIFIED SNOMED Code(s): 21690637 (3) Dehydration Current Visit: Yes Status: Acute Code(s): E86.0 - DEHYDRATION SNOMED Code( s): 33999014 (4) Leukocytosis Current Visit: Yes Status: Acute Code(s): D72.829 - ELEVATED WHITE BLOOD CELL COUNT, UNSPECIFIED SNOMED Code(s): 146624350 (5) Oliguria Current Visit: Yes Status: Acute Code(s): R34 - ANURIA AND OLIGURIA SNOMED Code(s): 63055274 (6) Ileus following gastrointestinal surgery Current Visit: Yes Status: Acute Code(s): K91.30 - POSTPROC INTESTINAL OBST , UNSP TO PARTIAL VERSUS COMPLETE SNOMED Code(s): 267933291 (7) Morbid (severe) obesity due to excess calories Current Visit: No Status: Acute Code(s): E66.01 - MORBID (SEVERE) OBESITY DUE TO EXCESS CALORIES SNOMED Code(s): 928157237 (8) Sigmoid diverticulitis Current Visit: No Status: Acute Code(s): K57.32 - DVTRCLI OF LG INT W/O PERFORATION OR ABSCESS W/O BLEEDING SNOMED Code(s): 009715240 (9) S/P colostomy takedown Current Visit: Yes Status: Acute Code(s): Z98.890 - OTHER SPECIFIED POSTPROCEDURAL STATES SNOMED Code(s): 81009969521647268 (10) Chronic constipation Current Visit: Yes Status: Acute Code(s): K59.09 - OTHER CONSTIPATION SNOMED Code(s): 490699721 (11) Hyponatremia Current Visit: No Status: Acute Code(s): E87.1 - HYPO-OSMOLALITY AND HYPONATREMIA SNOMED Code(s): 79990855 (12) Peritonitis Current Visit: Yes Status: Acute Code(s): K65.9 - PERITONITIS, UNSPECIFIED SNOMED Code(s): 05666172 (13) Colostomy status Current Visit: No Status: Acute Code(s): Z93.3 - COLOSTOMY STATUS SNOMED Code(s): 009121741 Plan: 1. PICC line in place since yesterday for antibiotics 2. She is tolerating pureed diet 3. Edema in hands and legs moderately improved. 4. She will need new diuretics for home. Recommendations awaiting from nephrology as patient had chronic hyponatremia from her home medications 5. Rehab needed. 6. Anticipated discharge Sunday pending clearances from consultants.
--- NOTE | 2018-07-31 10:53 | P.PN ---
Subjective Progress Note Date: 07/31/18 Principal diagnosis: Acute abdominal sepsis and peritonitis, status post resection of descending colon for perforation This is a 68-year-old white female patient who was brought to the emergency department via ambulance from [facility] for evaluation of acute abdominal pain in the right lower quadrant. Patient had a reversal of her colostomy last week by Dr. Preciado in this hospital, she was doing well in the postoperative period, and subsequently was discharged to [facility]. 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 Patient had a ELOY drain placed within the right lower abdomen. Originally patient had colostomy placed for history of perforated diverticulitis in 2016. Postop patient was treated with Levaquin and Flagyl for a history of contaminated case CT of abdomen with contrast showed some fluid stranding in the small bowel mesentery, and some fluid in the pericolic gutters, no sign of free air, multiple distended loops of fluid-filled small bowel, consistent with moderate ileus. Labs showed leukocytosis with a PVC of 23.7, hemoglobin of 16.1, INR 1.5, BUN of 31, creatinine 1.24, was normal lactic acid was 2.2, LFTs normal, urinalysis showed evidence of large amount of leuks, many white and red blood cells, and yeast. In the emergency department there was some yellow and brown discharge from around her ELOY drain which was sent for cultures. Patient states she had fever and chills. He states she has not been passing any stools, but she has been taking an oral intake. She noted worsening edema of her bilateral lower extremities. Denies any nausea or vomiting. CT angios was obtained, which was negative for any evidence of pulmonary embolism, and showed some strandy bilateral atelectasis. Patient was given a total of 3 L of IV fluids, she was started on Zosyn in addition to Flagyl, and Levaquin was discontinued. She remains afebrile, she is tachycardic with a heart rate in the 110's. Blood pressure is 154/101, she is still having tenderness in the right lower quadrant around the ELOY insertion site. Bowel sounds are active. Surgical incisions are covered with surgical dressings with shadowing of old blood on them. Lung sounds are positive for a few rhonchi, but no wheezing. Patient only has occasional cough with production of yellowish sputum. Patient is diaphoretic. Her urine output is low, only 30 mL an hour after fluid boluses, and her urine color is light brown. We spoke to Dr. Preciado, and patient is suspected to have dehydration elated to combination of moderate ileus and possibility of peritonitis. It was decided to give the patient additional 1 L bolus of 0.9 normal saline, obtain lactic acid. And patient is scheduled surgery sometime today by Dr. Preciado for reexploration. Patient was reevaluated today on 07/29/2018, she underwent exploratory laparotomy yesterday, she underwent resection of descending colon for perforation, descending colostomy, Ford's procedure for perforated descending colon. She had peritoneal lavage with over 10 L. And she underwent placement of intra-abdominal Eder drain, 2, and underwent wound VAC system placement. Today the patient is on the ICU, she is on antibiotics as per infectious disease on the case, she is off mechanical ventilation, on nasal cannula, noted to be a bit dyspneic with any activity. Patient denies being short of breath, denies being in pain, she seems to be doing better than expected considering her surgical intervention. CBC showed leukocytosis with WBC of 26.1. Electrolytes are normal however her bicarb is 18 renal profile is normal. Reevaluated today on 07/30/2018, feeling much better compared to yesterday, in no form of respiratory distress. Pain is also under control. Renal functioning has significantly improved, creatinine today is 0.65. Continues to have leukocytosis, antibiotics are addressed by infectious disease on the case. Chest x-ray showed small bilateral pleural effusions left more so than right. And atelectasis. On 07/31/2018 patient seen in follow-up on surgical floor. Awake and alert, denies any acute distress. Incisional pain is reasonably controlled, patient has abdominal binder on. Patient has a wound VAC in place, right ELOY drain is draining serous fluid. Wound cultures were positive For Rosangela albicans. And patient is on Anidulafungin, Flagyl and Zosyn. Left abdominal colostomy is with the liquid brown output. Patient is tolerating clear liquids. No nausea, no vomiting. Patient is on 2 L per nasal cannula, and the pulse ox is 97%. Patient is afebrile. Lung sounds are clear, diminished at the bases, I asked effort is 250-500, and patient extensive coaching and encouragement. Patient has bilateral lower extremity edema, and she has received some Lasix. Objective - Vital Signs Vital signs: Vital Signs Temp 97.9 F 07/31/18 08:00 Pulse 102 H 07/31/18 08:00 Resp 18 07/31/18 08:00 BP 133/82 07/31/18 08:00 Pulse Ox 94 L 07/31/18 08:00 Intake & Output 07/30/18 07/31/18 07/31/18 18:59 06:59 18:59 Intake Total 1210 Output Total 1725 300 150 Balance -515 -300 -150 Weight 108.8 kg Intake: IV 850 Piperacillin-Tazobactam 3 50 .375 gm In Dextrose/Water 1 50ml.bag @ 12.5 mls/hr IVPB Q8HR [facility] Rx#: [id number] Sodium Chloride 0.9% 1, 600 000 ml @ 40 mls/hr IV . Q24H [facility] Rx#:[id number] metroNIDAZOLE-NS PMX 500 200 mg In Saline 1 100ml.bag @ 100 mls/hr IVPB Q6HR [facility] Rx#:[id number] Oral 360 Output: Drainage 150 50 Medial Abdomen 150 Right Lower Abdomen 30 Right Upper Abdomen 20 Urine 1525 250 150 Stool 50 Other: Voiding Method Indwelling Catheter Bedpan # Voids 1 - Exam PHYSICAL EXAM: GENERAL: Physical exam revealed a 68-year-old female in no distress. Head: Atraumatic, normocephalic. HEENT: No scleral icterus. Extraocular movements grossly intact. Hears conversational speech. No nasal drainage. NECK: Supple without lymphadenopathy. CHEST: Diminished breath sounds at the bases, no crackles or rhonchi or wheezes , no chest wall tenderness. CARDIOVASCULAR: Tachycardic. Distal 2+ pulses. ABDOMEN: Soft. Bowel dressings clean dry and intact with wound VAC, Serosanguineous drainage. JPs upper and lower right side. Left abdominal colostomy with liquid brown output MUSCULOSKELETAL: No clubbing, cyanosis. 3+ bilateral lower extremity edema NEURO: No focal or lateralizing signs. Cranial nerves 2 through 12 grossly within normal limits. : Dark urine. PSYCH: Alert and oriented to person, place and time. SKIN: Good skin turgor. No rashes. - Labs CBC & Chem 7: 07/31/18 07:18 07/31/18 07:18 Labs: Abnormal Lab Results - Last 24 Hours (Table) 07/31/18 07/31/18 Range/Units 07:18 07:18 WBC 21.0 H (3.8-10.6) k/uL Neutrophils # 19.0 H (1.3-7.7) k/uL Lymphocytes # 0.7 L (1.0-4.8) k/uL Chloride 110 H (98-107) mmol/L BUN 36 H (7-17) mg/dL Calcium 7.6 L (8.4-10.2) mg/dL Microbiology - Last 24 Hours (Table) 07/26/18 22:23 Blood Culture - Preliminary Blood No Growth after 96 hours 07/27/18 13:45 Gram Stain - Final [facility] Body Fluid Culture - Final Rosangela albicans 07/28/18 13:06 Gram Stain - Final Other - Other Wound Culture - Final Rosangela albicans 07/28/18 13:06 Gram Stain - Final Other - Other Wound Culture - Final Rosangela albicans 07/28/18 09:46 Blood Culture - Preliminary Blood No Growth after 48 hours Assessment and Plan Plan: Assessment: #1. Acute sepsis secondary to perforation of descending colon and peritonitis, status post surgery as noted above, postoperative day 3 #2. Acute kidney injury related to the above, resolved #3. Dehydration due to moderate ileus and sepsis, improved #4. Leucocytosis, improving #5. Mild lactic acidosis #6. Recent colostomy reversal on 07/19/2018 with peritoneal lavage, and patient was sent to the subacute rehab on Levaquin and Flagyl for evidence of contaminated case #7. History of perforated diverticulitis with colon resection and colostomy placement in 2016 #8. Dyspnea , related to intra-abdominal sepsis obesity and abdominal pain, CT angios was negative for any evidence of PE, but showed strandy atelectasis at bilateral bases #9. Oliguria #10. Obesity #11. Acute urinary tract infection #12. Hypertension Plan: Continue encouraging deep breathing and coughing, incentive spirometry use. Patient requires extensive coaching and encouragement with incentive spirometer. Antibiotics per ID service. No fever, no chills. Renal profile has improved, no altered mentation. Continue GI and DVT prophylaxis, patient received a dose of IV Lasix for swelling in bilateral lower extremities. We'll continue to follow. I performed a history & physical examination of the patient and discussed their management with my nurse practitioner, Lucy Paris. I reviewed the nurse practitioner's note and agree with the documented findings and plan of care. Lung sounds are clear, diminished at the bases. The findings and the impression was discussed with the patient. I attest to the documentation by the nurse practitioner. Time with Patient: Less than 30
--- NOTE | 2018-07-31 10:54 | P.PN ---
Subjective Patient is seen in follow-up for acute kidney injury. Creatinine was 1.24 on admission; VALERIE now resolved. Lower extremity edema improved. Patient underwent exploratory laparotomy with descending colon resection for perforated viscus on July 28. Denies chest pain or shortness of breath. Vital signs are stable. General: The patient appeared well nourished and normally developed. HEENT: Head exam is unremarkable. Neck is without jugular venous distension. LUNGS: Lungs are clear to auscultation and percussion. Breath sounds decreased. HEART: Rate and Rhythm are regular. First and second heart sounds normal. No murmurs, rubs or gallops. ABDOMEN: Abdominal exam reveals normal bowel sounds. Non-tender and non- distended. No evidence of peritonitis. EXTREMITITES: Trace edema. Objective - Vital Signs Vital signs: Vital Signs Temp 97.9 F 07/31/18 08:00 Pulse 102 H 07/31/18 08:00 Resp 18 07/31/18 08:00 BP 133/82 07/31/18 08:00 Pulse Ox 94 L 07/31/18 08:00 Intake & Output 07/30/18 07/31/18 07/31/18 18:59 06:59 18:59 Intake Total 1210 Output Total 1725 300 150 Balance -515 -300 -150 Weight 108.8 kg Intake: IV 850 Piperacillin-Tazobactam 3 50 .375 gm In Dextrose/Water 1 50ml.bag @ 12.5 mls/hr IVPB Q8HR [facility] Rx#: [id number] Sodium Chloride 0.9% 1, 600 000 ml @ 40 mls/hr IV . Q24H [facility] Rx#:[id number] metroNIDAZOLE-NS PMX 500 200 mg In Saline 1 100ml.bag @ 100 mls/hr IVPB Q6HR [facility] Rx#:[id number] Oral 360 Output: Drainage 150 50 Medial Abdomen 150 Right Lower Abdomen 30 Right Upper Abdomen 20 Urine 1525 250 150 Stool 50 Other: Voiding Method Indwelling Catheter Bedpan # Voids 1 - Labs CBC & Chem 7: 07/31/18 07:18 07/31/18 07:18 Labs: Abnormal Lab Results - Last 24 Hours (Table) 07/31/18 07/31/18 Range/Units 07:18 07:18 WBC 21.0 H (3.8-10.6) k/uL Neutrophils # 19.0 H (1.3-7.7) k/uL Lymphocytes # 0.7 L (1.0-4.8) k/uL Chloride 110 H (98-107) mmol/L BUN 36 H (7-17) mg/dL Calcium 7.6 L (8.4-10.2) mg/dL Microbiology - Last 24 Hours (Table) 07/26/18 22:23 Blood Culture - Preliminary Blood No Growth after 96 hours 07/27/18 13:45 Gram Stain - Final [facility] Body Fluid Culture - Final Rosangela albicans 07/28/18 13:06 Gram Stain - Final Other - Other Wound Culture - Final Rosangela albicans 07/28/18 13:06 Gram Stain - Final Other - Other Wound Culture - Final Rosangela albicans 07/28/18 09:46 Blood Culture - Preliminary Blood No Growth after 48 hours Assessment and Plan Plan: Assessment: 1. Nonoliguric acute kidney injury mostly prerenal improved with IV hydration. GFR back to baseline. 2. Metabolic acidosis secondary to IV fluids. Improved. 3. Volume overload. Improved. 4. Perforated viscus with secondary peritonitis status post exploratory laparotomy and and diverting colostomy on July 28. 5. Hypomagnesemia from poor oral intake. Plan: Maintain NS at 40 mL an hour. Status post 40 mg IV Lasix on July 29 and . Hold today. Continue to monitor renal function and urine output. Replace magnesium. 2 g IV today. Repeat electrolytes in the morning.
[2018-07-31] MEDS: ALVIMOPAN 12 MG CAPSULE PO SCH ×2 (11:19→23:47)
[2018-07-31] MEDS: PANTOPRAZOLE 40 MG/10 ML VIAL IV SCH (11:19)
[2018-07-31] MEDS: ENOXAPARIN 40 MG/0.4 ML SYRINGE SQ SCH (11:21)
[2018-07-31] MEDS: METOPROLOL TARTRATE 25 MG TAB PO SCH ×2 (11:21→23:47)
[2018-07-31] MEDS: ANIDULAFUNGIN 100 MG in SODIUM CHLORIDE 0.9% 100 ML IVPB SCH (11:22)
[2018-07-31] MEDS: SODIUM CHLORIDE 0.9% 1,000 ML IV SCH (13:47)
[2018-07-31] MEDS: MAGNESIUM SULFATE-D5W PMX 1 GM in DEXTROSE/WATER 1 100ML.BAG IVPB SCH ×2 (15:08→16:34)
[2018-07-31] MEDS ORDERED: FUROSEMIDE 10 MG/ML 4 ML VIAL IV STA (15:13)
--- NOTE | 2018-07-31 17:20 | P.PN ---
Subjective This is a pleasant 68 years old female with past medical history of hypertension , hypernatremia, peptic ulcer, perforated diverticulum status post colostomy on 03/2016.. When I saw the patient in the PACU postop she was sleepy and could not provide information was taken from staff and medical records. Patient originally was transferred from [facility] for acute abdominal pain in the right upper quadrant. Patient had a reversal of her colostomy last week by Dr. Preciado in this hospital, she was doing well in the postoperative period, and subsequently was discharged to [facility]. However about 2 days ago, an increased drainage from around her ELOY site was noted. Her white blood cell count was checked and found to be over 18,000. As result of these findings, patient was recommended transfer back to the hospital for further evaluation and assessment. Also patient on admission was noticed to have look swollen and decreased urine, mostly prerenal acute kidney injury which is resolved now. Infectious disease has been requested and evaluated the patient. Patient is on Zosyn and Flagyl and IV fluids. Pulmonary team R following the case as well. CT angiogram of the chest showing no PE and possible bilateral lower lobe pulmonary infiltrates and atelectasis as per radiologist report. CT of the abdomen showing some fluid in the paracolic gutters and fluid stranding in this small bowel mesentery. No free air. On 07/28/2018 (the day of this note) patient underwent exploratory laparotomy with sigmoid colostomy, with new perforation 4 cm proximal to the colorectal anastomosis and fecal peritonitis and diffuse fecal spillage along the bilateral upper abdomen, right lower quadrant and contained small bowel interloop fluid collection. 07/29/2018 Patient remains in the ICU. Patient is postop #1, for her sigmoid colostomy surgery from perforated viscus about 4 cm from her colorectal anastomosis. Looks tired and having difficulty talking because of her breathing and pain. She could not keep acid in all my questions. However she is awake and oriented. She has abdominal pain which looks controlled on the abdominal surgery site. Patient is on IV antibiotics Zosyn and Flagyl. Patient started on a clear liquid diet. Monitor vitals and lites culture results are still pending 07/30/2018 Patient is seen and examined by me at bedside in the ICU. Patient is awake lying in bed not in distress. She has expected pain at the surgical site. Her pain is controlled with medication. She is awake and oriented. However she is disoriented for why she is in the hospital, patient has been updated with the her situation, including the problems she suffering from and treatment plan and she is in agreement. Chart shows fungal infection, thus is been addressed by the infectious disease and patient is a started on antifungal. Patient remains on Zosyn and Flagyl. With leukocytosis around 20 6K. Patient with no chest pain in his breathing looks quiet. Critical care and put is appreciated. Patient remains in the ICU currently 07/31/18 Patient is back to the third surgical floor. She is more awake and placed in distress. However she still have decreased air entry in both sides. Patient was talked extensively about using incentive spirometry. She has bilateral leg swelling. Minimal abdominal pain at the surgical site. Her pain is controlled. Her leukocytosis is slightly improving from 2059 8.1K. Patient remains on antibiotics. With pulmonary, infectious. And nephrology team are following the case. Objective - Vital Signs Vital signs: Vital Signs Temp 97.2 F L 07/31/18 14:58 Pulse 94 07/31/18 14:58 Resp 16 07/31/18 14:58 BP 128/71 07/31/18 14:58 Pulse Ox 98 07/31/18 14:58 Intake & Output 07/30/18 07/31/18 07/31/18 18:59 06:59 18:59 Intake Total 1210 Output Total 1725 300 625 Balance -515 -300 -625 Weight 108.8 kg Intake: IV 850 Piperacillin-Tazobactam 3 50 .375 gm In Dextrose/Water 1 50ml.bag @ 12.5 mls/hr IVPB Q8HR YURY Rx#: [id number] Sodium Chloride 0.9% 1, 600 000 ml @ 40 mls/hr IV . Q24H YURY Rx#:[id number] metroNIDAZOLE-NS PMX 500 200 mg In Saline 1 100ml.bag @ 100 mls/hr IVPB Q6HR YURY Rx#:[id number] Oral 360 Output: Drainage 150 50 25 Medial Abdomen 150 Right Lower Abdomen 30 20 Right Upper Abdomen 20 5 Urine 1525 250 600 Stool 50 Other: Voiding Method Indwelling Catheter Bedpan Incontinent # Voids 1 - Exam -GENERAL: The patient is awake and oriented but she looks tired and dyspneic fluids with pain from her recent surgery. not in any acute distress. Well developed, well nourished. HEENT: Pupils are round and equally reacting to light. EOMI. No scleral icterus. No conjunctival pallor. Normocephalic, atraumatic. No pharyngeal erythema. No thyromegaly. CARDIOVASCULAR: S1 and S2 present. No murmurs, rubs, or gallops. PULMONARY: Chest is clear to auscultation, no wheezing or crackles. ABDOMEN: Abdomen looks soft. Tenderness from recent surgery. Dressing in place. Drains are in place. defer wound exam to the surgical team MUSCULOSKELETAL: No joint swelling or deformity. EXTREMITIES: No cyanosis, clubbing, or pedal edema. NEUROLOGICAL: Gross neurological examination did not reveal any focal deficits. SKIN: No rashes. - Labs CBC & Chem 7: 07/31/18 07:18 07/31/18 07:18 Labs: Abnormal Lab Results - Last 24 Hours (Table) 07/31/18 07/31/18 Range/Units 07:18 07:18 WBC 21.0 H (3.8-10.6) k/uL Neutrophils # 19.0 H (1.3-7.7) k/uL Lymphocytes # 0.7 L (1.0-4.8) k/uL Chloride 110 H (98-107) mmol/L BUN 36 H (7-17) mg/dL Calcium 7.6 L (8.4-10.2) mg/dL Microbiology - Last 24 Hours (Table) 07/28/18 09:46 Blood Culture - Preliminary Blood No Growth after 72 hours 07/26/18 22:23 Blood Culture - Preliminary Blood No Growth after 96 hours 07/27/18 13:45 Gram Stain - Final Rc-[facility] Body Fluid Culture - Final Rosangela albicans 07/28/18 13:06 Gram Stain - Final Other - Other Wound Culture - Final Rosangela albicans 07/28/18 13:06 Gram Stain - Final Other - Other Wound Culture - Final Rosangela albicans Assessment and Plan Assessment: Perforated colon , status post exploratory laparotomy Fecal peritonitis Fungal infection Dehydration hypertension h/o peptic ulcer perforated diverticulum status post colostomy on 03/2016 Plan: This is a pleasant 68 years old female presents with perforated viscus and:. Continue same treatment. Continue symptomatic treatment. Follow-up infectious disease recommendation and broad-spectrum antibiotics. Follow-up pulmonary recommendation. Continue with antibiotics and IV fluids. Follow up the culture results Monitor labs and vitals. Pain management. DVT and GI prophylaxis. Further recommendations is based on the clinical course of the patient DVT prophylaxis:On Lovenox GI prophylaxis: Protonix PT/OT: Pending Prognosis is guarded Thank you for consulting us, his feel free to contact us for any further clarification or questions.
--- NOTE | 2018-07-31 18:54 | P.PN ---
Progress Note - Text Progress Note Date: 07/31/18 1. PICC line in place since yesterday for antibiotics 2. She is tolerating pureed diet 3. Edema in hands and legs moderately improved. 4. She will need new diuretics for home. Recommendations awaiting from nephrology as patient had chronic hyponatremia from her home medications 5. Rehab needed. 6. Anticipated discharge Sunday pending clearances from consultants.
[2018-07-31 20:04] LABS: Glucose,Whole Blood 103 mg/dL (75-99)
--- NOTE | 2018-07-31 23:26 | PN ---
PROGRESS NOTE DATE OF SERVICE: 07/31/2018. REASON FOR FOLLOWUP: Abdominal abscess. INTERVAL HISTORY: The patient is currently afebrile. She is breathing comfortably. Patient denies having any chest pain or shortness of breath or cough. Abdominal pain is currently controlled with pain medication. No nausea, vomiting. EXAMINATION: Blood pressure is 119/76 with a pulse of 107, temperature of 99.2. She is 92% on room air. General description is an elderly female, lying in bed in no distress. RESPIRATORY SYSTEM: Unlabored breathing. Clear to auscultation anteriorly. HEART: S1, S2. Regular rate and rhythm. ABDOMEN: Soft. No tenderness. LABS: Hemoglobin 12.6, white count of 21,000. BUN of 36, creatinine 0.57. DIAGNOSTIC IMPRESSION AND PLAN: Patient with abdominal abscess from perforated colon, status post diverting colostomy. Culture has been predominantly Rosangela albicans; however, she did have some non- albicans Rosangela in her urine. The patient is currently on in addition to Zosyn. I will be recommending finishing therapy with Rocephin 2 g daily in addition to the Flagyl and Diflucan for a total of 10 days on discharge with close outpatient followup. Continue supportive care. MMODL / IJN: [id number] /
[2018-08-01] MEDS: metroNIDAZOLE-NS PMX 500 MG in SALINE 1 100ML.BAG IVPB SCH ×3 (06:21→17:47)
[2018-08-01] MEDS: METOCLOPRAMIDE 5 MG/ML 2 ML VIAL IVP SCH ×3 (06:22→17:46)
[2018-08-01 07:05] LABS: Basophils # (A) 0.1 k/uL (0-0.2); Basophils % (A) 1 %; Eosinophils # (A) 0.2 k/uL (0-0.7); Eosinophils % (A) 1 %; HCT 40.5 % (34.0-46.0); HGB 12.7 gm/dL (11.4-16.0); Lymphocytes # (A) 0.7 k/uL (1.0-4.8); Lymphocytes % (A) 5 %; MCH 29.7 pg (25.0-35.0); MCHC 31.4 g/dL (31.0-37.0); MCV 94.6 fL (80.0-100.0); Mean Platelet Volume 7.8; Monocytes # (A) 0.5 k/uL (0-1.0); Monocytes % (A) 3 %; Neutrophils # (A) 14.1 k/uL (1.3-7.7); Neutrophils % (A) 88 %; Platelet Count 351 k/uL (150-450); RBC 4.28 m/uL (3.80-5.40); RDW 13.3 % (11.5-15.5); WBC 15.9 k/uL (3.8-10.6)
[2018-08-01 07:42] LABS: ALT 29 U/L (9-52); AST 34 U/L (14-36); Albumin 1.9 g/dL (3.5-5.0); Alkaline Phosphatase 73 U/L (38-126); Anion Gap 9 mmol/L; Blood Urea Nitrogen 30 mg/dL (7-17); Calcium 7.3 mg/dL (8.4-10.2); Carbon Dioxide 25 mmol/L (22-30); Chloride 108 mmol/L (98-107); Glucose 101 mg/dL (74-99); Magnesium 1.7 mg/dL (1.6-2.3); Potassium 3.4 mmol/L (3.5-5.1); Sodium 142 mmol/L (137-145); Total Bilirubin 0.7 mg/dL (0.2-1.3); Total Protein 4.1 g/dL (6.3-8.2)
[2018-08-01] MEDS ORDERED: HYDROcodone/APAP 5-325MG 1 EACH TAB PO PRN (08:16)
[2018-08-01 09:02] VITALS: BMI 44.7
--- NOTE | 2018-08-01 09:18 | P.PN ---
<Brigitte Bruce M - Last Filed: 08/01/18 12:55> Subjective Progress Note Date: 08/01/18 68-year-old female sitting up in bed taking a pureed diet no new events. Denies any chest pain shortness of breath. No nausea no vomiting. Pain medication effective for pain control. Physical and occupational therapy at bedside Ostomy functioning moderate amount of stool. Surgical dressing site dry Noted patient was having episodes of SVT heart rate was up to 150-200 per nursing report patient was asymptomatic resting in bed denying chest pain dizziness lightheadedness or shortness of breath July 28 exploratory laparotomy with descending colon resection for perforation, descending colostomy,Devitalized rectal stump. Peritoneal lavage over 10 L, Oma's procedure for perforated descending colon. Recent July 19 takedown of descending colostomy, reversal of ostomy, extensive lysis of adhesions, reduction and closure of incarcerated parastomal hernia Objective - Vital Signs Vital signs: Vital Signs Temp 98.2 F 08/01/18 08:23 Pulse 109 H 08/01/18 08:23 Resp 20 08/01/18 08:23 BP 134/87 08/01/18 08:23 Pulse Ox 93 L 08/01/18 08:23 Intake & Output 07/31/18 08/01/18 08/01/18 18:59 06:59 18:59 Intake Total 200 Output Total 625 210 Balance -625 -210 200 Weight 107.5 kg 107.5 kg Intake: Oral 200 Output: Drainage 25 60 Right Lower Abdomen 20 30 Right Upper Abdomen 5 30 Urine 600 Stool 150 Other: Voiding Method Incontinent Diaper Diaper Incontinent Incontinent # Voids 1 - Exam Physical exam 68-year-old female sitting up in bed appears in no acute distress taking a diet Lungs anterior diminished at the bases no audible wheezing on room air sats are 93% no shortness of breath Heart S1-S2 audible regular no murmur denying chest pain episodes of SVT Abdomen nondistended surgical tenderness appropriate ostomy left lower quadrant moderate amount of liquid stool ELOY drain serous drainage noted dressing dry prevena wound system in place surgical tenderness appropriate active bowel tones reportedly urinating incontinently urine tolerating. pureed Diet reports no nausea no vomiting Extremities Venodyne's on to the bilateral lower extremities - Labs CBC & Chem 7: 08/01/18 06:34 08/01/18 06:34 Labs: Abnormal Lab Results - Last 24 Hours (Table) 07/31/18 08/01/18 08/01/18 Range/Units 20:01 06:34 06:34 WBC 15.9 H (3.8-10.6) k/uL Neutrophils # 14.1 H (1.3-7.7) k/uL Lymphocytes # 0.7 L (1.0-4.8) k/uL Potassium 3.4 L (3.5-5.1) mmol/L Chloride 108 H (98-107) mmol/L BUN 30 H (7-17) mg/dL Glucose 101 H (74-99) mg/dL POC Glucose (mg/dL) 103 H (75-99) mg/dL Calcium 7.3 L (8.4-10.2) mg/dL Total Protein 4.1 L (6.3-8.2) g/dL Albumin 1.9 L (3.5-5.0) g/dL Microbiology - Last 24 Hours (Table) 07/26/18 22:23 Blood Culture - Preliminary Blood No Growth after 120 hours 07/28/18 09:46 Blood Culture - Preliminary Blood No Growth after 72 hours Assessment and Plan Assessment: Impression Present on admission abdominal pain with acute abdominal sepsis secondary to perforation of descending colon and peritonitis Postop July 28 exploratory laparotomy with descending colon resection for perforation, descending colostomy, Oma's procedure for perforated descending colon, Present on admission dehydration due to moderate ileus and sepsis Leukocytosis secondary to sepsis and peritonitis Recent colostomy reversal on 07/19/2018 with peritoneal lavage, and patient was sent to the subacute rehab on Levaquin and Flagyl for evidence of contaminated case Acute urinary tract infection Morbid Obesity BMI 45 due to excessive calories Shortness of breath dyspnea related to intra-abdominal sepsis, obesity and abdominal pain computed tomography scan was negative the chest for evidence of PE. Ileus following gastrointestinal surgery Sigmoid diverticulitis Status post colostomy Chronic constipation oliquria Acute kidney injury Atelectasis per chest x-ray Peritonitis Chronic Hyponatremia suspect due to home medication Metabolic acidosis secondary to IV fluids improving Volume overload Nonoliguric acute kidney injury mostly prerenal improved with IV hydration. GFR back to baseline. Secondary peritonitis from perforated bowel Wound cultures showing Rosangela albicans Urine culture showing Rosangela glabrata Electrolyte imbalance hypokalemia, hypomagnesemia New-onset SVT Plan Consult cardiology for SVT Obtain an echocardiogram LV function Potassium and magnesium to be corrected Anticipate transfer back to the rehab center within 24 hours pending clearance from consulting Continue postop surgical care PT OT Advance diet as tolerated Pain control Increase activity DVT and GI prophylaxis IV antibiotics per infectious disease Dr. Hancock Diuretics per nephrology will need to be addressed at the time of discharge The above impression and plan of care have been discussed and directed by signing physician. Brigitte Bruce nurse practitioner acting as scribe for signing physician. <Moon Kelly N - Last Filed: 08/01/18 20:48> Objective - Vital Signs Vital signs: Vital Signs Temp 97.5 F L 08/01/18 19:52 Pulse 92 08/01/18 19:52 Resp 24 08/01/18 19:52 BP 138/65 08/01/18 19:52 Pulse Ox 92 L 08/01/18 19:52 Intake & Output 08/01/18 08/01/18 08/02/18 06:59 18:59 06:59 Intake Total 200 Output Total 210 320 Balance -210 -120 Weight 107.5 kg 107.5 kg Intake: Oral 200 Output: Gastric Drainage 100 Drainage 60 220 Medial Abdomen 150 Right Lower Abdomen 30 50 Right Upper Abdomen 30 20 Stool 150 Other: Voiding Method Diaper Diaper Incontinent Incontinent # Voids 1 2 - Labs CBC & Chem 7: 08/01/18 06:34 08/01/18 06:34 Labs: Abnormal Lab Results - Last 24 Hours (Table) 08/01/18 08/01/18 Range/Units 06:34 06:34 WBC 15.9 H (3.8-10.6) k/uL Neutrophils # 14.1 H (1.3-7.7) k/uL Lymphocytes # 0.7 L (1.0-4.8) k/uL Potassium 3.4 L (3.5-5.1) mmol/L Chloride 108 H (98-107) mmol/L BUN 30 H (7-17) mg/dL Glucose 101 H (74-99) mg/dL Calcium 7.3 L (8.4-10.2) mg/dL Total Protein 4.1 L (6.3-8.2) g/dL Albumin 1.9 L (3.5-5.0) g/dL Microbiology - Last 24 Hours (Table) 07/28/18 13:06 Anaerobic Culture - Final Other - Other 07/28/18 13:06 Anaerobic Culture - Final Other - Other 07/28/18 09:46 Blood Culture - Preliminary Blood No Growth after 96 hours 07/26/18 22:23 Blood Culture - Preliminary Blood No Growth after 120 hours Assessment and Plan (1) Atelectasis Current Visit: Yes Status: Acute Code(s): J98.11 - ATELECTASIS SNOMED Code (s): 01947531 (2) Acute kidney injury Current Visit: Yes Status: Acute Code(s): N17.9 - ACUTE KIDNEY FAILURE, UNSPECIFIED SNOMED Code(s): 45443439 (3) Dehydration Current Visit: Yes Status: Acute Code(s): E86.0 - DEHYDRATION SNOMED Code( s): 31485738 (4) Leukocytosis Current Visit: Yes Status: Acute Code(s): D72.829 - ELEVATED WHITE BLOOD CELL COUNT, UNSPECIFIED SNOMED Code(s): 494842576 (5) Oliguria Current Visit: Yes Status: Acute Code(s): R34 - ANURIA AND OLIGURIA SNOMED Code(s): 08157341 (6) Ileus following gastrointestinal surgery Current Visit: Yes Status: Acute Code(s): K91.30 - POSTPROC INTESTINAL OBST , UNSP TO PARTIAL VERSUS COMPLETE SNOMED Code(s): 443196968 (7) Morbid (severe) obesity due to excess calories Current Visit: No Status: Acute Code(s): E66.01 - MORBID (SEVERE) OBESITY DUE TO EXCESS CALORIES SNOMED Code(s): 850628500 (8) Sigmoid diverticulitis Current Visit: No Status: Acute Code(s): K57.32 - DVTRCLI OF LG INT W/O PERFORATION OR ABSCESS W/O BLEEDING SNOMED Code(s): 478464364 (9) S/P colostomy takedown Current Visit: Yes Status: Acute Code(s): Z98.890 - OTHER SPECIFIED POSTPROCEDURAL STATES SNOMED Code(s): 76923503943046141 (10) Chronic constipation Current Visit: Yes Status: Acute Code(s): K59.09 - OTHER CONSTIPATION SNOMED Code(s): 461332054 (11) Hyponatremia Current Visit: No Status: Acute Code(s): E87.1 - HYPO-OSMOLALITY AND HYPONATREMIA SNOMED Code(s): 36672123 (12) Peritonitis Current Visit: Yes Status: Acute Code(s): K65.9 - PERITONITIS, UNSPECIFIED SNOMED Code(s): 44678008 (13) Colostomy status Current Visit: No Status: Acute Code(s): Z93.3 - COLOSTOMY STATUS SNOMED Code(s): 788534083
[2018-08-01] MEDS: ALVIMOPAN 12 MG CAPSULE PO SCH ×2 (09:29→20:57)
[2018-08-01] MEDS: POTASSIUM CHLORIDE ER 20 MEQ TAB.ER PO SCH ×2 (09:29→12:19)
[2018-08-01] MEDS: METOPROLOL TARTRATE 25 MG TAB PO SCH ×3 (09:29→21:57)
[2018-08-01] MEDS: ENOXAPARIN 40 MG/0.4 ML SYRINGE SQ SCH (09:29)
[2018-08-01] MEDS: PIPERACILLIN-TAZOBACTAM 3.375 GM in DEXTROSE/WATER 1 50ML.BAG IVPB SCH ×2 (10:00→16:16)
[2018-08-01] MEDS: MAGNESIUM SULFATE-D5W PMX 1 GM in DEXTROSE/WATER 1 100ML.BAG IVPB SCH ×2 (10:36→16:04)
[2018-08-01] MEDS ORDERED: FUROSEMIDE 10 MG/ML 4 ML VIAL IV STA (11:30)
--- NOTE | 2018-08-01 11:30 | P.PN ---
Subjective Patient is seen in follow-up for acute kidney injury. Creatinine was 1.24 on admission; VALERIE now resolved. Lower extremity edema improved. Patient underwent exploratory laparotomy with descending colon resection for perforated viscus on July 28. Denies chest pain or shortness of breath. Tolerating oral intake. Vital signs are stable. General: The patient appeared well nourished and normally developed. HEENT: Head exam is unremarkable. Neck is without jugular venous distension. LUNGS: Lungs are clear to auscultation and percussion. Breath sounds decreased. HEART: Rate and Rhythm are regular. First and second heart sounds normal. No murmurs, rubs or gallops. ABDOMEN: Abdominal exam reveals normal bowel sounds. Non-tender and non- distended. No evidence of peritonitis. EXTREMITITES: Trace edema. Objective - Vital Signs Vital signs: Vital Signs Temp 98.2 F 08/01/18 08:23 Pulse 113 H 08/01/18 09:33 Resp 20 08/01/18 09:33 BP 112/76 08/01/18 09:33 Pulse Ox 93 L 08/01/18 09:33 Intake & Output 07/31/18 08/01/18 08/01/18 18:59 06:59 18:59 Intake Total 200 Output Total 625 210 Balance -625 -210 200 Weight 107.5 kg 107.5 kg Intake: Oral 200 Output: Drainage 25 60 Right Lower Abdomen 20 30 Right Upper Abdomen 5 30 Urine 600 Stool 150 Other: Voiding Method Incontinent Diaper Diaper Incontinent Incontinent # Voids 1 - Labs CBC & Chem 7: 08/01/18 06:34 08/01/18 06:34 Labs: Abnormal Lab Results - Last 24 Hours (Table) 07/31/18 08/01/18 08/01/18 Range/Units 20:01 06:34 06:34 WBC 15.9 H (3.8-10.6) k/uL Neutrophils # 14.1 H (1.3-7.7) k/uL Lymphocytes # 0.7 L (1.0-4.8) k/uL Potassium 3.4 L (3.5-5.1) mmol/L Chloride 108 H (98-107) mmol/L BUN 30 H (7-17) mg/dL Glucose 101 H (74-99) mg/dL POC Glucose (mg/dL) 103 H (75-99) mg/dL Calcium 7.3 L (8.4-10.2) mg/dL Total Protein 4.1 L (6.3-8.2) g/dL Albumin 1.9 L (3.5-5.0) g/dL Microbiology - Last 24 Hours (Table) 07/26/18 22:23 Blood Culture - Preliminary Blood No Growth after 120 hours 07/28/18 09:46 Blood Culture - Preliminary Blood No Growth after 72 hours Assessment and Plan Plan: Assessment: 1. Nonoliguric acute kidney injury mostly prerenal improved with IV hydration. GFR back to baseline. 2. Metabolic acidosis secondary to IV fluids. Improved. 3. Volume overload. Improved. 4. Perforated viscus with secondary peritonitis status post exploratory laparotomy and and diverting colostomy on July 28. 5. Hypomagnesemia from poor oral intake. 6. Hypokalemia from poor oral intake. Plan: Maintain NS at 40 mL an hour. Lasix 40 mg IV once today. Continue to monitor renal function and urine output. Potassium and magnesium being replaced. Repeat electrolytes in the morning.
[2018-08-01] MEDS: ANIDULAFUNGIN 100 MG in SODIUM CHLORIDE 0.9% 100 ML IVPB SCH (12:00)
[2018-08-01] MEDS: SODIUM CHLORIDE 0.9% 1,000 ML IV SCH (12:06)
--- NOTE | 2018-08-01 12:27 | P.PN ---
Subjective Progress Note Date: 08/01/18 Principal diagnosis: Acute abdominal sepsis and peritonitis, status post resection of descending colon for perforation This is a 68-year-old white female patient who was brought to the emergency department via ambulance from [facility] for evaluation of acute abdominal pain in the right lower quadrant. Patient had a reversal of her colostomy last week by Dr. Preciado in this hospital, she was doing well in the postoperative period, and subsequently was discharged to [facility]. 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 Patient had a ELOY drain placed within the right lower abdomen. Originally patient had colostomy placed for history of perforated diverticulitis in 2016. Postop patient was treated with Levaquin and Flagyl for a history of contaminated case CT of abdomen with contrast showed some fluid stranding in the small bowel mesentery, and some fluid in the pericolic gutters, no sign of free air, multiple distended loops of fluid-filled small bowel, consistent with moderate ileus. Labs showed leukocytosis with a PVC of 23.7, hemoglobin of 16.1, INR 1.5, BUN of 31, creatinine 1.24, was normal lactic acid was 2.2, LFTs normal, urinalysis showed evidence of large amount of leuks, many white and red blood cells, and yeast. In the emergency department there was some yellow and brown discharge from around her ELOY drain which was sent for cultures. Patient states she had fever and chills. He states she has not been passing any stools, but she has been taking an oral intake. She noted worsening edema of her bilateral lower extremities. Denies any nausea or vomiting. CT angios was obtained, which was negative for any evidence of pulmonary embolism, and showed some strandy bilateral atelectasis. Patient was given a total of 3 L of IV fluids, she was started on Zosyn in addition to Flagyl, and Levaquin was discontinued. She remains afebrile, she is tachycardic with a heart rate in the 110's. Blood pressure is 154/101, she is still having tenderness in the right lower quadrant around the ELOY insertion site. Bowel sounds are active. Surgical incisions are covered with surgical dressings with shadowing of old blood on them. Lung sounds are positive for a few rhonchi, but no wheezing. Patient only has occasional cough with production of yellowish sputum. Patient is diaphoretic. Her urine output is low, only 30 mL an hour after fluid boluses, and her urine color is light brown. We spoke to Dr. Preciado, and patient is suspected to have dehydration elated to combination of moderate ileus and possibility of peritonitis. It was decided to give the patient additional 1 L bolus of 0.9 normal saline, obtain lactic acid. And patient is scheduled surgery sometime today by Dr. Preciado for reexploration. Patient was reevaluated today on 07/29/2018, she underwent exploratory laparotomy yesterday, she underwent resection of descending colon for perforation, descending colostomy, Ford's procedure for perforated descending colon. She had peritoneal lavage with over 10 L. And she underwent placement of intra-abdominal Eder drain, 2, and underwent wound VAC system placement. Today the patient is on the ICU, she is on antibiotics as per infectious disease on the case, she is off mechanical ventilation, on nasal cannula, noted to be a bit dyspneic with any activity. Patient denies being short of breath, denies being in pain, she seems to be doing better than expected considering her surgical intervention. CBC showed leukocytosis with WBC of 26.1. Electrolytes are normal however her bicarb is 18 renal profile is normal. Reevaluated today on 07/30/2018, feeling much better compared to yesterday, in no form of respiratory distress. Pain is also under control. Renal functioning has significantly improved, creatinine today is 0.65. Continues to have leukocytosis, antibiotics are addressed by infectious disease on the case. Chest x-ray showed small bilateral pleural effusions left more so than right. And atelectasis. On 07/31/2018 patient seen in follow-up on surgical floor. Awake and alert, denies any acute distress. Incisional pain is reasonably controlled, patient has abdominal binder on. Patient has a wound VAC in place, right ELOY drain is draining serous fluid. Wound cultures were positive For Rosangela albicans. And patient is on Anidulafungin, Flagyl and Zosyn. Left abdominal colostomy is with the liquid brown output. Patient is tolerating clear liquids. No nausea, no vomiting. Patient is on 2 L per nasal cannula, and the pulse ox is 97%. Patient is afebrile. Lung sounds are clear, diminished at the bases, I asked effort is 250-500, and patient extensive coaching and encouragement. Patient has bilateral lower extremity edema, and she has received some Lasix. On 08/01/2018 patient seen again in follow-up on the surgical floor. Denies any acute distress, vital signs are stable, room air pulse ox is 93%, afebrile. On sounds are clear, diminished at the bases, IS effort is poor, at about 250 ML today. He is tolerating clear liquid diet, her ostomy is producing liquid brown output. Wound VAC remains in place, ELOY drain with small amount of serous fluid. Yesterday we gave patient a dose of IV Lasix for generalized edema. Patient is in negative fluid balance, still has bilateral lower extremity edema. Repeat today's chest x-ray, patient needs evaluation by physical therapy Objective - Vital Signs Vital signs: Vital Signs Temp 98.2 F 08/01/18 08:23 Pulse 113 H 08/01/18 09:33 Resp 20 08/01/18 09:33 BP 112/76 08/01/18 09:33 Pulse Ox 93 L 08/01/18 09:33 Intake & Output 07/31/18 08/01/18 08/01/18 18:59 06:59 18:59 Intake Total 200 Output Total 625 210 Balance -625 -210 200 Weight 107.5 kg 107.5 kg Intake: Oral 200 Output: Drainage 25 60 Right Lower Abdomen 20 30 Right Upper Abdomen 5 30 Urine 600 Stool 150 Other: Voiding Method Incontinent Diaper Diaper Incontinent Incontinent # Voids 1 - Exam PHYSICAL EXAM: GENERAL: Physical exam revealed a 68-year-old female in no distress. Head: Atraumatic, normocephalic. HEENT: No scleral icterus. Extraocular movements grossly intact. Hears conversational speech. No nasal drainage. NECK: Supple without lymphadenopathy. CHEST: Diminished breath sounds at the bases, no crackles or rhonchi or wheezes , no chest wall tenderness. CARDIOVASCULAR: Tachycardic. Distal 2+ pulses. ABDOMEN: Soft. Bowel dressings clean dry and intact with wound VAC, Serosanguineous drainage. JPs upper and lower right side. Left abdominal colostomy with liquid brown output MUSCULOSKELETAL: No clubbing, cyanosis. 3+ bilateral lower extremity edema NEURO: No focal or lateralizing signs. Cranial nerves 2 through 12 grossly within normal limits. PSYCH: Alert and oriented to person, place and time. SKIN: Good skin turgor. No rashes. - Labs CBC & Chem 7: 08/01/18 06:34 08/01/18 06:34 Labs: Abnormal Lab Results - Last 24 Hours (Table) 07/31/18 08/01/18 08/01/18 Range/Units 20:01 06:34 06:34 WBC 15.9 H (3.8-10.6) k/uL Neutrophils # 14.1 H (1.3-7.7) k/uL Lymphocytes # 0.7 L (1.0-4.8) k/uL Potassium 3.4 L (3.5-5.1) mmol/L Chloride 108 H (98-107) mmol/L BUN 30 H (7-17) mg/dL Glucose 101 H (74-99) mg/dL POC Glucose (mg/dL) 103 H (75-99) mg/dL Calcium 7.3 L (8.4-10.2) mg/dL Total Protein 4.1 L (6.3-8.2) g/dL Albumin 1.9 L (3.5-5.0) g/dL Microbiology - Last 24 Hours (Table) 07/28/18 09:46 Blood Culture - Preliminary Blood No Growth after 96 hours 07/26/18 22:23 Blood Culture - Preliminary Blood No Growth after 120 hours Assessment and Plan Plan: Assessment: #1. Acute sepsis secondary to perforation of descending colon and peritonitis, status post surgery as noted above, postoperative day 4 #2. Acute kidney injury related to the above, resolved #3. Dehydration due to moderate ileus and sepsis, improved #4. Leucocytosis, improving #5. Mild lactic acidosis, improved #6. Recent colostomy reversal on 07/19/2018 with peritoneal lavage, and patient was sent to the subacute rehab on Levaquin and Flagyl for evidence of contaminated case #7. History of perforated diverticulitis with colon resection and colostomy placement in 2016 #8. Dyspnea , related to intra-abdominal sepsis obesity and abdominal pain, CT angios was negative for any evidence of PE, but showed strandy atelectasis at bilateral bases #9. Oliguria #10. Obesity #11. Acute urinary tract infection #12. Hypertension Plan: Continue current medical treatment, continue coverage pulmonary toileting, deep breathing and coughing, increase activity, so physical therapy, for mobilization. Antibiotics per ID service, we'll repeat chest x-ray today. I performed a history & physical examination of the patient and discussed their management with my nurse practitioner, Lucy Paris. I reviewed the nurse practitioner's note and agree with the documented findings and plan of care. Lung sounds are clear, diminished at the bases. The findings and the impression was discussed with the patient. I attest to the documentation by the nurse practitioner. Time with Patient: Less than 30
--- NOTE | 2018-08-01 13:11 | XR ---
EXAMINATION TYPE: XR chest 1V portable DATE OF EXAM: 08/01/2018 COMPARISON: 07/30/2018 HISTORY: Shortness of breath TECHNIQUE: Single frontal view of the chest is obtained. FINDINGS: Bilateral infiltrate and pleural effusion stable. Left-sided PICC line noted. Arthropathy of the shoulders. No pneumothorax. Heart size stable. Hypertrophic and degenerative change of the spi ne. IMPRESSION: 1. Stable bilateral consolidation and pleural effusion.
--- NOTE | 2018-08-01 14:41 | P.CRDCN ---
<Eugenia Kumar A - Last Filed: 08/01/18 14:15> History of Present Illness History of present illness: Mrs. Vazquez is seen and examined resting comfortably in bed. She seems to have a flat affect but is responding appropriately. She is s/p resection of the descending colostomy for perforation with descending colostomy creation on 07/28 with placement of wound vac and drain. Infectious disease is following and guiding antibiotic therapy for sepsis. She is currently receiving IV antibiotics. We have been asked to see her post-operatively for persistent tachycardia. Telemetry tracings have been reviewed and indicate she has had sinus tachycardia as well as paroxysmal atrial tachycardia intermittently since admission. She was started on lopressor 25 mg BID on 07/28. Heart rate at the time of my exam is between 110-115 and regular. She denies symptoms of chest pain, shortness of breath, palpitations or dizziness. She has seen Dr. Piedra prior to initial surgery with Dr. Grey in March 2018. At that time she underwent echocardiogram and lexiscan stress test. Both were normal. EF 55% with mild AR noted. No evidence of reversible cardiac ischemia. Cardiac medications prior to admission were lisinopril 10 mg daily and dyazide 37.5/25 mg daily. Lisinopril has been discontinued and dyazide was never started. She was given 2 doses of IV lasix for generalized and lower extremity edema. She was initially treated in the ICU and is now on the surgical floor. Laboratory data reviewed, WBC 15.9, hgb 12.7, plt 351, sodium 142, potassium 3.4, creatinine 0.6, magnesium 1.7, lactic acid on admission 2.2 repeat 1.9. Review of Systems At the time of my exam: CONSTITUTIONAL: Denies fever. Denies chills. EYES: Denies blurred vision. Denies vision changes. Denies eye pain. EARS, NOSE, MOUTH & THROAT: Denies headache. Denies sore throat. Denies ear pain. CARDIOVASCULAR: Denies chest pain. Denies shortness of breath. Denies orthopnea. Denies PND. Denies palpitations. RESPIRATORY: Denies cough. GASTROINTESTINAL: Complains of abdominal discomfort. Denies diarrhea. Denies constipation. Denies nausea. Denies vomiting. MUSCULOSKELETAL: Denies myalgias. INTEGUMENTARY: Denies pruitis. Denies rash. NEUROLOGIC: Denies numbness. Denies tingling. Denies weakness. PSYCHIATRIC: Denies anxiety. Denies depression. ENDOCRINE: Denies fatigue. Denies weight change. Denies polydipsia. Denies polyurina. GENITOURINARY: Denies burning, hematuria or urgency with micturation. HEMATOLOGIC: Denies history of anemia. Denies bleeding. Past Medical History Past Medical History: Hypertension, Osteoarthritis (OA) Additional Past Medical History / Comment(s): HX Low Sodium. HX STOMACH ULCER. PERFORATED DIVERTICULTUM, COLOSTOMY 03/2016. LT KNEE OA PAIN. C/O ABD GAS PAIN FOR FEW DAYS. SPOUSE SAID PATIENT HAD STRESS TEST, PER DR GREY'S REQUEST. History of Any Multi-Drug Resistant Organisms: None Reported Past Surgical History: Bowel Resection, Orthopedic Surgery Additional Past Surgical History / Comment(s): TOTAL RT Knee, RT HIP. PERFORATED DIVERTICULUM W/ COLOSTOMY 03/2016. Past Anesthesia/Blood Transfusion Reactions: No Reported Reaction Additional Past Anesthesia/Blood Transfusion Reaction / Comment(s): Pt states she did receive blood with total knee surgery few weeks ago. Past Psychological History: No Psychological Hx Reported Smoking Status: Never smoker Past Alcohol Use History: None Reported Past Drug Use History: None Reported - Past Family History Father Family Medical History: Coronary Artery Disease (CAD), Myocardial Infarction (NM ), Renal Disease Additional Family Medical History / Comment(s): Father of renal failure at the age of 72 yrs. Mother Family Medical History: Cancer Additional Family Medical History / Comment(s): Mother had colon cancer and of this at age 67 yrs. Medications and Allergies Home Medications Medication Instructions Recorded Confirmed Type Triamterene-Hctz 37.5-25Mg 1 cap PO DAILY 03/22/16 07/26/18 History [Dyazide 37.5-25 Capsule] Lisinopril [Zestril] 10 mg PO DAILY 07/12/18 07/26/18 History HYDROcodone/APAP 5-325MG [Stanton 1 tab PO Q4HR PRN 3 Days #18 tab 07/24/18 Rx 5-325] Levofloxacin [Levaquin] 500 mg PO DAILY #5 tab 07/24/18 07/26/18 Rx metroNIDAZOLE [Flagyl] 500 mg PO TID #15 tab 07/24/18 07/26/18 Rx Allergies Allergy/AdvReac Type Severity Reaction Status Date / Time lactose AdvReac Unknown C/O GAS Verified 07/27/18 05:34 Physical Exam Vitals: Vital Signs Temp Pulse Pulse Resp BP BP Pulse Ox 08/01/18 09:33 113 H 20 112/76 93 L 08/01/18 08:23 98.2 F 109 H 20 134/87 93 L 08/01/18 00:00 107 H 14 07/31/18 23:48 97.9 F 107 H 17 128/73 94 L 07/31/18 20:56 99.2 F 107 H 14 118/76 92 L 07/31/18 14:58 97.2 F L 94 16 128/71 98 Intake and Output 07/31/18 08/01/18 08/01/18 22:59 06:59 14:59 Intake Total 200 Output Total 250 210 Balance -250 -210 200 Intake: Oral 200 Output: Drainage 60 Right Lower Abdomen 30 Right Upper Abdomen 30 Urine 250 Stool 150 Other: Voiding Method Diaper Diaper Incontinent Incontinent # Voids 1 1 2 Weight 107.5 kg 107.5 kg Blood pressure 112/76 heart rate 113 afebrile maintaining oxygen saturation on room air GENERAL: This is a 68-year-old female in no apparent distress at the time of my examination. Morbidly obese. Flat affect. HEENT: Head is atraumatic, normocephalic. Pupils are equal, round. Sclerae anicteric. Conjunctivae are clear. Mucous membranes of the mouth are moist. Neck is supple. There is no jugular venous distention. No carotid bruit is heard. LUNGS: Clear to auscultation no wheezes, rales or rhonchi. No chest wall tenderness is noted on palpation or with deep breathing. HEART: Regular, rapid rate and rhythm without murmurs, rubs or gallops. S1 and S2 heard. ABDOMEN: Soft, nontender. Wound vacuum drain in place. EXTREMITIES: Trace bilateral lower extremity nonpitting edema and no calf tenderness noted. VASCULAR: Radial and dorsalis pedis pulses palpated, no evidence of clubbing. NEUROLOGIC: Patient is awake, alert and oriented. Results 08/01/18 06:34 08/01/18 06:34 Cardiac Enzymes 08/01/18 Range/Units 06:34 AST 34 (14-36) U/L CBC 08/01/18 Range/Units 06:34 WBC 15.9 H (3.8-10.6) k/uL RBC 4.28 (3.80-5.40) m/uL Hgb 12.7 (11.4-16.0) gm/dL Hct 40.5 (34.0-46.0) % Plt Count 351 (150-450) k/uL Comprehensive Metabolic Panel 08/01/18 Range/Units 06:34 Sodium 142 (137-145) mmol/L Potassium 3.4 L (3.5-5.1) mmol/L Chloride 108 H (98-107) mmol/L Carbon Dioxide 25 (22-30) mmol/L BUN 30 H (7-17) mg/dL Creatinine 0.60 (0.52-1.04) mg/dL Glucose 101 H (74-99) mg/dL Calcium 7.3 L (8.4-10.2) mg/dL AST 34 (14-36) U/L ALT 29 (9-52) U/L Alkaline Phosphatase 73 (38-126) U/L Total Protein 4.1 L (6.3-8.2) g/dL Albumin 1.9 L (3.5-5.0) g/dL Current Medications Generic Name Dose Route Start Last Admin Trade Name Freq PRN Reason Stop Dose Admin Acetaminophen 650 mg 07/26/18 22:14 07/31/18 02:16 Tylenol Tab PO 650 mg Q6HR PRN Administration Mild Pain or Fever >= 100.5 Hydrocodone Bitart/Acetaminophen 1 each 08/01/18 08:16 Stanton 5-325 PO Q4HR PRN Pain Alvimopan 12 mg 07/29/18 10:30 08/01/18 09:29 Entereg PO 08/05/18 09:01 12 mg BID YURY Administration Enoxaparin Sodium 40 mg 07/27/18 09:00 08/01/18 09:29 Lovenox SQ 40 mg DAILY YURY Administration Metronidazole 500 mg/ IV 100 mls @ 100 mls/hr 07/27/18 12:00 08/01/18 13:40 Solution IVPB 100 mls/hr Q6HR YURY Administration Piperacillin/Tazobactam/ 50 mls @ 12.5 mls/hr 07/27/18 16:00 08/01/18 10:00 Dextrose 3.375 gm/ IV Solution IVPB 12.5 mls/hr Q8HR YURY Administration Sodium Chloride 1,000 mls @ 40 mls/hr 07/27/18 16:00 08/01/18 12:06 Saline 0.9% IV 40 mls/hr .Q24H YURY Administration Anidulafungin 100 mg/ Sodium 100 mls @ 84 mls/hr 07/31/18 09:00 08/01/18 12: 00 Chloride IVPB 84 mls/hr DAILY YURY Administration Metoclopramide HCl 5 mg 07/27/18 18:00 08/01/18 13:36 Reglan IVP 5 mg Q6HR YURY Administration Metoprolol Tartrate 25 mg 08/01/18 16:00 Lopressor PO TID YURY Miscellaneous Information 1 each 07/28/18 19:27 Magnesium Per Protocol MISCELLANE DAILY PRN Per Protocol Protocol Naloxone HCl 0.2 mg 07/28/18 12:02 Narcan IV Q2M PRN Opioid Reversal Ondansetron HCl 4 mg 07/27/18 16:22 Zofran IVP Q6HR PRN Nausea Pantoprazole Sodium 40 mg 08/02/18 07:30 Protonix PO AC-BRKFST YURY Intake and Output 07/31/18 08/01/18 08/01/18 22:59 06:59 14:59 Intake Total 200 Output Total 250 210 Balance -250 -210 200 Intake: Oral 200 Output: Drainage 60 Right Lower Abdomen 30 Right Upper Abdomen 30 Urine 250 Stool 150 Other: Voiding Method Diaper Diaper Incontinent Incontinent # Voids 1 1 2 Weight 107.5 kg 107.5 kg Patient Weight 08/02/18 06:59 Weight 107.5 kg 08/01/18 06:34 08/01/18 06:34 Assessment and Plan Assessment: ASSESSMENT Atrial tachycardia Acute sepsis secondary to perforated colon and peritonitis s/p colon resection and colostomy creation secondary to perforation after undergoing colostomy reversal Hypokalemia Leukocytosis, improving Lactic acidosis on admission History of hypertension PLAN Echocardiogram and doppler study have been obtained and will be reviewed. Obtain repeat EKG. Increase beta jose f therapy to TID dosing, additional dose of 25 mg to be given now. Check TSH with reflex to free T4. Ongoing telemetry monitoring. Further recommendations to follow. Thank you kindly for this consultation. Nurse Practitioner note has been reviewed, I agree with a documented findings and plan of care. Patient was seen and examined. <Rafita Avendanoronakeira - Last Filed: 08/01/18 18:17> History of Present Illness History of present illness: Review of her rhythm strips is suggestive of episodes of paroxysmal atrial fibrillation with rapid ventricular response. Patient is 68-year-old with history of hypertension. If there is no contraindication, patient should be considered for anticoagulation therapy. We'll increase the dose of the beta jose f. We'll also review the echocardiogram. I will discuss with the surgeon before initiating anti-coagulation therapy. Physical Exam Vitals: Vital Signs Temp Pulse Resp BP Pulse Ox 08/01/18 16:00 97.6 F 112 H 16 124/92 91 L 08/01/18 09:33 113 H 20 112/76 93 L 08/01/18 08:23 98.2 F 109 H 20 134/87 93 L 08/01/18 00:00 107 H 14 07/31/18 23:48 97.9 F 107 H 17 128/73 94 L 07/31/18 20:56 99.2 F 107 H 14 118/76 92 L Intake and Output 08/01/18 08/01/18 08/01/18 06:59 14:59 22:59 Intake Total 200 Output Total 210 100 Balance -210 100 Intake: Oral 200 Output: Gastric Drainage 100 Drainage 60 Right Lower Abdomen 30 Right Upper Abdomen 30 Stool 150 Other: Voiding Method Diaper Incontinent # Voids 1 2 Weight 107.5 kg 107.5 kg Results 08/01/18 06:34 08/01/18 06:34 Cardiac Enzymes 08/01/18 Range/Units 06:34 AST 34 (14-36) U/L CBC 08/01/18 Range/Units 06:34 WBC 15.9 H (3.8-10.6) k/uL RBC 4.28 (3.80-5.40) m/uL Hgb 12.7 (11.4-16.0) gm/dL Hct 40.5 (34.0-46.0) % Plt Count 351 (150-450) k/uL Comprehensive Metabolic Panel 08/01/18 Range/Units 06:34 Sodium 142 (137-145) mmol/L Potassium 3.4 L (3.5-5.1) mmol/L Chloride 108 H (98-107) mmol/L Carbon Dioxide 25 (22-30) mmol/L BUN 30 H (7-17) mg/dL Creatinine 0.60 (0.52-1.04) mg/dL Glucose 101 H (74-99) mg/dL Calcium 7.3 L (8.4-10.2) mg/dL AST 34 (14-36) U/L ALT 29 (9-52) U/L Alkaline Phosphatase 73 (38-126) U/L Total Protein 4.1 L (6.3-8.2) g/dL Albumin 1.9 L (3.5-5.0) g/dL Current Medications Generic Name Dose Route Start Last Admin Trade Name Freq PRN Reason Stop Dose Admin Acetaminophen 650 mg 07/26/18 22:14 07/31/18 02:16 Tylenol Tab PO 650 mg Q6HR PRN Administration Mild Pain or Fever >= 100.5 Hydrocodone Bitart/Acetaminophen 1 each 08/01/18 08:16 Stanton 5-325 PO Q4HR PRN Pain Alvimopan 12 mg 07/29/18 10:30 08/01/18 09:29 Entereg PO 08/05/18 09:01 12 mg BID YURY Administration Enoxaparin Sodium 40 mg 07/27/18 09:00 08/01/18 09:29 Lovenox SQ 40 mg DAILY YURY Administration Furosemide 40 mg 08/01/18 21:00 Lasix IV Q12HR YURY Metronidazole 500 mg/ IV 100 mls @ 100 mls/hr 07/27/18 12:00 08/01/18 17:47 Solution IVPB 100 mls/hr Q6HR YURY Administration Piperacillin/Tazobactam/ 50 mls @ 12.5 mls/hr 07/27/18 16:00 08/01/18 16:16 Dextrose 3.375 gm/ IV Solution IVPB 12.5 mls/hr Q8HR YURY Administration Sodium Chloride 1,000 mls @ 40 mls/hr 07/27/18 16:00 08/01/18 12:06 Saline 0.9% IV 40 mls/hr .Q24H YURY Administration Anidulafungin 100 mg/ Sodium 100 mls @ 84 mls/hr 07/31/18 09:00 08/01/18 12: 00 Chloride IVPB 84 mls/hr DAILY YURY Administration Metoclopramide HCl 5 mg 07/27/18 18:00 08/01/18 17:46 Reglan IVP 5 mg Q6HR YURY Administration Metoprolol Tartrate 25 mg 08/01/18 16:00 08/01/18 16:08 Lopressor PO 25 mg TID YURY Administration Miscellaneous Information 1 each 07/28/18 19:27 Magnesium Per Protocol MISCELLANE DAILY PRN Per Protocol Protocol Naloxone HCl 0.2 mg 07/28/18 12:02 Narcan IV Q2M PRN Opioid Reversal Ondansetron HCl 4 mg 07/27/18 16:22 Zofran IVP Q6HR PRN Nausea Pantoprazole Sodium 40 mg 08/02/18 07:30 Protonix PO AC-BRKFST YURY Intake and Output 08/01/18 08/01/18 08/01/18 06:59 14:59 22:59 Intake Total 200 Output Total 210 100 Balance -210 100 Intake: Oral 200 Output: Gastric Drainage 100 Drainage 60 Right Lower Abdomen 30 Right Upper Abdomen 30 Stool 150 Other: Voiding Method Diaper Incontinent # Voids 1 2 Weight 107.5 kg 107.5 kg Patient Weight 08/02/18 06:59 Weight 107.5 kg 08/01/18 06:34 08/01/18 06:34
--- NOTE | 2018-08-01 16:59 | P.PN ---
Subjective This is a pleasant 68 years old female with past medical history of hypertension , hypernatremia, peptic ulcer, perforated diverticulum status post colostomy on 03/2016.. When I saw the patient in the PACU postop she was sleepy and could not provide information was taken from staff and medical records. Patient originally was transferred from [facility] for acute abdominal pain in the right upper quadrant. Patient had a reversal of her colostomy last week by Dr. Preciado in this hospital, she was doing well in the postoperative period, and subsequently was discharged to [facility]. However about 2 days ago, an increased drainage from around her ELOY site was noted. Her white blood cell count was checked and found to be over 18,000. As result of these findings, patient was recommended transfer back to the hospital for further evaluation and assessment. Also patient on admission was noticed to have look swollen and decreased urine, mostly prerenal acute kidney injury which is resolved now. Infectious disease has been requested and evaluated the patient. Patient is on Zosyn and Flagyl and IV fluids. Pulmonary team R following the case as well. CT angiogram of the chest showing no PE and possible bilateral lower lobe pulmonary infiltrates and atelectasis as per radiologist report. CT of the abdomen showing some fluid in the paracolic gutters and fluid stranding in this small bowel mesentery. No free air. On 07/28/2018 (the day of this note) patient underwent exploratory laparotomy with sigmoid colostomy, with new perforation 4 cm proximal to the colorectal anastomosis and fecal peritonitis and diffuse fecal spillage along the bilateral upper abdomen, right lower quadrant and contained small bowel interloop fluid collection. 07/29/2018 Patient remains in the ICU. Patient is postop #1, for her sigmoid colostomy surgery from perforated viscus about 4 cm from her colorectal anastomosis. Looks tired and having difficulty talking because of her breathing and pain. She could not keep acid in all my questions. However she is awake and oriented. She has abdominal pain which looks controlled on the abdominal surgery site. Patient is on IV antibiotics Zosyn and Flagyl. Patient started on a clear liquid diet. Monitor vitals and lites culture results are still pending 07/30/2018 Patient is seen and examined by me at bedside in the ICU. Patient is awake lying in bed not in distress. She has expected pain at the surgical site. Her pain is controlled with medication. She is awake and oriented. However she is disoriented for why she is in the hospital, patient has been updated with the her situation, including the problems she suffering from and treatment plan and she is in agreement. Chart shows fungal infection, thus is been addressed by the infectious disease and patient is a started on antifungal. Patient remains on Zosyn and Flagyl. With leukocytosis around 20 6K. Patient with no chest pain in his breathing looks quiet. Critical care and put is appreciated. Patient remains in the ICU currently 07/31/18 Patient is back to the third surgical floor. She is more awake and placed in distress. However she still have decreased air entry in both sides. Patient was talked extensively about using incentive spirometry. She has bilateral leg swelling. Minimal abdominal pain at the surgical site. Her pain is controlled. Her leukocytosis is slightly improving from 2059 8.1K. Patient remains on antibiotics. With pulmonary, infectious. And nephrology team are following the case. 08/01/2018 Patient lying in bed and she is less dyspneic. Pain is more controlled. Patient has purulence of SVT this morning as high as 200. Patient has been evaluated by cardiology and the recommended carotid Doppler, increase beta jose f dose. Also they want to check TSH and free T4. Her leukocytosis is improving. Electrolytes has been replaced. Objective - Vital Signs Vital signs: Vital Signs Temp 97.6 F 08/01/18 16:00 Pulse 112 H 08/01/18 16:00 Resp 16 08/01/18 16:00 BP 124/92 08/01/18 16:00 Pulse Ox 91 L 08/01/18 16:00 Intake & Output 07/31/18 08/01/18 08/01/18 18:59 06:59 18:59 Intake Total 200 Output Total 625 210 100 Balance -625 -210 100 Weight 107.5 kg 107.5 kg Intake: Oral 200 Output: Gastric Drainage 100 Drainage 25 60 Right Lower Abdomen 20 30 Right Upper Abdomen 5 30 Urine 600 Stool 150 Other: Voiding Method Incontinent Diaper Diaper Incontinent Incontinent # Voids 1 2 - Exam -GENERAL: The patient is awake and oriented but she looks tired and dyspneic fluids with pain from her recent surgery. not in any acute distress. Well developed, well nourished. HEENT: Pupils are round and equally reacting to light. EOMI. No scleral icterus. No conjunctival pallor. Normocephalic, atraumatic. No pharyngeal erythema. No thyromegaly. CARDIOVASCULAR: S1 and S2 present. No murmurs, rubs, or gallops. PULMONARY: Chest is clear to auscultation, no wheezing or crackles. ABDOMEN: Abdomen looks soft. Tenderness from recent surgery. Dressing in place. Drains are in place. defer wound exam to the surgical team MUSCULOSKELETAL: No joint swelling or deformity. EXTREMITIES: No cyanosis, clubbing, or pedal edema. NEUROLOGICAL: Gross neurological examination did not reveal any focal deficits. SKIN: No rashes. - Labs CBC & Chem 7: 08/01/18 06:34 08/01/18 06:34 Labs: Abnormal Lab Results - Last 24 Hours (Table) 07/31/18 08/01/18 08/01/18 Range/Units 20:01 06:34 06:34 WBC 15.9 H (3.8-10.6) k/uL Neutrophils # 14.1 H (1.3-7.7) k/uL Lymphocytes # 0.7 L (1.0-4.8) k/uL Potassium 3.4 L (3.5-5.1) mmol/L Chloride 108 H (98-107) mmol/L BUN 30 H (7-17) mg/dL Glucose 101 H (74-99) mg/dL POC Glucose (mg/dL) 103 H (75-99) mg/dL Calcium 7.3 L (8.4-10.2) mg/dL Total Protein 4.1 L (6.3-8.2) g/dL Albumin 1.9 L (3.5-5.0) g/dL Microbiology - Last 24 Hours (Table) 07/28/18 09:46 Blood Culture - Preliminary Blood No Growth after 96 hours 07/26/18 22:23 Blood Culture - Preliminary Blood No Growth after 120 hours Assessment and Plan Assessment: Perforated colon , status post exploratory laparotomy Fecal peritonitis Fungal infection Dehydration hypertension h/o peptic ulcer perforated diverticulum status post colostomy on 03/2016 Plan: This is a pleasant 68 years old female presents with perforated viscus and:. Continue same treatment. Continue symptomatic treatment. Follow-up infectious disease recommendation and broad-spectrum antibiotics. Follow-up pulmonary recommendation. Continue with antibiotics and IV fluids. Follow up the culture results Monitor labs and vitals. Pain management. DVT and GI prophylaxis. Further recommendations is based on the clinical course of the patient DVT prophylaxis:On Lovenox GI prophylaxis: Protonix PT/OT: Pending Prognosis is guarded Thank you for consulting us, his feel free to contact us for any further clarification or questions.
[2018-08-01] MEDS: FUROSEMIDE 10 MG/ML 4 ML VIAL IV SCH (20:57)
--- NOTE | 2018-08-01 22:57 | PN ---
PROGRESS NOTE DATE OF SERVICE: 08/01/2018. REASON FOR FOLLOWUP: Abdominal abscess from a perforated bowel. INTERVAL HISTORY: The patient is afebrile. She is seen to have slight problem with arrhythmia for which Cardiology has been consulted. The patient denies having any chest pain, some shortness of breath. No cough. No abdominal pain. Did have output in her colostomy bag. EXAMINATION: Blood pressure is 132/65 with a pulse of 92, temperature 97.5. She is 92% on room air. General description is an elderly female lying in bed in no distress. RESPIRATORY SYSTEM: Unlabored breathing. Clear to auscultation anteriorly. HEART: S1, S2. Regular rate and rhythm. ABDOMEN: Soft. No tenderness. LABS: Hemoglobin is 12.7, white count 15.8. BUN of 30, creatinine 0.60. Stool for C. diff. has been negative. DIAGNOSTIC IMPRESSION AND PLAN: Patient with an abdominal abscess from an anastomosis leak, status post diverting colostomy, with the abdominal culture has been predominant the Rosangela albicans. Urine shows non-albicans Rosangela. The patient is currently on Zosyn, Flagyl and will be continued, simplifying the therapy she is stable from other consultants' standpoint. She already has a midline that can be used for outpatient antibiotic. Overall prognosis remains guarded. Continue supportive care. MMODL / IJN: [id number] /
[2018-08-02] MEDS: METOCLOPRAMIDE 5 MG/ML 2 ML VIAL IVP SCH ×2 (00:06→05:51)
[2018-08-02] MEDS: PIPERACILLIN-TAZOBACTAM 3.375 GM in DEXTROSE/WATER 1 50ML.BAG IVPB SCH ×3 (00:06→16:48)
[2018-08-02] MEDS: metroNIDAZOLE-NS PMX 500 MG in SALINE 1 100ML.BAG IVPB SCH ×4 (00:06→18:09)
[2018-08-02] MEDS: SODIUM CHLORIDE 0.9% 1,000 ML IV SCH (00:07)
[2018-08-02 08:00] LABS: ALT 23 U/L (9-52); AST 36 U/L (14-36); Albumin 1.9 g/dL (3.5-5.0); Alkaline Phosphatase 74 U/L (38-126); Anion Gap 9 mmol/L; Blood Urea Nitrogen 25 mg/dL (7-17); Carbon Dioxide 23 mmol/L (22-30); Chloride 110 mmol/L (98-107); Glucose 112 mg/dL (74-99); Magnesium 1.6 mg/dL (1.6-2.3); Potassium 3.5 mmol/L (3.5-5.1); Sodium 142 mmol/L (137-145); Total Bilirubin 0.8 mg/dL (0.2-1.3); Total Protein 4.4 g/dL (6.3-8.2)
[2018-08-02 08:07] LABS: Basophils # (A) 0.1 k/uL (0-0.2); Basophils % (A) 1 %; Eosinophils # (A) 0.1 k/uL (0-0.7); Eosinophils % (A) 1 %; HCT 40.4 % (34.0-46.0); HGB 12.3 gm/dL (11.4-16.0); Hypochromasia Slight; Lymphocytes # (A) 0.7 k/uL (1.0-4.8); Lymphocytes % (A) 4 %; MCH 29.8 pg (25.0-35.0); MCHC 30.5 g/dL (31.0-37.0); MCV 97.6 fL (80.0-100.0); Mean Platelet Volume 8.3; Monocytes # (A) 0.6 k/uL (0-1.0); Monocytes % (A) 3 %; Neutrophils % (A) 90 %; Platelet Count 298 k/uL (150-450); RBC 4.14 m/uL (3.80-5.40); RDW 13.3 % (11.5-15.5); WBC 17.8 k/uL (3.8-10.6)
--- NOTE | 2018-08-02 08:40 | US ---
EXAMINATION TYPE: US chest DATE OF EXAM: 08/02/2018 COMPARISON: Chest x-ray dated 08/01/2018 CLINICAL HISTORY: Markings for thoracentesis by pulmonary staff. Pleural effusion, exam done portable . TECHNIQUE: Targeted ultrasound of the posterior lower bilateral hemithoraces EXAM MEASUREMENTS: Right Pleural Effusion pocket size: 4.5 cm Right skin surface to fluid distance: 2.7 cm Left Pleural Effusion pocket size: 4.9 cm Left skin surface to fluid distance: 2.7 cm Right side marked for possible thoracentesis outside the dept. Left side marked for possible thoracentesis outside the dept. Pulmonologists are able to review the images in the patient?s EMR. IMPRESSIONS: Bilateral pleural effusions.
--- NOTE | 2018-08-02 09:07 | P.PN ---
<Autumn Brucemichael Ziegler - Last Filed: 08/02/18 08:54> Subjective Progress Note Date: 08/02/18 68-year-old female seen sitting up in bed taking a. pureed Diet reports no nausea vomiting currently the personnel monitor shows sinus tachycardia heart rate in the 110s. The day before the patient did have episodes of paroxysmal atrial fibrillation variable rates heart rate up in the 130 Cardiology consultation obtained noted beta jose f dose was increased. Electrolytes were corrected the potassium this morning 3.5 with a magnesium 1.6 ostomy functioning moderate amount of liquid stool wound system in place July 28 exploratory laparotomy with descending colon resection for perforation, descending colostomy,Devitalized rectal stump. Peritoneal lavage over 10 L, Oma's procedure for perforated descending colon. Recent July 19 takedown of descending colostomy, reversal of ostomy, extensive lysis of adhesions, reduction and closure of incarcerated parastomal hernia Objective - Vital Signs Vital signs: Vital Signs Temp 99.4 F 08/02/18 07:12 Pulse 99 08/02/18 07:12 Resp 20 08/02/18 07:12 BP 147/87 08/02/18 07:12 Pulse Ox 93 L 08/02/18 07:12 Intake & Output 08/01/18 08/02/18 08/02/18 18:59 06:59 18:59 Intake Total 200 550 Output Total 320 55 Balance -120 495 Weight 107.5 kg 104.5 kg Intake: IV 550 Piperacillin-Tazobactam 3 50 .375 gm In Dextrose/Water 1 50ml.bag @ 12.5 mls/hr IVPB Q8HR YURY Rx#: [id number] Sodium Chloride 0.9% 1, 400 000 ml @ 40 mls/hr IV . Q24H YURY Rx#:[id number] metroNIDAZOLE-NS PMX 500 100 mg In Saline 1 100ml.bag @ 100 mls/hr IVPB Q6HR YURY Rx#:[id number] Oral 200 Output: Gastric Drainage 100 Drainage 220 55 Medial Abdomen 150 Right Lower Abdomen 50 45 Right Upper Abdomen 20 10 Other: Voiding Method Diaper Diaper Diaper Incontinent Incontinent Incontinent # Voids 2 1 - Exam Physical exam 68-year-old female sitting up in bed currently taking a diet Lungs anterior clear no audible wheezing on room air sats are 93% no shortness of breath Heart S1-S2 audible regular no murmur denying chest pain episodes of SVT Abdomen nondistended surgical tenderness appropriate ostomy left lower quadrant moderate amount of liquid stool ELOY drain serous drainage noted dressing dry prevena wound system in place surgical tenderness appropriate active bowel tones reportedly urinating incontinently urine tolerating. pureed Diet reports no nausea no vomiting Extremities Venodyne's on to the bilateral lower extremities PICC line in place left upper extremity no redness - Labs CBC & Chem 7: 08/02/18 06:44 08/02/18 06:44 Labs: Abnormal Lab Results - Last 24 Hours (Table) 08/02/18 08/02/18 Range/Units 06:44 06:44 WBC 17.8 H (3.8-10.6) k/uL MCHC 30.5 L (31.0-37.0) g/dL Neutrophils # 16.0 H (1.3-7.7) k/uL Lymphocytes # 0.7 L (1.0-4.8) k/uL Chloride 110 H (98-107) mmol/L BUN 25 H (7-17) mg/dL Glucose 112 H (74-99) mg/dL Calcium 7.0 L (8.4-10.2) mg/dL Total Protein 4.4 L (6.3-8.2) g/dL Albumin 1.9 L (3.5-5.0) g/dL Microbiology - Last 24 Hours (Table) 07/26/18 22:23 Blood Culture - Final Blood No Growth after 144 hours 07/28/18 13:06 Anaerobic Culture - Final Other - Other 07/28/18 13:06 Anaerobic Culture - Final Other - Other 07/28/18 09:46 Blood Culture - Preliminary Blood No Growth after 96 hours Assessment and Plan Assessment: Impression Present on admission abdominal pain with acute abdominal sepsis secondary to perforation of descending colon and peritonitis Postop July 28 exploratory laparotomy with descending colon resection for perforation, descending colostomy, Oma's procedure for perforated descending colon, Present on admission dehydration due to moderate ileus and sepsis Leukocytosis secondary to sepsis and peritonitis Recent colostomy reversal on 07/19/2018 with peritoneal lavage, and patient was sent to the subacute rehab on Levaquin and Flagyl for evidence of contaminated case Acute urinary tract infection Morbid Obesity BMI 45 due to excessive calories Shortness of breath dyspnea related to intra-abdominal sepsis, obesity and abdominal pain computed tomography scan was negative the chest for evidence of PE. Ileus following gastrointestinal surgery Sigmoid diverticulitis Status post colostomy Chronic constipation oliquria Acute kidney injury Atelectasis per chest x-ray Peritonitis Chronic Hyponatremia suspect due to home medication Metabolic acidosis secondary to IV fluids improving Volume overload Nonoliguric acute kidney injury mostly prerenal improved with IV hydration. GFR back to baseline. Secondary peritonitis from perforated bowel Wound cultures showing Rosangela albicans Urine culture showing Rosangela glabrata Electrolyte imbalance hypokalemia, hypomagnesemia New-onset atrial tachycardia Plan Continue recommendations by cardiology Potassium and magnesium to be corrected Anticipate transfer back to the rehab center within 24 hours pending clearance from consulting Continue postop surgical care PT OT Advance diet as tolerated Pain control Increase activity DVT and GI prophylaxis IV antibiotics per infectious disease Dr. Hancock Diuretics per nephrology will need to be addressed at the time of discharge The above impression and plan of care have been discussed and directed by signing physician. Brigitte Bruce nurse practitioner acting as scribe for signing physician. <Moon Kelly N - Last Filed: 08/02/18 12:11> Objective - Vital Signs Vital signs: Vital Signs Temp 99.4 F 08/02/18 07:12 Pulse 99 08/02/18 07:12 Resp 20 08/02/18 07:12 BP 147/87 08/02/18 07:12 Pulse Ox 93 L 08/02/18 07:12 Intake & Output 08/01/18 08/02/18 08/02/18 18:59 06:59 18:59 Intake Total 200 550 Output Total 320 55 Balance -120 495 Weight 107.5 kg 104.5 kg Intake: IV 550 Piperacillin-Tazobactam 3 50 .375 gm In Dextrose/Water 1 50ml.bag @ 12.5 mls/hr IVPB Q8HR YURY Rx#: [id number] Sodium Chloride 0.9% 1, 400 000 ml @ 40 mls/hr IV . Q24H YRUY Rx#:[id number] metroNIDAZOLE-NS PMX 500 100 mg In Saline 1 100ml.bag @ 100 mls/hr IVPB Q6HR YURY Rx#:[id number] Oral 200 Output: Gastric Drainage 100 Drainage 220 55 Medial Abdomen 150 Right Lower Abdomen 50 45 Right Upper Abdomen 20 10 Other: Voiding Method Diaper Diaper Diaper Incontinent Incontinent Incontinent # Voids 2 1 - Labs CBC & Chem 7: 08/02/18 06:44 08/02/18 06:44 Labs: Abnormal Lab Results - Last 24 Hours (Table) 08/02/18 08/02/18 Range/Units 06:44 06:44 WBC 17.8 H (3.8-10.6) k/uL MCHC 30.5 L (31.0-37.0) g/dL Neutrophils # 16.0 H (1.3-7.7) k/uL Lymphocytes # 0.7 L (1.0-4.8) k/uL Chloride 110 H (98-107) mmol/L BUN 25 H (7-17) mg/dL Glucose 112 H (74-99) mg/dL Calcium 7.0 L (8.4-10.2) mg/dL Total Protein 4.4 L (6.3-8.2) g/dL Albumin 1.9 L (3.5-5.0) g/dL Microbiology - Last 24 Hours (Table) 07/28/18 09:46 Blood Culture - Preliminary Blood No Growth after 120 hours 07/26/18 22:23 Blood Culture - Final Blood No Growth after 144 hours 07/28/18 13:06 Anaerobic Culture - Final Other - Other 07/28/18 13:06 Anaerobic Culture - Final Other - Other Assessment and Plan (1) Atelectasis Current Visit: Yes Status: Acute Code(s): J98.11 - ATELECTASIS SNOMED Code (s): 33747588 (2) Acute kidney injury Current Visit: Yes Status: Acute Code(s): N17.9 - ACUTE KIDNEY FAILURE, UNSPECIFIED SNOMED Code(s): 15221573 (3) Dehydration Current Visit: Yes Status: Acute Code(s): E86.0 - DEHYDRATION SNOMED Code( s): 73273269 (4) Leukocytosis Current Visit: Yes Status: Acute Code(s): D72.829 - ELEVATED WHITE BLOOD CELL COUNT, UNSPECIFIED SNOMED Code(s): 347614175 (5) Oliguria Current Visit: Yes Status: Acute Code(s): R34 - ANURIA AND OLIGURIA SNOMED Code(s): 97155417 (6) Ileus following gastrointestinal surgery Current Visit: Yes Status: Acute Code(s): K91.30 - POSTPROC INTESTINAL OBST , UNSP TO PARTIAL VERSUS COMPLETE SNOMED Code(s): 570493709 (7) Morbid (severe) obesity due to excess calories Current Visit: No Status: Acute Code(s): E66.01 - MORBID (SEVERE) OBESITY DUE TO EXCESS CALORIES SNOMED Code(s): 337387197 (8) Sigmoid diverticulitis Current Visit: No Status: Acute Code(s): K57.32 - DVTRCLI OF LG INT W/O PERFORATION OR ABSCESS W/O BLEEDING SNOMED Code(s): 421656968 (9) S/P colostomy takedown Current Visit: Yes Status: Acute Code(s): Z98.890 - OTHER SPECIFIED POSTPROCEDURAL STATES SNOMED Code(s): 16171888216720872 (10) Chronic constipation Current Visit: Yes Status: Acute Code(s): K59.09 - OTHER CONSTIPATION SNOMED Code(s): 493211786 (11) Hyponatremia Current Visit: No Status: Acute Code(s): E87.1 - HYPO-OSMOLALITY AND HYPONATREMIA SNOMED Code(s): 95461713 (12) Peritonitis Current Visit: Yes Status: Acute Code(s): K65.9 - PERITONITIS, UNSPECIFIED SNOMED Code(s): 85131416 (13) Colostomy status Current Visit: No Status: Acute Code(s): Z93.3 - COLOSTOMY STATUS SNOMED Code(s): 903310166 Plan: Currently awaiting clearances from all consultants prior to return to rehab. I spoke to her personally on the care plan. Otherwise, disposition pending today or sunday
[2018-08-02] MEDS: PANTOPRAZOLE 40 MG TABLET PO SCH (09:33)
[2018-08-02] MEDS: METOPROLOL TARTRATE 25 MG TAB PO SCH ×3 (09:33→21:34)
[2018-08-02] MEDS: ENOXAPARIN 40 MG/0.4 ML SYRINGE SQ SCH (09:34)
[2018-08-02] MEDS: FUROSEMIDE 10 MG/ML 4 ML VIAL IV SCH ×2 (09:34→21:35)
[2018-08-02] MEDS: POTASSIUM CHLORIDE ER 20 MEQ TAB.ER PO SCH ×2 (09:39→13:30)
[2018-08-02] MEDS ORDERED: MAGNESIUM SULFATE-D5W PMX 1 GM in DEXTROSE/WATER 1 100ML.BAG IVPB SCH (10:00)
--- NOTE | 2018-08-02 10:27 | ECHOF ---
Referral Reason:LV function run of SVT MEASUREMENTS -------- HEIGHT: 154.9 cm WEIGHT: 107.0 kg BP: IVSd: 1.2 cm (0.6 - 1.1) LVIDd: 2.9 cm (3.9 - 5.3) LVPWd: 1.5 cm (0.6 - 1.1) IVSs: 1.5 cm LVIDs: 2.1 cm LVPWs: 1.7 cm Ao Diam: 2.7 cm (2.0 - 3.7) AV Cusp: 1.9 cm (1.5 - 2.6) LA Diam: 3.3 cm (2.7 - 3.8) MV EXCURSION: 8.134 mm (> 18.000) MV EF SLOPE: 27 mm/s (70 - 150) EPSS: 1.1 cm MV E Raymond: 0.43 m/s MV DecT: 125 ms MV A Raymond: 0.91 m/s MV E/A Ratio: 0.48 RAP: 5.00 mmHg RVSP: 10.74 mmHg FINDINGS -------- Undetermined rhythm. This was a technically good study. The left ventricular size is normal. There is moderate concentric left ventricular hypertrophy. O verall left ventricular systolic function is mild-moderately impaired with, an EF between 40 - 45 %. The right ventricle is normal in size. The left atrium is normal in size. The right atrium is normal in size. Aortic valve is trileaflet and is mildly thickened. There is mild aortic regurgitation. The mitral valve leaflets are mildly thickened. Mild mitral regurgitation is present. Mild tricuspid regurgitation present. The right ventricular systolic pressure, as measured by Doppl er, is 10.74mmHg. Pulmonic valve appears structurally normal. The aortic root size is normal. The pericardium is normal. CONCLUSIONS -------- 1. Undetermined rhythm. 2. This was a technically good study. 3. The left ventricular size is normal. 4. There is moderate concentric left ventricular hypertrophy. 5. Overall left ventricular systolic function is mild-moderately impaired with, an EF between 40 - 45 %. 6. The right ventricle is normal in size. 7. The left atrium is normal in size. 8. The right atrium is normal in size. 9. Aortic valve is trileaflet and is mildly thickened. 10. There is mild aortic regurgitation. 11. The mitral valve leaflets are mildly thickened. 12. Mild mitral regurgitation is present. 13. Mild tricuspid regurgitation present. 14. The right ventricular systolic pressure, as measured by Doppler, is 10.74mmHg. 15. Pulmonic valve appears structurally normal. 16. The aortic root size is normal. 17. The pericardium is normal. GLOBAL CTO: Alea Mares RDCS
--- NOTE | 2018-08-02 10:27 | XR ---
EXAMINATION TYPE: XR chest 1V portable DATE OF EXAM: 08/02/2018 COMPARISON: Prior chest 08/01/2018 HISTORY: Pleural effusions TECHNIQUE: Single frontal view of the chest is obtained. FINDINGS: Findings are similar to prior exam. PICC line is stable with the distal tip overlying supe rior vena cava. No pneumothorax. Heart is obscured but likely enlarged. Central vascularity and inter stitium are somewhat increased. Bibasilar density obscures the hemidiaphragms. Surgical chon over the abdomen. There are overlying cardiac leads. IMPRESSION: Correlate for congestive heart failure with pleural effusions. Pneumonia not excluded. F ollow-up suggested.
[2018-08-02] MEDS: MAGNESIUM SULFATE-D5W PMX 1 GM in DEXTROSE/WATER 1 100ML.BAG IVPB SCH ×4 (11:21→16:43)
[2018-08-02] MEDS: ALVIMOPAN 12 MG CAPSULE PO SCH (11:53)
[2018-08-02] MEDS: ANIDULAFUNGIN 100 MG in SODIUM CHLORIDE 0.9% 100 ML IVPB SCH (12:23)
--- NOTE | 2018-08-02 13:53 | P.PN ---
Subjective Patient is seen in follow-up for acute kidney injury. Creatinine was 1.24 on admission; VALERIE now resolved. Continues to complain of edema. Chest x-ray suggestive of fluid overload. Patient underwent exploratory laparotomy with descending colon resection for perforated viscus on July 28. Denies chest pain or shortness of breath. Tolerating oral intake. Vital signs are stable. General: The patient appeared well nourished and normally developed. HEENT: Head exam is unremarkable. Neck is without jugular venous distension. LUNGS: Lungs are clear to auscultation and percussion. Breath sounds decreased. HEART: Rate and Rhythm are regular. First and second heart sounds normal. No murmurs, rubs or gallops. ABDOMEN: Abdominal exam reveals normal bowel sounds. Non-tender and non- distended. No evidence of peritonitis. EXTREMITITES: 1+ edema. Objective - Vital Signs Vital signs: Vital Signs Temp 99.4 F 08/02/18 07:12 Pulse 99 08/02/18 07:12 Resp 20 08/02/18 07:12 BP 147/87 08/02/18 07:12 Pulse Ox 93 L 08/02/18 07:12 Intake & Output 08/01/18 08/02/18 08/02/18 18:59 06:59 18:59 Intake Total 200 550 480 Output Total 320 55 Balance -120 495 480 Weight 107.5 kg 104.5 kg Intake: IV 550 Piperacillin-Tazobactam 3 50 .375 gm In Dextrose/Water 1 50ml.bag @ 12.5 mls/hr IVPB Q8HR Y[facility]Y Rx#: [id number] Sodium Chloride 0.9% 1, 400 000 ml @ 40 mls/hr IV . Q24H YURY Rx#:[id number] metroNIDAZOLE-NS PMX 500 100 mg In Saline 1 100ml.bag @ 100 mls/hr IVPB Q6HR YURY Rx#:[id number] Oral 200 480 Output: Gastric Drainage 100 Drainage 220 55 Medial Abdomen 150 Right Lower Abdomen 50 45 Right Upper Abdomen 20 10 Other: Voiding Method Diaper Diaper Diaper Incontinent Incontinent Incontinent # Voids 2 1 - Labs CBC & Chem 7: 08/02/18 06:44 08/02/18 06:44 Labs: Abnormal Lab Results - Last 24 Hours (Table) 08/02/18 08/02/18 Range/Units 06:44 06:44 WBC 17.8 H (3.8-10.6) k/uL MCHC 30.5 L (31.0-37.0) g/dL Neutrophils # 16.0 H (1.3-7.7) k/uL Lymphocytes # 0.7 L (1.0-4.8) k/uL Chloride 110 H (98-107) mmol/L BUN 25 H (7-17) mg/dL Glucose 112 H (74-99) mg/dL Calcium 7.0 L (8.4-10.2) mg/dL Total Protein 4.4 L (6.3-8.2) g/dL Albumin 1.9 L (3.5-5.0) g/dL Microbiology - Last 24 Hours (Table) 07/28/18 09:46 Blood Culture - Preliminary Blood No Growth after 120 hours 07/26/18 22:23 Blood Culture - Final Blood No Growth after 144 hours 07/28/18 13:06 Anaerobic Culture - Final Other - Other 07/28/18 13:06 Anaerobic Culture - Final Other - Other Assessment and Plan Plan: Assessment: 1. Nonoliguric acute kidney injury mostly prerenal improved with IV hydration. GFR back to baseline. 2. Metabolic acidosis secondary to IV fluids. Improved. 3. Volume overload. Improved. 4. Perforated viscus with secondary peritonitis status post exploratory laparotomy and and diverting colostomy on July 28. 5. Hypomagnesemia from poor oral intake and diuresis. 6. Hypokalemia from poor oral intake and diuresis. 7. Hypocalcemia secondary to hypoalbuminemia. Directed calcium in the normal range. Plan: Hep-Lock IV fluids. Maintain Lasix 40 mg IV twice daily. Continue to monitor renal function and urine output. Potassium and magnesium being replaced. Repeat electrolytes in the morning.
--- NOTE | 2018-08-02 15:27 | P.PN ---
Subjective Progress Note Date: 08/02/18 Principal diagnosis: Acute abdominal sepsis and peritonitis, status post resection of descending colon for perforation This is a 68-year-old white female patient who was brought to the emergency department via ambulance from [facility] for evaluation of acute abdominal pain in the right lower quadrant. Patient had a reversal of her colostomy last week by Dr. Preciado in this hospital, she was doing well in the postoperative period, and subsequently was discharged to [facility]. 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 Patient had a ELOY drain placed within the right lower abdomen. Originally patient had colostomy placed for history of perforated diverticulitis in 2016. Postop patient was treated with Levaquin and Flagyl for a history of contaminated case CT of abdomen with contrast showed some fluid stranding in the small bowel mesentery, and some fluid in the pericolic gutters, no sign of free air, multiple distended loops of fluid-filled small bowel, consistent with moderate ileus. Labs showed leukocytosis with a PVC of 23.7, hemoglobin of 16.1, INR 1.5, BUN of 31, creatinine 1.24, was normal lactic acid was 2.2, LFTs normal, urinalysis showed evidence of large amount of leuks, many white and red blood cells, and yeast. In the emergency department there was some yellow and brown discharge from around her ELOY drain which was sent for cultures. Patient states she had fever and chills. He states she has not been passing any stools, but she has been taking an oral intake. She noted worsening edema of her bilateral lower extremities. Denies any nausea or vomiting. CT angios was obtained, which was negative for any evidence of pulmonary embolism, and showed some strandy bilateral atelectasis. Patient was given a total of 3 L of IV fluids, she was started on Zosyn in addition to Flagyl, and Levaquin was discontinued. She remains afebrile, she is tachycardic with a heart rate in the 110's. Blood pressure is 154/101, she is still having tenderness in the right lower quadrant around the ELOY insertion site. Bowel sounds are active. Surgical incisions are covered with surgical dressings with shadowing of old blood on them. Lung sounds are positive for a few rhonchi, but no wheezing. Patient only has occasional cough with production of yellowish sputum. Patient is diaphoretic. Her urine output is low, only 30 mL an hour after fluid boluses, and her urine color is light brown. We spoke to Dr. Preciado, and patient is suspected to have dehydration elated to combination of moderate ileus and possibility of peritonitis. It was decided to give the patient additional 1 L bolus of 0.9 normal saline, obtain lactic acid. And patient is scheduled surgery sometime today by Dr. Preciado for reexploration. Patient was reevaluated today on 07/29/2018, she underwent exploratory laparotomy yesterday, she underwent resection of descending colon for perforation, descending colostomy, Ford's procedure for perforated descending colon. She had peritoneal lavage with over 10 L. And she underwent placement of intra-abdominal Eder drain, 2, and underwent wound VAC system placement. Today the patient is on the ICU, she is on antibiotics as per infectious disease on the case, she is off mechanical ventilation, on nasal cannula, noted to be a bit dyspneic with any activity. Patient denies being short of breath, denies being in pain, she seems to be doing better than expected considering her surgical intervention. CBC showed leukocytosis with WBC of 26.1. Electrolytes are normal however her bicarb is 18 renal profile is normal. Reevaluated today on 07/30/2018, feeling much better compared to yesterday, in no form of respiratory distress. Pain is also under control. Renal functioning has significantly improved, creatinine today is 0.65. Continues to have leukocytosis, antibiotics are addressed by infectious disease on the case. Chest x-ray showed small bilateral pleural effusions left more so than right. And atelectasis. On 07/31/2018 patient seen in follow-up on surgical floor. Awake and alert, denies any acute distress. Incisional pain is reasonably controlled, patient has abdominal binder on. Patient has a wound VAC in place, right ELOY drain is draining serous fluid. Wound cultures were positive For Rosangela albicans. And patient is on Anidulafungin, Flagyl and Zosyn. Left abdominal colostomy is with the liquid brown output. Patient is tolerating clear liquids. No nausea, no vomiting. Patient is on 2 L per nasal cannula, and the pulse ox is 97%. Patient is afebrile. Lung sounds are clear, diminished at the bases, I asked effort is 250-500, and patient extensive coaching and encouragement. Patient has bilateral lower extremity edema, and she has received some Lasix. On 08/01/2018 patient seen again in follow-up on the surgical floor. Denies any acute distress, vital signs are stable, room air pulse ox is 93%, afebrile. On sounds are clear, diminished at the bases, IS effort is poor, at about 250 ML today. He is tolerating clear liquid diet, her ostomy is producing liquid brown output. Wound VAC remains in place, ELOY drain with small amount of serous fluid. Yesterday we gave patient a dose of IV Lasix for generalized edema. Patient is in negative fluid balance, still has bilateral lower extremity edema. Repeat today's chest x-ray, patient needs evaluation by physical therapy On 08/02/2018 patient seen in follow-up on the surgical floor. Her inspiratory effort remains quite poor, her IS effort is suboptimal, barely 100-250 at times. Sounds are quite diminished at the bases, with some rales. Appears to be a bit more short of breath on today's exam, today's chest x-ray showed central vascularity and increased interstitium with bilateral pleural effusions. Patient is on IV Lasix, she is incontinent of large amount of urine , diuresing, and her weight is down by 3 kg in the last 24 hours. His lab work showed a CBC of 17.8, hemoglobin of 12.3, sodium is 142, potassium is 3.5, chloride is 110, B1 is 25, creatinine 0.54. Patient continues on IV antibiotics , her left abdominal ostomy is producing liquid brown output, he is tolerating clear liquid diet, no nausea or vomiting. Room air pulse ox is 93%, ultrasound of the chest was obtained, and showed 4.5 cm pleural effusion pocket on the right, and 4.9 cm left pleural effusion. Objective - Vital Signs Vital signs: Vital Signs Temp 99.4 F 08/02/18 07:12 Pulse 99 08/02/18 07:12 Resp 20 08/02/18 07:12 BP 147/87 08/02/18 07:12 Pulse Ox 93 L 08/02/18 07:12 Intake & Output 09/08/02/18 08/02/18 18:59 06:59 18:59 Intake Total 200 550 480 Output Total 320 55 Balance -120 495 480 Weight 107.5 kg 104.5 kg Intake: IV 550 Piperacillin-Tazobactam 3 50 .375 gm In Dextrose/Water 1 50ml.bag @ 12.5 mls/hr IVPB Q8HR YURY Rx#: [id number] Sodium Chloride 0.9% 1, 400 000 ml @ 40 mls/hr IV . Q24H YURY Rx#:[id number] metroNIDAZOLE-NS PMX 500 100 mg In Saline 1 100ml.bag @ 100 mls/hr IVPB Q6HR YURY Rx#:[id number] Oral 200 480 Output: Gastric Drainage 100 Drainage 220 55 Medial Abdomen 150 Right Lower Abdomen 50 45 Right Upper Abdomen 20 10 Other: Voiding Method Diaper Diaper Diaper Incontinent Incontinent Incontinent # Voids 2 1 - Exam PHYSICAL EXAM: GENERAL: Physical exam revealed a 68-year-old female in no distress. Head: Atraumatic, normocephalic. HEENT: No scleral icterus. Extraocular movements grossly intact. Hears conversational speech. No nasal drainage. NECK: Supple without lymphadenopathy. CHEST: Diminished breath sounds at the bases, no crackles or rhonchi or wheezes , no chest wall tenderness. CARDIOVASCULAR: Tachycardic. Distal 2+ pulses. ABDOMEN: Soft. Bowel dressings clean dry and intact with wound VAC, Serosanguineous drainage. JPs upper and lower right side. Left abdominal colostomy with liquid brown output MUSCULOSKELETAL: No clubbing, cyanosis. 3+ bilateral lower extremity edema NEURO: No focal or lateralizing signs. Cranial nerves 2 through 12 grossly within normal limits. PSYCH: Alert and oriented to person, place and time. SKIN: Good skin turgor. No rashes. - Labs CBC & Chem 7: 08/02/18 06:44 08/02/18 06:44 Labs: Abnormal Lab Results - Last 24 Hours (Table) 08/02/18 08/02/18 Range/Units 06:44 06:44 WBC 17.8 H (3.8-10.6) k/uL MCHC 30.5 L (31.0-37.0) g/dL Neutrophils # 16.0 H (1.3-7.7) k/uL Lymphocytes # 0.7 L (1.0-4.8) k/uL Chloride 110 H (98-107) mmol/L BUN 25 H (7-17) mg/dL Glucose 112 H (74-99) mg/dL Calcium 7.0 L (8.4-10.2) mg/dL Total Protein 4.4 L (6.3-8.2) g/dL Albumin 1.9 L (3.5-5.0) g/dL Microbiology - Last 24 Hours (Table) 07/28/18 09:46 Blood Culture - Preliminary Blood No Growth after 120 hours 07/26/18 22:23 Blood Culture - Final Blood No Growth after 144 hours 07/28/18 13:06 Anaerobic Culture - Final Other - Other 07/28/18 13:06 Anaerobic Culture - Final Other - Other Assessment and Plan Plan: Assessment: #1. Acute sepsis secondary to perforation of descending colon and peritonitis, status post surgery as noted above, postoperative day 5 #2. Volume overload, increased interstitial prominence, bilateral pleural effusions, diuresing on IV Lasix #3. Acute kidney injury related to the above, resolved #4. Dehydration due to moderate ileus and sepsis, improved #5. Leucocytosis, improving #6. Mild lactic acidosis, improved #7. Recent colostomy reversal on 07/19/2018 with peritoneal lavage, and patient was sent to the subacute rehab on Levaquin and Flagyl for evidence of contaminated case #8. History of perforated diverticulitis with colon resection and colostomy placement in 2016 #9. Dyspnea , related to intra-abdominal sepsis obesity and abdominal pain, CT angios was negative for any evidence of PE, but showed strandy atelectasis at bilateral bases #10. Oliguria #11. Obesity #12. Acute urinary tract infection #13. Hypertension Plan: Ultrasound of the chest has been reviewed, and showed small pleural effusions bilaterally, today's chest x-ray shows persistence of central vascularity, interstitial prominence. Patient is diuresing, and will continue with IV Lasix. In view of patient's poor inspiratory effort, she may benefit from BiPAP support at night at pressures of 12/5 and FiO2 of 30% to maintain O2 sat at 92% or above. We'll continue to follow. I performed a history & physical examination of the patient and discussed their management with my nurse practitioner, Lucy Paris. I reviewed the nurse practitioner's note and agree with the documented findings and plan of care. Lung sounds are clear, diminished at the bases. The findings and the impression was discussed with the patient. I attest to the documentation by the nurse practitioner. Time with Patient: Less than 30
--- NOTE | 2018-08-02 15:52 | PN ---
PROGRESS NOTE DATE OF SERVICE: 08/02/2018. REASON FOR FOLLOWUP: Abdominal abscess from perforated bowel. INTERVAL HISTORY: The patient is currently afebrile. She is breathing comfortably. Her oral intake remains to be poor. No nausea, no vomiting, or any worsening abdominal pain. Did have output in her colostomy bag. EXAMINATION: Blood pressure 147/87 with a pulse of 99, temperature 99.4. She is 93% on room air. General description is an elderly female, lying in bed in no distress. RESPIRATORY SYSTEM: Unlabored breathing. Clear to auscultation anteriorly. HEART: S1, S2. Regular rate and rhythm. ABDOMEN: Soft, mildly distended. Did have output in the colostomy bag. EXTREMITIES: Some trace edema feet. LABS: Hemoglobin 12.2, white count 17.8. BUN of 25, creatinine 0.54. DIAGNOSTIC IMPRESSION AND PLAN: Patient with abdominal abscess from perforated bowel, status post diverting colostomy. Abdominal culture possibly Rosangela albicans. Urine was showing Rosangela, not albicans. The patient did well on the addition to the Zosyn and Flagyl, will be transitioned to Rocephin, Flagyl and Diflucan on discharge to finish a course of therapy once cleared by other consultants. Her white count is to be monitored closely. Continue supportive care. MMODL / IJN: [id number] /
--- NOTE | 2018-08-02 16:03 | P.PN ---
Subjective 68-year-old the female admitted for perforated viscus patient on broad-spectrum antibiotics Flagyl and Zosyn. Patient is a wound VAC in place patient is also being treated for congestive heart failure exacerbation patient is on 40 mg of IV Lasix patient , patient has bilateral pleural effusions secondary to heart failure exacerbation. Patient has episodes of proximal atrial fibrillation on rate control medications as well. Patient is quite a bit depressed today when I evaluated the patient. Patient has bibasilar crackles on exam bilateral pleural effusions pulmonary, infectious disease, cardiology surgery are following the patient along with the nephrology. Constitutional: Denied any fatigue denied any fever. Cardio vascular: denied any chest pain, palpitations Gastrointestinal denied any nausea vomiting Pulmonary: Denied any shortness of breath cough Neurologic denied any new focal deficits Objective - Vital Signs Vital signs: Vital Signs Temp 99.4 F 08/02/18 07:12 Pulse 99 08/02/18 07:12 Resp 20 08/02/18 07:12 BP 147/87 08/02/18 07:12 Pulse Ox 93 L 08/02/18 07:12 Intake & Output 08/01/18 08/02/18 08/02/18 18:59 06:59 18:59 Intake Total 585 874 1397 Output Total 320 55 260 Balance -120 495 894 Weight 107.5 kg 104.5 kg Intake: IV 550 320 Piperacillin-Tazobactam 3 50 .375 gm In Dextrose/Water 1 50ml.bag @ 12.5 mls/hr IVPB Q8HR YURY Rx#: [id number] Sodium Chloride 0.9% 1, 400 320 000 ml @ 40 mls/hr IV . Q24H YURY Rx#:[id number] metroNIDAZOLE-NS PMX 500 100 mg In Saline 1 100ml.bag @ 100 mls/hr IVPB Q6HR YURY Rx#:[id number] Oral 200 834 Output: Gastric Drainage 100 Drainage 220 55 60 Medial Abdomen 150 Right Lower Abdomen 50 45 30 Right Upper Abdomen 20 10 30 Stool 200 Other: Voiding Method Diaper Diaper Diaper Incontinent Incontinent Incontinent # Voids 2 1 - Exam -GENERAL: The patient is awake and oriented but she looks tired and dyspneic fluids with pain from her recent surgery. not in any acute distress. Well developed, well nourished. HEENT: Pupils are round and equally reacting to light. EOMI. No scleral icterus. No conjunctival pallor. Normocephalic, atraumatic. No pharyngeal erythema. No thyromegaly. CARDIOVASCULAR: S1 and S2 present. No murmurs, rubs, or gallops. PULMONARY: Chest is clear to auscultation, no wheezing or crackles. ABDOMEN: Wound VAC in place does have bowel sounds MUSCULOSKELETAL: No joint swelling or deformity. EXTREMITIES: No cyanosis, clubbing, or pedal edema. NEUROLOGICAL: Gross neurological examination did not reveal any focal deficits. SKIN: No rashes. - Labs CBC & Chem 7: 08/02/18 06:44 08/02/18 06:44 Labs: Abnormal Lab Results - Last 24 Hours (Table) 08/02/18 08/02/18 Range/Units 06:44 06:44 WBC 17.8 H (3.8-10.6) k/uL MCHC 30.5 L (31.0-37.0) g/dL Neutrophils # 16.0 H (1.3-7.7) k/uL Lymphocytes # 0.7 L (1.0-4.8) k/uL Chloride 110 H (98-107) mmol/L BUN 25 H (7-17) mg/dL Glucose 112 H (74-99) mg/dL Calcium 7.0 L (8.4-10.2) mg/dL Total Protein 4.4 L (6.3-8.2) g/dL Albumin 1.9 L (3.5-5.0) g/dL Microbiology - Last 24 Hours (Table) 07/28/18 09:46 Blood Culture - Preliminary Blood No Growth after 120 hours 07/26/18 22:23 Blood Culture - Final Blood No Growth after 144 hours 07/28/18 13:06 Anaerobic Culture - Final Other - Other 07/28/18 13:06 Anaerobic Culture - Final Other - Other Assessment and Plan Plan: Perforated colon, peritonitis sepsis status post expiratory laparotomy and a peroneal lavage. Patient on broad supplemented antibiotics as mentioned above. Patient is on antifungals as well -Atrial fibrillation with rapid ventricular rate presently on rate control medication not on any anticoagulation at this time patient has proximal A. fib. -Congestive heart failure chronic systolic dysfunction ejection fraction of 40- 45% with acute exacerbation and bilateral pleural effusion patient is on 40 IV twice a day of Lasix -Acute kidney injury: Possible nonoliguric acute tubular necrosis which improved now -Obesity -Depression -Hypertension -Patient is presently quite a bit depressed once everything is stabilized patient will be discharged started on antidepressant medications
[2018-08-03] MEDS: metroNIDAZOLE-NS PMX 500 MG in SALINE 1 100ML.BAG IVPB SCH ×4 (00:19→17:20)
[2018-08-03] MEDS: PIPERACILLIN-TAZOBACTAM 3.375 GM in DEXTROSE/WATER 1 50ML.BAG IVPB SCH ×3 (00:19→17:20)
[2018-08-03 07:44] LABS: Basophils # (A) 0.1 k/uL (0-0.2); Basophils % (A) 1 %; Eosinophils # (A) 0.2 k/uL (0-0.7); Eosinophils % (A) 1 %; HCT 39.5 % (34.0-46.0); HGB 12.2 gm/dL (11.4-16.0); Hypochromasia Moderate; Lymphocytes # (A) 0.6 k/uL (1.0-4.8); Lymphocytes % (A) 3 %; MCHC 30.8 g/dL (31.0-37.0); MCV 97.4 fL (80.0-100.0); Mean Platelet Volume 8.4; Monocytes # (A) 0.5 k/uL (0-1.0); Monocytes % (A) 3 %; Neutrophils # (A) 15.3 k/uL (1.3-7.7); Neutrophils % (A) 91 %; Platelet Count 258 k/uL (150-450); RBC 4.05 m/uL (3.80-5.40); RDW 13.4 % (11.5-15.5); WBC 16.9 k/uL (3.8-10.6)
[2018-08-03 08:16] LABS: ALT 29 U/L (9-52); AST 37 U/L (14-36); Albumin 1.9 g/dL (3.5-5.0); Alkaline Phosphatase 86 U/L (38-126); Anion Gap 7 mmol/L; Blood Urea Nitrogen 21 mg/dL (7-17); Calcium 7.1 mg/dL (8.4-10.2); Carbon Dioxide 29 mmol/L (22-30); Chloride 105 mmol/L (98-107); Glucose 115 mg/dL (74-99); Potassium 3.6 mmol/L (3.5-5.1); Sodium 141 mmol/L (137-145); Total Bilirubin 0.6 mg/dL (0.2-1.3); Total Protein 4.5 g/dL (6.3-8.2)
[2018-08-03] MEDS ORDERED: POTASSIUM CHLORIDE ER 20 MEQ TAB.ER PO STA (08:30)
--- NOTE | 2018-08-03 08:41 | P.PN ---
Subjective Progress Note Date: 08/02/18 This is a 68-year-old female who had extensive abdominal surgery and is being treated for infection with multiple broad-spectrum antibiotics. We're asked to see the patient because of episodes of tachycardia. Patient is having brief runs of A. fib with RVR. Since patient was started on beta jose f, patient hasn't had any recurrence of arrhythmia. Patient is on subcu Lovenox. If patient has any recurrence of atrial fibrillation, she should be constricted for full dose anticoagulation. Chest x-ray also size to possible CHF. Patient is weak and frail doesn't seem to be in acute distress. Patient is lying flat in the bed. Patient is current on diuretics. I'm going to get BNP level. Her echo Cardigan showed an ejection fraction of about 45%. May be underestimated. I'll continue current medical therapy. Continue to monitor her for any recurrence of atrial fib. If she has any recurrence, patient should be considered full dose anticoagulation Objective - Vital Signs Vital signs: Vital Signs Temp 97.6 F 08/02/18 23:00 Pulse 85 08/02/18 23:00 Resp 20 08/02/18 23:00 BP 133/70 08/02/18 23:00 Pulse Ox 97 08/02/18 23:00 Intake & Output 08/02/18 08/03/18 08/03/18 18:59 06:59 18:59 Intake Total 1272 590 Output Total 360 1475 Balance 912 -885 Weight 104.5 kg Intake: IV 320 590 Piperacillin-Tazobactam 3 50 .375 gm In Dextrose/Water 1 50ml.bag @ 12.5 mls/hr IVPB Q8HR YURY Rx#: [id number] Sodium Chloride 0.9% 1, 320 440 000 ml @ 40 mls/hr IV . Q24H YURY Rx#:[id number] metroNIDAZOLE-NS PMX 500 100 mg In Saline 1 100ml.bag @ 100 mls/hr IVPB Q6HR YURY Rx#:[id number] Oral 952 Output: Drainage 60 50 Right Lower Abdomen 30 25 Right Upper Abdomen 30 25 Urine 100 1425 Uretheral (Lee) 1425 Stool 200 Other: Voiding Method Indwelling Catheter Indwelling Catheter - Exam GENERAL EXAM: Patient is weak and frail HEENT: Normocephalic. Normal reaction of pupils, equal size, normal range of extraocular motion. No erythema or exudates in the throat. NECK: No masses, no nuchal rigidity. CHEST: No chest wall deformity. LUNGS: Diminished breath sounds at both bases and some crackles HEART: S1 and S2 normal w ABDOMEN: Postsurgical SKIN: No rashes CENTRAL NERVOUS SYSTEM: No gross deficit EXTREMITIES: No cyanosis, clubbing or edema. - Labs CBC & Chem 7: 08/03/18 07:09 08/03/18 07:09 Labs: Abnormal Lab Results - Last 24 Hours (Table) 08/03/18 08/03/18 Range/Units 07:09 07:09 WBC 16.9 H (3.8-10.6) k/uL MCHC 30.8 L (31.0-37.0) g/dL Neutrophils # 15.3 H (1.3-7.7) k/uL Lymphocytes # 0.6 L (1.0-4.8) k/uL BUN 21 H (7-17) mg/dL Glucose 115 H (74-99) mg/dL Calcium 7.1 L (8.4-10.2) mg/dL AST 37 H (14-36) U/L Total Protein 4.5 L (6.3-8.2) g/dL Albumin 1.9 L (3.5-5.0) g/dL Microbiology - Last 24 Hours (Table) 07/28/18 09:46 Blood Culture - Preliminary Blood No Growth after 120 hours Assessment and Plan (1) Paroxysmal atrial fibrillation Current Visit: Yes Status: Acute Code(s): I48.0 - PAROXYSMAL ATRIAL FIBRILLATION SNOMED Code(s): 424707454 (2) Ileus following gastrointestinal surgery Current Visit: Yes Status: Acute Code(s): K91.30 - POSTPROC INTESTINAL OBST , UNSP TO PARTIAL VERSUS COMPLETE SNOMED Code(s): 512267693 (3) CHF (congestive heart failure) Current Visit: Yes Status: Acute Code(s): I50.9 - HEART FAILURE, UNSPECIFIED SNOMED Code(s): 48316351 Plan: Continue current management. Continue current dose of beta jose f. Initiate full dose anticoagulation, if patient has a recurrence of atrial fibrillation. I will also obtain BNP.
--- NOTE | 2018-08-03 08:52 | P.PN ---
Subjective Progress Note Date: 08/03/18 This is a 68-year-old female who had extensive abdominal surgery and is being treated for infection with multiple broad-spectrum antibiotics. We're asked to see the patient because of episodes of tachycardia. Patient is having brief runs of A. fib with RVR. Since patient was started on beta jose f, patient hasn't had any recurrence of arrhythmia. Patient is on subcu Lovenox. If patient has any recurrence of atrial fibrillation, she should be constricted for full dose anticoagulation. Chest x-ray also size to possible CHF. Patient is weak and frail doesn't seem to be in acute distress. Patient is lying flat in the bed. Patient is current on diuretics. I'm going to get BNP level. Her echo Cardigan showed an ejection fraction of about 45%. May be underestimated. I'll continue current medical therapy. Continue to monitor her for any recurrence of atrial fib. If she has any recurrence, patient should be considered full dose anticoagulation. 08/03/2018: This patient seemed to be clinically stable. She remains weak and frail. She denies any chest pain. She denies any shortness of breath. Her lung examination shows diminished breath sounds at both bases. She seemed to be maintaining sinus rhythm. Hasn't had any recurrence of atrial fibrillation for the last 48 hours. She is on subcu Lovenox. At this point I will recommend a baby aspirin a day. If there is any recurrence of atrial fibrillation, she should be considered for anticoagulation. Otherwise, she can be continued on current medical therapy. We'll follow Objective - Vital Signs Vital signs: Vital Signs Temp 97.6 F 08/02/18 23:00 Pulse 85 08/02/18 23:00 Resp 20 08/02/18 23:00 BP 133/70 08/02/18 23:00 Pulse Ox 97 08/02/18 23:00 Intake & Output 08/02/18 08/03/18 08/03/18 18:59 06:59 18:59 Intake Total 1272 590 Output Total 360 1475 Balance 912 -885 Weight 104.5 kg Intake: IV 320 590 Piperacillin-Tazobactam 3 50 .375 gm In Dextrose/Water 1 50ml.bag @ 12.5 mls/hr IVPB Q8HR [facility] Rx#: [id number] Sodium Chloride 0.9% 1, 320 440 000 ml @ 40 mls/hr IV . Q24H [facility] Rx#:[id number] metroNIDAZOLE-NS PMX 500 100 mg In Saline 1 100ml.bag @ 100 mls/hr IVPB Q6HR [facility] Rx#:[id number] Oral 952 Output: Drainage 60 50 Right Lower Abdomen 30 25 Right Upper Abdomen 30 25 Urine 100 1425 Uretheral (Lee) 1425 Stool 200 Other: Voiding Method Indwelling Catheter Indwelling Catheter - Exam GENERAL EXAM: Patient is weak and frail HEENT: Normocephalic. Normal reaction of pupils, equal size, normal range of extraocular motion. No erythema or exudates in the throat. NECK: No masses, no nuchal rigidity. CHEST: No chest wall deformity. LUNGS: Diminished breath sounds at both bases and some crackles HEART: S1 and S2 normal w ABDOMEN: Postsurgical SKIN: No rashes CENTRAL NERVOUS SYSTEM: No gross deficit EXTREMITIES: No cyanosis, clubbing or edema. - Labs CBC & Chem 7: 08/03/18 07:09 08/03/18 07:09 Labs: Abnormal Lab Results - Last 24 Hours (Table) 08/03/18 08/03/18 Range/Units 07:09 07:09 WBC 16.9 H (3.8-10.6) k/uL MCHC 30.8 L (31.0-37.0) g/dL Neutrophils # 15.3 H (1.3-7.7) k/uL Lymphocytes # 0.6 L (1.0-4.8) k/uL BUN 21 H (7-17) mg/dL Glucose 115 H (74-99) mg/dL Calcium 7.1 L (8.4-10.2) mg/dL AST 37 H (14-36) U/L Total Protein 4.5 L (6.3-8.2) g/dL Albumin 1.9 L (3.5-5.0) g/dL Microbiology - Last 24 Hours (Table) 07/28/18 09:46 Blood Culture - Preliminary Blood No Growth after 120 hours Assessment and Plan (1) Paroxysmal atrial fibrillation Current Visit: Yes Status: Acute Code(s): I48.0 - PAROXYSMAL ATRIAL FIBRILLATION SNOMED Code(s): 270202193 (2) Ileus following gastrointestinal surgery Current Visit: Yes Status: Acute Code(s): K91.30 - POSTPROC INTESTINAL OBST , UNSP TO PARTIAL VERSUS COMPLETE SNOMED Code(s): 669384659 (3) CHF (congestive heart failure) Current Visit: Yes Status: Acute Code(s): I50.9 - HEART FAILURE, UNSPECIFIED SNOMED Code(s): 67512530 Plan: Patient remains weak and frail. Doesn't appear to be in acute distress. No recurrence of cardiac arrhythmias. Recommend baby aspirin along with beta jose f, at this time. If she has any recurrence of atrial fibrillation, patient should be considered for long-term anticoagulation
--- NOTE | 2018-08-03 08:57 | P.PN ---
Subjective Patient is seen in follow-up for acute kidney injury. Creatinine was 1.24 on admission; VALERIE now resolved. Continues to complain of edema. Chest x-ray suggestive of fluid overload. Patient underwent exploratory laparotomy with descending colon resection for perforated viscus on July 28. Denies chest pain or shortness of breath. Tolerating oral intake. Currently maintained on Lasix 40 mg IV twice daily. She's working with physical therapy. Vital signs are stable. General: The patient appeared well nourished and normally developed. HEENT: Head exam is unremarkable. Neck is without jugular venous distension. LUNGS: Lungs are clear to auscultation and percussion. Breath sounds decreased. HEART: Rate and Rhythm are regular. First and second heart sounds normal. No murmurs, rubs or gallops. ABDOMEN: Abdominal exam reveals normal bowel sounds. Non-tender and non- distended. No evidence of peritonitis. EXTREMITITES: 1+ edema. Objective - Vital Signs Vital signs: Vital Signs Temp 97.6 F 08/02/18 23:00 Pulse 85 08/02/18 23:00 Resp 20 08/02/18 23:00 BP 133/70 08/02/18 23:00 Pulse Ox 97 08/02/18 23:00 Intake & Output 08/02/18 08/03/18 08/03/18 18:59 06:59 18:59 Intake Total 1272 590 Output Total 360 1475 Balance 912 -885 Weight 104.5 kg Intake: IV 320 590 Piperacillin-Tazobactam 3 50 .375 gm In Dextrose/Water 1 50ml.bag @ 12.5 mls/hr IVPB Q8HR [facility] Rx#: [id number] Sodium Chloride 0.9% 1, 320 440 000 ml @ 40 mls/hr IV . Q24H [facility] Rx#:[id number] metroNIDAZOLE-NS PMX 500 100 mg In Saline 1 100ml.bag @ 100 mls/hr IVPB Q6HR [facility] Rx#:[id number] Oral 952 Output: Drainage 60 50 Right Lower Abdomen 30 25 Right Upper Abdomen 30 25 Urine 100 1425 Uretheral (Lee) 1425 Stool 200 Other: Voiding Method Indwelling Catheter Indwelling Catheter - Labs CBC & Chem 7: 08/03/18 07:09 08/03/18 07:09 Labs: Abnormal Lab Results - Last 24 Hours (Table) 08/03/18 08/03/18 Range/Units 07:09 07:09 WBC 16.9 H (3.8-10.6) k/uL MCHC 30.8 L (31.0-37.0) g/dL Neutrophils # 15.3 H (1.3-7.7) k/uL Lymphocytes # 0.6 L (1.0-4.8) k/uL BUN 21 H (7-17) mg/dL Glucose 115 H (74-99) mg/dL Calcium 7.1 L (8.4-10.2) mg/dL AST 37 H (14-36) U/L Total Protein 4.5 L (6.3-8.2) g/dL Albumin 1.9 L (3.5-5.0) g/dL Microbiology - Last 24 Hours (Table) 07/28/18 09:46 Blood Culture - Preliminary Blood No Growth after 120 hours Assessment and Plan Plan: Assessment: 1. Nonoliguric acute kidney injury mostly prerenal improved with IV hydration. GFR back to baseline. 2. Metabolic acidosis secondary to IV fluids. Improved. 3. Volume overload. Improved. 4. Perforated viscus with secondary peritonitis status post exploratory laparotomy and and diverting colostomy on July 28. 5. Hypomagnesemia from poor oral intake and diuresis. Status post replacement. 6. Hypokalemia from poor oral intake and diuresis. 7. Hypocalcemia secondary to hypoalbuminemia. Corrected calcium in the normal range. Plan: Maintain Lasix 40 mg IV twice daily. Continue to monitor renal function and urine output. Potassium and magnesium being replaced. Repeat electrolytes in the morning. Replace potassium. 40 mEq today.
[2018-08-03] MEDS: METOPROLOL TARTRATE 25 MG TAB PO SCH ×3 (09:11→22:08)
[2018-08-03] MEDS: FUROSEMIDE 10 MG/ML 4 ML VIAL IV SCH ×2 (09:11→22:08)
[2018-08-03] MEDS: ENOXAPARIN 40 MG/0.4 ML SYRINGE SQ SCH (09:11)
[2018-08-03] MEDS: PANTOPRAZOLE 40 MG TABLET PO SCH (09:11)
[2018-08-03] MEDS: ANIDULAFUNGIN 100 MG in SODIUM CHLORIDE 0.9% 100 ML IVPB SCH (09:12)
--- NOTE | 2018-08-03 10:15 | P.PN ---
Progress Note - Text Progress Note Date: 08/03/18 The patient is resting in bed. She has some complaints of pain. She has had minimal output through her colostomy. She is tolerating her pured diet. On exam her vital signs are stable her abdomen is soft. Colostomy is pink. Status post anastomotic leak with colostomy. Patient continued receiving medical treatment.
--- NOTE | 2018-08-03 12:00 | P.PN ---
Subjective 68-year-old the female admitted for perforated viscus patient on broad-spectrum antibiotics Flagyl and Zosyn. Patient is a wound VAC in place patient is also being treated for congestive heart failure exacerbation patient is on 40 mg of IV Lasix patient , patient has bilateral pleural effusions secondary to heart failure exacerbation. Patient has episodes of proximal atrial fibrillation on rate control medications as well. Patient is quite a bit depressed today when I evaluated the patient. Patient has bibasilar crackles on exam bilateral pleural effusions pulmonary, infectious disease, cardiology surgery are following the patient along with the nephrology. 08/03/2018 Patient is feeling much better today has respiratory status improved patient remains on IV Lasix probably can be switched to oral patient has bilateral pleural effusions. Constitutional: Denied any fatigue denied any fever. Cardio vascular: denied any chest pain, palpitations Gastrointestinal denied any nausea vomiting Pulmonary: Denied any shortness of breath cough Neurologic denied any new focal deficits Objective - Vital Signs Vital signs: Vital Signs Temp 97.6 F 08/02/18 23:00 Pulse 85 08/02/18 23:00 Resp 20 08/02/18 23:00 BP 133/70 08/02/18 23:00 Pulse Ox 97 08/02/18 23:00 Intake & Output 08/02/18 08/03/18 08/03/18 18:59 06:59 18:59 Intake Total 1272 590 374 Output Total 360 1475 100 Balance 912 -885 274 Weight 104.5 kg Intake: IV 320 590 Piperacillin-Tazobactam 3 50 .375 gm In Dextrose/Water 1 50ml.bag @ 12.5 mls/hr IVPB Q8HR [facility] Rx#: [id number] Sodium Chloride 0.9% 1, 320 440 000 ml @ 40 mls/hr IV . Q24H [facility] Rx#:[id number] metroNIDAZOLE-NS PMX 500 100 mg In Saline 1 100ml.bag @ 100 mls/hr IVPB Q6HR [facility] Rx#:[id number] Oral 952 374 Output: Gastric Drainage 100 Drainage 60 50 Right Lower Abdomen 30 25 Right Upper Abdomen 30 25 Urine 100 1425 Uretheral (Lee) 1425 Stool 200 Other: Voiding Method Indwelling Catheter Indwelling Catheter - Exam -GENERAL: The patient is awake and oriented but she looks tired and dyspneic fluids with pain from her recent surgery. not in any acute distress. Well developed, well nourished. HEENT: Pupils are round and equally reacting to light. EOMI. No scleral icterus. No conjunctival pallor. Normocephalic, atraumatic. No pharyngeal erythema. No thyromegaly. CARDIOVASCULAR: S1 and S2 present. No murmurs, rubs, or gallops. PULMONARY: Chest is clear to auscultation, no wheezing or crackles. ABDOMEN: Wound VAC in place does have bowel sounds MUSCULOSKELETAL: No joint swelling or deformity. EXTREMITIES: No cyanosis, clubbing, or pedal edema. NEUROLOGICAL: Gross neurological examination did not reveal any focal deficits. SKIN: No rashes. - Labs CBC & Chem 7: 08/03/18 07:09 08/03/18 07:09 Labs: Abnormal Lab Results - Last 24 Hours (Table) 08/03/18 08/03/18 Range/Units 07:09 07:09 WBC 16.9 H (3.8-10.6) k/uL MCHC 30.8 L (31.0-37.0) g/dL Neutrophils # 15.3 H (1.3-7.7) k/uL Lymphocytes # 0.6 L (1.0-4.8) k/uL BUN 21 H (7-17) mg/dL Glucose 115 H (74-99) mg/dL Calcium 7.1 L (8.4-10.2) mg/dL AST 37 H (14-36) U/L Total Protein 4.5 L (6.3-8.2) g/dL Albumin 1.9 L (3.5-5.0) g/dL Microbiology - Last 24 Hours (Table) 07/28/18 09:46 Blood Culture - Final Blood No Growth after 144 hours Assessment and Plan Plan: Perforated colon, peritonitis sepsis status post expiratory laparotomy and Peritonela lavage. Patient on broad supplemented antibiotics as mentioned above. Patient is on antifungals as well -Atrial fibrillation with rapid ventricular rate presently on rate control medication not on any anticoagulation at this time patient has proximal A. fib. If patient has more episodes of proximal atrial fibrillation patient need to be anticoagulated at that time presently not on any anti-correlation because of only Peroxin's of atrial fibrillation -Congestive heart failure chronic systolic dysfunction ejection fraction of 40- 45% with acute exacerbation and bilateral pleural effusion patient is on 40 IV twice a day of Lasix -Acute kidney injury: Possible nonoliguric acute tubular necrosis which improved now -Obesity -Depression -Hypertension -Patient is presently quite a bit depressed once everything is stabilized patient will be discharged started on antidepressant medications
--- NOTE | 2018-08-03 14:05 | P.PN ---
Subjective Progress Note Date: 08/03/18 Principal diagnosis: Acute abdominal sepsis and peritonitis, status post resection of descending colon for perforation This is a 68-year-old white female patient who was brought to the emergency department via ambulance from [facility] for evaluation of acute abdominal pain in the right lower quadrant. Patient had a reversal of her colostomy last week by Dr. Preciado in this hospital, she was doing well in the postoperative period, and subsequently was discharged to [facility]. 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 Patient had a ELOY drain placed within the right lower abdomen. Originally patient had colostomy placed for history of perforated diverticulitis in 2016. Postop patient was treated with Levaquin and Flagyl for a history of contaminated case CT of abdomen with contrast showed some fluid stranding in the small bowel mesentery, and some fluid in the pericolic gutters, no sign of free air, multiple distended loops of fluid-filled small bowel, consistent with moderate ileus. Labs showed leukocytosis with a PVC of 23.7, hemoglobin of 16.1, INR 1.5, BUN of 31, creatinine 1.24, was normal lactic acid was 2.2, LFTs normal, urinalysis showed evidence of large amount of leuks, many white and red blood cells, and yeast. In the emergency department there was some yellow and brown discharge from around her ELOY drain which was sent for cultures. Patient states she had fever and chills. He states she has not been passing any stools, but she has been taking an oral intake. She noted worsening edema of her bilateral lower extremities. Denies any nausea or vomiting. CT angios was obtained, which was negative for any evidence of pulmonary embolism, and showed some strandy bilateral atelectasis. Patient was given a total of 3 L of IV fluids, she was started on Zosyn in addition to Flagyl, and Levaquin was discontinued. She remains afebrile, she is tachycardic with a heart rate in the 110's. Blood pressure is 154/101, she is still having tenderness in the right lower quadrant around the ELOY insertion site. Bowel sounds are active. Surgical incisions are covered with surgical dressings with shadowing of old blood on them. Lung sounds are positive for a few rhonchi, but no wheezing. Patient only has occasional cough with production of yellowish sputum. Patient is diaphoretic. Her urine output is low, only 30 mL an hour after fluid boluses, and her urine color is light brown. We spoke to Dr. Preciado, and patient is suspected to have dehydration elated to combination of moderate ileus and possibility of peritonitis. It was decided to give the patient additional 1 L bolus of 0.9 normal saline, obtain lactic acid. And patient is scheduled surgery sometime today by Dr. Preciado for reexploration. Patient was reevaluated today on 07/29/2018, she underwent exploratory laparotomy yesterday, she underwent resection of descending colon for perforation, descending colostomy, Ford's procedure for perforated descending colon. She had peritoneal lavage with over 10 L. And she underwent placement of intra-abdominal Eder drain, 2, and underwent wound VAC system placement. Today the patient is on the ICU, she is on antibiotics as per infectious disease on the case, she is off mechanical ventilation, on nasal cannula, noted to be a bit dyspneic with any activity. Patient denies being short of breath, denies being in pain, she seems to be doing better than expected considering her surgical intervention. CBC showed leukocytosis with WBC of 26.1. Electrolytes are normal however her bicarb is 18 renal profile is normal. Reevaluated today on 07/30/2018, feeling much better compared to yesterday, in no form of respiratory distress. Pain is also under control. Renal functioning has significantly improved, creatinine today is 0.65. Continues to have leukocytosis, antibiotics are addressed by infectious disease on the case. Chest x-ray showed small bilateral pleural effusions left more so than right. And atelectasis. On 07/31/2018 patient seen in follow-up on surgical floor. Awake and alert, denies any acute distress. Incisional pain is reasonably controlled, patient has abdominal binder on. Patient has a wound VAC in place, right ELOY drain is draining serous fluid. Wound cultures were positive For Rosangela albicans. And patient is on Anidulafungin, Flagyl and Zosyn. Left abdominal colostomy is with the liquid brown output. Patient is tolerating clear liquids. No nausea, no vomiting. Patient is on 2 L per nasal cannula, and the pulse ox is 97%. Patient is afebrile. Lung sounds are clear, diminished at the bases, I asked effort is 250-500, and patient extensive coaching and encouragement. Patient has bilateral lower extremity edema, and she has received some Lasix. On 08/01/2018 patient seen again in follow-up on the surgical floor. Denies any acute distress, vital signs are stable, room air pulse ox is 93%, afebrile. On sounds are clear, diminished at the bases, IS effort is poor, at about 250 ML today. He is tolerating clear liquid diet, her ostomy is producing liquid brown output. Wound VAC remains in place, ELOY drain with small amount of serous fluid. Yesterday we gave patient a dose of IV Lasix for generalized edema. Patient is in negative fluid balance, still has bilateral lower extremity edema. Repeat today's chest x-ray, patient needs evaluation by physical therapy On 08/02/2018 patient seen in follow-up on the surgical floor. Her inspiratory effort remains quite poor, her IS effort is suboptimal, barely 100-250 at times. Sounds are quite diminished at the bases, with some rales. Appears to be a bit more short of breath on today's exam, today's chest x-ray showed central vascularity and increased interstitium with bilateral pleural effusions. Patient is on IV Lasix, she is incontinent of large amount of urine , diuresing, and her weight is down by 3 kg in the last 24 hours. His lab work showed a CBC of 17.8, hemoglobin of 12.3, sodium is 142, potassium is 3.5, chloride is 110, B1 is 25, creatinine 0.54. Patient continues on IV antibiotics , her left abdominal ostomy is producing liquid brown output, he is tolerating clear liquid diet, no nausea or vomiting. Room air pulse ox is 93%, ultrasound of the chest was obtained, and showed 4.5 cm pleural effusion pocket on the right, and 4.9 cm left pleural effusion. The patient is seen again today 08/03/2018 in follow-up on the surgical floor. She is awake. No acute distress. Currently maintaining O2 saturation in the low 90s on room air. She's afebrile. Hemodynamically stable. She remains in a negative balance. Weight the same as yesterday. White count 16.9. Hemoglobin 12.2. Creatinine 0.57. She remains on IV Lasix 40 mg every 12 hours. Remains on IV antibiotics. Objective - Vital Signs Vital signs: Vital Signs Temp 97.4 F L 08/03/18 09:00 Pulse 90 08/03/18 09:00 Resp 18 08/03/18 09:00 BP 133/65 08/03/18 09:00 Pulse Ox 92 L 08/03/18 09:00 Intake & Output 08/02/18 08/03/18 08/03/18 18:59 06:59 18:59 Intake Total 1272 590 854 Output Total 360 2935 5235 Balance 372 -126 -896 Weight 104.5 kg Intake: IV 320 590 Piperacillin-Tazobactam 3 50 .375 gm In Dextrose/Water 1 50ml.bag @ 12.5 mls/hr IVPB Q8HR [facility] Rx#: [id number] Sodium Chloride 0.9% 1, 320 440 000 ml @ 40 mls/hr IV . Q24H [facility] Rx#:[id number] metroNIDAZOLE-NS PMX 500 100 mg In Saline 1 100ml.bag @ 100 mls/hr IVPB Q6HR [facility] Rx#:[id number] Oral 952 854 Output: Gastric Drainage 100 Drainage 60 50 45 Right Lower Abdomen 30 25 20 Right Upper Abdomen 30 25 25 Urine 100 1425 1600 Uretheral (Lee) 1425 Stool 200 Other: Voiding Method Indwelling Catheter Indwelling Catheter Indwelling Catheter - Exam PHYSICAL EXAM: GENERAL: Physical exam revealed a 68-year-old female in no distress. Head: Atraumatic, normocephalic. HEENT: No scleral icterus. Extraocular movements grossly intact. Hears conversational speech. No nasal drainage. NECK: Supple without lymphadenopathy. CHEST: Diminished breath sounds at the bases, no crackles or rhonchi or wheezes , no chest wall tenderness. CARDIOVASCULAR: Tachycardic. Distal 2+ pulses. ABDOMEN: Soft. Bowel dressings clean dry and intact with wound VAC, Serosanguineous drainage. JPs upper and lower right side. Left abdominal colostomy with liquid brown output MUSCULOSKELETAL: No clubbing, cyanosis. 3+ bilateral lower extremity edema NEURO: No focal or lateralizing signs. Cranial nerves 2 through 12 grossly within normal limits. PSYCH: Alert and oriented to person, place and time. SKIN: Good skin turgor. No rashes. - Labs CBC & Chem 7: 08/03/18 07:09 08/03/18 07:09 Labs: Abnormal Lab Results - Last 24 Hours (Table) 08/03/18 08/03/18 Range/Units 07:09 07:09 WBC 16.9 H (3.8-10.6) k/uL MCHC 30.8 L (31.0-37.0) g/dL Neutrophils # 15.3 H (1.3-7.7) k/uL Lymphocytes # 0.6 L (1.0-4.8) k/uL BUN 21 H (7-17) mg/dL Glucose 115 H (74-99) mg/dL Calcium 7.1 L (8.4-10.2) mg/dL AST 37 H (14-36) U/L Total Protein 4.5 L (6.3-8.2) g/dL Albumin 1.9 L (3.5-5.0) g/dL Microbiology - Last 24 Hours (Table) 07/28/18 09:46 Blood Culture - Final Blood No Growth after 144 hours Assessment and Plan Assessment: Assessment: #1. Acute sepsis secondary to perforation of descending colon and peritonitis, status post surgery as noted above, postoperative day 6 #2. Volume overload, increased interstitial prominence, bilateral pleural effusions, diuresing on IV Lasix #3. Acute kidney injury related to the above, resolved #4. Dehydration due to moderate ileus and sepsis, improved #5. Leucocytosis, improving #6. Mild lactic acidosis, improved #7. Recent colostomy reversal on 07/19/2018 with peritoneal lavage, and patient was sent to the subacute rehab on Levaquin and Flagyl for evidence of contaminated case #8. History of perforated diverticulitis with colon resection and colostomy placement in 2016 #9. Dyspnea , related to intra-abdominal sepsis obesity and abdominal pain, CT angios was negative for any evidence of PE, but showed strandy atelectasis at bilateral bases #10. Oliguria #11. Obesity #12. Acute urinary tract infection #13. Hypertension Plan: The patient was seen and evaluated by Dr. Estrada. She is currently stable from the pulmonary standpoint. We'll continue with her current treatment plan. Increase her activity as tolerated. We'll continue to follow. I, the cosigning physician, performed a history & physical examination of the patient. Lungs sounds with faint crackles in posterior bases. Maintaining good O2 saturations in the 90s on room air. I discussed the assessment and plan of care with my nurse practitioner, Elisa Epstein. I attest to the above note as dictated by her.
[2018-08-03] MEDS: MAGNESIUM SULFATE-D5W PMX 1 GM in DEXTROSE/WATER 1 100ML.BAG IVPB SCH ×3 (18:05→22:09)
[2018-08-03] MEDS: ASPIRIN 81 MG PO SCH (22:08)
[2018-08-04] MEDS: metroNIDAZOLE-NS PMX 500 MG in SALINE 1 100ML.BAG IVPB SCH ×4 (01:25→17:36)
[2018-08-04] MEDS: PIPERACILLIN-TAZOBACTAM 3.375 GM in DEXTROSE/WATER 1 50ML.BAG IVPB SCH ×3 (01:25→18:02)
[2018-08-04 08:28] LABS: HCT 36.6 % (34.0-46.0); HGB 11.4 gm/dL (11.4-16.0); MCH 30.3 pg (25.0-35.0); MCHC 31.2 g/dL (31.0-37.0); MCV 96.9 fL (80.0-100.0); Platelet Count 263 k/uL (150-450); RBC 3.78 m/uL (3.80-5.40); RDW 13.5 % (11.5-15.5)
[2018-08-04 08:53] LABS: Anion Gap 5 mmol/L; Blood Urea Nitrogen 22 mg/dL (7-17); Carbon Dioxide 32 mmol/L (22-30); Chloride 101 mmol/L (98-107); Glucose 95 mg/dL (74-99); Magnesium 1.6 mg/dL (1.6-2.3); Phosphorus 3.1 mg/dL (2.5-4.5); Potassium 3.3 mmol/L (3.5-5.1); Sodium 138 mmol/L (137-145)
--- NOTE | 2018-08-04 08:53 | XR ---
EXAMINATION TYPE: XR chest 1V portable DATE OF EXAM: 08/04/2018 HISTORY: follow up fluid overload, pleural effusions. REFERENCE: Previous study dated 08/02/2018. FINDINGS: The heart is enlarged. There is bibasilar airspace disease. There are bilateral effusions. There is mild vascular congestion. Interstitial change has improved slightly. IMPRESSION: MINIMAL IMPROVEMENT IN THE PATIENT'S CONGESTIVE HEART FAILURE.
[2018-08-04] MEDS: ANIDULAFUNGIN 100 MG in SODIUM CHLORIDE 0.9% 100 ML IVPB SCH (09:42)
[2018-08-04] MEDS: ENOXAPARIN 40 MG/0.4 ML SYRINGE SQ SCH (09:43)
[2018-08-04] MEDS: PANTOPRAZOLE 40 MG TABLET PO SCH (09:44)
[2018-08-04] MEDS: FUROSEMIDE 10 MG/ML 4 ML VIAL IV SCH ×2 (09:44→21:02)
[2018-08-04] MEDS: METOPROLOL TARTRATE 25 MG TAB PO SCH ×3 (09:44→21:02)
[2018-08-04] MEDS ORDERED: POTASSIUM CHLORIDE ER 20 MEQ TAB.ER PO STA (11:45)
--- NOTE | 2018-08-04 11:46 | P.PN ---
Subjective Patient is seen in follow-up for acute kidney injury. Creatinine was 1.24 on admission; VALERIE now resolved. Continues to complain of edema. Chest x-ray suggestive of fluid overload. Patient underwent exploratory laparotomy with descending colon resection for perforated viscus on July 28. Denies chest pain or shortness of breath. Tolerating oral intake. Currently maintained on Lasix 40 mg IV twice daily. Potassium 3.3 and magnesium 1.6 today. Vital signs are stable. General: The patient appeared well nourished and normally developed. HEENT: Head exam is unremarkable. Neck is without jugular venous distension. LUNGS: Lungs are clear to auscultation and percussion. Breath sounds decreased. HEART: Rate and Rhythm are regular. First and second heart sounds normal. No murmurs, rubs or gallops. ABDOMEN: Abdominal exam reveals normal bowel sounds. Non-tender and non- distended. No evidence of peritonitis. EXTREMITITES: 1+ edema. Objective - Vital Signs Vital signs: Vital Signs Temp 97.1 F L 08/04/18 07:50 Pulse 74 08/04/18 07:50 Resp 20 08/04/18 08:08 BP 180/82 08/04/18 07:50 Pulse Ox 93 L 08/04/18 08:08 Intake & Output 08/03/18 08/04/18 08/04/18 18:59 06:59 18:59 Intake Total 1804 Output Total 2095 3300 Balance -291 -3300 Intake: IV 150 Piperacillin-Tazobactam 3 50 .375 gm In Dextrose/Water 1 50ml.bag @ 12.5 mls/hr IVPB Q8HR [facility] Rx#: [id number] metroNIDAZOLE-NS PMX 500 100 mg In Saline 1 100ml.bag @ 100 mls/hr IVPB Q6HR [facility] Rx#:[id number] Intake, IV Titration 100 Amount Anidulafungin 100 mg In 100 Sodium Chloride 0.9% 100 ml @ 84 mls/hr IVPB DAILY [facility] Rx#:[id number] Oral 1554 Output: Gastric Drainage 100 Drainage 45 100 Right Lower Abdomen 20 60 Right Upper Abdomen 25 40 Urine 1750 3100 Uretheral (Lee) 150 Stool 200 100 Other: Voiding Method Indwelling Catheter Indwelling Catheter - Labs CBC & Chem 7: 08/04/18 07:54 08/04/18 07:54 Labs: Abnormal Lab Results - Last 24 Hours (Table) 08/04/18 08/04/18 Range/Units 07:54 07:54 WBC 12.0 H (3.8-10.6) k/uL RBC 3.78 L (3.80-5.40) m/uL Potassium 3.3 L (3.5-5.1) mmol/L Carbon Dioxide 32 H (22-30) mmol/L BUN 22 H (7-17) mg/dL Calcium 7.0 L (8.4-10.2) mg/dL Microbiology - Last 24 Hours (Table) 07/28/18 09:46 Blood Culture - Final Blood No Growth after 144 hours Assessment and Plan Plan: Assessment: 1. Nonoliguric acute kidney injury mostly prerenal improved with IV hydration. GFR back to baseline. 2. Metabolic acidosis secondary to IV fluids. Improved. 3. Volume overload. Improved. 4. Perforated viscus with secondary peritonitis status post exploratory laparotomy and and diverting colostomy on July 28. 5. Hypomagnesemia from poor oral intake and diuresis. Status post replacement. 6. Hypokalemia from poor oral intake and diuresis. 7. Hypocalcemia secondary to hypoalbuminemia. Corrected calcium in the normal range. Plan: Maintain Lasix 40 mg IV twice daily. Continue to monitor renal function and urine output. Repeat electrolytes in the morning. Replace potassium. 60 mEq today. Replace magnesium. 2 g IV today.
--- NOTE | 2018-08-04 11:51 | P.PN ---
Progress Note - Text Progress Note Date: 08/04/18 The patient appears ill. She is laying in her bed. She has some complaints of abdominal pain. She seems to have a flat affect. On exam her vital signs appear stable. Abdomen has some incisional tenderness. There is no rebound or guarding. Colostomy has some minimal function. Status post anastomotic leak with colostomy. Patient will continue receive IV antibiotics and supportive care. Her leukocytosis is improved to 12,000.
[2018-08-04] MEDS: MAGNESIUM SULFATE-D5W PMX 1 GM in DEXTROSE/WATER 1 100ML.BAG IVPB SCH ×2 (12:33→14:03)
--- NOTE | 2018-08-04 13:05 | P.PN ---
Subjective Progress Note Date: 08/04/18 Principal diagnosis: Acute abdominal sepsis and peritonitis, status post resection of descending colon for perforation This is a 68-year-old white female patient who was brought to the emergency department via ambulance from [facility] for evaluation of acute abdominal pain in the right lower quadrant. Patient had a reversal of her colostomy last week by Dr. Preciado in this hospital, she was doing well in the postoperative period, and subsequently was discharged to [facility]. 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 Patient had a ELOY drain placed within the right lower abdomen. Originally patient had colostomy placed for history of perforated diverticulitis in 2016. Postop patient was treated with Levaquin and Flagyl for a history of contaminated case CT of abdomen with contrast showed some fluid stranding in the small bowel mesentery, and some fluid in the pericolic gutters, no sign of free air, multiple distended loops of fluid-filled small bowel, consistent with moderate ileus. Labs showed leukocytosis with a PVC of 23.7, hemoglobin of 16.1, INR 1.5, BUN of 31, creatinine 1.24, was normal lactic acid was 2.2, LFTs normal, urinalysis showed evidence of large amount of leuks, many white and red blood cells, and yeast. In the emergency department there was some yellow and brown discharge from around her ELOY drain which was sent for cultures. Patient states she had fever and chills. He states she has not been passing any stools, but she has been taking an oral intake. She noted worsening edema of her bilateral lower extremities. Denies any nausea or vomiting. CT angios was obtained, which was negative for any evidence of pulmonary embolism, and showed some strandy bilateral atelectasis. Patient was given a total of 3 L of IV fluids, she was started on Zosyn in addition to Flagyl, and Levaquin was discontinued. She remains afebrile, she is tachycardic with a heart rate in the 110's. Blood pressure is 154/101, she is still having tenderness in the right lower quadrant around the ELOY insertion site. Bowel sounds are active. Surgical incisions are covered with surgical dressings with shadowing of old blood on them. Lung sounds are positive for a few rhonchi, but no wheezing. Patient only has occasional cough with production of yellowish sputum. Patient is diaphoretic. Her urine output is low, only 30 mL an hour after fluid boluses, and her urine color is light brown. We spoke to Dr. Preciado, and patient is suspected to have dehydration elated to combination of moderate ileus and possibility of peritonitis. It was decided to give the patient additional 1 L bolus of 0.9 normal saline, obtain lactic acid. And patient is scheduled surgery sometime today by Dr. Preciado for reexploration. Patient was reevaluated today on 07/29/2018, she underwent exploratory laparotomy yesterday, she underwent resection of descending colon for perforation, descending colostomy, Ford's procedure for perforated descending colon. She had peritoneal lavage with over 10 L. And she underwent placement of intra-abdominal Eder drain, 2, and underwent wound VAC system placement. Today the patient is on the ICU, she is on antibiotics as per infectious disease on the case, she is off mechanical ventilation, on nasal cannula, noted to be a bit dyspneic with any activity. Patient denies being short of breath, denies being in pain, she seems to be doing better than expected considering her surgical intervention. CBC showed leukocytosis with WBC of 26.1. Electrolytes are normal however her bicarb is 18 renal profile is normal. Reevaluated today on 07/30/2018, feeling much better compared to yesterday, in no form of respiratory distress. Pain is also under control. Renal functioning has significantly improved, creatinine today is 0.65. Continues to have leukocytosis, antibiotics are addressed by infectious disease on the case. Chest x-ray showed small bilateral pleural effusions left more so than right. And atelectasis. On 07/31/2018 patient seen in follow-up on surgical floor. Awake and alert, denies any acute distress. Incisional pain is reasonably controlled, patient has abdominal binder on. Patient has a wound VAC in place, right ELOY drain is draining serous fluid. Wound cultures were positive For Rosangela albicans. And patient is on Anidulafungin, Flagyl and Zosyn. Left abdominal colostomy is with the liquid brown output. Patient is tolerating clear liquids. No nausea, no vomiting. Patient is on 2 L per nasal cannula, and the pulse ox is 97%. Patient is afebrile. Lung sounds are clear, diminished at the bases, I asked effort is 250-500, and patient extensive coaching and encouragement. Patient has bilateral lower extremity edema, and she has received some Lasix. On 08/01/2018 patient seen again in follow-up on the surgical floor. Denies any acute distress, vital signs are stable, room air pulse ox is 93%, afebrile. On sounds are clear, diminished at the bases, IS effort is poor, at about 250 ML today. He is tolerating clear liquid diet, her ostomy is producing liquid brown output. Wound VAC remains in place, ELOY drain with small amount of serous fluid. Yesterday we gave patient a dose of IV Lasix for generalized edema. Patient is in negative fluid balance, still has bilateral lower extremity edema. Repeat today's chest x-ray, patient needs evaluation by physical therapy On 08/02/2018 patient seen in follow-up on the surgical floor. Her inspiratory effort remains quite poor, her IS effort is suboptimal, barely 100-250 at times. Sounds are quite diminished at the bases, with some rales. Appears to be a bit more short of breath on today's exam, today's chest x-ray showed central vascularity and increased interstitium with bilateral pleural effusions. Patient is on IV Lasix, she is incontinent of large amount of urine , diuresing, and her weight is down by 3 kg in the last 24 hours. His lab work showed a CBC of 17.8, hemoglobin of 12.3, sodium is 142, potassium is 3.5, chloride is 110, B1 is 25, creatinine 0.54. Patient continues on IV antibiotics , her left abdominal ostomy is producing liquid brown output, he is tolerating clear liquid diet, no nausea or vomiting. Room air pulse ox is 93%, ultrasound of the chest was obtained, and showed 4.5 cm pleural effusion pocket on the right, and 4.9 cm left pleural effusion. On 08/04/2018 patient seen in follow-up on the surgical floor. She did wear her BiPAP last night, currently on 1 L per nasal cannula, and her pulse ox is 93 %, her inspiratory effort remains poor, her I asked effort is 250 at best. Repeat chest x-ray today, she continues on IV diuretics, she is in -3591 mL fluid balance over the last 24 hours, still has significant amount of bilateral lower extremity edema, her ostomy is producing liquid output, she is tolerating pured diet, she has severe generalized weakness, PT is working with her, and was able to sit up on the edge of the bed with extensive assistance, however she is not able to stand up or sit in the chair. Repeat chest x-ray has been reviewed, and showed minimal improvement in the patient's bilateral pleural effusions, and vascular congestion, we'll continue with IV diuretics Objective - Vital Signs Vital signs: Vital Signs Temp 97.1 F L 08/04/18 07:50 Pulse 74 08/04/18 07:50 Resp 20 08/04/18 08:08 BP 180/82 08/04/18 07:50 Pulse Ox 93 L 08/04/18 08:08 Intake & Output 08/03/18 08/04/18 08/04/18 18:59 06:59 18:59 Intake Total 1804 Output Total 2095 3300 1650 Balance -291 -3300 -1650 Intake: IV 150 Piperacillin-Tazobactam 3 50 .375 gm In Dextrose/Water 1 50ml.bag @ 12.5 mls/hr IVPB Q8HR [facility] Rx#: [id number] metroNIDAZOLE-NS PMX 500 100 mg In Saline 1 100ml.bag @ 100 mls/hr IVPB Q6HR [facility] Rx#:[id number] Intake, IV Titration 100 Amount Anidulafungin 100 mg In 100 Sodium Chloride 0.9% 100 ml @ 84 mls/hr IVPB DAILY [facility] Rx#:[id number] Oral 1554 Output: Gastric Drainage 100 Drainage 45 100 Right Lower Abdomen 20 60 Right Upper Abdomen 25 40 Urine 1750 3100 1650 Uretheral (Lee) 150 1650 Stool 200 100 Other: Voiding Method Indwelling Catheter Indwelling Catheter - Exam PHYSICAL EXAM: GENERAL: Physical exam revealed a 68-year-old female in no distress. Patient is severe generalized weakness, she is laying in bed, with the head up, she has difficulty holding her head all the way up. Inspiratory effort is poor, 250 on the IS Head: Atraumatic, normocephalic. HEENT: No scleral icterus. Extraocular movements grossly intact. Hears conversational speech. No nasal drainage. NECK: Supple without lymphadenopathy. CHEST: Diminished breath sounds at the bases, no crackles or rhonchi or wheezes , no chest wall tenderness. CARDIOVASCULAR: Tachycardic. Distal 2+ pulses. ABDOMEN: Soft. Bowel dressings clean dry and intact with wound VAC, Serosanguineous drainage. JPs upper and lower right side. Left abdominal colostomy with liquid brown output MUSCULOSKELETAL: No clubbing, cyanosis. 3+ bilateral lower extremity edema NEURO: No focal or lateralizing signs. Cranial nerves 2 through 12 grossly within normal limits. PSYCH: Alert and oriented to person, place and time. SKIN: Good skin turgor. No rashes. - Labs CBC & Chem 7: 08/04/18 07:54 08/04/18 07:54 Labs: Abnormal Lab Results - Last 24 Hours (Table) 08/04/18 08/04/18 Range/Units 07:54 07:54 WBC 12.0 H (3.8-10.6) k/uL RBC 3.78 L (3.80-5.40) m/uL Potassium 3.3 L (3.5-5.1) mmol/L Carbon Dioxide 32 H (22-30) mmol/L BUN 22 H (7-17) mg/dL Calcium 7.0 L (8.4-10.2) mg/dL Microbiology - Last 24 Hours (Table) 07/28/18 09:46 Blood Culture - Final Blood No Growth after 144 hours Assessment and Plan Plan: Assessment: #1. Acute sepsis secondary to perforation of descending colon and peritonitis, status post surgery as noted above, postoperative day 6 #2. Volume overload, increased interstitial prominence, bilateral pleural effusions, diuresing on IV Lasix #3. Acute kidney injury related to the above, resolved #4. Dehydration due to moderate ileus and sepsis, improved #5. Leucocytosis, improving #6. Mild lactic acidosis, improved #7. Recent colostomy reversal on 07/19/2018 with peritoneal lavage, and patient was sent to the subacute rehab on Levaquin and Flagyl for evidence of contaminated case #8. History of perforated diverticulitis with colon resection and colostomy placement in 2016 #9. Dyspnea , related to intra-abdominal sepsis obesity and abdominal pain, CT angios was negative for any evidence of PE, but showed strandy atelectasis at bilateral bases #10. Obesity #11. Acute urinary tract infection #12. Hypertension #13. Severe generalized weakness Plan: We'll continue with IV diuretics, patient's incentive spirometry effort remains poor, we will have to have her wear the BiPAP support during the day as well as at bedtime. Supplement serum potassium, her urine output, daily weights. Continue with nebulized bronchodilators, continue physical therapy. I performed a history & physical examination of the patient and discussed their management with my nurse practitioner, Lucy Paris. I reviewed the nurse practitioner's note and agree with the documented findings and plan of care. Lung sounds are diminished at the bases. The findings and the impression was discussed with the patient. I attest to the documentation by the nurse practitioner. Time with Patient: Less than 30
[2018-08-04] MEDS: MAGNESIUM OXIDE 400 MG TAB PO SCH ×2 (14:52→21:02)
[2018-08-04] MEDS: SODIUM FERRIC GLUCONAT-SUCROSE 125 MG in SODIUM CHLORIDE 0.9% 100 ML IVPB SCH (14:53)
[2018-08-04] MEDS: ASPIRIN 81 MG PO SCH (19:46)
--- NOTE | 2018-08-04 20:14 | P.PN ---
Subjective This is a pleasant 68 years old female with past medical history of hypertension , hypernatremia, peptic ulcer, perforated diverticulum status post colostomy on 03/2016.. When I saw the patient in the PACU postop she was sleepy and could not provide information was taken from staff and medical records. Patient originally was transferred from [facility] for acute abdominal pain in the right upper quadrant. Patient had a reversal of her colostomy last week by Dr. Preciado in this hospital, she was doing well in the postoperative period, and subsequently was discharged to [facility]. However about 2 days ago, an increased drainage from around her ELOY site was noted. Her white blood cell count was checked and found to be over 18,000. As result of these findings, patient was recommended transfer back to the hospital for further evaluation and assessment. Also patient on admission was noticed to have look swollen and decreased urine, mostly prerenal acute kidney injury which is resolved now. Infectious disease has been requested and evaluated the patient. Patient is on Zosyn and Flagyl and IV fluids. Pulmonary team R following the case as well. CT angiogram of the chest showing no PE and possible bilateral lower lobe pulmonary infiltrates and atelectasis as per radiologist report. CT of the abdomen showing some fluid in the paracolic gutters and fluid stranding in this small bowel mesentery. No free air. On 07/28/2018 patient underwent exploratory laparotomy with sigmoid colostomy, with new perforation 4 cm proximal to the colorectal anastomosis and fecal peritonitis and diffuse fecal spillage along the bilateral upper abdomen, right lower quadrant and contained small bowel interloop fluid collection. 07/29/2018 Patient remains in the ICU. Patient is postop #1, for her sigmoid colostomy surgery from perforated viscus about 4 cm from her colorectal anastomosis. Looks tired and having difficulty talking because of her breathing and pain. She could not keep acid in all my questions. However she is awake and oriented. She has abdominal pain which looks controlled on the abdominal surgery site. Patient is on IV antibiotics Zosyn and Flagyl. Patient started on a clear liquid diet. Monitor vitals and lites culture results are still pending 07/30/2018 Patient is seen and examined by me at bedside in the ICU. Patient is awake lying in bed not in distress. She has expected pain at the surgical site. Her pain is controlled with medication. She is awake and oriented. However she is disoriented for why she is in the hospital, patient has been updated with the her situation, including the problems she suffering from and treatment plan and she is in agreement. Chart shows fungal infection, thus is been addressed by the infectious disease and patient is a started on antifungal. Patient remains on Zosyn and Flagyl. With leukocytosis around 20 6K. Patient with no chest pain in his breathing looks quiet. Critical care and put is appreciated. Patient remains in the ICU currently 07/31/18 Patient is back to the third surgical floor. She is more awake and placed in distress. However she still have decreased air entry in both sides. Patient was talked extensively about using incentive spirometry. She has bilateral leg swelling. Minimal abdominal pain at the surgical site. Her pain is controlled. Her leukocytosis is slightly improving from 2059 8.1K. Patient remains on antibiotics. With pulmonary, infectious. And nephrology team are following the case. 08/01/2018 Patient lying in bed and she is less dyspneic. Pain is more controlled. Patient has purulence of SVT this morning as high as 200. Patient has been evaluated by cardiology and the recommended carotid Doppler, increase beta jose f dose. Also they want to check TSH and free T4. Her leukocytosis is improving. Electrolytes has been replaced. 08/04/2018 patient has bilateral pleural effusions. Patient is feeling much better today has respiratory status improved patient remains on IV Lasix 40 mg BID, probably can be switched to oral upon discharge . leukocytosis is improving . electrolytes are replaced per protocol. glucose controlled . pt states to me today her pain is under control as well. pt has picc line placed today on left arm Objective - Vital Signs Vital signs: Vital Signs Temp 97.1 F L 08/04/18 07:50 Pulse 74 08/04/18 07:50 Resp 20 08/04/18 08:08 BP 180/82 08/04/18 07:50 Pulse Ox 93 L 08/04/18 08:08 Intake & Output 08/03/18 08/04/18 08/04/18 18:59 06:59 18:59 Intake Total 1804 Output Total 3 1890 1650 Balance -291 -3260 -1650 Intake: IV 150 Piperacillin-Tazobactam 3 50 .375 gm In Dextrose/Water 1 50ml.bag @ 12.5 mls/hr IVPB Q8HR [facility] Rx#: [id number] metroNIDAZOLE-NS PMX 500 100 mg In Saline 1 100ml.bag @ 100 mls/hr IVPB Q6HR [facility] Rx#:[id number] Intake, IV Titration 100 Amount Anidulafungin 100 mg In 100 Sodium Chloride 0.9% 100 ml @ 84 mls/hr IVPB DAILY [facility] Rx#:[id number] Oral 1554 Output: Gastric Drainage 100 Drainage 45 100 Right Lower Abdomen 20 60 Right Upper Abdomen 25 40 Urine 1750 3100 1650 Uretheral (Lee) 150 1650 Stool 200 100 Other: Voiding Method Indwelling Catheter Indwelling Catheter - Exam -GENERAL: The patient is awake and oriented but she looks tired and dyspneic fluids with pain from her recent surgery. not in any acute distress. Well developed, well nourished. HEENT: Pupils are round and equally reacting to light. EOMI. No scleral icterus. No conjunctival pallor. Normocephalic, atraumatic. No pharyngeal erythema. No thyromegaly. CARDIOVASCULAR: S1 and S2 present. No murmurs, rubs, or gallops. PULMONARY: Chest is clear to auscultation, no wheezing or crackles. ABDOMEN: Abdomen looks soft. Tenderness from recent surgery. Dressing in place. Drains are in place. defer wound exam to the surgical team MUSCULOSKELETAL: No joint swelling or deformity. EXTREMITIES: No cyanosis, clubbing, or pedal edema. NEUROLOGICAL: Gross neurological examination did not reveal any focal deficits. SKIN: No rashes. - Labs CBC & Chem 7: 08/04/18 07:54 08/04/18 07:54 Labs: Abnormal Lab Results - Last 24 Hours (Table) 08/04/18 08/04/18 Range/Units 07:54 07:54 WBC 12.0 H (3.8-10.6) k/uL RBC 3.78 L (3.80-5.40) m/uL Potassium 3.3 L (3.5-5.1) mmol/L Carbon Dioxide 32 H (22-30) mmol/L BUN 22 H (7-17) mg/dL Calcium 7.0 L (8.4-10.2) mg/dL Microbiology - Last 24 Hours (Table) 07/28/18 09:46 Blood Culture - Final Blood No Growth after 144 hours Assessment and Plan Assessment: Perforated colon , status post exploratory laparotomy Fecal peritonitis Fungal infection Atrial fibrillation with rapid ventricular rate presently on rate contro. acute on chronic systolic heart failure . ejection fraction of 40-45% with bilateral pleural effusion patient is on 40mg of IV Lasix twice a day hypertension h/o peptic ulcer perforated diverticulum status post colostomy on 03/2016 Plan: This is a pleasant 68 years old female presents with perforated viscus and:. Continue same treatment. Continue symptomatic treatment. Follow-up infectious disease recommendation and broad-spectrum antibiotics. Follow-up pulmonary recommendation. Continue with antibiotics and IV fluids. Follow up the culture results Monitor labs and vitals. Pain management. DVT and GI prophylaxis. Further recommendations is based on the clinical course of the patient DVT prophylaxis:On Lovenox GI prophylaxis: Protonix PT/OT: Pending Prognosis is guarded Thank you for consulting us, his feel free to contact us for any further clarification or questions.
[2018-08-04] MEDS: ACETAMINOPHEN TAB 325 MG TAB PO PRN (20:20)
[2018-08-04] MEDS: POTASSIUM CHLORIDE ER 10 MEQ TAB.ER.PRT PO SCH (21:02)
[2018-08-04] MEDS ORDERED: Potassium Replacement Protocol 1 EACH MISC MISCELLANE PRN (22:46)
[2018-08-04] MEDS ORDERED: Magnesium Replacement Protocol 1 EACH MISC MISCELLANE PRN (22:46)
[2018-08-04 23:36] LABS: Anion Gap 6 mmol/L; Carbon Dioxide 35 mmol/L (22-30); Chloride 96 mmol/L (98-107); Glucose 124 mg/dL (74-99); Magnesium 1.6 mg/dL (1.6-2.3); Sodium 137 mmol/L (137-145); Total Bilirubin 0.5 mg/dL (0.2-1.3); Total Protein 4.8 g/dL (6.3-8.2)
[2018-08-04 23:43] LABS: ALT 32 U/L (9-52); AST 46 U/L (14-36); Alkaline Phosphatase 99 U/L (38-126); Blood Urea Nitrogen 20 mg/dL (7-17); Potassium 3.2 mmol/L (3.5-5.1)
[2018-08-04] MEDS ORDERED: POTASSIUM CHLORIDE 10 MEQ in WATER FOR INJECTION 1 100ML.BAG IVPB STA (23:58)
[2018-08-05] MEDS ORDERED: MAGNESIUM SULFATE-D5W PMX 1 GM in DEXTROSE/WATER 1 100ML.BAG IVPB ONE ×2 (00:07→01:52)
--- NOTE | 2018-08-05 00:18 | PN ---
PROGRESS NOTE DATE OF SERVICE: 08/04/2018 REASON FOR FOLLOWUP: Secondary peritonitis from a perforated anastomosis. INTERVAL HISTORY: The patient is currently afebrile. She is feeling better. Breathing comfortably. Main symptom has been no appetite. No nausea, no vomiting. No significant abdominal pain. output in the colostomy bag. PHYSICAL EXAMINATION: Her blood pressure is 120/75 with a pulse of 73, temperature 98.3. She is 95% on 2 L nasal canula. General description is an elderly female up in the bed in no distress. Respiratory system: Unlabored breathing with decreased breath sounds in the base, with no wheeze. Heart S1, S2. Regular rate and rhythm. Abdomen soft. No guarding or rigidity. Extremities: No edema of the feet. LABS: Hemoglobin is 11.4, white count 12,000, BUN of 22 and creatinine 0.52. DIAGNOSTIC IMPRESSION AND PLAN: Patient with an abdominal abscess status post laparotomy and diverting colostomy. Patient currently covered with Zosyn and Flagyl . White count has come down to 12,000. She already has a PICC line for outpatient IV antibiotic therapy once stable for discharge from . Will recommend discharge antibiotics. Continue supportive care. MMODL / IJN: [id number] /
[2018-08-05] MEDS: PIPERACILLIN-TAZOBACTAM 3.375 GM in DEXTROSE/WATER 1 50ML.BAG IVPB SCH ×2 (00:22→08:39)
[2018-08-05] MEDS: metroNIDAZOLE-NS PMX 500 MG in SALINE 1 100ML.BAG IVPB SCH ×3 (00:22→12:46)
[2018-08-05] MEDS ORDERED: POTASSIUM CHLORIDE 10 MEQ in WATER FOR INJECTION 1 100ML.BAG IVPB STA (01:52)
[2018-08-05 08:01] LABS: HCT 36.2 % (34.0-46.0); HGB 11.1 gm/dL (11.4-16.0); MCH 29.4 pg (25.0-35.0); MCHC 30.8 g/dL (31.0-37.0); MCV 95.3 fL (80.0-100.0); Platelet Count 286 k/uL (150-450); RBC 3.79 m/uL (3.80-5.40); RDW 13.7 % (11.5-15.5); WBC 9.4 k/uL (3.8-10.6)
[2018-08-05 08:24] LABS: Anion Gap 6 mmol/L; Blood Urea Nitrogen 16 mg/dL (7-17); Carbon Dioxide 30 mmol/L (22-30); Chloride 100 mmol/L (98-107); Glucose 85 mg/dL (74-99); Potassium 3.6 mmol/L (3.5-5.1); Sodium 136 mmol/L (137-145)
[2018-08-05] MEDS: MAGNESIUM OXIDE 400 MG TAB PO SCH (08:39)
[2018-08-05] MEDS: FUROSEMIDE 10 MG/ML 4 ML VIAL IV SCH (08:39)
[2018-08-05] MEDS: POTASSIUM CHLORIDE ER 10 MEQ TAB.ER.PRT PO SCH (08:39)
[2018-08-05] MEDS: PANTOPRAZOLE 40 MG TABLET PO SCH (08:39)
[2018-08-05] MEDS: ENOXAPARIN 40 MG/0.4 ML SYRINGE SQ SCH (08:39)
[2018-08-05] MEDS: METOPROLOL TARTRATE 25 MG TAB PO SCH ×2 (08:39→15:57)
[2018-08-05] MEDS: ANIDULAFUNGIN 100 MG in SODIUM CHLORIDE 0.9% 100 ML IVPB SCH (08:39)
[2018-08-05 08:46] LABS: ALT 36 U/L (9-52); AST 31 U/L (14-36); Albumin 1.6 g/dL (3.5-5.0); Alkaline Phosphatase 74 U/L (38-126); Total Bilirubin 0.3 mg/dL (0.2-1.3)
[2018-08-05 09:15] LABS: Calcium 6.1 mg/dL (8.4-10.2)
[2018-08-05] MEDS ORDERED: CALCIUM CHLORIDE 1,000 MG in SODIUM CHLORIDE 0.9% 100 ML IVPB STA (09:22)
[2018-08-05] MEDS ORDERED: POTASSIUM CHLORIDE ER 20 MEQ TAB.ER PO STA (09:23)
--- NOTE | 2018-08-05 09:25 | P.PN ---
Subjective Patient is seen in follow-up for acute kidney injury. Creatinine was 1.24 on admission; VALERIE now resolved. Continues to complain of edema, which is improving. Chest x-ray suggestive of fluid overload. Patient underwent exploratory laparotomy with descending colon resection for perforated viscus on July 28. Denies chest pain or shortness of breath. Tolerating oral intake. Currently maintained on Lasix 40 mg IV twice daily. Vital signs are stable. General: The patient appeared well nourished and normally developed. HEENT: Head exam is unremarkable. Neck is without jugular venous distension. LUNGS: Lungs are clear to auscultation and percussion. Breath sounds decreased. HEART: Rate and Rhythm are regular. First and second heart sounds normal. No murmurs, rubs or gallops. ABDOMEN: Abdominal exam reveals normal bowel sounds. Non-tender and non- distended. No evidence of peritonitis. EXTREMITITES: 1+ edema. Objective - Vital Signs Vital signs: Vital Signs Temp 97.1 F L 08/05/18 07:00 Pulse 77 08/05/18 07:00 Resp 18 08/05/18 07:00 BP 149/76 08/05/18 07:00 Pulse Ox 96 08/05/18 07:00 Intake & Output 08/04/18 08/05/18 08/05/18 18:59 06:59 18:59 Intake Total 1418 240 Output Total 2550 2210 Balance -1132 -2210 240 Weight 99.5 kg Intake: IV 150 Piperacillin-Tazobactam 3 50 .375 gm In Dextrose/Water 1 50ml.bag @ 12.5 mls/hr IVPB Q8HR [facility] Rx#: [id number] metroNIDAZOLE-NS PMX 500 100 mg In Saline 1 100ml.bag @ 100 mls/hr IVPB Q6HR [facility] Rx#:[id number] Intake, IV Titration 300 Amount Anidulafungin 100 mg In 100 Sodium Chloride 0.9% 100 ml @ 84 mls/hr IVPB DAILY [facility] Rx#:[id number] Magnesium Sulfate-D5w Pmx 100 1 gm In Dextrose/Water 1 100ml.bag @ 100 mls/hr IVPB Q1H [facility] Rx#: [id number] Magnesium Sulfate-D5w Pmx 100 1 gm In Dextrose/Water 1 100ml.bag @ 100 mls/hr IVPB Q1H [facility] Rx#: [id number] Oral 968 240 Output: Drainage 50 60 Right Lower Abdomen 20 20 Right Upper Abdomen 30 40 Urine 2100 1850 Uretheral (Lee) 2100 Stool 400 300 Other: Voiding Method Indwelling Catheter - Labs CBC & Chem 7: 08/05/18 06:49 08/05/18 06:49 Labs: Abnormal Lab Results - Last 24 Hours (Table) 08/04/18 08/05/18 08/05/18 Range/Units 23:07 06:49 06:49 RBC 3.79 L (3.80-5.40) m/uL Hgb 11.1 L (11.4-16.0) gm/dL MCHC 30.8 L (31.0-37.0) g/dL Sodium 136 L (137-145) mmol/L Potassium 3.2 L (3.5-5.1) mmol/L Chloride 96 L (98-107) mmol/L Carbon Dioxide 35 H (22-30) mmol/L BUN 20 H (7-17) mg/dL Creatinine 0.51 L (0.52-1.04) mg/dL Glucose 124 H (74-99) mg/dL Calcium 7.0 L 6.1 L* (8.4-10.2) mg/dL AST 46 H (14-36) U/L Total Protein 4.8 L 4.0 L (6.3-8.2) g/dL Albumin 2.0 L 1.6 L (3.5-5.0) g/dL Assessment and Plan Plan: Assessment: 1. Nonoliguric acute kidney injury mostly prerenal improved with IV hydration. GFR back to baseline. 2. Metabolic acidosis secondary to IV fluids. Resolved. 3. Volume overload. Improved. 4. Perforated viscus with secondary peritonitis status post exploratory laparotomy and and diverting colostomy on July 28. 5. Hypomagnesemia from poor oral intake and diuresis. Status post replacement. 6. Hypokalemia from poor oral intake and diuresis. Improved status post replacement. 7. Hypocalcemia secondary to hypoalbuminemia and diuresis. Corrected calcium near 8. Plan: I will change Lasix to 40 mg orally twice daily. Add 20 mEq of potassium supplementation daily. 40 mEq K-dur today. Maintain Mag-Ox twice daily. Also getting 1 g IV mag today. 1 g IV calcium gluconate today. Continue to monitor renal function and urine output. Anticipate discharge soon. Repeat basic metabolic panel and magnesium in 2-3 days. Follow up outpatient in the next 1-2 weeks.
[2018-08-05] MEDS: SODIUM FERRIC GLUCONAT-SUCROSE 125 MG in SODIUM CHLORIDE 0.9% 100 ML IVPB SCH (10:20)
[2018-08-05 10:46] LABS: Band Neutrophils % 2 %; Eosinophils # (M) 0.09 k/uL (0-0.7); Lymphocytes # (M) 0.56 k/uL (1.0-4.8); Monocytes # (M) 0.38 k/uL (0-1.0); Neutrophils % (M) 87 %; Nucleated Red Blood Cells 0 /100 WBC (0-0); Total Cells Counted 100
--- NOTE | 2018-08-05 12:36 | P.PN ---
Subjective Progress Note Date: 08/05/18 Principal diagnosis: Acute abdominal sepsis and peritonitis, status post resection of descending colon for perforation This is a 68-year-old white female patient who was brought to the emergency department via ambulance from [facility] for evaluation of acute abdominal pain in the right lower quadrant. Patient had a reversal of her colostomy last week by Dr. Preciado in this hospital, she was doing well in the postoperative period, and subsequently was discharged to [facility]. 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 Patient had a ELOY drain placed within the right lower abdomen. Originally patient had colostomy placed for history of perforated diverticulitis in 2016. Postop patient was treated with Levaquin and Flagyl for a history of contaminated case CT of abdomen with contrast showed some fluid stranding in the small bowel mesentery, and some fluid in the pericolic gutters, no sign of free air, multiple distended loops of fluid-filled small bowel, consistent with moderate ileus. Labs showed leukocytosis with a PVC of 23.7, hemoglobin of 16.1, INR 1.5, BUN of 31, creatinine 1.24, was normal lactic acid was 2.2, LFTs normal, urinalysis showed evidence of large amount of leuks, many white and red blood cells, and yeast. In the emergency department there was some yellow and brown discharge from around her ELOY drain which was sent for cultures. Patient states she had fever and chills. He states she has not been passing any stools, but she has been taking an oral intake. She noted worsening edema of her bilateral lower extremities. Denies any nausea or vomiting. CT angios was obtained, which was negative for any evidence of pulmonary embolism, and showed some strandy bilateral atelectasis. Patient was given a total of 3 L of IV fluids, she was started on Zosyn in addition to Flagyl, and Levaquin was discontinued. She remains afebrile, she is tachycardic with a heart rate in the 110's. Blood pressure is 154/101, she is still having tenderness in the right lower quadrant around the ELOY insertion site. Bowel sounds are active. Surgical incisions are covered with surgical dressings with shadowing of old blood on them. Lung sounds are positive for a few rhonchi, but no wheezing. Patient only has occasional cough with production of yellowish sputum. Patient is diaphoretic. Her urine output is low, only 30 mL an hour after fluid boluses, and her urine color is light brown. We spoke to Dr. Preciado, and patient is suspected to have dehydration elated to combination of moderate ileus and possibility of peritonitis. It was decided to give the patient additional 1 L bolus of 0.9 normal saline, obtain lactic acid. And patient is scheduled surgery sometime today by Dr. Preciado for reexploration. Patient was reevaluated today on 07/29/2018, she underwent exploratory laparotomy yesterday, she underwent resection of descending colon for perforation, descending colostomy, Ford's procedure for perforated descending colon. She had peritoneal lavage with over 10 L. And she underwent placement of intra-abdominal Eder drain, 2, and underwent wound VAC system placement. Today the patient is on the ICU, she is on antibiotics as per infectious disease on the case, she is off mechanical ventilation, on nasal cannula, noted to be a bit dyspneic with any activity. Patient denies being short of breath, denies being in pain, she seems to be doing better than expected considering her surgical intervention. CBC showed leukocytosis with WBC of 26.1. Electrolytes are normal however her bicarb is 18 renal profile is normal. Reevaluated today on 07/30/2018, feeling much better compared to yesterday, in no form of respiratory distress. Pain is also under control. Renal functioning has significantly improved, creatinine today is 0.65. Continues to have leukocytosis, antibiotics are addressed by infectious disease on the case. Chest x-ray showed small bilateral pleural effusions left more so than right. And atelectasis. On 07/31/2018 patient seen in follow-up on surgical floor. Awake and alert, denies any acute distress. Incisional pain is reasonably controlled, patient has abdominal binder on. Patient has a wound VAC in place, right ELOY drain is draining serous fluid. Wound cultures were positive For Rosangela albicans. And patient is on Anidulafungin, Flagyl and Zosyn. Left abdominal colostomy is with the liquid brown output. Patient is tolerating clear liquids. No nausea, no vomiting. Patient is on 2 L per nasal cannula, and the pulse ox is 97%. Patient is afebrile. Lung sounds are clear, diminished at the bases, I asked effort is 250-500, and patient extensive coaching and encouragement. Patient has bilateral lower extremity edema, and she has received some Lasix. On 08/01/2018 patient seen again in follow-up on the surgical floor. Denies any acute distress, vital signs are stable, room air pulse ox is 93%, afebrile. On sounds are clear, diminished at the bases, IS effort is poor, at about 250 ML today. He is tolerating clear liquid diet, her ostomy is producing liquid brown output. Wound VAC remains in place, ELOY drain with small amount of serous fluid. Yesterday we gave patient a dose of IV Lasix for generalized edema. Patient is in negative fluid balance, still has bilateral lower extremity edema. Repeat today's chest x-ray, patient needs evaluation by physical therapy On 08/02/2018 patient seen in follow-up on the surgical floor. Her inspiratory effort remains quite poor, her IS effort is suboptimal, barely 100-250 at times. Sounds are quite diminished at the bases, with some rales. Appears to be a bit more short of breath on today's exam, today's chest x-ray showed central vascularity and increased interstitium with bilateral pleural effusions. Patient is on IV Lasix, she is incontinent of large amount of urine , diuresing, and her weight is down by 3 kg in the last 24 hours. His lab work showed a CBC of 17.8, hemoglobin of 12.3, sodium is 142, potassium is 3.5, chloride is 110, B1 is 25, creatinine 0.54. Patient continues on IV antibiotics , her left abdominal ostomy is producing liquid brown output, he is tolerating clear liquid diet, no nausea or vomiting. Room air pulse ox is 93%, ultrasound of the chest was obtained, and showed 4.5 cm pleural effusion pocket on the right, and 4.9 cm left pleural effusion. On 08/04/2018 patient seen in follow-up on the surgical floor. She did wear her BiPAP last night, currently on 1 L per nasal cannula, and her pulse ox is 93 %, her inspiratory effort remains poor, her I asked effort is 250 at best. Repeat chest x-ray today, she continues on IV diuretics, she is in -3591 mL fluid balance over the last 24 hours, still has significant amount of bilateral lower extremity edema, her ostomy is producing liquid output, she is tolerating pured diet, she has severe generalized weakness, PT is working with her, and was able to sit up on the edge of the bed with extensive assistance, however she is not able to stand up or sit in the chair. Repeat chest x-ray has been reviewed, and showed minimal improvement in the patient's bilateral pleural effusions, and vascular congestion, we'll continue with IV diuretics. On 08/05/2018 patient seen again in follow-up on the surgical floor. No acute distress, resting in bed, on 2 L per nasal cannula, pulse ox 96%, patient did wear her BiPAP last night. Chest x-rays today, patient continues to diurese, she is in -3342 mL fluid balance over the last 24 hours, requires a lot of encouragement and coaching with her incentive spirometry. Patient is down 5 kg in the last 48 hours. No chest pain, no shortness of breath, she has a wound VAC in place, with minimal drainage, her ostomy is producing liquid brown output. Patient is tolerating oral diet. No nausea or vomiting. Objective - Vital Signs Vital signs: Vital Signs Temp 97.1 F L 08/05/18 07:00 Pulse 77 08/05/18 07:00 Resp 18 08/05/18 07:00 BP 149/76 08/05/18 07:00 Pulse Ox 96 08/05/18 07:00 Intake & Output 08/04/18 08/05/18 08/05/18 18:59 06:59 18:59 Intake Total 1418 240 Output Total 2550 2210 1000 Balance -1132 -2210 -760 Weight 99.5 kg Intake: IV 150 Piperacillin-Tazobactam 3 50 .375 gm In Dextrose/Water 1 50ml.bag @ 12.5 mls/hr IVPB Q8HR [facility] Rx#: [id number] metroNIDAZOLE-NS PMX 500 100 mg In Saline 1 100ml.bag @ 100 mls/hr IVPB Q6HR [facility] Rx#:[id number] Intake, IV Titration 300 Amount Anidulafungin 100 mg In 100 Sodium Chloride 0.9% 100 ml @ 84 mls/hr IVPB DAILY [facility] Rx#:[id number] Magnesium Sulfate-D5w Pmx 100 1 gm In Dextrose/Water 1 100ml.bag @ 100 mls/hr IVPB Q1H [facility] Rx#: [id number] Magnesium Sulfate-D5w Pmx 100 1 gm In Dextrose/Water 1 100ml.bag @ 100 mls/hr IVPB Q1H [facility] Rx#: [id number] Oral 968 240 Output: Drainage 50 60 Right Lower Abdomen 20 20 Right Upper Abdomen 30 40 Urine 2100 1850 1000 Uretheral (Lee) 2100 1000 Stool 400 300 Other: Voiding Method Indwelling Catheter Indwelling Catheter - Exam PHYSICAL EXAM: GENERAL: Physical exam revealed a 68-year-old female in no distress. Patient is severe generalized weakness, she is laying in bed, with the head up, she has difficulty holding her head all the way up. Inspiratory effort is poor, 250 on the IS Head: Atraumatic, normocephalic. HEENT: No scleral icterus. Extraocular movements grossly intact. Hears conversational speech. No nasal drainage. NECK: Supple without lymphadenopathy. CHEST: Diminished breath sounds at the bases, no crackles or rhonchi or wheezes , no chest wall tenderness. CARDIOVASCULAR: Regular rate and rhythm, no gallop, no S3, no S4. Distal 2+ pulses. ABDOMEN: Soft. Bowel dressings clean dry and intact with wound VAC, Serosanguineous drainage. JPs upper and lower right side. Left abdominal colostomy with liquid brown output MUSCULOSKELETAL: No clubbing, cyanosis. 2+ bilateral lower extremity edema NEURO: No focal or lateralizing signs. Cranial nerves 2 through 12 grossly within normal limits. PSYCH: Alert and oriented to person, place and time. SKIN: Good skin turgor. No rashes. - Labs CBC & Chem 7: 08/05/18 06:49 08/05/18 06:49 Labs: Abnormal Lab Results - Last 24 Hours (Table) 08/04/18 08/05/18 08/05/18 Range/Units 23:07 06:49 06:49 RBC 3.79 L (3.80-5.40) m/uL Hgb 11.1 L (11.4-16.0) gm/dL MCHC 30.8 L (31.0-37.0) g/dL Neutrophils # (Manual) 8.30 H (1.3-7.7) k/uL Lymphocytes # (Manual) 0.56 L (1.0-4.8) k/uL Sodium 136 L (137-145) mmol/L Potassium 3.2 L (3.5-5.1) mmol/L Chloride 96 L (98-107) mmol/L Carbon Dioxide 35 H (22-30) mmol/L BUN 20 H (7-17) mg/dL Creatinine 0.51 L (0.52-1.04) mg/dL Glucose 124 H (74-99) mg/dL Calcium 7.0 L 6.1 L* (8.4-10.2) mg/dL AST 46 H (14-36) U/L Total Protein 4.8 L 4.0 L (6.3-8.2) g/dL Albumin 2.0 L 1.6 L (3.5-5.0) g/dL Assessment and Plan Plan: Assessment: #1. Acute sepsis secondary to perforation of descending colon and peritonitis, status post surgery as noted above, postoperative day 7 #2. Volume overload, increased interstitial prominence, bilateral pleural effusions, diuresing on IV Lasix #3. Acute kidney injury related to the above, resolved #4. Dehydration due to moderate ileus and sepsis, improved #5. Leucocytosis, improving #6. Mild lactic acidosis, improved #7. Recent colostomy reversal on 07/19/2018 with peritoneal lavage, and patient was sent to the subacute rehab on [facility] and Flagpaty for evidence of contaminated case #8. History of perforated diverticulitis with colon resection and colostomy placement in 2016 #9. Dyspnea , related to intra-abdominal sepsis obesity and abdominal pain, CT angios was negative for any evidence of PE, but showed strandy atelectasis at bilateral bases #10. Obesity #11. Acute urinary tract infection #12. Hypertension #13. Severe generalized weakness Plan: Patient has diuresed well, easier, continue encouraging incentive spirometry, her Lasix has been transitioned to oral Lasix. Denies any shortness of breath or chest pain. Her incisional pain is fairly well controlled. No acute events overnight. Discharge planning is in progress for transfer to subacute rehab today. Patient is stable for discharge from pulmonary perspective. I performed a history & physical examination of the patient and discussed their management with my nurse practitioner, Lucy Paris. I reviewed the nurse practitioner's note and agree with the documented findings and plan of care. Lung sounds are diminished at the bases. The findings and the impression was discussed with the patient. I attest to the documentation by the nurse practitioner. Time with Patient: Less than 30
--- NOTE | 2018-08-05 13:49 | P.DS ---
<Brigitte Bruce M - Last Filed: 08/05/18 13:50> Providers Date of admission: 07/26/18 22:14 Expected date of discharge: 08/05/18 Attending physician: Moon Kelly Consults: 07/27/18 13:45 Consult Physician Routine Consulting Provider: Monalisa Hancock Consult Reason/Comments: History of peritonitis, antibiotic management Do you want consulting provider notified?: Yes 07/27/18 15:09 Consult Physician Routine Consulting Provider: Poncho Cote Consult Reason/Comments: Medical management Do you want consulting provider notified?: Yes 07/27/18 15:54 Consult Physician Routine Consulting Provider: Vicki Mohan Consult Reason/Comments: Acute kidney injury Do you want consulting provider notified?: Yes 07/27/18 15:55 Consult Physician Routine Consulting Provider: Melania Mckeon Consult Reason/Comments: COPD Do you want consulting provider notified?: Yes 07/28/18 12:02 Consult Physician Routine Consulting Provider: Melania Mckeon Consult Reason/Comments: ICU management Do you want consulting provider notified?: Already Contacted 08/01/18 09:46 Consult Physician Urgent Consulting Provider: Isaak Avendano Consult Reason/Comments: svt Do you want consulting provider notified?: Yes Primary care physician: Meek Disla Hospital Course: 68-year-old female was transferred via the EMS system from [facility] the patient was experiencing acute abdominal pain in the right lower quadrant. Patient had a recent reversal of her ostomy done at this hospital had been doing well postoperatively and was discharged back to [facility]. Initially the surgery was done on July 19 involved takedown of descending colostomy, extensive-lysis of adhesions, reduction and closure of an incarcerated peristomal hernia followed by peritoneal lavage and reduction of mesenteric descending colon volvulus. Originally patient's ostomy was placed for perforated diverticulitis in 2016. Patient was readmitted to the hospital there was yellow brown discharge from her ELOY drain which was sent for cultures patient was followed throughout the hospitalization by infectious disease pulmonary and medicine service nephrology antibiotics were per the recommendations of infectious disease Dr. Hancock kidney function was monitored by nephrology IV diuretics were given chest x-ray suggests fluid overload close monitoring by nephrology electrolytes were corrected as well as a calcium level volume overload improved Nonoliguric acute kidney injury mostly prerenal improved with IV hydration time of discharge patient was tolerating a diet was felt to be appropriate to be transferred back to the rehab center The wound VAC was removed on August 05 new surgical dressings were applied to surgical site abdomen soft nondistended and indwelling Lee catheter was removed Patient was significantly deconditioned. Physical and occupational therapy participated in the plan of care Also wound and urine cultures showed Rosangela albicans,glabrata July 28 exploratory laparotomy with descending colon resection for perforation, descending colostomy,Devitalized rectal stump. Peritoneal lavage over 10 L, Oma's procedure for perforated descending colon. Recent July 19 takedown of descending colostomy, reversal of ostomy, extensive lysis of adhesions, reduction and closure of incarcerated parastomal hernia Patient was felt to be appropriate to be transferred back to the [facility] Impression Present on admission abdominal pain with acute abdominal sepsis secondary to perforation of descending colon and peritonitis Postop July 28 exploratory laparotomy with descending colon resection for perforation, descending colostomy, Oma's procedure for perforated descending colon, Present on admission dehydration due to moderate ileus and sepsis Leukocytosis secondary to sepsis and peritonitis Recent colostomy reversal on 07/19/2018 with peritoneal lavage, and patient was sent to the subacute rehab on Levaquin and Flagyl for evidence of contaminated case Acute urinary tract infection Morbid Obesity BMI 45 due to excessive calories Shortness of breath dyspnea related to intra-abdominal sepsis, obesity and abdominal pain computed tomography scan was negative the chest for evidence of PE. Ileus following gastrointestinal surgery Sigmoid diverticulitis Status post colostomy Chronic constipation oliquria Acute kidney injury Atelectasis per chest x-ray Peritonitis Chronic Hyponatremia suspect due to home medication Metabolic acidosis secondary to IV fluids improving Volume overload Nonoliguric acute kidney injury mostly prerenal improved with IV hydration. GFR back to baseline. Secondary peritonitis from perforated bowel Wound cultures showing Rosangela albicans Urine culture showing Rosangela glabrata Electrolyte imbalance hypokalemia, hypomagnesemia New-onset atrial tachycardia resolved The above impression and plan of care have been discussed and directed by signing physician. Brigitte Bruce nurse practitioner acting as scribe for signing physician. Plan - Discharge Summary Discharge Rx Participant: Yes New Discharge Prescriptions: New cefTRIAXone [Rocephin] 2,000 mg IVP Q24HR #14 ml Fluconazole [Diflucan] 200 mg PO DAILY #14 tab metroNIDAZOLE [Flagyl] 500 mg PO TID #42 tab Acetaminophen Tab [Tylenol] 650 mg PO Q6HR PRN tab PRN Reason: Mild Pain Or Fever >= 100.5 Aspirin 81 mg PO HS chew Furosemide [Lasix] 40 mg PO BID@0900,1600 tab Magnesium Oxide [Mag-Ox] 400 mg PO BID tab Metoprolol Tartrate [Lopressor] 25 mg PO TID tab Pantoprazole [Protonix] 40 mg PO AC-BRKFST tablet. Potassium Chloride ER [K-Dur 20] 20 meq PO DAILY tab.er.prt Continue HYDROcodone/APAP 5-325MG [[place] 5-325] 1 tab PO Q4HR PRN 3 Days #18 tab PRN Reason: Pain Discontinued Triamterene-Hctz 37.5-25Mg [Dyazide 37.5-25 Capsule] 1 cap PO DAILY Lisinopril [Zestril] 10 mg PO DAILY metroNIDAZOLE [Flagyl] 500 mg PO TID #15 tab Levofloxacin [Levaquin] 500 mg PO DAILY #5 tab Discharge Medication List HYDROcodone/APAP 5-325MG [[place] 5-325] 1 tab PO Q4HR PRN 3 Days #18 tab [Rx] Acetaminophen Tab [Tylenol] 650 mg PO Q6HR PRN tab 08/05/18 [Rx] Aspirin 81 mg PO HS chew 08/05/18 [Rx] Fluconazole [Diflucan] 200 mg PO DAILY #14 tab 08/05/18 [Rx] Furosemide [Lasix] 40 mg PO BID@0900,1600 tab 08/05/18 [Rx] Magnesium Oxide [Mag-Ox] 400 mg PO BID tab 08/05/18 [Rx] Metoprolol Tartrate [Lopressor] 25 mg PO TID tab 08/05/18 [Rx] Pantoprazole [Protonix] 40 mg PO AC-BRKFST tablet. 08/05/18 [Rx] Potassium Chloride ER [K-Dur 20] 20 meq PO DAILY tab.er.prt 08/05/18 [Rx] cefTRIAXone [Rocephin] 2,000 mg IVP Q24HR #14 ml 08/05/18 [Rx] metroNIDAZOLE [Flagyl] 500 mg PO TID #42 tab 08/05/18 [Rx] Follow up Appointment(s)/Referral(s): Meek Disla MD [Primary Care Provider] - 1-2 days Moon Kelly MD [STAFF PHYSICIAN] - 08/13/18 1:45 pm () Monalisa Hancock MD [STAFF PHYSICIAN] - 08/15/18 Bud Piedra MD [STAFF PHYSICIAN] - 3 Weeks Ambulatory/Diagnostic Orders: Comprehensive Metabolic Panel [LAB.AMB] Time Frame: 08/05/18, Location: None Selected Magnesium [LAB.AMB] Time Frame: 08/05/18, Location: None Selected Patient Instructions/Handouts: Colostomy Care (ED), Colostomy Care (GEN) Activity/Diet/Wound Care/Special Instructions: Recommendations for Colostomy Care for Transition to Rehab: Date of last Appliance change 08.01.2018 Patient will have the following colostomy care supplies from [facility]: Convatec cut to fit with filter #[id number] (three) No Sting Prep (12) Ostomy Powder for peristomal skin irritation as needed (one container) Keep surgical dressings dry Physical and occupational therapy Rehab please arrange with patient and Ostomy supplies from her DME prior to discharge from Rehab.(Current supplies at home are Coloplast convex cut to fit and small flange for current stoma size) Discharge Disposition: TRANSFER TO SNF/ECF <Moon Kelly - Last Filed: 08/05/18 14:22> - Discharge Diagnosis(es) (1) Atelectasis Current Visit: Yes Status: Acute (2) Acute kidney injury Current Visit: Yes Status: Acute (3) Dehydration Current Visit: Yes Status: Acute (4) Leukocytosis Current Visit: Yes Status: Acute (5) Oliguria Current Visit: Yes Status: Acute (6) Ileus following gastrointestinal surgery Current Visit: Yes Status: Acute (7) Morbid (severe) obesity due to excess calories Current Visit: No Status: Acute (8) Sigmoid diverticulitis Current Visit: No Status: Acute (9) S/P colostomy takedown Current Visit: Yes Status: Acute (10) Chronic constipation Current Visit: Yes Status: Acute (11) Hyponatremia Current Visit: No Status: Acute (12) Peritonitis Current Visit: Yes Status: Acute (13) Colostomy status Current Visit: No Status: Acute
--- NOTE | 2018-08-05 14:06 | P.PN ---
Subjective Mrs. Vazquez is seen and examined sitting up in bed in no acute distress. Telemetry tracings indicate she had a 16-beat run of ventricular tachycardia last night at 2230. Potassium yesterday was 3.2 and has since been replaced. Repeat this morning was 3.6. Daily supplementation 20 MEQ has been added per nephrology. Hemoglobin 11.1, platelets 286, sodium 136, creatinine 0.51, magnesium 1.8. She denies symptoms of chest pain, shortness of breath, palpitations or dizziness. She is being discharged today to [facility]. Blood pressure 149/76 rate 77 afebrile and maintaining oxygen saturation on nasal cannula. No further evidence of atrial tachycardia or fibrillation noted over the weekend. Chest xray obtained yesterday indicates improvement in heart failure. Objective - Vital Signs Vital signs: Vital Signs Temp 97.1 F L 08/05/18 07:00 Pulse 77 08/05/18 07:00 Resp 18 08/05/18 07:00 BP 149/76 08/05/18 07:00 Pulse Ox 96 08/05/18 07:00 Intake & Output 08/04/18 08/05/18 08/05/18 18:59 06:59 18:59 Intake Total 1418 240 Output Total 2550 2210 1000 Balance -7580 -1100 -607 Weight 99.5 kg Intake: IV 150 Piperacillin-Tazobactam 3 50 .375 gm In Dextrose/Water 1 50ml.bag @ 12.5 mls/hr IVPB Q8HR [facility] Rx#: [id number] metroNIDAZOLE-NS PMX 500 100 mg In Saline 1 100ml.bag @ 100 mls/hr IVPB Q6HR [facility] Rx#:[id number] Intake, IV Titration 300 Amount Anidulafungin 100 mg In 100 Sodium Chloride 0.9% 100 ml @ 84 mls/hr IVPB DAILY [facility] Rx#:[id number] Magnesium Sulfate-D5w Pmx 100 1 gm In Dextrose/Water 1 100ml.bag @ 100 mls/hr IVPB Q1H [facility] Rx#: [id number] Magnesium Sulfate-D5w Pmx 100 1 gm In Dextrose/Water 1 100ml.bag @ 100 mls/hr IVPB Q1H [facility] Rx#: [id number] Oral 968 240 Output: Drainage 50 60 Right Lower Abdomen 20 20 Right Upper Abdomen 30 40 Urine 2100 1850 1000 Uretheral (Lee) 2100 1000 Stool 400 300 Other: Voiding Method Indwelling Catheter Indwelling Catheter - Exam GENERAL: Well-appearing, well-nourished and in no acute distress. NECK: Supple without JVD or thyromegaly. LUNGS: Breath sounds clear to auscultation bilaterally. Respiration equal and unlabored. No wheezes, rales or rhonchi. Diminished bilaterally. HEART: Regular rate and rhythm without murmurs, rubs or gallops. S1 and S2 heard. EXTREMITIES: Normal range of motion, no edema. No clubbing or cyanosis. Peripheral pulses intact. - Labs CBC & Chem 7: 08/05/18 06:49 08/05/18 06:49 Labs: Abnormal Lab Results - Last 24 Hours (Table) 08/04/18 08/05/18 08/05/18 Range/Units 23:07 06:49 06:49 RBC 3.79 L (3.80-5.40) m/uL Hgb 11.1 L (11.4-16.0) gm/dL MCHC 30.8 L (31.0-37.0) g/dL Neutrophils # (Manual) 8.30 H (1.3-7.7) k/uL Lymphocytes # (Manual) 0.56 L (1.0-4.8) k/uL Sodium 136 L (137-145) mmol/L Potassium 3.2 L (3.5-5.1) mmol/L Chloride 96 L (98-107) mmol/L Carbon Dioxide 35 H (22-30) mmol/L BUN 20 H (7-17) mg/dL Creatinine 0.51 L (0.52-1.04) mg/dL Glucose 124 H (74-99) mg/dL Calcium 7.0 L 6.1 L* (8.4-10.2) mg/dL AST 46 H (14-36) U/L Total Protein 4.8 L 4.0 L (6.3-8.2) g/dL Albumin 2.0 L 1.6 L (3.5-5.0) g/dL Assessment and Plan Assessment: ASSESSMENT Paroxysmal atrial fibrillation, continue beta jose f and aspirin Non-sustained ventricular tachycardia in the presence of hypokalemia Acute on chronic systolic heart failure, EF 40-45%. Not started on DELORIS or ARB due to acute kidney injury. Will address as an outpatient if she continues to show improved renal function. Hypokalemia, resolved Acute sepsis secondary to perforated colon and peritonitis Acute kidney injury, improved s/p colon resection and colostomy creation secondary to perforation after undergoing colostomy reversal Leukocytosis, improving Lactic acidosis on admission History of hypertension PLAN Agree with adding daily supplementation of potassium Continue with lopressor 25 mg TID, aspirin 81 mg daily and Lasix 40 mg twice a day. Will consider DELORIS/ARB initiation if renal function continues to be stable as an outpatient. Follow up with Dr. Piedra upon discharge. Nurse Practitioner note has been reviewed, I agree with a documented findings and plan of care. Patient was seen and examined.
--- NOTE | 2018-08-05 14:20 | P.PN ---
Subjective Progress Note Date: 08/05/18 HISTORY OF PRESENT ILLNESS: The patient is a 68-year-old female who is s/p exploratory laparotomy with placement of descending colostomy. No reports of fevers or chills. White blood cell count is normal. She has moderate diuresis per the night time nanny. She is tolerating diet. PHYSICAL EXAM: GENERAL: Well-developed in no acute distress HEENT: No scleral icterus. Extraocular movements grossly intact. Hears conversational speech. No nasal drainage. NECK: Supple without lymphadenopathy. CHEST: Nonlabored respirations with equal bilateral excursions. CARDIOVASCULAR: Regular rate and rhythm. ABDOMEN: Soft. Dressings clean dry and intact with wound VAC, PREVENA. JPs are sanguinous. Ostomy pink patent and functioning with stool MUSCULOSKELETAL: No clubbing, cyanosis. 1+ bilateral lower extremity edema NEURO: No focal or lateralizing signs. Cranial nerves 2 through 12 grossly within normal limits. : Clear yellow urine PSYCH: Alert and oriented to person, place and time. SKIN: Good skin turgor. Well perfused. ASSESSMENT: 1. History of peritonitis status post exploratory laparotomy and colostomy creation PLAN: 1. Discharged to rehab as well as cell count normal 2. Will need discharge on Lasix diuretics 3. Continue antibiotics per infectious disease 4. Discontinue Lee 5. Diet as tolerated 6. Discontinue surgical dressing 7. Follow up in surgical office 1-2 weeks. Objective - Vital Signs Vital signs: Vital Signs Temp 97.1 F L 08/05/18 07:00 Pulse 77 08/05/18 07:00 Resp 18 08/05/18 07:00 BP 149/76 08/05/18 07:00 Pulse Ox 96 08/05/18 07:00 Intake & Output 08/04/18 08/05/18 08/05/18 18:59 06:59 18:59 Intake Total 1418 240 Output Total 1820 2210 1000 Balance -4542 -0150 -451 Weight 99.5 kg Intake: IV 150 Piperacillin-Tazobactam 3 50 .375 gm In Dextrose/Water 1 50ml.bag @ 12.5 mls/hr IVPB Q8HR [facility] Rx#: [id number] metroNIDAZOLE-NS PMX 500 100 mg In Saline 1 100ml.bag @ 100 mls/hr IVPB Q6HR [facility] Rx#:[id number] Intake, IV Titration 300 Amount Anidulafungin 100 mg In 100 Sodium Chloride 0.9% 100 ml @ 84 mls/hr IVPB DAILY [facility] Rx#:[id number] Magnesium Sulfate-D5w Pmx 100 1 gm In Dextrose/Water 1 100ml.bag @ 100 mls/hr IVPB Q1H [facility] Rx#: [id number] Magnesium Sulfate-D5w Pmx 100 1 gm In Dextrose/Water 1 100ml.bag @ 100 mls/hr IVPB Q1H [facility] Rx#: [id number] Oral 968 240 Output: Drainage 50 60 Right Lower Abdomen 20 20 Right Upper Abdomen 30 40 Urine 2100 1850 1000 Uretheral (Lee) 2100 1000 Stool 400 300 Other: Voiding Method Indwelling Catheter Indwelling Catheter - Labs CBC & Chem 7: 08/05/18 06:49 08/05/18 06:49 Labs: Abnormal Lab Results - Last 24 Hours (Table) 08/04/18 08/05/18 08/05/18 Range/Units 23:07 06:49 06:49 RBC 3.79 L (3.80-5.40) m/uL Hgb 11.1 L (11.4-16.0) gm/dL MCHC 30.8 L (31.0-37.0) g/dL Neutrophils # (Manual) 8.30 H (1.3-7.7) k/uL Lymphocytes # (Manual) 0.56 L (1.0-4.8) k/uL Sodium 136 L (137-145) mmol/L Potassium 3.2 L (3.5-5.1) mmol/L Chloride 96 L (98-107) mmol/L Carbon Dioxide 35 H (22-30) mmol/L BUN 20 H (7-17) mg/dL Creatinine 0.51 L (0.52-1.04) mg/dL Glucose 124 H (74-99) mg/dL Calcium 7.0 L 6.1 L* (8.4-10.2) mg/dL AST 46 H (14-36) U/L Total Protein 4.8 L 4.0 L (6.3-8.2) g/dL Albumin 2.0 L 1.6 L (3.5-5.0) g/dL Assessment and Plan (1) Atelectasis Current Visit: Yes Status: Acute Code(s): J98.11 - ATELECTASIS SNOMED Code (s): 72295418 (2) Acute kidney injury Current Visit: Yes Status: Acute Code(s): N17.9 - ACUTE KIDNEY FAILURE, UNSPECIFIED SNOMED Code(s): 75210643 (3) Dehydration Current Visit: Yes Status: Acute Code(s): E86.0 - DEHYDRATION SNOMED Code( s): 24648895 (4) Leukocytosis Current Visit: Yes Status: Acute Code(s): D72.829 - ELEVATED WHITE BLOOD CELL COUNT, UNSPECIFIED SNOMED Code(s): 952861594 (5) Oliguria Current Visit: Yes Status: Acute Code(s): R34 - ANURIA AND OLIGURIA SNOMED Code(s): 32738452 (6) Ileus following gastrointestinal surgery Current Visit: Yes Status: Acute Code(s): K91.30 - POSTPROC INTESTINAL OBST , UNSP TO PARTIAL VERSUS COMPLETE SNOMED Code(s): 607764699 (7) Morbid (severe) obesity due to excess calories Current Visit: No Status: Acute Code(s): E66.01 - MORBID (SEVERE) OBESITY DUE TO EXCESS CALORIES SNOMED Code(s): 463939890 (8) Sigmoid diverticulitis Current Visit: No Status: Acute Code(s): K57.32 - DVTRCLI OF LG INT W/O PERFORATION OR ABSCESS W/O BLEEDING SNOMED Code(s): 954427117 (9) S/P colostomy takedown Current Visit: Yes Status: Acute Code(s): Z98.890 - OTHER SPECIFIED POSTPROCEDURAL STATES SNOMED Code(s): 15458723678045540 (10) Chronic constipation Current Visit: Yes Status: Acute Code(s): K59.09 - OTHER CONSTIPATION SNOMED Code(s): 227393752 (11) Hyponatremia Current Visit: No Status: Acute Code(s): E87.1 - HYPO-OSMOLALITY AND HYPONATREMIA SNOMED Code(s): 95607220 (12) Peritonitis Current Visit: Yes Status: Acute Code(s): K65.9 - PERITONITIS, UNSPECIFIED SNOMED Code(s): 84790613 (13) Colostomy status Current Visit: No Status: Acute Code(s): Z93.3 - COLOSTOMY STATUS SNOMED Code(s): 649487737
[2018-08-05 15:13] VITALS: BP 130/66; PULSE 79; RESP 16; TEMP 98.4
[2018-08-05] MEDS ORDERED: FUROSEMIDE 40 MG TAB PO SCH (16:00)
--- NOTE | 2018-08-05 17:46 | PN ---
PROGRESS NOTE DATE OF SERVICE: 08/05/2018 PRESENTING COMPLAINT: Perforated descending colon with abdominal surgery. INTERVAL HISTORY: This is a patient with recent reversal of colostomy, admitted within 48 hours of being discharged with perforation of descending colon. soiling was found. Further surgery was carried out. Patient has been having some loose stools, up to the bathroom; has very little abdominal pain. Patient has been tolerating a diet. Breathing is stable. Sitting up in a chair. Has a drain in place. REVIEW OF SYSTEMS: Done for constitutional, cardiovascular, GI, pulmonary; relevant findings as above. CURRENT MEDICATIONS: Reviewed. They include: 1. IV anidulafungin. 2. Subcutaneous Lovenox. 3. Oral Lasix. 4. Lopressor. 5. IV Flagyl. 6. IV Zosyn. PHYSICAL EXAMINATION: Temperature 98.4, pulse 79, respiration 16, blood pressure 130/66, pulse ox 97% on 2 L. GENERAL APPEARANCE: Sitting up, awake. EYES: Pupils equal. Conjunctivae normal. HEENT: External appearance of nose and ears normal. Oral cavity normal. NECK: JVD not raised. Mass not palpable. RESPIRATORY: Effort normal. LUNGS: Slightly decreased breath sounds. CARDIOVASCULAR: First and second sounds normal. No edema. ABDOMEN: Soft. Mild tenderness. Drain in place. Some tenderness. Bowel sounds present. PSYCHIATRY: Alert and oriented x3. Mood and affect normal. INVESTIGATIONS: White count 9.4, hemoglobin 11.1, potassium 3.6, BUN 16, creatinine 0.51, albumin 1.6. Patient's wound cultures are growing Rosangela albicans. ASSESSMENT: 1. Status post descending colon perforation with surgical repair and intraperitoneal soiling following a recent colostomy reversal. 2. Non-oliguric acute kidney injury, mostly prerenal, now resolved. 3. Metabolic acidosis, now resolved. 4. Hypomagnesemia. 5. Hypocalcemia secondary to hypoalbuminemia. 6. Hypoalbuminemia, likely acute phase reactant. 7. Essential hypertension. 8. Primary osteoarthritis. 9. Acute sepsis secondary to descending colon perforation with peritonitis, present on admission. 10.Status post acute fluid overload with bilateral pleural effusion, responded to IV Lasix. 11.Morbid obesity; body mass index 41.4. 12.Paroxysmal atrial fibrillation, on beta jose f and aspirin. 13.Non-sustained ventricular tachycardia in the presence of hypokalemia. 14.Acute on chronic congestive heart failure exacerbation from systolic dysfunction, ejection fraction 40% to 45%. PLAN: Continue current medication and treatment plan. Antibiotics are being coordinated by Dr. Hancock from Infectious Disease. Patient already has a PICC line. Care was discussed with the patient. White count is coming down. MMODL / IJN: [id number] /
--- NOTE | 2018-08-05 23:37 | PN ---
PROGRESS NOTE DATE OF SERVICE: 08/05/2018 REASON FOR FOLLOWUP: Discharge antibiotic recommendation. INTERVAL HISTORY: The patient was seen on rounds this morning. The patient was afebrile. She was breathing comfortably. Denied having any chest pain or shortness of breath or cough. No nausea, vomiting or any abdominal pain. Has been tolerating her diet. PHYSICAL EXAMINATION: Her blood pressure is 130/66 with a pulse of 69, temperature 98.4. She is 97% on 2 L nasal cannula. General description is an elderly female lying in bed in no distress. RESPIRATORY SYSTEM: Unlabored breathing. Clear to auscultation anteriorly. HEART: S1, S2. Regular rate and rhythm. ABDOMEN: Soft. Wound is currently covered with a wound V.A.C. with stool in her colostomy bag. LAB: Hemoglobin is 11.1, white count 9.4 with a BUN of 16, creatinine 0.51. DIAGNOSTIC IMPRESSION AND PLAN: Patient with secondary peritonitis from anastomosis leak, status post laparotomy and diverting colostomy. Abdominal culture has been Rosangela albicans. No resistant gram- negative has been grown. Antibiotic has been transitioned to Rocephin 2 grams daily in addition to oral Flagyl 500 mg 3 times a day and Diflucan 200 p.o. daily for another 10 days with close outpatient followup. MMODL / IJN: [id number] /
[2018-08-06] MEDS ORDERED: POTASSIUM CHLORIDE ER 20 MEQ TAB.ER PO SCH (09:00)
== END 2018-08-05 16:45 | DRG 856 ==
LOC: EC 20:43 → 3SUR 22:14 → 6ICU 07-28 13:42 → 3SUR 07-30 19:11
PROVIDERS: ADMIT Surgery Plastic and Reconstructive Surgery; ATTEND Surgery Plastic and Reconstructive Surgery
PROC: 0DBU0ZZ Excision of Omentum, Open Approach (ICD-10-PCS; 2018-07-28)
PROC: 0W9G00Z Drainage of Peritoneal Cavity with Drainage Device, Open Approach (ICD-10-PCS; 2018-07-28)
PROC: 3E1M38Z Irrigation of Peritoneal Cavity using Irrigating Substance, Percutaneous Approach (ICD-10-PCS; 2018-07-28)
PROC: 0DBM0ZZ Excision of Descending Colon, Open Approach (ICD-10-PCS; principal; 2018-07-28 11:59)
PROC: 0D1M0Z4 Bypass Descending Colon to Cutaneous, Open Approach (ICD-10-PCS; 2018-07-28 11:59)
PROC: 02HV33Z Insertion of Infusion Device into Superior Vena Cava, Percutaneous Approach (ICD-10-PCS; 2018-07-29)
DX: T81.4XXA Infection following a procedure, initial encounter (principal); A41.9 Sepsis, unspecified organism; K65.8 Other peritonitis; I50.23 Acute on chronic systolic (congestive) heart failure; N17.0 Acute kidney failure with tubular necrosis; K91.89 Other postprocedural complications and disorders of digestive system; E87.1 Hypo-osmolality and hyponatremia; E87.2 Acidosis; I47.1 Supraventricular tachycardia; B37.49 Other urogenital candidiasis; J98.11 Atelectasis; K56.7 Ileus, unspecified; R18.8 Other ascites; Z68.42 Body mass index [BMI] 45.0-49.9, adult; Y83.2 Surgical operation with anastomosis, bypass or graft as the cause of abnormal reaction of the patient, or of later complication, without mention of misadventure at the time of the procedure; E66.01 Morbid (severe) obesity due to excess calories; E83.42 Hypomagnesemia; E83.51 Hypocalcemia; E86.0 Dehydration; E87.6 Hypokalemia; E88.09 Other disorders of plasma-protein metabolism, not elsewhere classified; I11.0 Hypertensive heart disease with heart failure; I48.0 Paroxysmal atrial fibrillation; I49.3 Ventricular premature depolarization; J44.9 Chronic obstructive pulmonary disease, unspecified; M17.12 Unilateral primary osteoarthritis, left knee; Z96.651 Presence of right artificial knee joint; R32 Unspecified urinary incontinence; Z79.2 Long term (current) use of antibiotics; Z79.899 Other long term (current) drug therapy; Z80.0 Family history of malignant neoplasm of digestive organs; Z82.49 Family history of ischemic heart disease and other diseases of the circulatory system; Z84.1 Family history of disorders of kidney and ureter; Z87.11 Personal history of peptic ulcer disease; Z90.49 Acquired absence of other specified parts of digestive tract; Z91.19 Patient's noncompliance with other medical treatment and regimen; K59.09 Other constipation; T50.905A Adverse effect of unspecified drugs, medicaments and biological substances, initial encounter
CPT/HCPCS: 36415; 36569; 71045; 71275; 74177; 76604; 76937; 80048; 80053; 81001; 83036; 83605; 83735; 83880; 84100; 84443; 85025; 85027; 85610; 85730; 86850; 86900; 86901; 87040; 87070; 87075; 87086; 87205; 87324; 88305; 88307; 93005; 93306; 93970; 94660; 96360; 99285

== ENCOUNTER 2018-08-12 18:56 | Inpatient (IN) | payer MEDICARE, OTHER ==
--- NOTE | 2018-08-12 19:08 | ED ---
Abdominal Pain HPI - General Stated Complaint: abdominal pain Time Seen by Provider: 08/12/18 18:58 Source: RN notes reviewed, old records reviewed Mode of arrival: EMS Limitations: no limitations - History of Present Illness Initial Comments: This is a 60-year-old female to the ER for evaluation. This patient presents today for evaluation of abdominal pain. Abdominal incision absent or infection , as well as worsening possible diverticulitis. Patient has chronic recent medical illness related to diverticulitis, recurrent surgery recurrent abscess. Patient states her appetite abdominal pain right now is controlled. No no noted fevers. Patient was accepted his transfer from [facility] Complaint: abdominal pain - Related Data Home Medications Medication Instructions Recorded Confirmed Bisacodyl [Dulcolax] 10 mg RECTAL DAILY 08/12/18 08/12/18 Hydrocortisone Cream 1 applic TOPICAL TID 08/12/18 08/12/18 [Hydrocortisone 1% Cream] Magnesium Hydroxide [Milk of 800 mg PO DAILY PRN 08/12/18 08/12/18 Magnesia] Metoprolol Succinate [Toprol XL] 25 mg PO TID 08/12/18 08/12/18 Na Phos,M-B/Na Phos,Di-Ba [Fleet 1 dose RECTAL DAILY PRN 08/12/18 08/12/18 Adult] Previous Rx's Medication Instructions Recorded HYDROcodone/APAP 5-325MG [[place] 1 tab PO Q4HR PRN 3 Days #18 tab 07/24/18 5-325] Acetaminophen Tab [Tylenol] 650 mg PO Q6HR PRN tab 08/05/18 Aspirin 81 mg PO HS chew 08/05/18 Fluconazole [Diflucan] 200 mg PO DAILY #14 tab 08/05/18 Furosemide [Lasix] 40 mg PO BID@0900,1600 tab 08/05/18 Magnesium Oxide [Mag-Ox] 400 mg PO BID tab 08/05/18 Pantoprazole [Protonix] 40 mg PO AC-BRKFST tablet. 08/05/18 Potassium Chloride ER [K-Dur 20] 20 meq PO DAILY tab.er.prt 08/05/18 cefTRIAXone [Rocephin] 2,000 mg IVP Q24HR #14 ml 08/05/18 metroNIDAZOLE [Flagyl] 500 mg PO TID #42 tab 08/05/18 Allergies Allergy/AdvReac Type Severity Reaction Status Date / Time No Known Allergies Allergy Verified 08/12/18 19:04 Review of Systems ROS Statement: Those systems with pertinent positive or pertinent negative responses have been documented in the HPI. ROS Other: All systems not noted in ROS Statement are negative. Past Medical History Past Medical History: Hypertension, Osteoarthritis (OA) Additional Past Medical History / Comment(s): HX Low Sodium. HX STOMACH ULCER. PERFORATED DIVERTICULTUM, COLOSTOMY 03/2016. LT KNEE OA PAIN. C/O ABD GAS PAIN FOR FEW DAYS. SPOUSE SAID PATIENT HAD STRESS TEST, PER DR GREY'S REQUEST. History of Any Multi-Drug Resistant Organisms: None Reported Past Surgical History: Bowel Resection, Orthopedic Surgery Additional Past Surgical History / Comment(s): TOTAL RT Knee, RT HIP. PERFORATED DIVERTICULUM W/ COLOSTOMY 03/2016. Past Anesthesia/Blood Transfusion Reactions: No Reported Reaction Additional Past Anesthesia/Blood Transfusion Reaction / Comment(s): Pt states she did receive blood with total knee surgery few weeks ago. Past Psychological History: No Psychological Hx Reported Smoking Status: Never smoker Past Alcohol Use History: None Reported Past Drug Use History: None Reported - Past Family History Father Family Medical History: Coronary Artery Disease (CAD), Myocardial Infarction ([place] ), Renal Disease Additional Family Medical History / Comment(s): Father of renal failure at the age of 72 yrs. Mother Family Medical History: Cancer Additional Family Medical History / Comment(s): Mother had colon cancer and of this at age 67 yrs. General Exam General appearance: alert, in no apparent distress Head exam: Present: atraumatic, normocephalic, normal inspection Eye exam: Present: normal appearance, PERRL, EOMI. Absent: scleral icterus, conjunctival injection, periorbital swelling ENT exam: Present: normal exam, mucous membranes moist Neck exam: Present: normal inspection. Absent: tenderness, meningismus, lymphadenopathy Respiratory exam: Present: normal lung sounds bilaterally. Absent: respiratory distress, wheezes, rales, rhonchi, stridor Cardiovascular Exam: Present: regular rate, normal rhythm, normal heart sounds. Absent: systolic murmur, diastolic murmur, rubs, gallop, clicks GI/Abdominal exam: Present: soft, tenderness, normal bowel sounds, other ( Incision is tender erythematous with purulent drainage). Absent: distended, guarding, rebound, rigid Extremities exam: Present: normal inspection, full ROM, normal capillary refill. Absent: tenderness, pedal edema, joint swelling, calf tenderness Back exam: Present: normal inspection Neurological exam: Present: alert, oriented X3, CN II-XII intact Psychiatric exam: Present: normal affect, normal mood Skin exam: Present: warm, dry, intact, normal color. Absent: rash Course Vital Signs 08/12/18 19:04 Temperature 99.2 F Pulse Rate 111 H Respiratory 18 Rate Blood Pressure 157/94 O2 Sat by Pulse 91 L Oximetry - Reevaluation(s) Reevaluation #1: 08/12/18 19:08 Patient's medical record and transfer paperwork are reviewed Did speak with transferring physician regarding patient Medical Decision Making - Medical Decision Making 68 female the ER with postoperative infection. Drainage from anterior abdominal incision. Patient also with possible abscess or:. Patient be admitted for IV antibiotics and surgical consultation Disposition Clinical Impression: Postoperative infection, Wound infection Disposition: ADMITTED IP TO THIS HOSP Condition: Fair Referrals: Meek Disla MD [Primary Care Provider] - 1-2 days
[2018-08-12] MEDS ORDERED: VANCOMYCIN IV PER PHARMACY 1 EACH MISC MISCELLANE PRN (20:16)
[2018-08-12] MEDS ORDERED: ONDANSETRON 4 MG/2 ML VIAL IVP PRN (20:16)
[2018-08-12] MEDS ORDERED: SODIUM CHLORIDE 0.9% 1,000 ML IV ONE (20:16)
[2018-08-12] MEDS ORDERED: AMPICILLIN-SULBACTAM 3 GM in SODIUM CHLORIDE 0.9% 100 ML IVPB STA (20:16)
[2018-08-12] MEDS ORDERED: MORPHINE SULFATE 4 MG/ML SYRINGE IVP STA (20:16)
[2018-08-12] MEDS ORDERED: MORPHINE SULFATE 4 MG/ML SYRINGE IVP PRN (20:16)
[2018-08-12] MEDS ORDERED: IPRATROPIUM-ALBUTEROL 3 ML NEB INHALATION STA (20:18)
[2018-08-12] MEDS ORDERED: IPRATROPIUM-ALBUTEROL 3 ML NEB INHALATION PRN (20:18)
[2018-08-12] MEDS ORDERED: SODIUM CHLORIDE 0.9% 1,000 ML IV STA (20:18)
[2018-08-12] MEDS ORDERED: VANCOMYCIN 1,750 MG in SODIUM CHLORIDE 0.9% 500 ML 500 ML IVPB STA (20:31)
[2018-08-12] MEDS ORDERED: ACETAMINOPHEN TAB 500 MG TAB PO STA (20:37)
[2018-08-12 21:18] LABS: Anion Gap 9 mmol/L; Blood Urea Nitrogen 10 mg/dL (7-17); Calcium 7.8 mg/dL (8.4-10.2); Carbon Dioxide 25 mmol/L (22-30); Chloride 101 mmol/L (98-107); Glucose 84 mg/dL (74-99); Potassium 3.6 mmol/L (3.5-5.1); Sodium 135 mmol/L (137-145)
[2018-08-13] MEDS: AMPICILLIN-SULBACTAM 3 GM in SODIUM CHLORIDE 0.9% 100 ML IVPB SCH ×4 (02:13→20:45)
[2018-08-13] MEDS: VANCOMYCIN 1,500 MG in SODIUM CHLORIDE 0.9% 250 ML IVPB SCH ×3 (06:08→21:35)
[2018-08-13 09:31] LABS: Anion Gap 5 mmol/L; Blood Urea Nitrogen 11 mg/dL (7-17); Calcium 7.2 mg/dL (8.4-10.2); Carbon Dioxide 27 mmol/L (22-30); Chloride 105 mmol/L (98-107); Glucose 105 mg/dL (74-99); Sodium 137 mmol/L (137-145)
[2018-08-13] MEDS: ENOXAPARIN 40 MG/0.4 ML SYRINGE SQ SCH (10:13)
[2018-08-13] MEDS ORDERED: NA PHOS,M-B/NA PHOS,DI-BA 133 ML ENEMA RECTAL PRN (12:45)
[2018-08-13] MEDS ORDERED: MAGNESIUM HYDROXIDE 2,400 MG/10 ML CUP PO PRN (12:45)
--- NOTE | 2018-08-13 13:18 | XR ---
EXAMINATION TYPE: XR chest 1V DATE OF EXAM: 08/13/2018 COMPARISON: Prior chest x-ray 08/04/2018 HISTORY: Abnormal chest x-ray, rule out congestive heart failure TECHNIQUE: Single frontal view of the chest is obtained. FINDINGS: Left-sided PICC line shows the distal tip overlying the superior vena cava. Heart remains enlarged. Bibasilar increased density persists. No evident pneumothorax. There may be some improvemen t in perihilar vascular indistinctness, interstitium. IMPRESSION: Suspect some improvement in volume status, persistent basilar effusions and associated a telectasis versus edema, pneumonia not excluded.
--- NOTE | 2018-08-13 14:13 | P.GSHP ---
History of Present Illness H&P Date: 08/13/18 CHIEF COMPLAINT: Wound drainage HISTORY OF PRESENT ILLNESS: The patient is a 68-year-old female recently discharged from the hospital over one week ago following a failed colostomy reversal with placement of a new descending colostomy on 07/28/2018. She was hospitalized for over 1 week and transferred to [facility] in satisfactory condition. Patient reports developing new onset lower abdominal pain and new drainage of purulent material from her lower abdominal incision less than 2 days ago. No reports of fevers or chills. She is tolerating diet. Ostomy has been patent. She still on antifungals including antibiotics as per infectious disease. The patient was transferred from [facility] to [facility] ER patient and admitted the ED physician for wound infection. Since his rehab, her strength has improved. PAST MEDICAL HISTORY: See list. PAST SURGICAL HISTORY: See list. MEDICATIONS: See list. ALLERGIES: See list. SOCIAL HISTORY: No illicit drug use FAMILY HISTORY: No reports of Crohn's disease or inflammatory bowel disease REVIEW OF ORGAN SYSTEMS: CONSTITUTIONAL: No fevers or chills HEENT: No troubles with vision or hearing. No reports of dysphagia. ENDOCRINE: No reports of thyroid disorders. No diabetes. CARDIOVASCULAR: No heart attack. No chest pain. RESPIRATORY: Previous history of atelectasis. GASTROINTESTINAL: Descending colostomy with repair of parastomal hernia NEURO: No reports of stroke or seizure disorders. PSYCH: No depression or suicidal ideation HEMATOLOGIC: No easy bruising or bleeding LYMPHATIC: The patient denies any lumps and bumps around the neck. GENITOURINARY: Denies any blood in urine or increased urinary frequency. MUSCULOSKELETAL: Has back pain, stiffness or joint arthritis. Has lower extremity edema. SKIN: No skin cancer or rash per PHYSICAL EXAM: VITAL SIGNS: Currently stable. GENERAL: Well-developed in no acute distress. HEENT: No sclera icterus. Extraocular movements grossly intact. Moist buccal mucosa. Head is atraumatic, normocephalic. Hears conversational speech. No nasal drainage. NECK: Supple without lymphadenopathy. CHEST: Non-labored respirations and equal bilateral excursions. CARDIOVASCULAR: Regular rate. Regular rhythm. 2+ radial pulses. ABDOMEN: Soft. Nondistended. No peritonitis. ELOY serosanguineous. Distal 2 inches of incision with non-malodorous drainage. Minimal erythema. Rest of incision intact with chon. Upper incision without erythema and signs of infection. All colostomy site left lower quadrant intact. No signs of infection. Ostomy pink pain in flexion with stool and gas in colostomy bag. MUSCULOSKELETAL: No clubbing, cyanosis. 2+ bilateral pitting edema. NEUROLOGIC: No focal or lateralizing signs. Cranial nerves II through XII grossly intact. PSYCH: Appropriate affect. Alert and oriented to person, place and time. SKIN: Well perfused. Good skin turgor. LABS: Reviewed ASSESSMENT: 1. History of contaminated case with superficial postoperative wound infection 2. Inadequate protein intake 3. Descending colostomy status 4. History of perforated diverticulitis 5. Previous candidiasis peritonitis PLAN: 1. Upon further discussion, patient reports that stool of colostomy bag had made contact with her midline incision at rehab Center hence increasing risk for wound infection. 2. Overall risk for wound infection for contaminated case over 60-70% and expected outcome with stool spillage along superficial wound. 3. Infectious disease consultation for readjustment of antibiotics. Wound culture sent. 4. At bedside, lower midline incision was probed with sterile Q-tip following removal of distal 3 inches of chon of lower midline incision. Over 10 mL of purulent drainage was evacuated with flushing of wound using 20 mL normal saline until clear and serosanguineous. Mild erythema of lower incision improved including patient's pain. Wound covered with Kerlix roll including ABD. Patient's nurse was at bedside during procedure. 5. Disposition back to rehab pending adjustment of antibiotic to wound cultures. Past Medical History Past Medical History: Hypertension, Osteoarthritis (OA) Additional Past Medical History / Comment(s): HX Low Sodium. djd,HX STOMACH ULCER. PERFORATED DIVERTICULTUM, COLOSTOMY 03/2016. past stress test pt state was wnl . History of Any Multi-Drug Resistant Organisms: None Reported Past Surgical History: Bowel Resection, Orthopedic Surgery Additional Past Surgical History / Comment(s): TOTAL RT Knee, total RT HIP replacment. 03-22-16 PERFORATED DIVERTICULUM -had exploratory lap/sigmoid resection/drainage of abcess/colostomy/appy. 07-19-18 lysis of adhesions/reversal of colostomy. 07-26-18 exp lap/colon resection(for perforation)/colostomy-has 2 drains Past Anesthesia/Blood Transfusion Reactions: No Reported Reaction Additional Past Anesthesia/Blood Transfusion Reaction / Comment(s): Pt states she did receive blood with total knee surgery-denies any reaction to it Smoking Status: Former smoker - Past Family History Father Family Medical History: Coronary Artery Disease (CAD), Myocardial Infarction ([place] ), Renal Disease Additional Family Medical History / Comment(s): Father of renal failure at the age of 72 yrs. Mother Family Medical History: Cancer Additional Family Medical History / Comment(s): Mother had colon cancer and of this at age 67 yrs. Medications and Allergies Home Medications Medication Instructions Recorded Confirmed Type HYDROcodone/APAP 5-325MG [[place] 1 tab PO Q4HR PRN 3 Days #18 tab 07/24/18 Rx 5-325] Acetaminophen Tab [Tylenol] 650 mg PO Q6HR PRN tab 08/05/18 08/12/18 Rx Aspirin 81 mg PO HS chew 08/05/18 08/12/18 Rx Fluconazole [Diflucan] 200 mg PO DAILY #14 tab 08/05/18 08/12/18 Rx Furosemide [Lasix] 40 mg PO BID@0900,1600 tab 08/05/18 08/12/18 Rx Magnesium Oxide [Mag-Ox] 400 mg PO BID tab 08/05/18 08/12/18 Rx Pantoprazole [Protonix] 40 mg PO AC-BRKFST tablet. 08/05/18 08/12/18 Rx Potassium Chloride ER [K-Dur 20] 20 meq PO DAILY tab.er.prt 08/05/18 08/12/18 Rx cefTRIAXone [Rocephin] 2,000 mg IVP Q24HR #14 ml 08/05/18 08/12/18 Rx metroNIDAZOLE [Flagyl] 500 mg PO TID #42 tab 08/05/18 08/12/18 Rx Bisacodyl [Dulcolax] 10 mg RECTAL DAILY 08/12/18 08/12/18 History Hydrocortisone Cream 1 applic TOPICAL TID 08/12/18 08/12/18 History [Hydrocortisone 1% Cream] Magnesium Hydroxide [Milk of 800 mg PO DAILY PRN 08/12/18 08/12/18 History Magnesia] Metoprolol Succinate [Toprol XL] 25 mg PO TID 08/12/18 08/12/18 History Na Phos,M-B/Na Phos,Di-Ba [Fleet 1 dose RECTAL DAILY PRN 08/12/18 08/12/18 History Adult] Allergies Allergy/AdvReac Type Severity Reaction Status Date / Time No Known Allergies Allergy Verified 08/12/18 19:04 Surgical - Exam Vital Signs Temp Pulse Resp BP Pulse Ox 99.2 F 111 H 18 157/94 91 L 08/12/18 19:04 08/12/18 19:04 08/12/18 19:04 08/12/18 19:04 08/12/18 19:04 Results - Labs 08/13/18 08:45 Abnormal Lab Results - Last 24 Hours (Table) 08/12/18 08/13/18 Range/Units 20:50 08:45 Sodium 135 L (137-145) mmol/L Creatinine 0.39 L 0.45 L (0.52-1.04) mg/dL Glucose 105 H (74-99) mg/dL Calcium 7.8 L 7.2 L (8.4-10.2) mg/dL Diabetes panel 08/12/18 08/13/18 Range/Units 20:50 08:45 Sodium 135 L 137 (137-145) mmol/L Potassium 3.6 4.0 (3.5-5.1) mmol/L Chloride 101 105 (98-107) mmol/L Carbon Dioxide 25 27 (22-30) mmol/L BUN 10 11 (7-17) mg/dL Creatinine 0.39 L 0.45 L (0.52-1.04) mg/dL Glucose 84 105 H (74-99) mg/dL Calcium 7.8 L 7.2 L (8.4-10.2) mg/dL Calcium panel 08/12/18 08/13/18 Range/Units 20:50 08:45 Calcium 7.8 L 7.2 L (8.4-10.2) mg/dL Pituitary panel 08/12/18 08/13/18 Range/Units 20:50 08:45 Sodium 135 L 137 (137-145) mmol/L Potassium 3.6 4.0 (3.5-5.1) mmol/L Chloride 101 105 (98-107) mmol/L Carbon Dioxide 25 27 (22-30) mmol/L BUN 10 11 (7-17) mg/dL Creatinine 0.39 L 0.45 L (0.52-1.04) mg/dL Glucose 84 105 H (74-99) mg/dL Calcium 7.8 L 7.2 L (8.4-10.2) mg/dL Adrenal panel 08/12/18 08/13/18 Range/Units 20:50 08:45 Sodium 135 L 137 (137-145) mmol/L Potassium 3.6 4.0 (3.5-5.1) mmol/L Chloride 101 105 (98-107) mmol/L Carbon Dioxide 25 27 (22-30) mmol/L BUN 10 11 (7-17) mg/dL Creatinine 0.39 L 0.45 L (0.52-1.04) mg/dL Glucose 84 105 H (74-99) mg/dL Calcium 7.8 L 7.2 L (8.4-10.2) mg/dL Assessment and Plan (1) Diverticulitis of intestine with perforation Current Visit: Yes Status: Acute Code(s): K57.80 - DVTRCLI OF INTEST, PART UNSP, W PERF AND ABSCESS W/O BLEED SNOMED Code(s): 987576798 (2) Wound infection Current Visit: Yes Status: Acute Code(s): T14.8XXA - OTHER INJURY OF UNSPECIFIED BODY REGION, INITIAL ENCOUNTER; L08.9 - LOCAL INFECTION OF THE SKIN AND SUBCUTANEOUS TISSUE, UNSP SNOMED Code(s): 88415075 (3) Colostomy status Current Visit: No Status: Acute Code(s): Z93.3 - COLOSTOMY STATUS SNOMED Code(s): 045446272
[2018-08-13] MEDS: METOPROLOL SUCCINATE (ER) 25 MG TAB.ER.24H PO SCH ×3 (14:42→23:29)
--- NOTE | 2018-08-13 14:44 | P.CONS ---
History of Present Illness - Reason for Consult Wound infection, tachycardia - History of Present Illness 68-year-old [place] female had a recent abdominal surgery for diverticulitis patient has a colostomy bag in place was sent back from [facility] as the wound drain is not draining and patient has abdominal surgical wound probably being infected with significant amount of pus coming out of that with pain and tenderness. There was a suspected abscess. Patient was discharged on metronidazole and ceftriaxone. Patient here was now started on Unasyn and vancomycin which is appropriate and metronidazole and Rocephin are being discontinued. Patient evidently had a fever here had normal white blood cell count. Patient denied dysuria cough runny nose. chest x-ray which showed improvement in her pulmonary edema patient during her hospitalization had pulmonary edema patient was on Lasix which will be continued at a lower dose. Patient was tachycardic as reflux tachycardia from metoprolol. Which will be resumed Review of Systems REVIEW OF SYSTEMS: CONSTITUTIONAL: No fever, no malaise, no fatigue. HEENT: No recent visual problems or hearing problems. Denied any sore throat. CARDIOVASCULAR: No chest pain, orthopnea, PND, no palpitations, no syncope. PULMONARY: No shortness of breath, no cough, no hemoptysis. GASTROINTESTINAL: No diarrhea, no nausea, no vomiting, no abdominal pain. Normoactive bowel sounds. NEUROLOGICAL: No headaches, no weakness, no numbness. HEMATOLOGICAL: Denies any bleeding or petechiae. GENITOURINARY: Denies any burning micturition, frequency, or urgency. MUSCULOSKELETAL/RHEUMATOLOGICAL: Denies any joint pain, swelling, or any muscle pain. ENDOCRINE: Denies any polyuria or polydipsia. The rest of the 14-point review of systems is negative. Past Medical History Past Medical History: Hypertension, Osteoarthritis (OA) Additional Past Medical History / Comment(s): HX Low Sodium. djd,HX STOMACH ULCER. PERFORATED DIVERTICULTUM, COLOSTOMY 03/2016. past stress test pt state was wnl . History of Any Multi-Drug Resistant Organisms: None Reported Past Surgical History: Bowel Resection, Orthopedic Surgery Additional Past Surgical History / Comment(s): TOTAL RT Knee, total RT HIP replacment. 03-22-16 PERFORATED DIVERTICULUM -had exploratory lap/sigmoid resection/drainage of abcess/colostomy/appy. 07-19-18 lysis of adhesions/reversal of colostomy. 07-26-18 exp lap/colon resection(for perforation)/colostomy-has 2 drains Past Anesthesia/Blood Transfusion Reactions: No Reported Reaction Additional Past Anesthesia/Blood Transfusion Reaction / Comm: Pt states she did receive blood with total knee surgery-denies any reaction to it Smoking Status: Former smoker - Past Family History Father Family Medical History: Coronary Artery Disease (CAD), Myocardial Infarction ([place] ), Renal Disease Additional Family Medical History / Comment(s): Father of renal failure at the age of 72 yrs. Mother Family Medical History: Cancer Additional Family Medical History / Comment(s): Mother had colon cancer and of this at age 67 yrs. Medications and Allergies Home Medications Medication Instructions Recorded Confirmed Type HYDROcodone/APAP 5-325MG [[place] 1 tab PO Q4HR PRN 3 Days #18 tab 07/24/18 Rx 5-325] Acetaminophen Tab [Tylenol] 650 mg PO Q6HR PRN tab 08/05/18 08/12/18 Rx Aspirin 81 mg PO HS chew 08/05/18 08/12/18 Rx Fluconazole [Diflucan] 200 mg PO DAILY #14 tab 08/05/18 08/12/18 Rx Furosemide [Lasix] 40 mg PO BID@0900,1600 tab 08/05/18 08/12/18 Rx Magnesium Oxide [Mag-Ox] 400 mg PO BID tab 08/05/18 08/12/18 Rx Pantoprazole [Protonix] 40 mg PO AC-BRKFST tablet. 08/05/18 08/12/18 Rx Potassium Chloride ER [K-Dur 20] 20 meq PO DAILY tab.er.prt 08/05/18 08/12/18 Rx cefTRIAXone [Rocephin] 2,000 mg IVP Q24HR #14 ml 08/05/18 08/12/18 Rx metroNIDAZOLE [Flagyl] 500 mg PO TID #42 tab 08/05/18 08/12/18 Rx Bisacodyl [Dulcolax] 10 mg RECTAL DAILY 08/12/18 08/12/18 History Hydrocortisone Cream 1 applic TOPICAL TID 08/12/18 08/12/18 History [Hydrocortisone 1% Cream] Magnesium Hydroxide [Milk of 800 mg PO DAILY PRN 08/12/18 08/12/18 History Magnesia] Metoprolol Succinate [Toprol XL] 25 mg PO TID 08/12/18 08/12/18 History Na Phos,M-B/Na Phos,Di-Ba [[place] 1 dose RECTAL DAILY PRN 08/12/18 08/12/18 History Adult] Allergies Allergy/AdvReac Type Severity Reaction Status Date / Time No Known Allergies Allergy Verified 08/12/18 19:04 Physical Exam Vitals: Vital Signs Temp Pulse Pulse Resp BP BP Pulse Ox 08/13/18 06:16 97.9 F 101 H 16 127/67 97 08/12/18 23:04 98.4 F 120 H 16 106/70 97 08/12/18 21:39 98.4 F 123 H 18 123/62 99 08/12/18 20:59 129 H 18 08/12/18 20:50 125 H 08/12/18 20:45 121 H 26 H 135/75 96 08/12/18 19:04 99.2 F 111 H 18 157/94 91 L Intake and Output 08/12/18 08/13/18 08/13/18 22:59 06:59 14:59 Intake Total 60 240 Output Total 300 Balance 60 -300 240 Intake: Oral 60 240 Output: Stool 300 Other: # Voids 1 Weight 98.883 kg 66.5 kg PHYSICAL EXAMINATION: GENERAL: The patient is alert and oriented x3, not in any acute distress. Well developed, well nourished. HEENT: Pupils are round and equally reacting to light. EOMI. No scleral icterus. No conjunctival pallor. Normocephalic, atraumatic. No pharyngeal erythema. No thyromegaly. CARDIOVASCULAR: S1 and S2 present. No murmurs, rubs, or gallops. PULMONARY: Chest is clear to auscultation, no wheezing or crackles. ABDOMEN: There is abscess the lower end of the suture sites in the abdomen. There is drainage of pus from that site area. Patient has a colostomy bag which has significant amount of stool in that place. MUSCULOSKELETAL: No joint swelling or deformity. EXTREMITIES: No cyanosis, clubbing, or pedal edema. NEUROLOGICAL: Gross neurological examination did not reveal any focal deficits. SKIN: No rashes. Results CBC & Chem 7: 08/13/18 08:45 Labs: Abnormal Lab Results - Last 24 Hours (Table) 08/12/18 08/13/18 Range/Units 20:50 08:45 Sodium 135 L (137-145) mmol/L Creatinine 0.39 L 0.45 L (0.52-1.04) mg/dL Glucose 105 H (74-99) mg/dL Calcium 7.8 L 7.2 L (8.4-10.2) mg/dL Assessment and Plan Plan: -Abdominal surgical wound infection with possible abscess: Patient will undergo incision and drainage and patient will be continued on vancomycin and Unasyn blood wound cultures and blood cultures will be obtained. -Diverticulitis with a colostomy bag in place. -Atrial fibrillation presently rate controlled patient only had proximal atrial fibrillation because of which patient was never started on anticoagulation -Congestive heart failure mild chronic systolic dysfunction without any acute exacerbation patient Lasix will be cut down to 40 mg daily -Obesity -Depression -Hypertension
[2018-08-13] MEDS: HYDROCORTISONE 1% CREAM 30 GM TUBE TOPICAL SCH ×2 (16:32→23:30)
[2018-08-13] MEDS: MAGNESIUM OXIDE 400 MG TAB PO SCH (20:46)
--- NOTE | 2018-08-13 23:26 | CONS ---
CONSULTATION DATE OF SERVICE: 08/13/2018 REASON FOR CONSULTATION: Abdominal abscess and cellulitis. HISTORY OF PRESENT ILLNESS: The patient is a 68-year-old female who was recently admitted to hospital. Patient was noticed to have anastomosis leak after reversal of her colostomy. The patient subsequently was taken back to the OR and is status post diverting colostomy. Abdominal culture at that time shows Rosangela albicans and the patient was treated with IV Zosyn and Flagyl and subsequently she was discharged to the rehab on IV Rocephin 2 grams daily in addition to the oral Flagyl and Diflucan. The patient apparently has been brought back to the hospital with concern about abdominal infection with pus coming out of the wound, and the patient has been complaining of abdominal pain. The pain seems to be more of a dull aching pain to the lower abdominal area with intensity about 3 to 4 out of 10 and no radiation. The patient denies having any nausea or vomiting. She did have output in her colostomy bag. She denies any high-grade fever or chills. On arrival in the ER the patient's highest temperature so far was 99.2. No CBC was done. Her electrolytes seem to have been normal. Cultures obtained from the abdomen are currently pending. She has been started on Unasyn in addition to the vancomycin. Blood cultures were obtained which are currently pending. REVIEW OF SYSTEMS: CONSTITUTIONAL: Positive for weakness. Denies high-grade fever. EYES: No complaint. ENT: No complaint. RESPIRATORY: No complaint. CARDIOVASCULAR: No complaint. GENITOURINARY: No complaint. GASTROINTESTINAL: As per HPI. MUSCULOSKELETAL: No complaint. INTEGUMENTARY: No complaint. PSYCHOLOGICAL: No complaint. ENDOCRINE: No complaint. NEUROLOGICAL: No complaint. PAST MEDICAL HISTORY: 1. Hypertension. 2. Osteoarthritis. 3. History of peptic ulcer disease. 4. Perforated diverticulitis. 5. Colostomy with reversal and recent laparotomy with diverting colostomy. PAST SURGICAL HISTORY: 1. Bowel resection, colostomy and reversal with repeat colostomy placement this last admission. 2. Right knee replacement. 3. Right hip surgery. SOCIAL HISTORY: The patient denies smoking, drinking or drug use. FAMILY HISTORY: Father with history of [place]. Mother with history of colon cancer. ALLERGIES: NO KNOWN DRUG ALLERGIES. CURRENT MEDICATIONS: 1. [place]. 2. DuoNeb. 3. Unasyn. 4. Lovenox. 5. Diflucan. 6. Lasix. 7. Mag oxide. 8. Toprol-XL. 9. Vancomycin, Pharmacy to dose. 10.Zofran. 11.Protonix. PHYSICAL EXAMINATION: Her blood pressure is 128/79 with a pulse of 116, temperature 98.4. She is 99% on 2 L nasal cannula. General description is an elderly female lying in bed in no distress. No tachypnea or accessory muscle of respiration use. HEENT examination shows slight pallor. No scleral icterus. Oral mucous membrane is dry. No pharyngeal erythema or thrush. NECK: Trachea is central. No thyromegaly. LUNGS: Unlabored breathing. Clear to auscultation anteriorly. No wheeze or crackle. HEART: S1, S2. Regular rate and rhythm. ABDOMEN: Soft. She did have 2 small wounds in the midline incision area with minimal pressure. Purulent material came out which was cultured. There is no significant erythema, though. EXTREMITIES: No edema of feet. SKIN EXAMINATION: No rash or mass palpable. Neurologically the patient is awake, alert, oriented x3. Mood and affect normal. LABS: BUN of 11, creatinine 0.45. Blood culture obtained and currently pending. No CBC was done. No CT of abdomen and pelvis. DIAGNOSTIC IMPRESSION AND PLAN: Patient admitted to hospital with purulent material coming through the abdominal wound in a patient who has a history of recent laparotomy with diverting colostomy for anastomosis leak. Abdominal culture at this time shows only Rosangela albicans. The patient recently was on IV Rocephin in addition to the oral Flagyl and Diflucan with concern about possible failure of outpatient antibiotic therapy. Will need to cover for the resistant gram-positive as well as gram-negative pathogen. PLAN: 1. Patient will benefit from a CT abdomen and pelvis to make sure there is no evidence of any abscess that may need to be drained. 2. We will continue the patient on vancomycin, Pharmacy to dose, while watching her kidney function closely. However, discontinue Unasyn. Start the patient on Zosyn 3.375 grams q.8 hours and continue with oral Flagyl. 3. We will follow her clinical condition and culture to further adjust medication if needed. Thank you for this consultation. Will follow this patient along with you. MMODL / IJN: [id number] /
[2018-08-14] MEDS: PIPERACILLIN-TAZOBACTAM 3.375 GM in DEXTROSE/WATER 1 50ML.BAG IVPB SCH ×3 (00:39→16:48)
[2018-08-14 03:58] LABS: Basophils % (A) 0 %; Eosinophils # (A) 0.3 k/uL (0-0.7); Eosinophils % (A) 4 %; HCT 33.6 % (34.0-46.0); HGB 10.3 gm/dL (11.4-16.0); Hypochromasia Moderate; Lymphocytes # (A) 0.7 k/uL (1.0-4.8); Lymphocytes % (A) 12 %; MCH 29.7 pg (25.0-35.0); MCHC 30.7 g/dL (31.0-37.0); MCV 96.6 fL (80.0-100.0); Monocytes # (A) 0.3 k/uL (0-1.0); Monocytes % (A) 4 %; Neutrophils # (A) 4.9 k/uL (1.3-7.7); Neutrophils % (A) 78 %; Platelet Count 327 k/uL (150-450); RBC 3.48 m/uL (3.80-5.40); RDW 14.5 % (11.5-15.5); WBC 6.3 k/uL (3.8-10.6)
[2018-08-14] MEDS ORDERED: VANCOMYCIN TROUGH DUE 1 EACH MISC MISCELLANE ONE (04:00)
[2018-08-14 04:31] LABS: ALT 32 U/L (9-52); AST 34 U/L (14-36); Alkaline Phosphatase 118 U/L (38-126); Anion Gap 4 mmol/L; Blood Urea Nitrogen 16 mg/dL (7-17); Calcium 7.8 mg/dL (8.4-10.2); Carbon Dioxide 28 mmol/L (22-30); Chloride 105 mmol/L (98-107); Glucose 91 mg/dL (74-99); Potassium 3.8 mmol/L (3.5-5.1); Sodium 137 mmol/L (137-145); Total Bilirubin 0.4 mg/dL (0.2-1.3); Total Protein 4.8 g/dL (6.3-8.2)
[2018-08-14] MEDS: VANCOMYCIN 1,500 MG in SODIUM CHLORIDE 0.9% 250 ML IVPB SCH (05:06)
[2018-08-14] MEDS: HYDROcodone/APAP 5-325MG 1 EACH TAB PO PRN ×2 (05:06→18:37)
[2018-08-14] MEDS: PANTOPRAZOLE 40 MG TABLET PO SCH (08:08)
[2018-08-14] MEDS: FUROSEMIDE 40 MG TAB PO SCH (08:08)
[2018-08-14] MEDS: MAGNESIUM OXIDE 400 MG TAB PO SCH ×2 (08:08→21:45)
[2018-08-14] MEDS: ENOXAPARIN 40 MG/0.4 ML SYRINGE SQ SCH (08:08)
[2018-08-14] MEDS: HYDROCORTISONE 1% CREAM 30 GM TUBE TOPICAL SCH ×3 (08:08→21:47)
[2018-08-14] MEDS: FLUCONAZOLE 100 MG TAB PO SCH (08:08)
[2018-08-14] MEDS: METOPROLOL SUCCINATE (ER) 25 MG TAB.ER.24H PO SCH ×3 (08:08→21:44)
--- NOTE | 2018-08-14 13:14 | P.PN ---
<Brigitte Bruce M - Last Filed: 08/14/18 12:49> Subjective Progress Note Date: 08/14/18 68-year-old female seen at the bedside sitting up in bed patient states no appetite. No nausea no vomiting reports having lower abdominal discomfort. Ostomy moderate amount of brown stool noted.. Moderate amount of Drainage noted on lower abdominal dressing no odor noted on the lower abdominal chon in place to the surgical incision site no redness noted. Patient currently is being followed by infectious disease Dr. Hancock. Currently on IV Vanco and Zosyn Afebrile temp 98.7 two J-P drain in place creamy secretions noted in the bulb. Currently patient reports the lower abdominal discomfort is improving Patient had a recent July 19 exploratory lap sigmoid resection drainage of abscess ostomy appendectomy . Reversal of ostomy July 26 exploratory lap, colon resection for perforation ostomy Objective - Vital Signs Vital signs: Vital Signs Temp 98.7 F 08/14/18 06:27 Pulse 68 08/14/18 06:27 Resp 16 08/14/18 06:27 BP 146/71 08/14/18 06:27 Pulse Ox 99 08/14/18 06:27 Intake & Output 08/13/18 08/14/18 08/14/18 18:59 06:59 18:59 Intake Total 480 100 360 Output Total 220 Balance 480 -120 360 Intake: Oral 480 100 360 Output: Drainage 20 Right Lower Abdomen 10 Right Upper Abdomen 10 Stool 200 Other: Voiding Method Diaper Incontinent # Voids 2 1 - Exam Physical exam 68-year-old female resting in bed appears in no acute distress denies dizziness lightheadedness shortness of breath. States there is an improvement in the discomfort in the abdomen Lungs adequate air movement bilaterally room air Heart S1-S2 audible regular denying chest pain Abdomen soft nondistended to ELOY drains in place currently, secretions noted distal 2 inches from surgical incision moderate amount of non- malodorus drainage. [place] intact to the rest of the surgical incision site. Upper surgical incision site no redness no signs of infection. Ostomy left lower quadrant moderate amount of stool stoma pink. Incontinent a urine reports no nausea no vomiting Extremities no edema noted - Labs CBC & Chem 7: 08/14/18 03:32 08/14/18 03:32 Labs: Abnormal Lab Results - Last 24 Hours (Table) 08/14/18 08/14/18 Range/Units 03:32 03:32 RBC 3.48 L (3.80-5.40) m/uL Hgb 10.3 L (11.4-16.0) gm/dL Hct 33.6 L (34.0-46.0) % MCHC 30.7 L (31.0-37.0) g/dL Lymphocytes # 0.7 L (1.0-4.8) k/uL Creatinine 0.42 L (0.52-1.04) mg/dL Calcium 7.8 L (8.4-10.2) mg/dL Total Protein 4.8 L (6.3-8.2) g/dL Albumin 2.0 L (3.5-5.0) g/dL Microbiology - Last 24 Hours (Table) 08/13/18 12:49 Gram Stain - Preliminary Abdomen Wound Culture - Preliminary 08/13/18 16:27 Gram Stain - Preliminary Abdomen Wound Culture - Preliminary 08/13/18 16:27 Anaerobic Culture - Preliminary Abdomen 08/13/18 12:49 Anaerobic Culture - Preliminary Abdomen Assessment and Plan Assessment: Impression Diverticulitis of the intestine with perforation Wound infection colostomy status Recent July 28 exploratory laparotomy with descending colon resection for perforation descending colostomy, Ford's procedure for perforated descending colon Recent colostomy reversal. l on July 19 with peritoneal lavage. Present on admission abdominal surgical wound infection possible abscess Chronic systolic heart failure without any evidence of an acute exacerbation Plan Continue recommendations by infectious disease Continue IV antibiotic vancomycin and Zosyn Follow up on wound cultures Pain control DVT and GI prophylaxis No further surgical recommendations pending The above impression and plan of care have been discussed and directed by signing physician. Brigitte Bruce nurse practitioner acting as scribe for signing physician. <Moon Kelly N - Last Filed: 08/14/18 20:52> Objective - Vital Signs Vital signs: Vital Signs Temp 99.0 F 08/14/18 14:39 Pulse 70 08/14/18 14:39 Resp 18 08/14/18 14:39 BP 123/77 08/14/18 14:39 Pulse Ox 98 08/14/18 14:39 Intake & Output 08/14/18 08/14/18 08/15/18 06:59 18:59 06:59 Intake Total 100 650 Output Total 220 Balance -120 650 Weight 66.5 kg Intake: IV 50 Piperacillin-Tazobactam 3 50 .375 gm In Dextrose/Water 1 50ml.bag @ 12.5 mls/hr IVPB Q8HR [facility] Rx#: [id number] Oral 100 600 Output: Drainage 20 Right Lower Abdomen 10 Right Upper Abdomen 10 Stool 200 Other: Voiding Method Diaper Incontinent # Voids 1 4 - Labs CBC & Chem 7: 08/14/18 03:32 08/14/18 03:32 Labs: Abnormal Lab Results - Last 24 Hours (Table) 08/14/18 08/14/18 Range/Units 03:32 03:32 RBC 3.48 L (3.80-5.40) m/uL Hgb 10.3 L (11.4-16.0) gm/dL Hct 33.6 L (34.0-46.0) % MCHC 30.7 L (31.0-37.0) g/dL Lymphocytes # 0.7 L (1.0-4.8) k/uL Creatinine 0.42 L (0.52-1.04) mg/dL Calcium 7.8 L (8.4-10.2) mg/dL Total Protein 4.8 L (6.3-8.2) g/dL Albumin 2.0 L (3.5-5.0) g/dL Microbiology - Last 24 Hours (Table) 08/13/18 15:44 Blood Culture - Preliminary Blood No Growth after 24 hours 08/13/18 12:49 Gram Stain - Preliminary Abdomen Wound Culture - Preliminary 08/13/18 16:27 Gram Stain - Preliminary Abdomen Wound Culture - Preliminary 08/13/18 16:27 Anaerobic Culture - Preliminary Abdomen 08/13/18 12:49 Anaerobic Culture - Preliminary Abdomen Assessment and Plan (1) Diverticulitis of intestine with perforation Current Visit: Yes Status: Acute Code(s): K57.80 - DVTRCLI OF INTEST, PART UNSP, W PERF AND ABSCESS W/O BLEED SNOMED Code(s): 875646814 (2) Wound infection Current Visit: Yes Status: Acute Code(s): T14.8XXA - OTHER INJURY OF UNSPECIFIED BODY REGION, INITIAL ENCOUNTER; L08.9 - LOCAL INFECTION OF THE SKIN AND SUBCUTANEOUS TISSUE, UNSP SNOMED Code(s): 84086720 (3) Colostomy status Current Visit: No Status: Acute Code(s): Z93.3 - COLOSTOMY STATUS SNOMED Code(s): 055604993
[2018-08-14 14:04] VITALS: BMI 27.6
--- NOTE | 2018-08-14 14:45 | PN ---
PROGRESS NOTE DATE OF SERVICE: 08/14/2018 REASON FOR FOLLOWUP: Abdominal abscess. INTERVAL HISTORY: The patient is currently afebrile. She has been complaining of pain in the lower abdominal area, about the same as yesterday. She still has some purulent drainage from one of the incision site. No significant drainage in the ELOY slope. Denies having any chest pain, shortness of breath or cough. No abdominal pain or urinary symptoms. PHYSICAL EXAMINATION: Blood pressure 146/71 with a pulse of 68, temperature 98.7, she is 99% on room air. General description is an elderly female, lying in bed in no distress. RESPIRATORY SYSTEM: Unlabored breathing, clear to auscultation anteriorly. HEART: S1, S2. Regular rate and rhythm. ABDOMEN: Soft, no tenderness. Did have some purulent drainage from the wound incision. EXTREMITIES: Some trace edema of the feet. LABS: Hemoglobin is 10.8, white count of 6.2, BUN of 15, creatinine 0.42. Vancomycin trough is slightly on the high side. DIAGNOSTIC IMPRESSION AND PLAN: Patient with possible abdominal abscess. The patient did have recent revision of the colostomy with diverting colostomy. Abdominal culture at that time was positive for romie albicans at that time and she was covered with Rocephin and Flagyl and Diflucan. At this time antibiotic has brought into the Zosyn and vanco. Will continue evaluated for culture to finalize. May benefit from a CT. This was discussed with the nurse practitioner for the surgical team. Continue supportive care. MMODL / IJN: [id number] /
--- NOTE | 2018-08-14 16:47 | P.PN ---
Subjective Progress Note Date: 08/14/18 Progress note being dictated for Dr. Ty Interval history:68-year-old pleasant female had a recent abdominal surgery for diverticulitis patient has a colostomy bag in place was sent back from my snf as the wound drain is not draining and patient has abdominal surgical wound probably being infected with significant amount of pus coming out of that with pain and tenderness. There was a suspected abscess. Patient was discharged on metronidazole and ceftriaxone. Patient here was now started on Unasyn and vancomycin which is appropriate and metronidazole and Rocephin are being discontinued. Patient evidently had a fever here had normal white blood cell count. Patient denied dysuria cough runny nose. chest x-ray which showed improvement in her pulmonary edema patient during her hospitalization had pulmonary edema patient was on Lasix which will be continued at a lower dose. Patient was tachycardic as reflux tachycardia from metoprolol. Which will be resumed Review of Systems REVIEW OF SYSTEMS: CONSTITUTIONAL: No fever, no malaise, no fatigue. HEENT: No recent visual problems or hearing problems. Denied any sore throat. CARDIOVASCULAR: No chest pain, orthopnea, PND, no palpitations, no syncope. PULMONARY: No shortness of breath, no cough, no hemoptysis. GASTROINTESTINAL: No diarrhea, no nausea, no vomiting, no abdominal pain. Normoactive bowel sounds. NEUROLOGICAL: No headaches, no weakness, no numbness. HEMATOLOGICAL: Denies any bleeding or petechiae. GENITOURINARY: Denies any burning micturition, frequency, or urgency. MUSCULOSKELETAL/RHEUMATOLOGICAL: Denies any joint pain, swelling, or any muscle pain. ENDOCRINE: Denies any polyuria or polydipsia. The rest of the 14-point review of systems is negative. 08/14/2018 maintained on IV antibiotics of Vancomycin, Zosyn, Flagyl. Wound cultures pending. Abdominal pain improving. T-max 99. Objective - Vital Signs Vital signs: Vital Signs Temp 99.0 F 08/14/18 14:39 Pulse 70 08/14/18 14:39 Resp 18 08/14/18 14:39 BP 123/77 08/14/18 14:39 Pulse Ox 98 08/14/18 14:39 Intake & Output 08/13/18 08/14/18 08/14/18 18:59 06:59 18:59 Intake Total 480 100 650 Output Total 220 Balance 480 -120 650 Weight 66.5 kg Intake: IV 50 Piperacillin-Tazobactam 3 50 .375 gm In Dextrose/Water 1 50ml.bag @ 12.5 mls/hr IVPB Q8HR [facility] OF [facility] Rx#: [id number] Oral 480 100 600 Output: Drainage 20 Right Lower Abdomen 10 Right Upper Abdomen 10 Stool 200 Other: Voiding Method Diaper Incontinent # Voids 2 1 4 - Exam GENERAL: The patient is alert and oriented x3, not in any acute distress. HEENT: Pupils are round and equally reacting to light. EOMI. No scleral icterus. No conjunctival pallor. Normocephalic, atraumatic. CARDIOVASCULAR: S1 and S2 present. No murmurs, rubs, or gallops. PULMONARY: Chest is clear to auscultation, no wheezing or crackles. ABDOMEN: Large Dressing clean dry and intact. Functioning colostomy. ELOY drains 2 with minimal secretions. MUSCULOSKELETAL: No joint swelling or deformity. EXTREMITIES: No cyanosis, clubbing, or pedal edema. NEUROLOGICAL: Gross neurological examination did not reveal any focal deficits. Microbiology 08/13/18 12:49 Abdomen Gram Stain - Preliminary 08/13/18 12:49 Abdomen Wound Culture - Preliminary 08/13/18 16:27 Abdomen Gram Stain - Preliminary 08/13/18 16:27 Abdomen Wound Culture - Preliminary 08/13/18 16:27 Abdomen Anaerobic Culture - Preliminary 08/13/18 12:49 Abdomen Anaerobic Culture - Preliminary - Labs CBC & Chem 7: 08/14/18 03:32 08/14/18 03:32 Labs: Abnormal Lab Results - Last 24 Hours (Table) 08/14/18 08/14/18 Range/Units 03:32 03:32 RBC 3.48 L (3.80-5.40) m/uL Hgb 10.3 L (11.4-16.0) gm/dL Hct 33.6 L (34.0-46.0) % MCHC 30.7 L (31.0-37.0) g/dL Lymphocytes # 0.7 L (1.0-4.8) k/uL Creatinine 0.42 L (0.52-1.04) mg/dL Calcium 7.8 L (8.4-10.2) mg/dL Total Protein 4.8 L (6.3-8.2) g/dL Albumin 2.0 L (3.5-5.0) g/dL Microbiology - Last 24 Hours (Table) 08/13/18 12:49 Gram Stain - Preliminary Abdomen Wound Culture - Preliminary 08/13/18 16:27 Gram Stain - Preliminary Abdomen Wound Culture - Preliminary 08/13/18 16:27 Anaerobic Culture - Preliminary Abdomen 08/13/18 12:49 Anaerobic Culture - Preliminary Abdomen Assessment and Plan Assessment: -Abdominal surgical wound infection with possible abscess -Diverticulitis -Atrial fibrillation presently rate controlled patient only had proximal atrial fibrillation because of which patient was never started on anticoagulation -Congestive heart failure mild chronic systolic dysfunction without any acute exacerbation patient Lasix will be cut down to 40 mg daily -Obesity -Depression -Hypertension -Depression Plan: Continue on current medication regime ,monitoring and symptomatic treatment. Pain management. Maintain IV antibiotics as per infectious disease. Wound cultures pending. Lexapro initiated for depression. The impression and plan of care has been dictated as directed. : I performed a history and examination of this patient, discussed the same with the dictator. I agree with the dictator's note ,documented as a scribe. Any additional findings or plans will be noted.
[2018-08-14] MEDS: ESCITALOPRAM 10 MG TAB PO SCH (17:25)
--- NOTE | 2018-08-14 21:04 | P.PN ---
Progress Note - Text Progress Note Date: 08/14/18 Patient seen and evaluated. No reports of fevers or chills. She is still having purulent drainage along the lower midline. Both JPs are serous. JPs were discontinued at bedside. At the lower midline incision, tract of the wound was probed with fascia intact. Opening of 1 cm made after discontinuing chon. All chon discontinued along the midline incision including the previous left descending colostomy site. Wound tract was probed and flushed with 120 mL of normal saline with return of clear serosanguineous drainage. Wound packed with 6 inch saline-soaked gauze using Q-tip. Skin was cleansed with antibacterial soap followed by chlor prep along all incisions. Patient reports resolution of abdominal pain which had been present from the right lower ELOY site. Erythema also resolved compared to yesterday. Per request of infectious disease, CT of the abdomen and pelvis previously performed 08/12/2018 at outside institution uploaded onto [facility] system. Imaging thoroughly reviewed demonstrating bilateral pleural effusions including fluid collection along the subcutaneous lower midline incision. No intra-abdominal abscesses identified. A few pockets of intra-abdominal ascites confirmed. Outside CT report available in patient's record for interpretation otherwise hard copy film uploaded. No additional CT scans needed at this time as patient has been afebrile, with WBC was normal Including from [facility] prior to transfer Where White Blood Cell Count Was 8.6. Discharge pending antibiotic management. Wound is repacked with iodoform daily.
[2018-08-15] MEDS: VANCOMYCIN 1,000 MG in SODIUM CHLORIDE 0.9% 250 ML IVPB SCH ×3 (00:37→15:08)
[2018-08-15] MEDS: PIPERACILLIN-TAZOBACTAM 3.375 GM in DEXTROSE/WATER 1 50ML.BAG IVPB SCH ×3 (02:43→15:08)
[2018-08-15] MEDS: METOPROLOL SUCCINATE (ER) 25 MG TAB.ER.24H PO SCH ×3 (08:11→20:41)
[2018-08-15] MEDS: MAGNESIUM OXIDE 400 MG TAB PO SCH ×2 (08:11→20:41)
[2018-08-15] MEDS: FUROSEMIDE 40 MG TAB PO SCH (08:11)
[2018-08-15] MEDS: ENOXAPARIN 40 MG/0.4 ML SYRINGE SQ SCH (08:11)
[2018-08-15] MEDS: FLUCONAZOLE 100 MG TAB PO SCH (08:11)
[2018-08-15] MEDS: ESCITALOPRAM 10 MG TAB PO SCH (08:11)
[2018-08-15] MEDS: PANTOPRAZOLE 40 MG TABLET PO SCH (08:11)
[2018-08-15] MEDS: HYDROCORTISONE 1% CREAM 30 GM TUBE TOPICAL SCH ×3 (08:12→20:41)
[2018-08-15 09:58] LABS: Anion Gap 4 mmol/L; Blood Urea Nitrogen 14 mg/dL (7-17); Calcium 7.4 mg/dL (8.4-10.2); Carbon Dioxide 30 mmol/L (22-30); Chloride 103 mmol/L (98-107); Glucose 125 mg/dL (74-99); Potassium 3.5 mmol/L (3.5-5.1); Sodium 137 mmol/L (137-145)
[2018-08-15 10:48] LABS: Basophils % (A) 0 %; Eosinophils # (A) 0.3 k/uL (0-0.7); Eosinophils % (A) 5 %; HCT 33.7 % (34.0-46.0); HGB 10.4 gm/dL (11.4-16.0); Hypochromasia Moderate; Lymphocytes # (A) 0.3 k/uL (1.0-4.8); Lymphocytes % (A) 4 %; MCH 30.7 pg (25.0-35.0); MCV 99.1 fL (80.0-100.0); Macrocytosis Slight; Monocytes # (A) 0.2 k/uL (0-1.0); Monocytes % (A) 3 %; Neutrophils # (A) 6.5 k/uL (1.3-7.7); Neutrophils % (A) 87 %; Platelet Count 269 k/uL (150-450); RDW 14.5 % (11.5-15.5); WBC 7.5 k/uL (3.8-10.6)
[2018-08-15] MEDS ORDERED: ANIDULAFUNGIN 200 MG in SODIUM CHLORIDE 0.9% 200 ML IVPB ONE (12:44)
--- NOTE | 2018-08-15 14:25 | P.PN ---
<Brigitte Bruce M - Last Filed: 08/15/18 14:12> Subjective Progress Note Date: 08/15/18 68-year-old female seen this morning at the bedside. Patient states that she's been eating appetite is improving. No nausea no vomiting ELOY drain in place. Moderate amount of stool from the ostomy noted. PT OT participating in the plan of care. Awaiting infectious diseases recommendations anticipate discharge when antibiotics have been addressed the white count is 7.5 this morning electrolytes within normal limits Patient had a CAT scan of the abdomen and pelvis previously performed on August 12 at an outside facility area imaging was reviewed by Dr. Preciado demonstrated bilateral pleural effusion, fluid collection along the subcutaneous lower midline incision. No intra-abdominal abscess identified. Anticipated discharge back to the [facility] facility soon a recent July 19 exploratory lap sigmoid resection drainage of abscess ostomy appendectomy . Reversal of ostomy July 26 exploratory lap, colon resection for perforation ostomy Objective - Vital Signs Vital signs: Vital Signs Temp 97.2 F L 08/15/18 07:00 Pulse 76 08/15/18 07:00 Resp 20 08/15/18 07:00 BP 141/79 08/15/18 07:00 Pulse Ox 99 08/15/18 07:00 Intake & Output 08/14/18 08/15/18 08/15/18 18:59 06:59 18:59 Intake Total 650 240 Balance 650 240 Weight 66.5 kg Intake: IV 50 Piperacillin-Tazobactam 3 50 .375 gm In Dextrose/Water 1 50ml.bag @ 12.5 mls/hr IVPB Q8HR [facility] Rx#: [id number] Oral 600 240 Other: Voiding Method Diaper Incontinent # Voids 4 1 - Exam Physical exam 68-year-old female resting in bed appears in no acute distress denies dizziness lightheadedness shortness of breath. Lungs adequate air movement bilaterally room air Heart S1-S2 audible regular denying chest pain Abdomen soft nondistended [address] currently, Upper surgical incision site no redness no signs of infection. Surgical dressing dry Ostomy left lower quadrant moderate amount of stool stoma pink. Extremities no edema noted PICC line in place no redness right upper extremity - Labs CBC & Chem 7: 08/15/18 08:55 08/15/18 08:55 Labs: Abnormal Lab Results - Last 24 Hours (Table) 08/15/18 08/15/18 Range/Units 08:55 08:55 RBC 3.40 L (3.80-5.40) m/uL Hgb 10.4 L (11.4-16.0) gm/dL Hct 33.7 L (34.0-46.0) % Lymphocytes # 0.3 L (1.0-4.8) k/uL Creatinine 0.48 L (0.52-1.04) mg/dL Glucose 125 H (74-99) mg/dL Calcium 7.4 L (8.4-10.2) mg/dL Microbiology - Last 24 Hours (Table) 08/13/18 12:49 Anaerobic Culture - Preliminary Abdomen 08/13/18 12:49 Gram Stain - Final Abdomen Wound Culture - Final Rosangela albicans 08/13/18 16:27 Gram Stain - Preliminary Abdomen Wound Culture - Preliminary 08/13/18 15:44 Blood Culture - Preliminary Blood No Growth after 24 hours Assessment and Plan Assessment: Impression Diverticulitis of the intestine with perforation Wound infection colostomy status Recent July 28 exploratory laparotomy with descending colon resection for perforation descending colostomy, Ford's procedure for perforated descending colon Recent colostomy reversal. l on July 19 with peritoneal lavage. Present on admission abdominal surgical wound infection possible abscess Chronic systolic heart failure without any evidence of an acute exacerbation Plan Continue recommendations by infectious disease Continue IV antibiotic vancomycin and Zosyn Follow up on wound cultures Pain control DVT and GI prophylaxis No further surgical recommendations pending The above impression and plan of care have been discussed and directed by signing physician. Brigitte Bruce nurse practitioner acting as scribe for signing physician. <Moon Kelly N - Last Filed: 08/15/18 16:51> Objective - Vital Signs Vital signs: Vital Signs Temp 98.1 F 08/15/18 14:45 Pulse 75 08/15/18 14:45 Resp 16 08/15/18 14:45 BP 119/75 08/15/18 14:45 Pulse Ox 98 08/15/18 14:45 Intake & Output 08/14/18 08/15/18 08/15/18 18:59 06:59 18:59 Intake Total 650 240 Balance 650 240 Weight 66.5 kg Intake: IV 50 Piperacillin-Tazobactam 3 50 .375 gm In Dextrose/Water 1 50ml.bag @ 12.5 mls/hr IVPB Q8HR [facility] Rx#: [id number] Oral 600 240 Other: Voiding Method Diaper Incontinent # Voids 4 1 2 - Labs CBC & Chem 7: 08/15/18 08:55 08/15/18 08:55 Labs: Abnormal Lab Results - Last 24 Hours (Table) 08/15/18 08/15/18 Range/Units 08:55 08:55 RBC 3.40 L (3.80-5.40) m/uL Hgb 10.4 L (11.4-16.0) gm/dL Hct 33.7 L (34.0-46.0) % Lymphocytes # 0.3 L (1.0-4.8) k/uL Creatinine 0.48 L (0.52-1.04) mg/dL Glucose 125 H (74-99) mg/dL Calcium 7.4 L (8.4-10.2) mg/dL Microbiology - Last 24 Hours (Table) 08/13/18 12:49 Anaerobic Culture - Preliminary Abdomen 08/13/18 12:49 Gram Stain - Final Abdomen Wound Culture - Final Rosangela albicans 08/13/18 16:27 Gram Stain - Preliminary Abdomen Wound Culture - Preliminary 08/13/18 15:44 Blood Culture - Preliminary Blood No Growth after 24 hours Assessment and Plan (1) Diverticulitis of intestine with perforation Current Visit: Yes Status: Acute Code(s): K57.80 - DVTRCLI OF INTEST, PART UNSP, W PERF AND ABSCESS W/O BLEED SNOMED Code(s): 136441520 (2) Wound infection Current Visit: Yes Status: Acute Code(s): T14.8XXA - OTHER INJURY OF UNSPECIFIED BODY REGION, INITIAL ENCOUNTER; L08.9 - LOCAL INFECTION OF THE SKIN AND SUBCUTANEOUS TISSUE, UNSP SNOMED Code(s): 83612834 (3) Colostomy status Current Visit: No Status: Acute Code(s): Z93.3 - COLOSTOMY STATUS SNOMED Code(s): 055949780
--- NOTE | 2018-08-15 16:10 | PN ---
PROGRESS NOTE DATE OF SERVICE: 08/15/2018 REASON FOR FOLLOWUP: Abdominal abscess. INTERVAL HISTORY: The patient is currently afebrile. She is breathing comfortably. Denies significant chest pain. Still complains of some pain to the lower abdominal area. No worsening, though. No nausea. No vomiting or any diarrhea. PHYSICAL EXAMINATION: Blood pressure 119/75 with a pulse of 75, temperature 98.1. She is 98% on 2 L nasal cannula. General description is an elderly female lying in bed in no distress. RESPIRATORY SYSTEM: Unlabored breathing. Clear to auscultation anteriorly. HEART: S1, S2. Regular rate and rhythm. ABDOMEN: Soft. Wound is currently dressed up with drainage on the dressing. LABS: Hemoglobin is 10.4, white count 7.5. BUN of 14, creatinine 0.48. The abdominal culture is showing Rosangela albicans. DIAGNOSTIC IMPRESSION AND PLAN: Patient admitted to hospital with abdominal abscess. Her previous culture did show Rosangela albicans and the patient has been on Diflucan, Rocephin and Flagyl in the outpatient setting, now with abdominal culture showing rosangela with a question of possible species. Antifungal will be adjusted to Keep the patient on Zosyn and vancomycin at this point; however, as no gram-positive was cultured, will discontinue the vancomycin to decrease the risk of nephrotoxicity. Continue with supportive care. MMODL / IJN: [id number] /
--- NOTE | 2018-08-15 18:52 | P.PN ---
Subjective Progress Note Date: 08/15/18 Progress note being dictated for Dr. Ty Interval history:68-year-old pleasant female had a recent abdominal surgery for diverticulitis patient has a colostomy bag in place was sent back from my [facility] as the wound drain is not draining and patient has abdominal surgical wound probably being infected with significant amount of pus coming out of that with pain and tenderness. There was a suspected abscess. Patient was discharged on metronidazole and ceftriaxone. Patient here was now started on Unasyn and vancomycin which is appropriate and metronidazole and Rocephin are being discontinued. Patient evidently had a fever here had normal white blood cell count. Patient denied dysuria cough runny nose. chest x-ray which showed improvement in her pulmonary edema patient during her hospitalization had pulmonary edema patient was on Lasix which will be continued at a lower dose. Patient was tachycardic as reflux tachycardia from metoprolol. Which will be resumed Review of Systems REVIEW OF SYSTEMS: CONSTITUTIONAL: No fever, no malaise, no fatigue. HEENT: No recent visual problems or hearing problems. Denied any sore throat. CARDIOVASCULAR: No chest pain, orthopnea, PND, no palpitations, no syncope. PULMONARY: No shortness of breath, no cough, no hemoptysis. GASTROINTESTINAL: No diarrhea, no nausea, no vomiting, no abdominal pain. Normoactive bowel sounds. NEUROLOGICAL: No headaches, no weakness, no numbness. HEMATOLOGICAL: Denies any bleeding or petechiae. GENITOURINARY: Denies any burning micturition, frequency, or urgency. MUSCULOSKELETAL/RHEUMATOLOGICAL: Denies any joint pain, swelling, or any muscle pain. ENDOCRINE: Denies any polyuria or polydipsia. The rest of the 14-point review of systems is negative. 08/14/2018 maintained on IV antibiotics of Vancomycin, Zosyn, Flagyl. Wound cultures pending. Abdominal pain improving. T-max 99. 08/15/2018 afebrile, continues on IV antibiotics as per infectious disease. Wound cultures pending. Mild abdominal pain, improved. Objective - Vital Signs Vital signs: Vital Signs Temp 98.1 F 08/15/18 14:45 Pulse 75 08/15/18 14:45 Resp 16 08/15/18 14:45 BP 119/75 08/15/18 14:45 Pulse Ox 98 08/15/18 14:45 Intake & Output 08/14/18 08/15/18 08/15/18 18:59 06:59 18:59 Intake Total 650 240 Balance 650 240 Weight 66.5 kg Intake: IV 50 Piperacillin-Tazobactam 3 50 .375 gm In Dextrose/Water 1 50ml.bag @ 12.5 mls/hr IVPB Q8HR [facility] Rx#: [id number] Oral 600 240 Other: Voiding Method Diaper Incontinent # Voids 4 1 2 - Exam GENERAL: The patient is alert and oriented x3, not in any acute distress. Flat affect HEENT: Pupils are round and equally reacting to light. EOMI. No scleral icterus. No conjunctival pallor. Normocephalic, atraumatic. CARDIOVASCULAR: S1 and S2 present. No murmurs, rubs, or gallops. PULMONARY: Chest is clear to auscultation, no wheezing or crackles. ABDOMEN: Dressing intact with drainage. Functioning colostomy. MUSCULOSKELETAL: No joint swelling or deformity. EXTREMITIES: No cyanosis, clubbing, or pedal edema. NEUROLOGICAL: Gross neurological examination did not reveal any focal deficits. Microbiology 08/13/18 16:27 Abdomen Gram Stain - Final 08/13/18 16:27 Abdomen Wound Culture - Final Rosangela albicans 08/13/18 15:44 Blood Blood Culture - Preliminary No Growth after 48 hours 08/13/18 12:49 Abdomen Anaerobic Culture - Preliminary 08/13/18 12:49 Abdomen Gram Stain - Final 08/13/18 12:49 Abdomen Wound Culture - Final Rosangela albicans 08/13/18 16:27 Abdomen Anaerobic Culture - Preliminary - Labs CBC & Chem 7: 08/15/18 08:55 08/15/18 08:55 Labs: Abnormal Lab Results - Last 24 Hours (Table) 08/15/18 08/15/18 Range/Units 08:55 08:55 RBC 3.40 L (3.80-5.40) m/uL Hgb 10.4 L (11.4-16.0) gm/dL Hct 33.7 L (34.0-46.0) % Lymphocytes # 0.3 L (1.0-4.8) k/uL Creatinine 0.48 L (0.52-1.04) mg/dL Glucose 125 H (74-99) mg/dL Calcium 7.4 L (8.4-10.2) mg/dL Microbiology - Last 24 Hours (Table) 08/13/18 16:27 Gram Stain - Final Abdomen Wound Culture - Final Rosangela albicans 08/13/18 15:44 Blood Culture - Preliminary Blood No Growth after 48 hours 08/13/18 12:49 Anaerobic Culture - Preliminary Abdomen 08/13/18 12:49 Gram Stain - Final Abdomen Wound Culture - Final Rosangela albicans Assessment and Plan Assessment: -Abdominal surgical wound infection with possible abscess. Abdominal culture currently reporting Rosangela -Diverticulitis -Atrial fibrillation presently rate controlled patient only had proximal atrial fibrillation because of which patient was never started on anticoagulation -Congestive heart failure mild chronic systolic dysfunction without any acute exacerbation patient Lasix will be cut down to 40 mg daily -Obesity -Depression -Hypertension -Depression Plan: Continue on current medication regime ,monitoring and symptomatic treatment. Pain management. Maintain IV antibiotics as per infectious disease. Final Wound cultures pending. Maintain supportive care. The impression and plan of care has been dictated as directed. : I performed a history and examination of this patient, discussed the same with the dictator. I agree with the dictator's note ,documented as a scribe. Any additional findings or plans will be noted.
[2018-08-16] MEDS: VANCOMYCIN 1,000 MG in SODIUM CHLORIDE 0.9% 250 ML IVPB SCH ×2 (00:27→07:58)
[2018-08-16 00:41] VITALS: RESP 18; TEMP 97.9
[2018-08-16] MEDS: PIPERACILLIN-TAZOBACTAM 3.375 GM in DEXTROSE/WATER 1 50ML.BAG IVPB SCH ×2 (02:29→07:58)
[2018-08-16] MEDS ORDERED: VANCOMYCIN TROUGH DUE 1 EACH MISC MISCELLANE ONE (07:00)
[2018-08-16 07:23] VITALS: BP 157/83; PULSE 63
[2018-08-16] MEDS: ENOXAPARIN 40 MG/0.4 ML SYRINGE SQ SCH (07:28)
[2018-08-16] MEDS: ESCITALOPRAM 10 MG TAB PO SCH (07:28)
[2018-08-16] MEDS: FUROSEMIDE 40 MG TAB PO SCH (07:28)
[2018-08-16] MEDS: MAGNESIUM OXIDE 400 MG TAB PO SCH (07:28)
[2018-08-16] MEDS: PANTOPRAZOLE 40 MG TABLET PO SCH (07:29)
[2018-08-16] MEDS: METOPROLOL SUCCINATE (ER) 25 MG TAB.ER.24H PO SCH ×2 (07:29→15:14)
[2018-08-16] MEDS: HYDROCORTISONE 1% CREAM 30 GM TUBE TOPICAL SCH ×2 (07:31→15:15)
--- NOTE | 2018-08-16 08:33 | P.PN ---
Progress Note - Text Progress Note Date: 08/15/18 FINAL Cultures consistent with Rosangela. Packing of the lower abdomen done. Abdominal pain resolved. Agreeable for transfer to rehab tomorrow pending adjustment of antibiotics.
[2018-08-16 08:41] LABS: Anion Gap 5 mmol/L; Blood Urea Nitrogen 14 mg/dL (7-17); Calcium 7.6 mg/dL (8.4-10.2); Carbon Dioxide 33 mmol/L (22-30); Chloride 101 mmol/L (98-107); Glucose 88 mg/dL (74-99); Potassium 3.3 mmol/L (3.5-5.1); Sodium 139 mmol/L (137-145)
[2018-08-16] MEDS ORDERED: ANIDULAFUNGIN 100 MG in SODIUM CHLORIDE 0.9% 100 ML IVPB SCH (09:00)
[2018-08-16] MEDS ORDERED: Potassium Replacement Protocol 1 EACH MISC MISCELLANE PRN (11:00)
[2018-08-16] MEDS: POTASSIUM CHLORIDE ER 20 MEQ TAB.ER PO SCH ×2 (11:15→12:03)
--- NOTE | 2018-08-16 11:36 | P.PN ---
<Autumn Brucemichael Ziegler - Last Filed: 08/16/18 11:23> Subjective Progress Note Date: 08/16/18 68-year-old female seen and examined at the bedside sitting up in bed. Tolerating a diet no nausea no vomiting. Currently denying abdominal pain when questioning. Attempts morning 97.9 potassium 3.3 and which replacement is being given magnesium 1.5 which is being replaced discharge plan is in progress pending infectious diseases recommendations antibiotic therapy recent July 19 exploratory lap sigmoid resection drainage of abscess ostomy appendectomy . Reversal of ostomy July 26 exploratory lap, colon resection for perforation ostomy Admitted for an abdominal surgical wound infection with possible abscess abdominal culture is currently reporting romie Objective - Vital Signs Vital signs: Vital Signs Temp 97.9 F 08/16/18 07:00 Pulse 63 08/16/18 07:00 Resp 18 08/16/18 07:00 BP 157/83 08/16/18 07:00 Pulse Ox 99 08/16/18 07:00 Intake & Output 08/15/18 08/16/18 08/16/18 18:59 06:59 18:59 Intake Total 240 320 Output Total 500 Balance 240 -180 Intake: Oral 240 320 Output: Stool 500 Other: # Voids 2 2 1 - Exam Physical exam 68-year-old female resting in bed appears in no acute distress denies dizziness lightheadedness shortness of breath. Lungs adequate air movement bilaterally room air no shortness of breath no cough noted Heart S1-S2 audible regular denying chest pain Abdomen soft nondistended Upper surgical incision site no redness no signs of infection. Surgical dressing dry Ostomy left lower quadrant moderate amount of stool stoma pink. Incontinent of urine states tolerating a diet with no nausea no vomiting Extremities no edema noted PICC line in place no redness right upper extremity - Labs CBC & Chem 7: 08/15/18 08:55 08/16/18 07:53 Labs: Abnormal Lab Results - Last 24 Hours (Table) 08/16/18 08/16/18 Range/Units 07:53 07:53 Potassium 3.3 L (3.5-5.1) mmol/L Carbon Dioxide 33 H (22-30) mmol/L Calcium 7.6 L (8.4-10.2) mg/dL Magnesium 1.4 L (1.6-2.3) mg/dL Microbiology - Last 24 Hours (Table) 08/13/18 16:27 Anaerobic Culture - Preliminary Abdomen 08/13/18 16:27 Gram Stain - Final Abdomen Wound Culture - Final Romie albicans 08/13/18 15:44 Blood Culture - Preliminary Blood No Growth after 48 hours 08/13/18 12:49 Anaerobic Culture - Preliminary Abdomen 08/13/18 12:49 Gram Stain - Final Abdomen Wound Culture - Final Romie albicans Assessment and Plan Assessment: Impression Diverticulitis of the intestine with perforation Postop Wound infection colostomy status Recent July 28 exploratory laparotomy with descending colon resection for perforation descending colostomy, Ford's procedure for perforated descending colon Recent colostomy reversal. l on July 19 with peritoneal lavage. Present on admission abdominal surgical wound infection possible abscess Chronic systolic heart failure without any evidence of an acute exacerbation Hypo-magnesium hypokalemia Plan Possible transfer to the [facility] facility pending recommendations by infectious disease Continue IV antibiotic Follow up on wound cultures DVT and GI prophylaxis No further surgical recommendations pending Potassium and magnesium being replaced The above impression and plan of care have been discussed and directed by signing physician. Brigitte Bruce nurse practitioner acting as scribe for signing physician. <Moon Kelly N - Last Filed: 08/16/18 16:29> Objective - Vital Signs Vital signs: Vital Signs Temp 97.9 F 08/16/18 07:00 Pulse 63 08/16/18 07:00 Resp 18 08/16/18 07:00 BP 157/83 08/16/18 07:00 Pulse Ox 99 08/16/18 07:00 Intake & Output 08/15/18 08/16/18 08/16/18 18:59 06:59 18:59 Intake Total 240 320 Output Total 500 Balance 240 -180 Intake: Oral 240 320 Output: Stool 500 Other: # Voids 2 2 3 - Labs CBC & Chem 7: 08/15/18 08:55 08/16/18 07:53 Labs: Abnormal Lab Results - Last 24 Hours (Table) 08/16/18 08/16/18 Range/Units 07:53 07:53 Potassium 3.3 L (3.5-5.1) mmol/L Carbon Dioxide 33 H (22-30) mmol/L Calcium 7.6 L (8.4-10.2) mg/dL Magnesium 1.4 L (1.6-2.3) mg/dL Microbiology - Last 24 Hours (Table) 08/13/18 16:27 Anaerobic Culture - Preliminary Abdomen 08/13/18 16:27 Gram Stain - Final Abdomen Wound Culture - Final Romie albicans 08/13/18 15:44 Blood Culture - Preliminary Blood No Growth after 48 hours 08/13/18 12:49 Anaerobic Culture - Preliminary Abdomen 08/13/18 12:49 Gram Stain - Final Abdomen Wound Culture - Final Romie albicans Assessment and Plan (1) Diverticulitis of intestine with perforation Status: Acute Code(s): K57.80 - DVTRCLI OF INTEST, PART UNSP, W PERF AND ABSCESS W/O BLEED SNOMED Code(s): 423402479 (2) Wound infection Status: Acute Code(s): T14.8XXA - OTHER INJURY OF UNSPECIFIED BODY REGION, INITIAL ENCOUNTER; L08.9 - LOCAL INFECTION OF THE SKIN AND SUBCUTANEOUS TISSUE, UNSP SNOMED Code(s): 61836176 (3) Colostomy status Status: Acute Code(s): Z93.3 - COLOSTOMY STATUS SNOMED Code(s): 186449418
[2018-08-16] MEDS: MAGNESIUM SULFATE-D5W PMX 1 GM in DEXTROSE/WATER 1 100ML.BAG IVPB SCH ×2 (11:44→13:26)
--- NOTE | 2018-08-16 12:02 | P.DS ---
<Brigitte Bruce Toney - Last Filed: 08/16/18 11:39> Providers Date of admission: 08/12/18 20:16 Expected date of discharge: 08/16/18 Attending physician: Moon Kelly Consults: 08/12/18 20:44 Consult Physician Routine Consulting Provider: Ambrosio Walker Consult Reason/Comments: medmgmnt Do you want consulting provider notified?: Yes 08/13/18 12:50 Consult Physician Routine Consulting Provider: Monalisa Hancock Consult Reason/Comments: abdominal wall abscess Do you want consulting provider notified?: Yes Primary care physician: Meek Disla Hospital Course: 68-year-old female was recently discharged from [facility] 1 week prior transferred to [facility]acute rehab following a failed colostomy reversal with placement of a new descending colostomy done on July 28. At The timing of being initially transferred to the subacute rehab patient had been doing relatively well. While at the facility patient developed new onset of lower abdominal pain and new drainage of Purulent drainage from lower abdominal incision 48 hours prior to being transferred to [facility] emergency room [place] patient did have a CAT scan done at outside facility on August [address] Preciado did review the CAT scan. The CAT scan of the abdomen pelvis done August 12 demonstrate bilateral pleural effusion including fluid collection along the subcutaneous lower midline incision. No intra-abdominal abscess identified. A few pockets of intra-abdominal ascites confirmed. No additional CAT scans needed at this time patient's afebrile white count normal patient was followed by Dr. Hancock infectious disease throughout the hospitalization. The wound was packed daily with iodoform. Chon were removed this admission as well as the ELOY drains patient was tolerating diet remained afebrile wound cultures did show romie albicans patient this admission was on IV vancomycin and Zosyn and anidulafungin per recommendations of infectious disease. On the day of discharge patient was felt to be appropriate transferred back to the subacute rehab Impression discharge diagnosis a recent July 19 exploratory lap sigmoid resection drainage of abscess ostomy appendectomy . with Reversal of ostomy July 26 exploratory lap, colon resection for perforation ostomy Debilitated Diverticulitis of the intestine with perforation Postop Wound infection colostomy status Recent July 28 exploratory laparotomy with descending colon resection for perforation descending colostomy, Ford's procedure for perforated descending colon Recent colostomy reversal. l on July 19 with peritoneal lavage. Present on admission abdominal surgical wound infection possible abscess Chronic systolic heart failure without any evidence of an acute exacerbation The above impression and plan of care have been discussed and directed by signing physician. Brigitte Bruce nurse practitioner acting as scribe for signing physician. Patient Condition at Discharge: Fair Plan - Discharge Summary Discharge Rx Participant: No New Discharge Prescriptions: New Escitalopram [Lexapro] 10 mg PO DAILY tab Ipratropium-Albuterol Nebulize [Duoneb 0.5 mg-3 mg/3 ml Soln] 3 ml INHALATION RT-QID PRN ampul.neb PRN Reason: Shortness Of Breath Or Wheezing Continue cefTRIAXone [Rocephin] 2,000 mg IVP Q24HR #14 ml metroNIDAZOLE [Flagyl] 500 mg PO TID #42 tab Acetaminophen Tab [Tylenol] 650 mg PO Q6HR PRN tab PRN Reason: Mild Pain Or Fever >= 100.5 Aspirin 81 mg PO HS chew Furosemide [Lasix] 40 mg PO BID@0900,1600 tab Magnesium Oxide [Mag-Ox] 400 mg PO BID tab Pantoprazole [Protonix] 40 mg PO AC-BRKFST tablet. Potassium Chloride ER [K-Dur 20] 20 meq PO DAILY tab.er.prt Hydrocortisone Cream [Hydrocortisone 1% Cream] 1 applic TOPICAL TID Bisacodyl [Dulcolax] 10 mg RECTAL DAILY Magnesium Hydroxide [Milk of Magnesia] 800 mg PO DAILY PRN PRN Reason: Constipation Metoprolol Succinate [Toprol XL] 25 mg PO TID Na Phos,M-B/Na Phos,Di-Ba [Fleet Adult] 1 dose RECTAL DAILY PRN PRN Reason: Constipation Discontinued HYDROcodone/APAP 5-325MG [[place] 5-325] 1 tab PO Q4HR PRN 3 Days #18 tab PRN Reason: Pain Fluconazole [Diflucan] 200 mg PO DAILY #14 tab Discharge Medication List Acetaminophen Tab [Tylenol] 650 mg PO Q6HR PRN tab 08/05/18 [Rx] Aspirin 81 mg PO HS chew 08/05/18 [Rx] Furosemide [Lasix] 40 mg PO BID@0900,1600 tab 08/05/18 [Rx] Magnesium Oxide [Mag-Ox] 400 mg PO BID tab 08/05/18 [Rx] Pantoprazole [Protonix] 40 mg PO AC-BRKFST tablet. 08/05/18 [Rx] Potassium Chloride ER [K-Dur 20] 20 meq PO DAILY tab.er.prt 08/05/18 [Rx] cefTRIAXone [Rocephin] 2,000 mg IVP Q24HR #14 ml 08/05/18 [Rx] metroNIDAZOLE [Flagyl] 500 mg PO TID #42 tab 08/05/18 [Rx] Bisacodyl [Dulcolax] 10 mg RECTAL DAILY 08/12/18 [History] Hydrocortisone Cream [Hydrocortisone 1% Cream] 1 applic TOPICAL TID 08/12/18 [ History] Magnesium Hydroxide [Milk of Magnesia] 800 mg PO DAILY PRN 08/12/18 [History] Metoprolol Succinate [Toprol XL] 25 mg PO TID 08/12/18 [History] Na Phos,M-B/Na Phos,Di-Ba [Fleet Adult] 1 dose RECTAL DAILY PRN 08/12/18 [ History] Escitalopram [Lexapro] 10 mg PO DAILY tab 08/16/18 [Rx] Ipratropium-Albuterol Nebulize [Duoneb 0.5 mg-3 mg/3 ml Soln] 3 ml INHALATION RT -QID PRN ampul.neb 08/16/18 [Rx] Follow up Appointment(s)/Referral(s): Meek Disla MD [Primary Care Provider] - 3 Days Moon Kelly MD [STAFF PHYSICIAN] - 1 Week Patient Instructions/Handouts: Surgical Site Infections (DC) Activity/Diet/Wound Care/Special Instructions: Discharge to [facility]. PICC line care per facility. Colostomy care daily and empty bag when 3/4 fill or before. Midline incision - keep clen, dry, intact abdominal wound packed with 1/2 inch iodoform gauze, cover with gauze and abd pad daily Up with assist, fall precautions. Notify surgical office Dr. Kelly of any surgical issues Discharge Disposition: TRANSFER TO SNF/ECF <Moon Kelly - Last Filed: 08/16/18 16:36> - Discharge Diagnosis(es) (1) Diverticulitis of intestine with perforation Status: Acute (2) Wound infection Status: Acute (3) Colostomy status Status: Acute Hospital Course: Patient chon and ELOY drains were discontinued at bedside 08/14/2018. Additionally, antibiotics were adjusted to anidulafungin, Rocephin and Flagyl per infectious disease. Wound drainage and wound infection is an expected postoperative outcome as patient had fecal peritonitis. Recommend immediate notification to surgeon's office for any wound concerns as management may be performed as outpatient
--- NOTE | 2018-08-16 13:14 | PN ---
PROGRESS NOTE DATE OF SERVICE: 08/16/2018 REASON FOR FOLLOWUP: Abdominal abscess. INTERVAL HISTORY: The patient is currently afebrile. She is breathing comfortably. Denies having any chest pain, shortness of breath or cough. Abdominal pain has decreased intensity and drainage of the lower end of the incision has decreased per the RN, who changed the dressing with the surgeon this morning. Did have good output in her colostomy bag. PHYSICAL EXAMINATION: On examination, blood pressure 115/83 with a pulse of 60, temperature 97.9. She is 99% on 2 L nasal cannula. General description is an elderly female, lying in bed in no distress. RESPIRATORY SYSTEM: Unlabored breathing, clear to auscultation anteriorly. HEART: S1, S2. Regular rate and rhythm. ABDOMEN: Soft. No significant swelling, redness or any purulent drainage was noticed today. LABS: BUN of 14, creatinine 0.54. DIAGNOSTIC IMPRESSION AND PLAN: Patient with abdominal abscess. Culture is showing Rosangela albicans. The same pathogen that she grew last time for which she was treated with oral Diflucan in addition to the IV Rocephin and Flagyl for secondary peritonitis. Apparently the patient did have a CT of abdomen and pelvis at the outside facility and these images have been reviewed by the surgeon with no evidence of any fluid collection or need for a CT-guided drainage with possible failure of oral Diflucan. The patient is currently on anidulafungin, which will be continued in the outpatient setting for another 2 weeks. Scripts were provided to the shelter case manager and continue with Rocephin and Flagyl that she was already on with close outpatient followup. Continue supportive care. MMODL / IJN: [id number] /
[2018-08-16] MEDS: HYDROcodone/APAP 5-325MG 1 EACH TAB PO PRN (13:35)
--- NOTE | 2018-08-16 14:40 | P.PN ---
Subjective Progress Note Date: 08/16/18 Progress note being dictated for Dr. Walker Interval history:68-year-old pleasant female had a recent abdominal surgery for diverticulitis patient has a colostomy bag in place was sent back from my assisted as the wound drain is not draining and patient has abdominal surgical wound probably being infected with significant amount of pus coming out of that with pain and tenderness. There was a suspected abscess. Patient was discharged on metronidazole and ceftriaxone. Patient here was now started on Unasyn and vancomycin which is appropriate and metronidazole and Rocephin are being discontinued. Patient evidently had a fever here had normal white blood cell count. Patient denied dysuria cough runny nose. chest x-ray which showed improvement in her pulmonary edema patient during her hospitalization had pulmonary edema patient was on Lasix which will be continued at a lower dose. Patient was tachycardic as reflux tachycardia from metoprolol. Which will be resumed Review of Systems REVIEW OF SYSTEMS: CONSTITUTIONAL: No fever, no malaise, no fatigue. HEENT: No recent visual problems or hearing problems. Denied any sore throat. CARDIOVASCULAR: No chest pain, orthopnea, PND, no palpitations, no syncope. PULMONARY: No shortness of breath, no cough, no hemoptysis. GASTROINTESTINAL: No diarrhea, no nausea, no vomiting, no abdominal pain. Normoactive bowel sounds. NEUROLOGICAL: No headaches, no weakness, no numbness. HEMATOLOGICAL: Denies any bleeding or petechiae. GENITOURINARY: Denies any burning micturition, frequency, or urgency. MUSCULOSKELETAL/RHEUMATOLOGICAL: Denies any joint pain, swelling, or any muscle pain. ENDOCRINE: Denies any polyuria or polydipsia. The rest of the 14-point review of systems is negative. 08/14/2018 maintained on IV antibiotics of Vancomycin, Zosyn, Flagyl. Wound cultures pending. Abdominal pain improving. T-max 99. 08/15/2018 afebrile, continues on IV antibiotics as per infectious disease. Wound cultures pending. Mild abdominal pain, improved. 08/16/2018 receiving magnesium and potassium supplements for potassium 3.3, magnesium 1.4. Afebrile, continues on IV antibiotics. Good diet intake, tolerating well with no nausea vomiting or diarrhea. Denies abdominal pain Denies chest pain, palpitations or increased shortness of breath. Objective - Vital Signs Vital signs: Vital Signs Temp 97.9 F 08/16/18 07:00 Pulse 63 08/16/18 07:00 Resp 18 08/16/18 07:00 BP 157/83 08/16/18 07:00 Pulse Ox 99 08/16/18 07:00 Intake & Output 08/15/18 08/16/18 08/16/18 18:59 06:59 18:59 Intake Total 240 320 Output Total 500 Balance 240 -180 Intake: Oral 240 320 Output: Stool 500 Other: # Voids 2 2 1 - Exam GENERAL: The patient is sitting up in bed, alert and oriented x3, no acute distress. Flat affect HEENT: Pupils are round and equally reacting to light. EOMI. No scleral icterus. No conjunctival pallor. Normocephalic, atraumatic. CARDIOVASCULAR: S1 and S2 present. No murmurs, rubs, or gallops. PULMONARY: Chest is clear to auscultation, no wheezing or crackles. ABDOMEN: Dressing intact with drainage. Functioning colostomy. MUSCULOSKELETAL: No joint swelling or deformity. EXTREMITIES: No cyanosis, clubbing, or pedal edema. NEUROLOGICAL: Gross neurological examination did not reveal any focal deficits. Microbiology 08/13/18 16:27 Abdomen Gram Stain - Final 08/13/18 16:27 Abdomen Wound Culture - Final Rosangela albicans 08/13/18 15:44 Blood Blood Culture - Preliminary No Growth after 48 hours 08/13/18 12:49 Abdomen Anaerobic Culture - Preliminary 08/13/18 12:49 Abdomen Gram Stain - Final 08/13/18 12:49 Abdomen Wound Culture - Final Rosangela albicans 08/13/18 16:27 Abdomen Anaerobic Culture - Preliminary - Labs CBC & Chem 7: 08/15/18 08:55 08/16/18 07:53 Labs: Abnormal Lab Results - Last 24 Hours (Table) 08/16/18 08/16/18 Range/Units 07:53 07:53 Potassium 3.3 L (3.5-5.1) mmol/L Carbon Dioxide 33 H (22-30) mmol/L Calcium 7.6 L (8.4-10.2) mg/dL Magnesium 1.4 L (1.6-2.3) mg/dL Microbiology - Last 24 Hours (Table) 08/13/18 16:27 Anaerobic Culture - Preliminary Abdomen 08/13/18 16:27 Gram Stain - Final Abdomen Wound Culture - Final Rosangela albicans 08/13/18 15:44 Blood Culture - Preliminary Blood No Growth after 48 hours 08/13/18 12:49 Anaerobic Culture - Preliminary Abdomen 08/13/18 12:49 Gram Stain - Final Abdomen Wound Culture - Final Rosangela albicans Assessment and Plan Assessment: -Abdominal surgical wound infection with possible abscess. Abdominal culture currently reporting Rosangela -Diverticulitis -Atrial fibrillation presently rate controlled patient only had proximal atrial fibrillation because of which patient was never started on anticoagulation -Congestive heart failure mild chronic systolic dysfunction without any acute exacerbation -Obesity -Depression -Hypertension -Depression Plan: Continue on current medication regime ,monitoring and symptomatic treatment. Patient being discharged to [facility] in [place] as per surgery. Discharge antibiotics being arranged. CBC BMP magnesium in 2days. Aggressive pulmonary toileting. Prognosis guarded given multiple complex medical issues. The impression and plan of care has been dictated as directed. : I performed a history and examination of this patient, discussed the same with the dictator. I agree with the dictator's note ,documented as a scribe. Any additional findings or plans will be noted.
== END 2018-08-16 15:55 | DRG 863 ==
LOC: EC 18:56 → 4MS4W 20:16
PROVIDERS: ADMIT Surgery Plastic and Reconstructive Surgery; ATTEND Surgery Plastic and Reconstructive Surgery
DX: T81.41XA Infection following a procedure, superficial incisional surgical site, initial encounter (principal); B37.89 Other sites of candidiasis; I50.22 Chronic systolic (congestive) heart failure; L02.211 Cutaneous abscess of abdominal wall; L03.311 Cellulitis of abdominal wall; R18.8 Other ascites; I11.0 Hypertensive heart disease with heart failure; I48.0 Paroxysmal atrial fibrillation; E83.42 Hypomagnesemia; E87.6 Hypokalemia; F32.9 Major depressive disorder, single episode, unspecified; M17.12 Unilateral primary osteoarthritis, left knee; R32 Unspecified urinary incontinence; E66.9 Obesity, unspecified; Z68.27 Body mass index [BMI] 27.0-27.9, adult; Z79.2 Long term (current) use of antibiotics; Z79.82 Long term (current) use of aspirin; Z79.899 Other long term (current) drug therapy; Z87.11 Personal history of peptic ulcer disease; Z96.651 Presence of right artificial knee joint; Z96.641 Presence of right artificial hip joint; Z93.3 Colostomy status; Z86.19 Personal history of other infectious and parasitic diseases; Z87.19 Personal history of other diseases of the digestive system; Z87.891 Personal history of nicotine dependence; Z82.49 Family history of ischemic heart disease and other diseases of the circulatory system; Z80.0 Family history of malignant neoplasm of digestive organs
CPT/HCPCS: 36415; 71045; 80048; 80053; 80202; 83735; 85025; 87040; 87070; 87075; 87205; 94640; 96365; 96368; 99285

== ENCOUNTER 2018-08-21 23:07 | Inpatient (IN) | payer MEDICARE, OTHER ==
--- NOTE | 2018-08-21 23:40 | ED ---
Recheck HPI - General Source: EMS Mode of arrival: EMS Limitations: no limitations <Anamaria Munoz - Last Filed: 08/21/18 23:32> <Jose Morris - Last Filed: 08/23/18 08:10> - General Chief Complaint: Recheck/Abnormal Lab/Rx Stated Complaint: Post Op Bleeding Time Seen by Provider: 08/21/18 23:11 - History of Present Illness Initial Comments: 68-year-old female patient with past medical history significant for diverticulitis with perforation and subsequent colostomy placement presents to the emergency department today as a transfer from [facility] with a dark red bleeding from the colostomy site. Patient is at a [facility] care facility and staff noticed the bleeding earlier today. Patient states her last surgery was a 07/28/[address] Kelly which was complicated by an abdominal wall infection, patient still has opening of the distal incision with packing placed. Patient denies any use of anticoagulant medication. Denies any increase in her abdominal pain. Patient denies any nausea, vomiting, fever , chills, hematuria, dysuria, urinary frequency, urinary urgency. Patient denies any shortness of breath but states that she has been more weak than usual. Patient denies any recent rash, shortness breath, chest pain, back pain, numbness, tingling, dizziness, weakness, hematuria, dysuria, urinary urgency, urinary frequency, headache, visual changes, or any other complaints. (Anamaria Munoz) - Related Data Home Medications Medication Instructions Recorded Confirmed Bisacodyl [Dulcolax] 10 mg RECTAL DAILY PRN 08/12/18 08/21/18 Hydrocortisone Cream 1 applic TOPICAL TID 08/12/18 08/21/18 [Hydrocortisone 1% Cream] Magnesium Hydroxide [Milk of 800 mg PO DAILY PRN 08/12/18 08/21/18 Magnesia] Metoprolol Succinate [Toprol XL] 25 mg PO DAILY 08/12/18 08/21/18 Na Phos,M-B/Na Phos,Di-Ba [Fleet 1 dose RECTAL DAILY PRN 08/12/18 08/21/18 Adult] amLODIPine [Norvasc] 5 mg PO DAILY 08/21/18 08/21/18 l Acidophil/B Lactis/B Longum 460 mg PO DAILY 08/21/18 08/21/18 [Florajen3 Capsule] Previous Rx's Medication Instructions Recorded Acetaminophen Tab [Tylenol] 650 mg PO Q6HR PRN tab 08/05/18 Aspirin 81 mg PO HS chew 08/05/18 Furosemide [Lasix] 40 mg PO BID@0900,1600 tab 08/05/18 Magnesium Oxide [Mag-Ox] 400 mg PO BID tab 08/05/18 Pantoprazole [Protonix] 40 mg PO AC-BRKFST tablet. 08/05/18 Potassium Chloride ER [K-Dur 20] 20 meq PO DAILY tab.er.prt 08/05/18 cefTRIAXone [Rocephin] 2,000 mg IVP Q24HR #14 ml 08/05/18 metroNIDAZOLE [Flagyl] 500 mg PO TID #42 tab 08/05/18 Escitalopram [Lexapro] 10 mg PO DAILY tab 08/16/18 Ipratropium-Albuterol Nebulize 3 ml INHALATION RT-QID PRN 08/16/18 [Duoneb 0.5 mg-3 mg/3 ml Soln] ampul.neb Allergies Allergy/AdvReac Type Severity Reaction Status Date / Time No Known Allergies Allergy Verified 08/21/18 23:28 Review of Systems ROS Other: All systems not noted in ROS Statement are negative. <Anamaria Munoz - Last Filed: 08/21/18 23:32> ROS Other: All systems not noted in ROS Statement are negative. <Jose Morris - Last Filed: 08/23/18 08:10> ROS Statement: Those systems with pertinent positive or pertinent negative responses have been documented in the HPI. Past Medical History Past Medical History: Hypertension, Osteoarthritis (OA) Additional Past Medical History / Comment(s): HX Low Sodium. djd,HX STOMACH ULCER. PERFORATED DIVERTICULTUM, COLOSTOMY 03/2016. past stress test pt state was wnl . History of Any Multi-Drug Resistant Organisms: None Reported Past Surgical History: Bowel Resection, Orthopedic Surgery Additional Past Surgical History / Comment(s): TOTAL RT Knee, total RT HIP replacment. 03-22-16 PERFORATED DIVERTICULUM -had exploratory lap/sigmoid resection/drainage of abcess/colostomy/appy. 07-19-18 lysis of adhesions/reversal of colostomy. 07-26-18 exp lap/colon resection(for perforation)/colostomy-has 2 drains Past Anesthesia/Blood Transfusion Reactions: No Reported Reaction Additional Past Anesthesia/Blood Transfusion Reaction / Comment(s): Pt states she did receive blood with total knee surgery-denies any reaction to it Past Psychological History: No Psychological Hx Reported Smoking Status: Former smoker Past Alcohol Use History: None Reported Past Drug Use History: None Reported - Past Family History Father Family Medical History: Coronary Artery Disease (CAD), Myocardial Infarction ([place] ), Renal Disease Additional Family Medical History / Comment(s): Father of renal failure at the age of 72 yrs. Mother Family Medical History: Cancer Additional Family Medical History / Comment(s): Mother had colon cancer and of this at age 67 yrs. <Anamaria Munoz M - Last Filed: 08/21/18 23:32> General Exam Limitations: no limitations General appearance: alert, in no apparent distress, other (This is a well- developed, thin appearing elderly female patient in no acute distress. Vital signs upon presentation are temperature 97.2F, pulse 58, respirations 18, blood pressure 185/86, pulse ox 94% on room air.) Eye exam: Present: normal appearance, PERRL, EOMI. Absent: scleral icterus, conjunctival injection, periorbital swelling ENT exam: Present: normal exam, normal oropharynx, mucous membranes moist Respiratory exam: Present: normal lung sounds bilaterally. Absent: respiratory distress, wheezes, rales, rhonchi, stridor Cardiovascular Exam: Present: regular rate, normal rhythm, normal heart sounds. Absent: systolic murmur, diastolic murmur, rubs, gallop, clicks GI/Abdominal exam: Present: soft, normal bowel sounds, other (Midline abdominal incision with distal opening and packing placement. There is no drainage or surrounding erythema at this time. There is left lower quadrant colostomy with presence of dark red blood in the bag. Ostomy is patent.). Absent: distended, tenderness, guarding, rebound, rigid Neurological exam: Present: alert, oriented X3, CN II-XII intact Psychiatric exam: Present: normal affect, normal mood Skin exam: Present: warm, dry, intact, normal color. Absent: rash <Anamaria Munoz - Last Filed: 08/21/18 23:32> Vital Signs 08/21/18 08/22/18 23:16 01:20 Temperature 97.2 F L Pulse Rate 58 L 66 Respiratory 18 16 Rate Blood Pressure 185/86 181/84 O2 Sat by Pulse 94 L 97 Oximetry Medical Decision Making - Radiology Data Radiology results: report reviewed <Anamaria Munoz - Last Filed: 08/21/18 23:32> - Lab Data Result diagrams: 08/23/18 02:17 08/23/18 02:17 <Jose Morris - Last Filed: 08/23/18 08:10> - Medical Decision Making 68-year-old female patient presented to the emergency department today as a transfer from [facility]. Patient was signed by her long-term care facility for presence of dark red blood in her ostomy bag. Patient was transferred here for admission, Dr. Preciado is aware of the case will be consulted. Patient will be admitted to medicine. Patient's potassium was 2.7 according to labs from [facility] we will replace this by mouth. (Anamaria Munoz) I saw this patient in conjunction with the physician speech language assistant. I performed independent history and physical exam. Agree with case management. (Jose Morris) - Radiology Data CT abdomen and pelvis with contrast was obtained at [facility], report was reviewed, impression by Dr. Gonzalez shows patient is status post partial colectomy with a stoma in the left flank region. Soft tissue lesion is located in the stoma. This was not seen on prior CT exam a represent an inflammatory process. No evidence of bowel section. No abnormal bowel wall thickening. This makes plan the bleeding in stoma. The patient of inflammatory process located in the subcutaneous tissues in the right lower quadrant. This inflammatory process was seen in the prior CT study of 2017. Hand sting fluid collection is again noted which has slightly decreased in size. Cystic most likely a functional cyst located on the right and left ovary. The largest fluid collection is in the left adnexa which measures 5.1 cm in length and 4.2 cm in width this was noted on the prior CT exam without significant change. Fluid collection located next to the right lobe of the liver. This is unchanged in size and appearance. Midline abdominal wall incision in which there is a dehiscence involving the inferior aspect of the incision with packing material. Bilateral pleural effusions with atelectasis in the lower lungs. This most likely represents a reactive process. (Anamaria Munoz) Disposition Decision to Admit Reason: Admit from EC Decision Date: 08/21/18 Decision Time: 23:40 <Anamaria Munoz - Last Filed: 08/21/18 23:32> <Jose Morris - Last Filed: 08/23/18 08:10> Clinical Impression: GI bleed, Abdominal pain, Hypokalemia Disposition: ADMITTED IP TO THIS [facility] Condition: Serious
[2018-08-21] MEDS ORDERED: NALOXONE 0.4 MG/ML 1 ML VIAL IV PRN (23:41)
[2018-08-21] MEDS ORDERED: MAGNESIUM HYDROXIDE 2,400 MG/10 ML CUP PO PRN (23:50)
[2018-08-21] MEDS ORDERED: IPRATROPIUM-ALBUTEROL 3 ML NEB INHALATION PRN (23:50)
[2018-08-21] MEDS ORDERED: POTASSIUM CHLORIDE ER 20 MEQ TAB.ER PO STA (23:50)
[2018-08-22 00:28] LABS: HCT 35.8 % (34.0-46.0); HGB 11.3 gm/dL (11.4-16.0); Hypochromasia Slight; MCH 29.6 pg (25.0-35.0); MCHC 31.5 g/dL (31.0-37.0); Mean Platelet Volume 8.2; Platelet Count 275 k/uL (150-450); RBC 3.81 m/uL (3.80-5.40); RDW 14.8 % (11.5-15.5); WBC 7.5 k/uL (3.8-10.6)
[2018-08-22 00:31] LABS: MCV 93.9 fL (80.0-100.0)
[2018-08-22 00:39] LABS: Albumin 2.8 g/dL (3.5-5.0); Calcium 8.1 mg/dL (8.4-10.2); Potassium 3.1 mmol/L (3.5-5.1); Total Bilirubin 0.5 mg/dL (0.2-1.3); Total Protein 6.2 g/dL (6.3-8.2)
[2018-08-22] MEDS: SODIUM CHLORIDE 0.9% 1,000 ML IV SCH ×3 (00:56→17:57)
[2018-08-22 02:49] VITALS: BMI 35.9
[2018-08-22 08:16] LABS: HCT 32.1 % (34.0-46.0); HGB 10.5 gm/dL (11.4-16.0); MCH 29.8 pg (25.0-35.0); MCHC 32.6 g/dL (31.0-37.0); MCV 91.4 fL (80.0-100.0); Mean Platelet Volume 8.2; Platelet Count 249 k/uL (150-450); RBC 3.52 m/uL (3.80-5.40); RDW 14.9 % (11.5-15.5); WBC 9.3 k/uL (3.8-10.6)
[2018-08-22] MEDS ORDERED: B LONGUM PO SCH (09:00)
[2018-08-22] MEDS ORDERED: B LACTIS PO SCH (09:00)
[2018-08-22] MEDS ORDERED: NON-FORMULARY DRUG (Ceftriaxone 2,000 MG) IVP SCH (09:00)
[2018-08-22] MEDS ORDERED: ACIDOPHIL PO SCH (09:00)
[2018-08-22 09:25] LABS: Anion Gap 8 mmol/L; Blood Urea Nitrogen 18 mg/dL (7-17); Carbon Dioxide 28 mmol/L (22-30); Chloride 106 mmol/L (98-107); Glucose 86 mg/dL (74-99); Sodium 142 mmol/L (137-145)
[2018-08-22 09:31] LABS: Potassium 4.8 mmol/L (3.5-5.1)
[2018-08-22] MEDS: PANTOPRAZOLE 40 MG TABLET PO SCH (09:40)
[2018-08-22] MEDS: MAGNESIUM OXIDE 400 MG TAB PO SCH ×2 (09:40→20:37)
[2018-08-22] MEDS: METOPROLOL SUCCINATE (ER) 25 MG TAB.ER.24H PO SCH (09:41)
[2018-08-22] MEDS: HYDROCORTISONE 1% CREAM 30 GM TUBE TOPICAL SCH ×3 (09:41→20:38)
[2018-08-22] MEDS: ESCITALOPRAM 10 MG TAB PO SCH (09:41)
[2018-08-22] MEDS: metroNIDAZOLE 500 MG TAB PO SCH ×3 (09:41→20:38)
[2018-08-22] MEDS: FUROSEMIDE 40 MG TAB PO SCH ×2 (09:41→16:33)
[2018-08-22] MEDS: POTASSIUM CHLORIDE ER 20 MEQ TAB.ER PO SCH (09:41)
[2018-08-22] MEDS: amLODIPine 5 MG TAB PO SCH (09:41)
--- NOTE | 2018-08-22 10:09 | P.CONS ---
History of Present Illness - Reason for Consult Consult date: 08/22/18 GI bleeding Requesting physician: Poncho Cote - Chief Complaint Colostomy bleeding - History of Present Illness 68-year-old female history of perforated diverticulitis descending colostomy parastomal hernia status post takedown of descending colostomy lysis of adhesions and repair of incarcerated parastomal hernia application of wound VAC with intraoperative colonoscopy assessed remnant rectal length of 18-20 cm from the anal verge on 07/19/2018. Discharge and readmitted with perforation 4 cm proximal to the colorectal anastomosis with fecal peritonitis status post exploratory laparotomy with descending colon resection/Ford for perforation descending colon with creation of descending colostomy and placement of wound VAC on 07/28/2018. Admitted with red burgundy blood asked with brown stool in her colostomy that started yesterday. Hemoglobin 11.3 this morning 10.5. Platelet 249. White count 9.3. BUN 18. Creatinine 0.6. Afebrile. Denies hematemesis fever chills or melena. No history GI bleed. No history of peptic ulcer disease. Review of Systems Constitutional: Denies fever, chills, sweats, weight gain, or loss. HEENT: Negative for migraines, blurred vision or loss, earaches, drainage, tinnitus, oral mucosal lesions, dysphagia, or odynophagia. CARDIAC: Negative for chest pain, arrhythmias, or palpitation. RESPIRATORY: Negative for shortness of breath, hemoptysis, cough, or sputum production. GI: See HPI for pertinent findings. : Negative for hematuria, urgency, frequency, polyuria, or dysuria. GYNc: Denies possibility of . Negative vaginal discharge. MUSCULOSKELETAL: Negative for muscle aches, swelling, arthritis, and arthralgias. NEUROLOGIC: Negative for stroke or TIA. ENDOCRINE: Negative for thyroid problems. SKIN: Negative for rash or itching. PSYCHIATRIC: Negative history for depression and anxiety Past Medical History Past Medical History: Hypertension, Osteoarthritis (OA) Additional Past Medical History / Comment(s): HX Low Sodium. djd,HX STOMACH ULCER. PERFORATED DIVERTICULTUM, COLOSTOMY 03/2016. past stress test pt state was wnl . History of Any Multi-Drug Resistant Organisms: None Reported Past Surgical History: Bowel Resection, Orthopedic Surgery Additional Past Surgical History / Comment(s): TOTAL RT Knee, total RT HIP replacment. 03-22-16 PERFORATED DIVERTICULUM -had exploratory lap/sigmoid resection/drainage of abcess/colostomy/appy. 07-19-18 lysis of adhesions/reversal of colostomy. 07-26-18 exp lap/colon resection(for perforation)/colostomy-has 2 drains Past Anesthesia/Blood Transfusion Reactions: No Reported Reaction Additional Past Anesthesia/Blood Transfusion Reaction / Comm: Pt states she did receive blood with total knee surgery-denies any reaction to it Smoking Status: Former smoker - Past Family History Father Family Medical History: Coronary Artery Disease (CAD), Myocardial Infarction ([place] ), Renal Disease Additional Family Medical History / Comment(s): Father of renal failure at the age of 72 yrs. Mother Family Medical History: Cancer Additional Family Medical History / Comment(s): Mother had colon cancer and of this at age 67 yrs. Medications and Allergies Home Medications Medication Instructions Recorded Confirmed Type Acetaminophen Tab [Tylenol] 650 mg PO Q6HR PRN tab 08/05/18 08/21/18 Rx Aspirin 81 mg PO HS chew 08/05/18 08/21/18 Rx Furosemide [Lasix] 40 mg PO BID@0900,1600 tab 08/05/18 08/21/18 Rx Magnesium Oxide [Mag-Ox] 400 mg PO BID tab 08/05/18 08/21/18 Rx Pantoprazole [Protonix] 40 mg PO AC-BRKFST tablet. 08/05/18 08/21/18 Rx Potassium Chloride ER [K-Dur 20] 20 meq PO DAILY tab.er.prt 08/05/18 08/21/18 Rx cefTRIAXone [Rocephin] 2,000 mg IVP Q24HR #14 ml 08/05/18 08/21/18 Rx metroNIDAZOLE [Flagyl] 500 mg PO TID #42 tab 08/05/18 08/21/18 Rx Bisacodyl [Dulcolax] 10 mg RECTAL DAILY PRN 08/12/18 08/21/18 History Hydrocortisone Cream 1 applic TOPICAL TID 08/12/18 08/21/18 History [Hydrocortisone 1% Cream] Magnesium Hydroxide [Milk of 800 mg PO DAILY PRN 08/12/18 08/21/18 History Magnesia] Metoprolol Succinate [Toprol XL] 25 mg PO DAILY 08/12/18 08/21/18 History Na Phos,M-B/Na Phos,Di-Ba [Fleet 1 dose RECTAL DAILY PRN 08/12/18 08/21/18 History Adult] Escitalopram [Lexapro] 10 mg PO DAILY tab 08/16/18 08/21/18 Rx Ipratropium-Albuterol Nebulize 3 ml INHALATION RT-QID PRN 08/16/18 08/21/18 Rx [Duoneb 0.5 mg-3 mg/3 ml Soln] ampul.neb amLODIPine [Norvasc] 5 mg PO DAILY 08/21/18 08/21/18 History l Acidophil/B Lactis/B Longum 460 mg PO DAILY 08/21/18 08/21/18 History [Florajen3 Capsule] Allergies Allergy/AdvReac Type Severity Reaction Status Date / Time No Known Allergies Allergy Verified 08/21/18 23:28 Physical Exam Vitals: Vital Signs Temp Pulse Pulse Resp BP BP Pulse Ox 08/22/18 07:00 98.4 F 65 16 187/77 97 08/22/18 02:30 98.2 F 62 14 157/83 97 08/22/18 01:20 66 16 181/84 97 08/21/18 23:16 97.2 F L 58 L 18 185/86 94 L Intake and Output 08/21/18 08/22/18 08/22/18 22:59 06:59 14:59 Intake Total 150 Balance 150 Intake: Intake, IV Titration 150 Amount Sodium Chloride 0.9% 1, 150 000 ml @ 50 mls/hr IV . [facility] Rx#:[id number] Other: # Voids 1 Weight 86.183 kg General appearance: The patient is alert, oriented, in no acute distress. HET: Head is normocephalic and atraumatic. Pupils are equal and reactive. Oropharynx is clear without lesions. Neck: Supple without lymphadenopathy. Trachea midline. Heart: S1 S2. Regular rate and rhythm. Lungs: No crackles or wheezes are heard. Abdomen: Soft, midline incision healing with small wound packed with gauze serosanguineous drainage, nondistended with bowel sounds. Left-sided ostomy with large amount of mixed brown stool burgundy colored blood. No peritoneal signs. No palpable organomegaly or masses. Extremities: Normal skin color and turgor. No cyanosis, rash, ulceration, clubbing, or edema. Radial and pedal pulses are 2/4 bilaterally. Neurological: No focal deficits. Strength and sensation are grossly intact. Results CBC & Chem 7: 08/22/18 14:12 08/22/18 07:44 Labs: Abnormal Lab Results - Last 24 Hours (Table) 08/22/18 08/22/18 08/22/18 Range/Units 00:18 00:18 07:44 RBC 3.52 L (3.80-5.40) m/uL Hgb 11.3 L 10.5 L (11.4-16.0) gm/dL Hct 32.1 L (34.0-46.0) % Potassium 3.1 L (3.5-5.1) mmol/L Carbon Dioxide 34 H (22-30) mmol/L BUN 18 H (7-17) mg/dL Glucose 101 H (74-99) mg/dL Calcium 8.1 L (8.4-10.2) mg/dL Total Protein 6.2 L (6.3-8.2) g/dL Albumin 2.8 L (3.5-5.0) g/dL 08/22/18 Range/Units 07:44 RBC (3.80-5.40) m/uL Hgb (11.4-16.0) gm/dL Hct (34.0-46.0) % Potassium (3.5-5.1) mmol/L Carbon Dioxide (22-30) mmol/L BUN 18 H (7-17) mg/dL Glucose (74-99) mg/dL Calcium 8.0 L (8.4-10.2) mg/dL Total Protein (6.3-8.2) g/dL Albumin (3.5-5.0) g/dL Assessment and Plan (1) GI bleed Narrative/Plan: 68-year-old female with a history of perforated diverticulitis status post recent reversal with subsequent perforation of colorectal anastomosis requiring Ford procedure re-creation of colostomy presents with acute GI bleed passing burgundy colored bowel movements through her colostomy. Possible colonic diverticular bleed possible colitis. Current Visit: Yes Status: Acute Code(s): K92.2 - GASTROINTESTINAL HEMORRHAGE, UNSPECIFIED SNOMED Code(s): 07074300 (2) Acute blood loss anemia Current Visit: Yes Status: Acute Code(s): D62 - ACUTE POSTHEMORRHAGIC ANEMIA SNOMED Code(s): 614443421 Plan: 1. EGD r/o upper source today. CBC monitoring. Protonix 40 mg daily. Inpatient colonoscopy will be contingent on clinical course. Will discuss with general surgery. Stool studies. Will follow closely with you. Thank you for this kind referral and the opportunity to participate in the care of your patient. This consultation was discussed with Dr. Piedra. The impression and plan of care have been directed as dictated.
[2018-08-22] MEDS ORDERED: PROPOFOL 10 MG/ML 20 ML VIAL IV ONE (12:48)
[2018-08-22] MEDS ORDERED: MIDAZOLAM 2 MG/2 ML VIAL ONE (12:48)
[2018-08-22] MEDS ORDERED: IV FLUID CONTINUATION 1,000 ML IV ONE (12:48)
[2018-08-22] MEDS ORDERED: LIDOCAINE 1% INJ 10MG/ML (20 ML MDV) ONE (12:48)
--- NOTE | 2018-08-22 13:15 | P.PCN ---
Date of Procedure: 08/22/18 Procedure(s) Performed: BRIEF HISTORY: Patient is a 68-year-old, pleasant, white female, admitted to the hospital with GI bleed.. She recently had a colostomy done for perforated sigmoid diverticulum, a week following reversal of colostomy in July [address] Kelly. She was admitted to the hospital with maroon colored stools in the colostomy bag for 2 days'. She is hence scheduled for an upper endoscopy today and if negative proceed with a colonoscopy via colostomy tomorrow. PROCEDURE PERFORMED: Esophagogastroduodenoscopy. PREOPERATIVE DIAGNOSIS: Acute GI bleed. IV sedation per anesthesia. PROCEDURE: After informed consent was obtained, the patient was brought into the endoscopy unit. IV sedation was administered by Anesthesia under continuous monitoring. Initially the Olympus GIF-140 video endoscope was inserted into the mouth. Esophagus intubated without any difficulty. It was gradually advanced into the stomach and duodenum and carefully examined. The bulb and the second part of the duodenum appeared normal. The scope at this time was withdrawn to the stomach, adequately insufflated with air, and upon careful examination, mucosa of the antrum, had mild gastritis. The body, cardia and the fundus appeared normal. The scope was then withdrawn into the esophagus. Small hiatal hernia noted. The GE junction was located at 39 cm from the incisors. The esophagus appeared normal. There were no erosions or ulcerations seen and the patient tolerated the procedure well. IMPRESSION: 1. Small hiatal hernia. 2. Mild antral gastritis. RECOMMENDATIONS: The findings of this examination were discussed with the patient. Given that the colostomy bag that time has a 50 mL of f maroon colored stool, we'll proceed with a colonoscopy tomorrow.
--- NOTE | 2018-08-22 13:35 | P.GSCN ---
<Brigitte Bruce Toney - Last Filed: 08/22/18 13:28> History of Present Illness Consult date: 08/22/18 Reason for Consult: Bleeding noted from the ostomy History of present illness: 68-year-old female who presented from the ECF facility [facility] after care providers noted dark red bleeding from the ostomy. Patient was just discharged on August 16 that hospitalization patient was treated for postop abdominal wound infection. Patient did have a CAT scan done at [facility] at that time imaging done on August 12 showed bilateral pleural effusion fluid collection along the subcutaneous lower mid-level incision no intra-abdominal abscess identified. Dr. Preciado at that time did not feel there was any additional CAT scans needed. The wound was packed with iodoform Bascom were removed that admission as well as a ELOY drain patient was felt to be appropriate at that time to be transferred back to the F facility for rehab Patient was admitted from the facility with red burgundy blood mixed with brown stool in her ostomy that started the day before hemoglobin was 11.3 on admission of fever chills no history of a GI bleed no peptic ulcer disease on hemodialysis GI consultation has been requested Note the patient is scheduled for an EGD to rule out upper source. Patient colonoscopy will be contingent on clinical course Patient has had multiple abdominal surgeries recent July 19 exploratory lap sigmoid resection drainage of an abscess with appendectomy with reversal of ostomy in addition on July 26 patient underwent exploratory lap colon resection for perforation of ostomy Oma's procedure, additionally a recent ostomy reversal in July 19 Review of Systems Essentially unremarkable except as mentioned in the present illness Past Medical History Past Medical History: Hypertension, Osteoarthritis (OA) Additional Past Medical History / Comment(s): HX Low Sodium. djd,HX STOMACH ULCER. PERFORATED DIVERTICULTUM, COLOSTOMY 03/2016. past stress test pt state was wnl . History of Any Multi-Drug Resistant Organisms: None Reported Past Surgical History: Bowel Resection, Orthopedic Surgery Additional Past Surgical History / Comment(s): TOTAL RT Knee, total RT HIP replacment. 03-22-16 PERFORATED DIVERTICULUM -had exploratory lap/sigmoid resection/drainage of abcess/colostomy/appy. 07-19-18 lysis of adhesions/reversal of colostomy. 07-26-18 exp lap/colon resection(for perforation)/colostomy-has 2 drains Past Anesthesia/Blood Transfusion Reactions: No Reported Reaction Additional Past Anesthesia/Blood Transfusion Reaction / Comm: Pt states she did receive blood with total knee surgery-denies any reaction to it Smoking Status: Former smoker - Past Family History Father Family Medical History: Coronary Artery Disease (CAD), Myocardial Infarction ([place] ), Renal Disease Additional Family Medical History / Comment(s): Father of renal failure at the age of 72 yrs. Mother Family Medical History: Cancer Additional Family Medical History / Comment(s): Mother had colon cancer and of this at age 67 yrs. Medications and Allergies Home Medications Medication Instructions Recorded Confirmed Type Acetaminophen Tab [Tylenol] 650 mg PO Q6HR PRN tab 08/05/18 08/21/18 Rx Aspirin 81 mg PO HS chew 08/05/18 08/21/18 Rx Furosemide [Lasix] 40 mg PO BID@0900,1600 tab 08/05/18 08/21/18 Rx Magnesium Oxide [Mag-Ox] 400 mg PO BID tab 08/05/18 08/21/18 Rx Pantoprazole [Protonix] 40 mg PO AC-BRKFST tablet. 08/05/18 08/21/18 Rx Potassium Chloride ER [K-Dur 20] 20 meq PO DAILY tab.er.prt 08/05/18 08/21/18 Rx cefTRIAXone [Rocephin] 2,000 mg IVP Q24HR #14 ml 08/05/18 08/21/18 Rx metroNIDAZOLE [Flagyl] 500 mg PO TID #42 tab 08/05/18 08/21/18 Rx Bisacodyl [Dulcolax] 10 mg RECTAL DAILY PRN 08/12/18 08/21/18 History Hydrocortisone Cream 1 applic TOPICAL TID 08/12/18 08/21/18 History [Hydrocortisone 1% Cream] Magnesium Hydroxide [Milk of 800 mg PO DAILY PRN 08/12/18 08/21/18 History Magnesia] Metoprolol Succinate [Toprol XL] 25 mg PO DAILY 08/12/18 08/21/18 History Na Phos,M-B/Na Phos,Di-Ba [Fleet 1 dose RECTAL DAILY PRN 08/12/18 08/21/18 History Adult] Escitalopram [Lexapro] 10 mg PO DAILY tab 08/16/18 08/21/18 Rx Ipratropium-Albuterol Nebulize 3 ml INHALATION RT-QID PRN 08/16/18 08/21/18 Rx [Duoneb 0.5 mg-3 mg/3 ml Soln] ampul.neb amLODIPine [Norvasc] 5 mg PO DAILY 08/21/18 08/21/18 History l Acidophil/B Lactis/B Longum 460 mg PO DAILY 08/21/18 08/21/18 History [Florajen3 Capsule] Allergies Allergy/AdvReac Type Severity Reaction Status Date / Time No Known Allergies Allergy Verified 08/21/18 23:28 Surgical - Exam Vital Signs Temp Pulse Resp BP Pulse Ox 97.2 F L 58 L 18 185/86 94 L 08/21/18 23:16 08/21/18 23:16 08/21/18 23:16 08/21/18 23:16 08/21/18 23:16 GENERAL APPEARANCE: 68-year-old female sitting up in bed is alert, oriented, in no acute distress. VITAL SIGNS: HEENT: Head is normocephalic and atraumatic. Pupils are equal and reactive. The nares are patent. Oropharynx is clear without lesions. NECK: Supple without lymphadenopathy. Traches midline. HEART: S1, S2. Regular rate and rhythm. LUNGS: No crackles or wheezes are heard. ABDOMEN: Soft, midline incision no redness noted along the site. There is a small wound distal which is being packed with gauze serous sitting in his drainage noted. Left-sided ostomy large amount of burgundy colored stool mixed with brown denies abdominal pain when questioning nontender, nondistended with good bowel sounds. No peritoneal signs. No palpable organomegaly or masses. EXTREMITIES: Normal skin color and turgor. No cyanosis, rash, ulceration, clubbing or edema. Radial pedal pulses are 2/4 bilaterally. NEUROLOGICAL: No focal deficits. Strength and sensation are grossly intact. Results - Labs 08/22/18 07:44 08/22/18 07:44 Abnormal Lab Results - Last 24 Hours (Table) 08/22/18 08/22/18 08/22/18 Range/Units 00:18 00:18 07:44 RBC 3.52 L (3.80-5.40) m/uL Hgb 11.3 L 10.5 L (11.4-16.0) gm/dL Hct 32.1 L (34.0-46.0) % Potassium 3.1 L (3.5-5.1) mmol/L Carbon Dioxide 34 H (22-30) mmol/L BUN 18 H (7-17) mg/dL Glucose 101 H (74-99) mg/dL Calcium 8.1 L (8.4-10.2) mg/dL Total Protein 6.2 L (6.3-8.2) g/dL Albumin 2.8 L (3.5-5.0) g/dL 08/22/18 Range/Units 07:44 RBC (3.80-5.40) m/uL Hgb (11.4-16.0) gm/dL Hct (34.0-46.0) % Potassium (3.5-5.1) mmol/L Carbon Dioxide (22-30) mmol/L BUN 18 H (7-17) mg/dL Glucose (74-99) mg/dL Calcium 8.0 L (8.4-10.2) mg/dL Total Protein (6.3-8.2) g/dL Albumin (3.5-5.0) g/dL Diabetes panel 08/22/18 08/22/18 Range/Units 00:18 07:44 Sodium 141 142 (137-145) mmol/L Potassium 3.1 L 4.8 (3.5-5.1) mmol/L Chloride 101 106 (98-107) mmol/L Carbon Dioxide 34 H 28 (22-30) mmol/L BUN 18 H 18 H (7-17) mg/dL Creatinine 0.82 0.65 (0.52-1.04) mg/dL Glucose 101 H 86 (74-99) mg/dL Calcium 8.1 L 8.0 L (8.4-10.2) mg/dL AST 36 (14-36) U/L ALT 36 (9-52) U/L Alkaline Phosphatase 123 (38-126) U/L Total Protein 6.2 L (6.3-8.2) g/dL Albumin 2.8 L (3.5-5.0) g/dL Calcium panel 08/22/18 08/22/18 Range/Units 00:18 07:44 Calcium 8.1 L 8.0 L (8.4-10.2) mg/dL Albumin 2.8 L (3.5-5.0) g/dL Pituitary panel 08/22/18 08/22/18 Range/Units 00:18 07:44 Sodium 141 142 (137-145) mmol/L Potassium 3.1 L 4.8 (3.5-5.1) mmol/L Chloride 101 106 (98-107) mmol/L Carbon Dioxide 34 H 28 (22-30) mmol/L BUN 18 H 18 H (7-17) mg/dL Creatinine 0.82 0.65 (0.52-1.04) mg/dL Glucose 101 H 86 (74-99) mg/dL Calcium 8.1 L 8.0 L (8.4-10.2) mg/dL Adrenal panel 08/22/18 08/22/18 Range/Units 00:18 07:44 Sodium 141 142 (137-145) mmol/L Potassium 3.1 L 4.8 (3.5-5.1) mmol/L Chloride 101 106 (98-107) mmol/L Carbon Dioxide 34 H 28 (22-30) mmol/L BUN 18 H 18 H (7-17) mg/dL Creatinine 0.82 0.65 (0.52-1.04) mg/dL Glucose 101 H 86 (74-99) mg/dL Calcium 8.1 L 8.0 L (8.4-10.2) mg/dL Total Bilirubin 0.5 (0.2-1.3) mg/dL AST 36 (14-36) U/L ALT 36 (9-52) U/L Alkaline Phosphatase 123 (38-126) U/L Total Protein 6.2 L (6.3-8.2) g/dL Albumin 2.8 L (3.5-5.0) g/dL Assessment and Plan Assessment: Impression Present on admission acute GI bleed passing burgundy colored bowel movements through ostomy possible colitis or colonic diverticular bleed Acute blood loss anemia suspect due to GI bleed not ruled out A recent July 19 exploratory lap sigmoid resection and drainage of an abscess appendectomy reversal of ostomy July 26 exploratory lap colon resection for perforated ostomy Diverticulitis of intestine with perforation Recent July 28 exploratory laparotomy with descending colon resection for perforation descending ostomy, Oma's procedure for perforated A recent admission within the week surgical postop wound infection Chronic systolic heart failure without any evidence of an acute exacerbation Debilitated Plan GIs recommendations noted and appreciated EGD scheduled today Monitor hemoglobin address as indicated DVT and GI prophylaxis IV fluid as ordered Ostomy care as appropriate Further surgical recommendations pending Surgical consultation dictated for Dr. Alvarez The above impression and plan of care have been discussed and directed by signing physician. Brigitte Bruce nurse practitioner acting as scribe for signing physician. <Moon Kelly - Last Filed: 08/22/18 19:35> Surgical - Exam Vital Signs Temp Pulse Resp BP Pulse Ox 97.2 F L 58 L 18 185/86 94 L 08/21/18 23:16 08/21/18 23:16 08/21/18 23:16 08/21/18 23:16 08/21/18 23:16 Results - Labs 08/22/18 14:12 08/22/18 07:44 Abnormal Lab Results - Last 24 Hours (Table) 08/22/18 08/22/18 08/22/18 Range/Units 00:18 00:18 07:44 RBC 3.52 L (3.80-5.40) m/uL Hgb 11.3 L 10.5 L (11.4-16.0) gm/dL Hct 32.1 L (34.0-46.0) % Potassium 3.1 L (3.5-5.1) mmol/L Carbon Dioxide 34 H (22-30) mmol/L BUN 18 H (7-17) mg/dL Glucose 101 H (74-99) mg/dL Calcium 8.1 L (8.4-10.2) mg/dL Total Protein 6.2 L (6.3-8.2) g/dL Albumin 2.8 L (3.5-5.0) g/dL 08/22/18 08/22/18 Range/Units 07:44 14:12 RBC 3.56 L (3.80-5.40) m/uL Hgb 11.0 L (11.4-16.0) gm/dL Hct 32.3 L (34.0-46.0) % Potassium (3.5-5.1) mmol/L Carbon Dioxide (22-30) mmol/L BUN 18 H (7-17) mg/dL Glucose (74-99) mg/dL Calcium 8.0 L (8.4-10.2) mg/dL Total Protein (6.3-8.2) g/dL Albumin (3.5-5.0) g/dL Microbiology - Last 24 Hours (Table) 08/22/18 10:30 Stool Culture - Preliminary Stool Diabetes panel 08/22/18 08/22/18 Range/Units 00:18 07:44 Sodium 141 142 (137-145) mmol/L Potassium 3.1 L 4.8 (3.5-5.1) mmol/L Chloride 101 106 (98-107) mmol/L Carbon Dioxide 34 H 28 (22-30) mmol/L BUN 18 H 18 H (7-17) mg/dL Creatinine 0.82 0.65 (0.52-1.04) mg/dL Glucose 101 H 86 (74-99) mg/dL Calcium 8.1 L 8.0 L (8.4-10.2) mg/dL AST 36 (14-36) U/L ALT 36 (9-52) U/L Alkaline Phosphatase 123 (38-126) U/L Total Protein 6.2 L (6.3-8.2) g/dL Albumin 2.8 L (3.5-5.0) g/dL Calcium panel 08/22/18 08/22/18 Range/Units 00:18 07:44 Calcium 8.1 L 8.0 L (8.4-10.2) mg/dL Albumin 2.8 L (3.5-5.0) g/dL Pituitary panel 08/22/18 08/22/18 Range/Units 00:18 07:44 Sodium 141 142 (137-145) mmol/L Potassium 3.1 L 4.8 (3.5-5.1) mmol/L Chloride 101 106 (98-107) mmol/L Carbon Dioxide 34 H 28 (22-30) mmol/L BUN 18 H 18 H (7-17) mg/dL Creatinine 0.82 0.65 (0.52-1.04) mg/dL Glucose 101 H 86 (74-99) mg/dL Calcium 8.1 L 8.0 L (8.4-10.2) mg/dL Adrenal panel 08/22/18 08/22/18 Range/Units 00:18 07:44 Sodium 141 142 (137-145) mmol/L Potassium 3.1 L 4.8 (3.5-5.1) mmol/L Chloride 101 106 (98-107) mmol/L Carbon Dioxide 34 H 28 (22-30) mmol/L BUN 18 H 18 H (7-17) mg/dL Creatinine 0.82 0.65 (0.52-1.04) mg/dL Glucose 101 H 86 (74-99) mg/dL Calcium 8.1 L 8.0 L (8.4-10.2) mg/dL Total Bilirubin 0.5 (0.2-1.3) mg/dL AST 36 (14-36) U/L ALT 36 (9-52) U/L Alkaline Phosphatase 123 (38-126) U/L Total Protein 6.2 L (6.3-8.2) g/dL Albumin 2.8 L (3.5-5.0) g/dL Assessment and Plan Plan: Patient had surgery including initial takedown of descending colostomy and repair of parastomal hernia with subsequent return to the operating room for a Oma's procedure due to leak of her colon anastomosis. Please note, no appendectomy has been performed. Upon discussion with the patient's nurse over the phone at [place] yesterday, concern of a bandlike substance discharging from her colostomy including clots which started yesterday. Patient does have a history of stomach ulcers in the past. She has lost moderate weight over 20 pounds. Abdomen inspected demonstrating minimal tenderness lower midline incision with dressing change. No peritonitis. Colostomy patent with moderate stool and air within Coloplast. Small presence of blood less than 10 mL found within her ostomy without clots. Agree with GI consultation for both upper and lower endoscopy by her stoma. CT of the abdomen and pelvis from outside hospital obtained 08/21/2018 reviewed demonstrating no intra-abdominal abscess. Moderate bilateral pleural effusions identified. May benefit from pulmonary consultation for bilateral pleural effusions. Midline dressing changed with moderate packing from iodoform identified and discontinued. Recommend colostomy nurse evaluation of the ostomy.
[2018-08-22 14:44] LABS: HCT 32.3 % (34.0-46.0); MCH 30.8 pg (25.0-35.0); MCV 90.8 fL (80.0-100.0); Mean Platelet Volume 7.8; Platelet Count 260 k/uL (150-450); RBC 3.56 m/uL (3.80-5.40); RDW 14.8 % (11.5-15.5); WBC 9.5 k/uL (3.8-10.6)
[2018-08-22] MEDS ORDERED: PEG 3350-NA SULF,BICARB,CL/KCL 4,000 ML BOTTLE PO ONE (16:00)
--- NOTE | 2018-08-22 19:40 | P.PN ---
Progress Note - Text Progress Note Date: 08/22/18 Patient seen and evaluated. Patient well known secondary to complicated postoperative course from colostomy reversal with subsequent leak requiring placement of descending colostomy and recent wound infection. Per discussion with the patient's nurse at [place] yesterday, PICC line malfunctioned. Patient still on antibiotics. Recommend pulmonary assessment including GI assessment and colostomy nurse assessment. Patient and family made aware that I will be out of town next couple weeks as close monitoring per medicine and covering surgeons provided. Dressing change performed at bedside with dressing orders placed. CT of the abdomen and pelvis personally reviewed demonstrating no signs of intra-abdominal infection.
[2018-08-22 20:06] LABS: INR 1.2 (<1.2); Prothrombin Time 11.7 sec (9.0-12.0)
[2018-08-22 20:07] LABS: HCT 33.3 % (34.0-46.0); HGB 11.3 gm/dL (11.4-16.0); MCH 30.8 pg (25.0-35.0); MCV 90.7 fL (80.0-100.0); Mean Platelet Volume 7.8; Platelet Count 263 k/uL (150-450); RBC 3.67 m/uL (3.80-5.40); RDW 14.9 % (11.5-15.5); WBC 10.9 k/uL (3.8-10.6)
--- NOTE | 2018-08-22 21:52 | XR ---
EXAMINATION TYPE: XR chest 1V portable DATE OF EXAM: 08/22/2018 COMPARISON: August 13, 2018 HISTORY: Pleural effusions. Chest pain TECHNIQUE: Single frontal view of the chest is obtained. FINDINGS: There is blunting of costophrenic angles. There is no overt heart failure. There is left c entral venous catheter with tip in the superior vena cava. Trachea is midline. IMPRESSION: Bilateral pleural effusions appear improved compared to last exam. No heart failure. The re is clearing of pulmonary congestion compared to last exam.
--- NOTE | 2018-08-23 00:05 | HP ---
HISTORY AND PHYSICAL DATE OF ADMISSION: 08/21/2018 DATE OF SERVICE: 08/22/2018 PRESENTING COMPLAINT: Blood through the ostomy. HISTORY OF PRESENTING COMPLAINT: This is a pleasant 68-year-old patient with an extensive surgical history, being followed by Dr. Kelly. The patient in 2016 had a colostomy performed for perforated diverticulitis. Patient subsequently on 07/20/2018 did undergo reversal of colostomy. Patient then was taken back to the OR on 07/28/2018 in a subsequent admission when patient was found to have a perforation proximal to the colorectal anastomosis with fecal peritonitis. Patient was discharged on antibiotics. Patient yet again was admitted on 08/12/2018 with further intraabdominal abscess. Patient was discharged by Dr. Kelly on 08/16/[address] Hancock following. Patient was discharged on IV ceftriaxone and Diflucan. Patient yesterday presented to [facility], from where patient was transferred here following dark blood noted through the ostomy bag. Early this afternoon Dr. Ousmane Piedra took the patient down for EGD and a small hiatal hernia and mild antral gastritis was noted. Dr. Piedra is planning to do a colonoscopy tomorrow, as maroon-colored stool had been noted. The patient still has abdominal wound with packing in place. Patient had abdominal pain for about 2 days. It may be noted that the patient has had extensive bowel surgery, including removal of the omentum in previous surgical encounters. Patient is nonambulatory at this point. She denies any fever or chills. Tired and rundown. REVIEW OF SYSTEMS: CONSTITUTIONAL: Tired. HEENT: None. RESPIRATORY: None. CARDIOVASCULAR: None. GASTROINTESTINAL: As above. GENITOURINARY: Lee catheter. DERMATOLOGICAL: As above. LYMPHATICS: None. PSYCHIATRY: None. NEUROLOGICAL: None. PAST MEDICAL HISTORY: 1. Hypertension. 2. Osteoarthritis. 3. Stomach ulcer. 4. Perforated diverticulitis. 5. Fecal peritonitis. 6. Colostomy. PAST SURGICAL HISTORY: 1. Bowel resection. 2. Right total knee. 3. Total right hip. 4. Perforated diverticulum, drainage of abscess. 5. Lysis of adhesions. 6. Abdominal drain. SOCIAL HISTORY: . Patient [facility]. They use a Una lift for her. Patient smoked for about 8 years and stopped in 1972. No alcohol. FAMILY HISTORY: Coronary artery disease. Father of renal failure. HOME MEDICATIONS: 1. Flagyl 500 mg p.o. t.i.d. 2. Florajen3 capsules 460 mg daily. 3. Ceftriaxone 2 grams IV piggyback q.24. 4. Norvasc 5 mg a day. 5. Potassium 20 mEq a day. 6. Protonix 40 mg with breakfast. 7. Fleet Adult 1 dose rectally daily p.r.n. 8. Toprol-XL 25 mg a day. 9. Magnesium oxide 400 mg b.i.d. 10.Milk of magnesia 800 mg p.r.n. 11.DuoNeb q.i.d. 12.Hydrocortisone topically t.i.d. 13.Lasix 40 mg b.i.d. 14.Lexapro 10 mg p.o. daily. 15.Dulcolax 10 mg rectally daily p.r.n. 16.Aspirin 81 mg p.o. at bedtime. ALLERGIES: NONE. PHYSICAL EXAMINATION: VITAL SIGNS ON PRESENTATION: Temperature 97.2, pulse 58, respiration 18, blood pressure 185/86, repeat 157/83, pulse ox 94% on room air. GENERAL APPEARANCE: Well built; BMI 35.9. Lying in bed, tired-appearing. EYES: Pupils equal. Conjunctivae pale. HEENT: External appearance of nose and ears normal. Oral cavity dry. NECK: JVD unable to assess. Mass not palpable. RESPIRATORY: Effort normal. LUNGS: Slightly decreased breath sounds. CARDIOVASCULAR: First and second sounds normal. No edema. ABDOMEN: Tender. Abdominal wound with packing in place. Colostomy bag present. Liver and spleen not palpable. Drain in place. LYMPHATIC: No lymph node palpable in neck or axillae. PSYCHIATRY: Alert and oriented x3. Mood and affect low-appearing. NEUROLOGICAL: Pupils equal. Cranial nerves grossly intact. Power in lower extremity is 1/5. Sensation is preserved. Evidence of osteoarthritis. INVESTIGATIONS: White count 9.5, hemoglobin 11, potassium 3.1, BUN 18, creatinine 0.82, albumin 2.8. ASSESSMENT: 1. Acute gastrointestinal bleed in the form of maroon-colored stool from the colostomy bag. The patient's upper EGD was unremarkable today. This could be a small bowel bleed. Ischemic bowel is also possible, given that patient has been having abdominal pain. 2. Essential hypertension. 3. Primary osteoarthritis. 4. Medical debility. 5. Depression not otherwise specified. 6. Normocytic anemia from multiple surgeries. 7. Hypokalemia. 8. Mild protein-calorie malnutrition from decreased oral intake. 9. Abdominal wound from surgery. 10.Recent fecal peritonitis and intraabdominal abscess, for which the patient is on antibiotics. PLAN: The patient was seen by Dr. Kelly and Dr. Ousmane Piedra. Plan is for colonoscopy tomorrow. Other medication, including antibiotics, to continue. Will have also Dr. Hancock from [facility] follow the case. Patient's last wound culture from 08/13/2018 was showing Rosangela albicans, which was also present on previous admissions. MMODL / IJN: [id number] /
[2018-08-23 02:32] LABS: HCT 36.5 % (34.0-46.0); HGB 11.3 gm/dL (11.4-16.0); Hypochromasia Slight; MCH 29.5 pg (25.0-35.0); MCHC 30.8 g/dL (31.0-37.0); Mean Platelet Volume 7.6; Platelet Count 285 k/uL (150-450); RBC 3.82 m/uL (3.80-5.40); RDW 14.7 % (11.5-15.5); WBC 8.3 k/uL (3.8-10.6)
[2018-08-23 02:39] LABS: MCV 95.7 fL (80.0-100.0)
[2018-08-23 02:40] LABS: INR 1.3 (<1.2); Prothrombin Time 12.2 sec (9.0-12.0)
[2018-08-23 02:49] LABS: Anion Gap 11 mmol/L; Blood Urea Nitrogen 15 mg/dL (7-17); Calcium 8.3 mg/dL (8.4-10.2); Carbon Dioxide 29 mmol/L (22-30); Chloride 101 mmol/L (98-107); Glucose 87 mg/dL (74-99); Sodium 141 mmol/L (137-145)
[2018-08-23] MEDS ORDERED: POTASSIUM CHLORIDE ER 20 MEQ TAB.ER PO STA (06:41)
--- NOTE | 2018-08-23 08:12 | P.PN ---
<TeoAutumnBrigitte M - Last Filed: 08/23/18 08:03> Subjective Progress Note Date: 08/23/18 68-year-old female being seen at the bedside drinking bowel prep for planned colonoscopy per GI service this morning denies any dizziness lightheadedness chest pain or shortness of breath. Ostomy stoma pink with an area noted that is dark what appears to be a clot on the left lateral side of the stoma moderate amount of liquid brown stool in the bag hemoglobin 11.3 admitting hemoglobin 10.5 potassium 3 Objective - Vital Signs Vital signs: Vital Signs Temp 97.5 F L 08/23/18 07:25 Pulse 68 08/23/18 07:25 Resp 18 08/23/18 07:25 BP 165/85 08/23/18 07:25 Pulse Ox 94 L 08/23/18 07:25 Intake & Output 08/22/18 08/23/18 08/23/18 18:59 06:59 18:59 Intake Total 120 Output Total 2400 1375 Balance -2400 -1255 Weight 86.183 kg Intake: Intake, IV Titration 120 Amount Sodium Chloride 0.9% 1, 120 000 ml @ 50 mls/hr IV . Q20H [facility] Rx#:[id number] Output: Urine 2400 700 Urine/Stool Mix 675 Other: Voiding Method Incontinent # Voids 4 # Bowel Movements 400 - Exam Physical exam 68-year-old female sitting up in bed does not appear in any acute distress currently drinking a bowel prep Lungs clear no shortness of breath Heart S1-S2 audible regular Abdomen surgical incision well approximated no redness distal to the surgical incision site open packed with iodoform gauze. Ostomy left lower quadrant stoma pink moderate amount was liquid stool brown in color Extremities Venodyne's on bilaterally - Labs CBC & Chem 7: 08/23/18 02:17 08/23/18 02:17 Labs: Abnormal Lab Results - Last 24 Hours (Table) 08/22/18 08/22/18 08/22/18 Range/Units 00:15 07:44 07:44 WBC (3.8-10.6) k/uL RBC 3.52 L (3.80-5.40) m/uL Hgb 10.5 L (11.4-16.0) gm/dL Hct 32.1 L (34.0-46.0) % MCHC (31.0-37.0) g/dL PT (9.0-12.0) sec INR 1.2 H (<1.2) Potassium (3.5-5.1) mmol/L BUN 18 H (7-17) mg/dL Calcium 8.0 L (8.4-10.2) mg/dL 08/22/18 08/22/18 08/23/18 Range/Units 14:12 19:43 02:17 WBC 10.9 H (3.8-10.6) k/uL RBC 3.56 L 3.67 L (3.80-5.40) m/uL Hgb 11.0 L 11.3 L 11.3 L (11.4-16.0) gm/dL Hct 32.3 L 33.3 L (34.0-46.0) % MCHC 30.8 L (31.0-37.0) g/dL PT (9.0-12.0) sec INR (<1.2) Potassium (3.5-5.1) mmol/L BUN (7-17) mg/dL Calcium (8.4-10.2) mg/dL 08/23/18 08/23/18 Range/Units 02:17 02:17 WBC (3.8-10.6) k/uL RBC (3.80-5.40) m/uL Hgb (11.4-16.0) gm/dL Hct (34.0-46.0) % MCHC (31.0-37.0) g/dL PT 12.2 H (9.0-12.0) sec INR 1.3 H (<1.2) Potassium 3.0 L (3.5-5.1) mmol/L BUN (7-17) mg/dL Calcium 8.3 L (8.4-10.2) mg/dL Microbiology - Last 24 Hours (Table) 08/22/18 10:30 Stool Culture - Preliminary Stool Assessment and Plan Assessment: Impression Present on admission acute GI bleed passing burgundy colored bowel movements through ostomy possible colitis or colonic diverticular bleed Acute blood loss anemia suspect due to GI bleed not ruled out A recent July 19 exploratory lap sigmoid resection and drainage of an abscess appendectomy reversal of ostomy July 26 exploratory lap colon resection for perforated ostomy Diverticulitis of intestine with perforation Recent July 28 exploratory laparotomy with descending colon resection for perforation descending ostomy, Oma's procedure for perforated A recent admission within the week surgical postop wound infection Chronic systolic heart failure without any evidence of an acute exacerbation Debilitated Small hiatal hernia, mild antral gastritis per EGD done on August 22 Hypokalemia Plan Potassium replaced colonoscopy scheduled today per GI service Monitor hemoglobin address as indicated DVT and GI prophylaxis IV fluid as ordered Ostomy care as appropriate Further surgical recommendations pending The above impression and plan of care have been discussed and directed by signing physician. Brigitte Bruce nurse practitioner acting as scribe for signing physician. <Moon Kelly N - Last Filed: 08/26/18 19:09> Objective - Vital Signs Vital signs: Vital Signs Temp 98.1 F 08/26/18 15:00 Pulse 71 08/26/18 15:00 Resp 16 08/26/18 15:00 BP 129/77 08/26/18 15:00 Pulse Ox 94 L 08/26/18 15:00 Intake & Output 08/26/18 08/26/18 08/27/18 06:59 18:59 06:59 Intake Total 240 Output Total 1450 800 Balance -1210 -800 Weight 86.183 kg Intake: Intake, IV Titration 240 Amount Sodium Chloride 0.9% 1, 240 000 ml @ 50 mls/hr IV . Q20H [facility] Rx#:[id number] Output: Urine 1150 800 Stool 300 Other: Voiding Method Incontinent Incontinent - Labs CBC & Chem 7: 08/24/18 06:51 08/26/18 11:22 Labs: Abnormal Lab Results - Last 24 Hours (Table) 08/26/18 Range/Units 11:22 Magnesium 1.4 L (1.6-2.3) mg/dL Microbiology - Last 24 Hours (Table) 08/22/18 10:30 Stool Culture - Final Stool Assessment and Plan Assessment: Impression Present on admission acute GI bleed passing burgundy colored bowel movements through ostomy possible colitis or colonic diverticular bleed Acute blood loss anemia suspect due to GI bleed not ruled out A recent July 19 exploratory sigmoid resection, lysis of adhesions and reversal of ostomy Diverticulitis of intestine with perforation Recent July 28 exploratory laparotomy descending ostomy creation/Oma' s procedure for anastomosis leak from diverticulitis GI management regarding GI bleed, no acute surgical intervention at this time.
--- NOTE | 2018-08-23 08:24 | HP ---
HISTORY AND PHYSICAL DATE OF ADMISSION: 08/21/2018. DATE OF SERVICE: 08/22/2018. PRESENTING COMPLAINT: Blood through the ostomy. HISTORY OF PRESENTING COMPLAINT: This is a pleasant 68-year-old patient with a rather extensive medical history. MMODL / IJN: [id number] /
[2018-08-23] MEDS: POTASSIUM CHLORIDE 20 MEQ in WATER FOR INJECTION 1 100ML.BAG IVPB SCH ×2 (08:34→10:43)
[2018-08-23] MEDS: PANTOPRAZOLE 40 MG TABLET PO SCH (08:37)
[2018-08-23] MEDS: MAGNESIUM OXIDE 400 MG TAB PO SCH ×2 (08:38→21:27)
[2018-08-23] MEDS: amLODIPine 5 MG TAB PO SCH (08:38)
[2018-08-23] MEDS: FUROSEMIDE 40 MG TAB PO SCH ×2 (08:39→18:23)
[2018-08-23] MEDS: METOPROLOL SUCCINATE (ER) 25 MG TAB.ER.24H PO SCH (08:39)
[2018-08-23] MEDS: ESCITALOPRAM 10 MG TAB PO SCH (08:39)
[2018-08-23] MEDS: metroNIDAZOLE 500 MG TAB PO SCH ×3 (08:39→21:26)
[2018-08-23] MEDS: POTASSIUM CHLORIDE ER 20 MEQ TAB.ER PO SCH (08:40)
[2018-08-23 08:46] LABS: HCT 33.1 % (34.0-46.0); MCH 30.5 pg (25.0-35.0); MCHC 33.2 g/dL (31.0-37.0); Mean Platelet Volume 7.4; Platelet Count 250 k/uL (150-450); RDW 14.8 % (11.5-15.5); WBC 7.9 k/uL (3.8-10.6)
--- NOTE | 2018-08-23 08:48 | US ---
EXAMINATION TYPE: US chest DATE OF EXAM: 08/23/2018 COMPARISON: NONE CLINICAL HISTORY: Markings for thoracentesis by pulmonary staff. TECHNIQUE: Targeted ultrasound of the posterior lower bilateral hemithoraces EXAM MEASUREMENTS: Right Pleural Effusion pocket size: 1.6 cm Right skin surface to fluid distance: 2.3 cm Left Pleural Effusion pocket size: 2.6 cm Left skin surface to fluid distance: 2.5 cm Right side not marked for possible thoracentesis outside the dept. Left side marked for possible thoracentesis outside the dept. Pulmonologists are able to review the images in the patient?s EMR. IMPRESSIONS: Small bilateral pleural effusion
[2018-08-23] MEDS: ACETAMINOPHEN TAB 325 MG TAB PO PRN (09:01)
[2018-08-23] MEDS ORDERED: IV FLUID CONTINUATION 700 ML IV ONE (09:31)
--- NOTE | 2018-08-23 13:05 | P.CNPUL ---
History of Present Illness Consult date: 08/23/18 Requesting physician: Moon Kelly Reason for consult: abnormal CXR/CT (Bilateral pleural effusions) Chief complaint: Red burgundy blood in her colostomy. History of present illness: This is a pleasant 68-year-old female patient who follows with Dr. Disla as her primary care physician. She has a history of hypertension, osteoarthritis. perforated diverticulitis status post recent reversal with subsequent perforation of colorectal anastomosis requiring Oma procedure the creation of colostomy presented 08/21/2018 with acute GI bleeding passing burgundy- colored bowel movements. The plan is for EGD today and possible inpatient colonoscopy per GI services. Yesterday's chest x-ray revealed evidence of bilateral pleural effusions and we are consulted for the same. Chest ultrasound today reveals minimal effusions measuring 1.6 cm on the right and 2.6 cm on the left. Patient is seen in consultation on the surgical floor. She is currently resting flat in bed. She denies any shortness of breath, cough or congestion. She is maintaining good O2 saturations in the mid 90s on room air. She's been afebrile. White count 7.9. Hemoglobin 11.0. Bicarb 29. Creatinine 0.57. Review of Systems 14 point review of system was conducted. All negative other than as mentioned in the HPI. Past Medical History Past Medical History: Hypertension, Osteoarthritis (OA) Additional Past Medical History / Comment(s): HX Low Sodium. djd,HX STOMACH ULCER. PERFORATED DIVERTICULTUM, COLOSTOMY 03/2016. past stress test pt state was wnl . History of Any Multi-Drug Resistant Organisms: None Reported Past Surgical History: Bowel Resection, Orthopedic Surgery Additional Past Surgical History / Comment(s): TOTAL RT Knee, total RT HIP replacment. 03-22-16 PERFORATED DIVERTICULUM -had exploratory lap/sigmoid resection/drainage of abcess/colostomy/appy. 07-19-18 lysis of adhesions/reversal of colostomy. 07-26-18 exp lap/colon resection(for perforation)/colostomy-has 2 drains Past Anesthesia/Blood Transfusion Reactions: No Reported Reaction Additional Past Anesthesia/Blood Transfusion Reaction / Comment(s): Pt states she did receive blood with total knee surgery-denies any reaction to it Smoking Status: Former smoker - Past Family History Father Family Medical History: Coronary Artery Disease (CAD), Myocardial Infarction ([place] ), Renal Disease Additional Family Medical History / Comment(s): Father of renal failure at the age of 72 yrs. Mother Family Medical History: Cancer Additional Family Medical History / Comment(s): Mother had colon cancer and of this at age 67 yrs. Medications and Allergies Home Medications Medication Instructions Recorded Confirmed Type Acetaminophen Tab [Tylenol] 650 mg PO Q6HR PRN tab 08/05/18 08/21/18 Rx Aspirin 81 mg PO HS chew 08/05/18 08/21/18 Rx Furosemide [Lasix] 40 mg PO BID@0900,1600 tab 08/05/18 08/21/18 Rx Magnesium Oxide [Mag-Ox] 400 mg PO BID tab 08/05/18 08/21/18 Rx Pantoprazole [Protonix] 40 mg PO AC-BRKFST tablet. 08/05/18 08/21/18 Rx Potassium Chloride ER [K-Dur 20] 20 meq PO DAILY tab.er.prt 08/05/18 08/21/18 Rx cefTRIAXone [Rocephin] 2,000 mg IVP Q24HR #14 ml 08/05/18 08/21/18 Rx metroNIDAZOLE [Flagyl] 500 mg PO TID #42 tab 08/05/18 08/21/18 Rx Bisacodyl [Dulcolax] 10 mg RECTAL DAILY PRN 08/12/18 08/21/18 History Hydrocortisone Cream 1 applic TOPICAL TID 08/12/18 08/21/18 History [Hydrocortisone 1% Cream] Magnesium Hydroxide [Milk of 800 mg PO DAILY PRN 08/12/18 08/21/18 History Magnesia] Metoprolol Succinate [Toprol XL] 25 mg PO DAILY 08/12/18 08/21/18 History Na Phos,M-B/Na Phos,Di-Ba [Fleet 1 dose RECTAL DAILY PRN 08/12/18 08/21/18 History Adult] Escitalopram [Lexapro] 10 mg PO DAILY tab 08/16/18 08/21/18 Rx Ipratropium-Albuterol Nebulize 3 ml INHALATION RT-QID PRN 08/16/18 08/21/18 Rx [Duoneb 0.5 mg-3 mg/3 ml Soln] ampul.neb amLODIPine [Norvasc] 5 mg PO DAILY 08/21/18 08/21/18 History l Acidophil/B Lactis/B Longum 460 mg PO DAILY 08/21/18 08/21/18 History [Florajen3 Capsule] Allergies Allergy/AdvReac Type Severity Reaction Status Date / Time No Known Allergies Allergy Verified 08/21/18 23:28 Physical Exam Vitals: Vital Signs Temp Pulse Resp BP Pulse Ox 08/23/18 12:39 98.2 F 18 146/79 96 08/23/18 07:25 97.5 F L 68 18 165/85 94 L 08/23/18 00:42 97.5 F L 73 17 176/74 95 08/22/18 19:45 97.9 F 71 16 154/79 96 08/22/18 16:00 16 08/22/18 14:47 98.5 F 65 16 183/70 95 Intake and Output 08/22/18 08/23/18 08/23/18 22:59 06:59 14:59 Intake Total 120 Output Total 2400 1375 Balance -2280 -1375 Intake: Intake, IV Titration 120 Amount Sodium Chloride 0.9% 1, 120 000 ml @ 50 mls/hr IV . Q20H [facility] Rx#:[id number] Output: Urine 2400 700 Urine/Stool Mix 675 Other: Voiding Method Incontinent # Bowel Movements 400 Weight 86.183 kg GENERAL EXAM: A pleasant 68-year-old female patient. Alert, active, comfortable in no apparent distress. HEAD: Normocephalic. EYES: Normal reaction of pupils, equal size. NOSE: Clear with pink turbinates. THROAT: No erythema or exudates. NECK: No masses, no JVD. CHEST: No chest wall deformity. LUNGS: Equal air entry with no crackles, wheeze, rhonchi or dullness. CVS: S1 and S2 normal with no audible murmur, regular rhythm. ABDOMEN: Abdominal surgical incision well approximated, no redness distal to the surgical incision site, open packed with iodoform gauze. Ostomy in the left lower quadrant stoma pink. Liquid stool. SPINE: No scoliosis or deformity SKIN: No rashes CENTRAL NERVOUS SYSTEM: No focal deficits, tone is normal in all 4 extremities. EXTREMITIES: There is no peripheral edema. No clubbing, no cyanosis. Peripheral pulses are intact. Results - Laboratory Findings CBC and BMP: 08/23/18 08:25 08/23/18 02:17 PT/INR, D-dimer PT 12.2 sec (9.0-12.0) H 08/23/18 02:17 INR 1.3 (<1.2) H 08/23/18 02:17 Abnormal lab findings: Abnormal Labs 08/22/18 08/22/18 08/22/18 00:15 00:18 00:18 WBC RBC Hgb 11.3 L Hct MCHC PT INR 1.2 H Potassium 3.1 L Carbon Dioxide 34 H BUN 18 H Glucose 101 H Calcium 8.1 L Magnesium Total Protein 6.2 L Albumin 2.8 L 08/22/18 08/22/18 08/22/18 07:44 07:44 14:12 WBC RBC 3.52 L 3.56 L Hgb 10.5 L 11.0 L Hct 32.1 L 32.3 L MCHC PT INR Potassium Carbon Dioxide BUN 18 H Glucose Calcium 8.0 L Magnesium Total Protein Albumin 08/22/18 08/23/18 08/23/18 19:43 02:17 02:17 WBC 10.9 H RBC 3.67 L Hgb 11.3 L 11.3 L Hct 33.3 L MCHC 30.8 L PT 12.2 H INR 1.3 H Potassium Carbon Dioxide BUN Glucose Calcium Magnesium Total Protein Albumin 08/23/18 08/23/18 08/23/18 02:17 08:25 08:25 WBC RBC 3.60 L Hgb 11.0 L Hct 33.1 L MCHC PT INR Potassium 3.0 L Carbon Dioxide BUN Glucose Calcium 8.3 L Magnesium 1.4 L Total Protein Albumin - Diagnostic Findings Chest x-ray: image reviewed Assessment and Plan Assessment: impression: #1 Bright burgundy stool from the ostomy site. Recent history of perforated diverticulitis with descending colostomy, parastomal hernia status post takedown of descending colostomy, lysis of adhesions and repair of incarcerated parastomal hernia with wound VAC on 07/19/2018. Had been readmitted for perforated 4cm proximal to the colorectal anastomosis with fecal peritonitis and Oma procedure on 07/28/2018. Readmitted on 08/21/2018 with red burgundy blood per colostomy. Plan is for EGD today. Possible inpatient colonoscopy. #2 Bilateral pleural effusions, ultrasound reveals no significant effusions for thoracentesis. #3 Hypertension. #4 Osteoarthritis. #5 Remote smoking history. Plan: The patient was seen and evaluated by Dr. Estrada. Chest x-ray and ultrasound were reviewed. No plans for thoracentesis at this time. The patient is maintaining good O2 saturations in the mid 90s on room air. Continue to utilize the incentive spirometer and cough and deep breathing exercises. Increase her activity as tolerated. We'll continue to follow. I, the cosigning physician, performed a history & physical examination of the patient. Lungs sounds with crackles in the posterior basesar. Maintaining good O2 saturations in the 90s on room air. I discussed the assessment and plan of care with my nurse practitioner, Elisa Epstein. I attest to the above consultation as dictated by her.t Time with Patient: Greater than 30
--- NOTE | 2018-08-23 13:06 | PN ---
PROGRESS NOTE DATE OF SERVICE: 08/22/2018 PRESENTING COMPLAINT: Blood through the ostomy. INTERVAL HISTORY: This is a patient who initially had a colostomy following a perforated diverticulitis. Subsequently, had perforation proximal to the anastomosis and then had intraabdominal abscess with drains in place, has gone for rehab. Now has presented with blood through the colostomy bag. EGD yesterday was unremarkable, pending colonoscopy today. Lying in bed, a bit tired-appearing. REVIEW OF SYSTEMS: Done for constitutional, cardiovascular, GI, pulmonary; relevant findings as above. CURRENT MEDICATIONS: Reviewed. PHYSICAL EXAMINATION: Temperature 97.5, pulse 58, respirations 18, blood pressure 165/85, pulse ox 94% on room air. GENERAL APPEARANCE: Lying in bed, tired appearing. EYES: Pupils equal. Conjunctivae are pale. HEENT: External appearance of nose and ears normal. Oral cavity dry. NECK: JVD unable to assess. Mass not palpable. RESPIRATORY: Effort normal. LUNGS: Decreased breath sounds, CARDIOVASCULAR First and second sounds are normal. ABDOMEN: Tender. Abdominal incision wound with packing in place, colostomy bag present. The abdominal incision wound with packing in place. Colostomy bag present. Liver and spleen not palpable. LYMPHATIC: No lymph node palpable. PSYCHIATRY: Alert and oriented x3. Mood and affect tired-appearing. INVESTIGATIONS: White count 7.9, hemoglobin 11, magnesium 1.4. ASSESSMENT: 1. Acute gastrointestinal bleed in the form of brown-colored stool from the colostomy bag. Upper EGD was unremarkable, could be a small bowel bleed. Patient is pending colonoscopy today. Ischemic bowel remains in the differential. 2. Essential hypertension. 3. Primary osteoarthritis. 4. Medical debility. 5. Depression, not otherwise specified. 6. Normocytic anemia from multiple surgeries and blood loss. 7. Hyperkalemia. 8. Mild protein-calorie malnutrition from decreased oral intake. 9. Abdominal incision wound from surgery with the packing in place. 10.Recent fecal peritonitis and intraabdominal abscess. Patient is on antibiotics. PLAN: Continue current medication and treatment plan, await colonoscopy. Antibiotics have been quoted by Dr. Hancock. Follow up with surgery. Care was discussed with the patient. Intraabdominal cultures had shown Rosangela albicans. MMODL / IJN: [id number] /
[2018-08-23] MEDS: HYDROCORTISONE 1% CREAM 30 GM TUBE TOPICAL SCH ×3 (13:25→21:27)
[2018-08-23] MEDS: SODIUM CHLORIDE 0.9% 1,000 ML IV SCH (14:50)
[2018-08-23] MEDS: MAGNESIUM SULFATE-D5W PMX 1 GM in DEXTROSE/WATER 1 100ML.BAG IVPB SCH ×3 (14:50→18:59)
[2018-08-23] MEDS ORDERED: PROPOFOL 10 MG/ML 20 ML VIAL IV ONE (18:20)
[2018-08-23] MEDS ORDERED: IV FLUID CONTINUATION 1,000 ML IV ONE (18:35)
--- NOTE | 2018-08-23 19:00 | P.PCN ---
Date of Procedure: 08/23/18 Procedure(s) Performed: Procedure: Colonoscopy through ostomy site Preoperative diagnosis: GI bleeding. Postoperative diagnosis: Denuded friabile area in the balbina-ostomy location, but the exam through the ostomy to the cecum is normal. Preparation: Likely prep. Sedation: Was provided by anesthesia. Brief clinical history: The patient is a 68-year-old female who was admitted to the hospital with GI bleeding. The patient had maroon colored stools filling her ostomy bag. She had history of perforated diverticulum and had a temporary colostomy which was then recently revised to be followed by perforation of the anastomosis requiring placement of a new ostomy. The patient was admitted to the hospital with GI bleeding with maroon colored stools in the ostomy bag of 2 days duration. She underwent an upper endoscopy yesterday that showed small hiatal hernia and mild antral gastritis with no active bleeding, that is why she was scheduled for this examination today to rule out with confidence a source of bleeding in the colon. Other details are summarized in the history and physical and dictated consultation and progress notes. Procedure: With the patient in the supine position and after informed consent and adequate sedation, the colostomy site was inspected. There was a wide denuded gap area in the balbina-colostomy abdominal wall with friability but no spontaneous bleeding. The ostomy appeared healthy. I advanced the endoscope through the ostomy in the usual fashion to the cecum then I intubated the ileocecal valve and examined a short distance of the small intestine. The terminal ileum and colon appeared healthy with no obvious diverticular disease, polyps, mucosal abnormalities or bleeding. The patient tolerated the procedure well. Plan: The patient was reassured. Will discuss with Dr. Kelly and further recommendations of the balbina-ostomy care would be made.
[2018-08-23] MEDS: ANIDULAFUNGIN 100 MG in SODIUM CHLORIDE 0.9% 100 ML IVPB SCH (23:38)
--- NOTE | 2018-08-24 00:33 | CONS ---
CONSULTATION DATE OF SERVICE: 08/23/2018. REASON FOR CONSULTATION: Abdominal abscess. HISTORY OF PRESENT ILLNESS: The patient is a 68-year-old female who recently was admitted to this facility. The patient was noted to have an anastomosis leak after reversal of colostomy. Subsequently the patient did have a laparotomy with drainage of the abscess and diverting colostomy. The abdomen cultures were positive for Rosangela albicans with no other resistant pathogen. Subsequently the patient had a PICC line and was advised a 2-week course of IV Rocephin in addition to the oral Flagyl and Diflucan. The patient was recently re-admitted to the hospital after apparently developing some purulent drainage from the lower abdominal incision. At that time she did have a CT abdominal pelvis at the outpatient facility with no evidence of any drainable abscess. The patient has been treated medically with removal of some stitches and then the abscess drained. Antibiotic at that time was switched over to anidulafungin and she was discharged back to the custodial on 08/16/2018 with instructions to continue with the anidulafungin 100 mg daily along with Rocephin and Flagyl. The patient has now been brought back to the [facility] after the patient noticed to have blood in her colostomy bag in addition to the nonfunctioning PICC line. The patient has been evaluated by the GI services. Currently no plan for any colonoscopy. Her PICC line has been replaced. She has been continued on oral Flagyl, however, anidulafungin and Rocephin have not been started. The patient has been afebrile so far and her white count has been normal. was 10.9 yesterday. The patient herself is breathing comfortably. Denies having any chest pain or shortness of breath. No cough. No abdominal pain. No nausea, vomiting, or any diarrhea. REVIEW OF SYSTEMS: CONSTITUTIONAL: Positive for weakness but no fever. EYES: No complaint. ENT: No complaint. RESPIRATORY: No complaint. CARDIOVASCULAR: No complaint. GENITOURINARY: No complaint. MUSCULOSKELETAL: No complaint. INTEGUMENTARY: No complaint. PSYCHOLOGICAL: No complaint. ENDOCRINE: No complaint. NEUROLOGIC: No complaint. PAST MEDICAL HISTORY: Significant for hypertension, osteoarthritis, peptic ulcer disease, perforated diverticulitis. Most recently reversal of colostomy with secondary peritonitis. PAST SURGICAL HISTORY: Bowel resection, colostomy reversal with repeat colostomy placement July of 2018, right knee replacement and right hip surgery. SOCIAL HISTORY: No history of smoking, drinking or drug use. FAMILY HISTORY: Mother with history of colon cancer. Father history of [place]. ALLERGIES: No known drug allergies. MEDICATIONS: Currently include the patient is on Tylenol, DuoNeb, Norvasc, Lexapro, Lasix, hydrocortisone cream, milk of magnesia, vanc, , Toprol-XL, Flagyl, Narcan, Protonix, K-Dur. PHYSICAL EXAMINATION: Blood pressure is 152/70 with a pulse of 68, temperature 98, she is 95% on room air. GENERAL DESCRIPTION: An elderly female, lying in bed in no distress. HEENT: Shows pallor. No scleral icterus. Oral mucosa is dry. No pharyngeal erythema or thrush. NECK: Trachea central. No thyromegaly. LUNGS: Unlabored breathing. Clear to auscultation anteriorly. HEART: S1, S2. Regular rate and rhythm. ABDOMEN: Soft, no tenderness. No rigidity. She did have small wound at the lower end. No significant purulent secretions noted today. Colostomy did have liquidy stool, but no blood. EXTREMITIES: No edema of the feet. SKIN: No rash or mass palpable. NEUROLOGICAL: The patient is awake, alert, oriented x3. Mood and affect normal. LABS: Hemoglobin is 11, white count 7.9, BUN of 15, creatinine 0.57. Stool for C difficile has been negative. DIAGNOSTIC IMPRESSION AND PLAN: Patient did have a history of abdominal abscess after anastomosis leak. Culture has been positive for Rosangela albicans. Initially was on Diflucan and subsequently was transitioned to anidulafungin with concern for possible failure of oral Diflucan. The patient is now being admitted to the hospital with GI bleed and nonfunctional PICC line. The PICC line has already been replaced. The patient has been treated did with oral Flagyl. Unfortunately, anidulafungin was not started. PLAN: 1. We will start anidulafungin 100 mg daily. Continue Flagyl. The patient has received a few weeks of IV Rocephin and responded to any further IV Rocephin at this point. 2. Continue local wound care to the lower abdominal wound with iodoform packing. 3. We will follow up on clinical condition and further adjust medication if needed. Thank you for this consultation. Will follow this patient along with you. MMODL / IJN: [id number] /
[2018-08-24 07:16] LABS: Basophils % (A) 0 %; Eosinophils # (A) 0.4 k/uL (0-0.7); Eosinophils % (A) 5 %; HCT 34.7 % (34.0-46.0); HGB 11.4 gm/dL (11.4-16.0); Lymphocytes # (A) 1.2 k/uL (1.0-4.8); Lymphocytes % (A) 13 %; MCH 30.5 pg (25.0-35.0); MCHC 32.7 g/dL (31.0-37.0); MCV 93.1 fL (80.0-100.0); Mean Platelet Volume 7.3; Monocytes # (A) 0.6 k/uL (0-1.0); Monocytes % (A) 6 %; Neutrophils # (A) 7.1 k/uL (1.3-7.7); Neutrophils % (A) 75 %; Platelet Count 274 k/uL (150-450); RBC 3.73 m/uL (3.80-5.40); RDW 14.9 % (11.5-15.5); WBC 9.5 k/uL (3.8-10.6)
[2018-08-24 07:22] LABS: ALT 32 U/L (9-52); AST 29 U/L (14-36); Albumin 2.7 g/dL (3.5-5.0); Alkaline Phosphatase 115 U/L (38-126); Anion Gap 10 mmol/L; Blood Urea Nitrogen 16 mg/dL (7-17); Calcium 8.4 mg/dL (8.4-10.2); Carbon Dioxide 31 mmol/L (22-30); Chloride 102 mmol/L (98-107); Glucose 91 mg/dL (74-99); Sodium 143 mmol/L (137-145); Total Bilirubin 0.6 mg/dL (0.2-1.3)
[2018-08-24] MEDS: POTASSIUM CHLORIDE ER 20 MEQ TAB.ER PO SCH (07:28)
[2018-08-24] MEDS: metroNIDAZOLE 500 MG TAB PO SCH ×3 (07:28→22:28)
[2018-08-24] MEDS: MAGNESIUM OXIDE 400 MG TAB PO SCH ×2 (07:28→20:32)
[2018-08-24] MEDS: METOPROLOL SUCCINATE (ER) 25 MG TAB.ER.24H PO SCH (07:28)
[2018-08-24] MEDS: amLODIPine 5 MG TAB PO SCH (07:28)
[2018-08-24] MEDS: FUROSEMIDE 40 MG TAB PO SCH ×2 (07:29→15:33)
[2018-08-24] MEDS: PANTOPRAZOLE 40 MG TABLET PO SCH (07:29)
[2018-08-24] MEDS: ESCITALOPRAM 10 MG TAB PO SCH (07:29)
[2018-08-24] MEDS: HYDROCORTISONE 1% CREAM 30 GM TUBE TOPICAL SCH ×3 (07:30→22:29)
--- NOTE | 2018-08-24 09:23 | P.PN ---
Progress Note - Text Progress Note Date: 08/24/18 The patient's resting comfortably in bed. She's had no further bleeding or murmur stomach. On exam her vital signs appear stable. Her abdomen soft. Stoma has some stool within it. There is known to blood. Status post colostomy for anastomotic leak. Patient has had a complicated long medical course. The patient will continue supportive care. Weight is a discharge next 24 hours.
--- NOTE | 2018-08-24 17:10 | P.PN ---
Subjective This is a pleasant 68 years old female with past medical history of hypertension , hypernatremia, peptic ulcer, perforated diverticulum status post colostomy on 03/2016. Patient originally was transferred from [facility] for acute abdominal pain in the right upper quadrant. Patient had a reversal of her colostomy in this hospital, she was doing well in the postoperative period, and subsequently was discharged to [facility].On 07/28/2018 patient underwent exploratory laparotomy with sigmoid colostomy, with new perforation 4 cm proximal to the colorectal anastomosis , patient was treated with antibiotics for fecal peritonitis , patient improved and was discharged on 08/05/2018. Patient was admitted again from August 21-03/2018 for surgical wound infection and possible abscess where she was treated with further antibiotics, and then sent back to rehab. She presents again on 08/21/2018 4 dark blood from colostomy site. Patient underwent colonoscopy through ostomy site for her GI bleed yesterday on 08/23/2018: denuded balbina-ostomy area with normal exam up to cecum Objective - Vital Signs Vital signs: Vital Signs Temp 97.6 F 08/24/18 07:04 Pulse 74 08/24/18 11:31 Resp 17 08/24/18 07:05 BP 147/83 08/24/18 11:31 Pulse Ox 97 08/24/18 07:04 Intake & Output 08/23/18 08/24/18 08/24/18 18:59 06:59 18:59 Intake Total 50 100 240 Output Total 1250 650 Balance -1200 -550 240 Weight 86.183 kg Intake: IV 50 Intake, IV Titration 100 Amount Anidulafungin 100 mg In 100 Sodium Chloride 0.9% 100 ml @ 84 mls/hr IVPB Q24H [facility] Rx#:[id number] Oral 240 Output: Urine 700 650 Stool 550 Other: Voiding Method Incontinent Incontinent # Voids 1 - Exam GENERAL: The patient is alert and oriented x3, not in any acute distress. Well developed, well nourished. HEENT: Pupils are round and equally reacting to light. EOMI. No scleral icterus. No conjunctival pallor. Normocephalic, atraumatic. No pharyngeal erythema. No thyromegaly. CARDIOVASCULAR: S1 and S2 present. No murmurs, rubs, or gallops. PULMONARY: Chest is clear to auscultation, no wheezing or crackles. ABDOMEN: Soft, nontender, nondistended, normoactive bowel sounds. No palpable organomegaly. MUSCULOSKELETAL: No joint swelling or deformity. EXTREMITIES: No cyanosis, clubbing, or pedal edema. NEUROLOGICAL: Gross neurological examination did not reveal any focal deficits. SKIN: No rashes. - Labs CBC & Chem 7: 08/24/18 06:51 08/24/18 06:51 Labs: Abnormal Lab Results - Last 24 Hours (Table) 08/24/18 08/24/18 Range/Units 06:51 06:51 RBC 3.73 L (3.80-5.40) m/uL Potassium 3.0 L (3.5-5.1) mmol/L Carbon Dioxide 31 H (22-30) mmol/L Total Protein 6.0 L (6.3-8.2) g/dL Albumin 2.7 L (3.5-5.0) g/dL Assessment and Plan Assessment: Denuded ostomy site, with subsequent GI bleeds mostly secondary to above History of perforated diverticulitis status post colostomy Attention Degenerative joint disease Plan: We recommend to continue with same treatment. Continue symptomatic treatment. Resume home medication. GI and surgery consult is appreciated. Monitor lytes and vitals. Hemoglobin is stable. GI and DVT prophylaxis. Further recommendation is based on the clinical course of the patient's GI prophylaxis: Protonix DVT prophylaxis: No heparin in view of GI bleed
[2018-08-24] MEDS: ACETAMINOPHEN TAB 325 MG TAB PO PRN (20:32)
[2018-08-24] MEDS: ANIDULAFUNGIN 100 MG in SODIUM CHLORIDE 0.9% 100 ML IVPB SCH (22:28)
[2018-08-25] MEDS: MAGNESIUM OXIDE 400 MG TAB PO SCH ×2 (07:28→21:23)
[2018-08-25] MEDS: amLODIPine 5 MG TAB PO SCH (07:28)
[2018-08-25] MEDS: PANTOPRAZOLE 40 MG TABLET PO SCH (07:28)
[2018-08-25] MEDS: METOPROLOL SUCCINATE (ER) 25 MG TAB.ER.24H PO SCH (07:28)
[2018-08-25] MEDS: POTASSIUM CHLORIDE ER 20 MEQ TAB.ER PO SCH (07:28)
[2018-08-25] MEDS: metroNIDAZOLE 500 MG TAB PO SCH ×3 (07:28→21:23)
[2018-08-25] MEDS: FUROSEMIDE 40 MG TAB PO SCH ×2 (07:28→15:43)
[2018-08-25] MEDS: SODIUM CHLORIDE 0.9% 1,000 ML IV SCH (07:29)
[2018-08-25] MEDS: HYDROCORTISONE 1% CREAM 30 GM TUBE TOPICAL SCH ×3 (07:29→21:23)
[2018-08-25] MEDS: ESCITALOPRAM 10 MG TAB PO SCH (07:52)
--- NOTE | 2018-08-25 08:11 | PN ---
PROGRESS NOTE DATE OF SERVICE: 08/24/2018. REASON FOR FOLLOWUP: Abdominal abscess. INTERVAL HISTORY: The patient is currently afebrile. She is breathing comfortably. Denies having any chest pain or shortness of breath or cough. No abdominal pain or any diarrhea. EXAMINATION: Blood pressure 117/69 with a pulse of 83, temperature of 98.7. She is 96% on room air. General description is a an elderly female lying in bed in no distress. RESPIRATORY SYSTEM: Unlabored breathing. Clear to auscultation anteriorly. HEART: S1, S2. Regular rate and rhythm. ABDOMEN: Soft, no tenderness. No drainage from the lower end of the incision. DIAGNOSTIC IMPRESSION AND PLAN: Patient with abdominal abscess from anastomosis leak. Culture with predominantly Rosangela albicans. Previously was on Diflucan. Currently on anidulafungin which unfortunately the patient did not get at the [facility]. She will continue on anidulafungin along with Flagyl at this point. Continue supportive care. MMODL / IJN: [id number] /
--- NOTE | 2018-08-25 11:40 | P.PN ---
Progress Note - Text Progress Note Date: 08/25/18 The patient is resting her bed. She denies any complaints. There's been no further blood in her colostomy. On exam her vital signs are stable. Her abdomen soft. Colostomy shows evidence of brown stool. Status post GI bleed due to bleeding at the colostomy site. There is been no further bleeding. We dissected discharge back to ECF tomorrow
[2018-08-25] MEDS: ACETAMINOPHEN TAB 325 MG TAB PO PRN ×2 (16:07→21:23)
--- NOTE | 2018-08-25 19:25 | P.PN ---
Subjective This is a pleasant 68 years old female with past medical history of hypertension , hypernatremia, peptic ulcer, perforated diverticulum status post colostomy on 03/2016. Patient originally was transferred from [facility] for acute abdominal pain in the right upper quadrant. Patient had a reversal of her colostomy in this hospital, she was doing well in the postoperative period, and subsequently was discharged to [facility].On 07/28/2018 patient underwent exploratory laparotomy with sigmoid colostomy, with new perforation 4 cm proximal to the colorectal anastomosis , patient was treated with antibiotics for fecal peritonitis , patient improved and was discharged on 08/05/2018. Patient was admitted again from August 21-03/2018 for surgical wound infection and possible abscess where she was treated with further antibiotics, and then sent back to rehab. She presents again on 08/21/2018 4 dark blood from colostomy site. Patient underwent colonoscopy through ostomy site for her GI bleed yesterday on 08/23/2018: denuded balbina-ostomy area with normal exam up to cecum 08/25/2018 pt is lying in bed comfortable , no chest pain, no dyspnea , her colostomy back has brown stool , vitals are stable. pt is still on antibiotic , primary team are thinking of discharging pt tomorrow back to [facility] Objective - Vital Signs Vital signs: Vital Signs Temp 98.2 F 08/25/18 15:00 Pulse 80 08/25/18 15:00 Resp 12 08/25/18 15:00 BP 169/81 08/25/18 15:00 Pulse Ox 95 08/25/18 15:00 Intake & Output 08/25/18 08/25/18 08/26/18 06:59 18:59 06:59 Intake Total 580 240 Output Total 700 1900 Balance -120 -1660 Intake: Intake, IV Titration 580 Amount Anidulafungin 100 mg In 100 Sodium Chloride 0.9% 100 ml @ 84 mls/hr IVPB Q24H [facility] Rx#:[id number] Sodium Chloride 0.9% 1, 480 000 ml @ 50 mls/hr IV . Q20H [facility] Rx#:[id number] Oral 240 Output: Urine 700 1900 Other: Voiding Method Incontinent - Exam GENERAL: The patient is alert and oriented x3, not in any acute distress. Well developed, well nourished. HEENT: Pupils are round and equally reacting to light. EOMI. No scleral icterus. No conjunctival pallor. Normocephalic, atraumatic. No pharyngeal erythema. No thyromegaly. CARDIOVASCULAR: S1 and S2 present. No murmurs, rubs, or gallops. PULMONARY: Chest is clear to auscultation, no wheezing or crackles. ABDOMEN: Soft, nontender, nondistended, normoactive bowel sounds. No palpable organomegaly. MUSCULOSKELETAL: No joint swelling or deformity. EXTREMITIES: No cyanosis, clubbing, or pedal edema. NEUROLOGICAL: Gross neurological examination did not reveal any focal deficits. SKIN: No rashes. - Labs CBC & Chem 7: 08/24/18 06:51 08/24/18 06:51 Labs: Microbiology - Last 24 Hours (Table) 08/22/18 10:30 Stool Culture - Final Stool Assessment and Plan Assessment: Denuded ostomy site, with subsequent GI bleeds mostly secondary to above History of perforated diverticulitis status post colostomy Degenerative joint disease Plan: We recommend to continue with same treatment. Continue symptomatic treatment. Resume home medication. GI and surgery consult is appreciated. Monitor lytes and vitals. Hemoglobin is stable. GI and DVT prophylaxis. Further recommendation is based on the clinical course of the patient's GI prophylaxis: Protonix DVT prophylaxis: No heparin in view of GI bleed
--- NOTE | 2018-08-26 00:23 | PN ---
PROGRESS NOTE DATE OF SERVICE: 08/25/2018. REASON FOR FOLLOWUP: Abdominal abscess. INTERVAL HISTORY: The patient is currently afebrile. She is breathing comfortably. Denies significant chest pain, shortness of breath, cough. No abdominal pain. No significant drainage has been noted from lower abdominal wound. EXAMINATION: Blood pressure 129/75 with a pulse of 71, temperature 98. She is 97% on room air. General description is an elderly female, lying in bed in no distress. Respiratory system: Unlabored breathing. Clear to auscultation anteriorly. Heart S1, S2. Regular rate and rhythm. Abdomen: Soft, no tenderness. LABS: Hemoglobin 11.4, white count 9.5 with a BUN of 10, creatinine 0.60. DIAGNOSTIC IMPRESSION AND PLAN: Patient with abdominal sepsis in a patient who did have a anastomosis leak diverting colostomy. The abdominal cultures have been positive for Rosangela albicans previously on Diflucan, [facility] The patient still to continue with Flagyl and for another 7 to 10 days to finish a course of therapy. Continue supportive care. MMODL / IJN: [id number] /
[2018-08-26] MEDS: ANIDULAFUNGIN 100 MG in SODIUM CHLORIDE 0.9% 100 ML IVPB SCH ×2 (00:33→23:02)
[2018-08-26] MEDS: SODIUM CHLORIDE 0.9% 1,000 ML IV SCH ×2 (04:52→23:02)
[2018-08-26] MEDS: ACETAMINOPHEN TAB 325 MG TAB PO PRN ×2 (05:15→16:14)
[2018-08-26] MEDS: metroNIDAZOLE 500 MG TAB PO SCH ×3 (08:33→22:34)
[2018-08-26] MEDS: METOPROLOL SUCCINATE (ER) 25 MG TAB.ER.24H PO SCH (08:33)
[2018-08-26] MEDS: MAGNESIUM OXIDE 400 MG TAB PO SCH ×2 (08:33→22:34)
[2018-08-26] MEDS: POTASSIUM CHLORIDE ER 20 MEQ TAB.ER PO SCH (08:33)
[2018-08-26] MEDS: PANTOPRAZOLE 40 MG TABLET PO SCH (08:33)
[2018-08-26] MEDS: FUROSEMIDE 40 MG TAB PO SCH ×2 (08:33→16:11)
[2018-08-26] MEDS: amLODIPine 5 MG TAB PO SCH (08:34)
[2018-08-26] MEDS: HYDROCORTISONE 1% CREAM 30 GM TUBE TOPICAL SCH ×3 (08:37→22:34)
[2018-08-26] MEDS: ESCITALOPRAM 10 MG TAB PO SCH (09:16)
[2018-08-26 12:02] LABS: Magnesium 1.4 mg/dL (1.6-2.3); Potassium 3.5 mmol/L (3.5-5.1)
[2018-08-26] MEDS: MAGNESIUM SULFATE-D5W PMX 1 GM in DEXTROSE/WATER 1 100ML.BAG IVPB SCH ×2 (17:19→18:10)
--- NOTE | 2018-08-26 18:06 | P.PN ---
Progress Note - Text Progress Note Date: 08/26/18 The patient resting comfortably in bed. She denies any significant complaints of pain. Her stoma is functioning. There is known to bleeding. On exam her vital signs are stable. Her abdomen soft. Status post reversal colostomy with subsequent anastomotic leak. Patient has had a prolonged hospital course. Patient should be stable for discharge to ECF the next 24-48 hours.
--- NOTE | 2018-08-26 18:19 | P.PN ---
Subjective This is a pleasant 68 years old female with past medical history of hypertension , hypernatremia, peptic ulcer, perforated diverticulum status post colostomy on 03/2016. Patient originally was transferred from [facility] for acute abdominal pain in the right upper quadrant. Patient had a reversal of her colostomy in this hospital, she was doing well in the postoperative period, and subsequently was discharged to [facility].On 07/28/2018 patient underwent exploratory laparotomy with sigmoid colostomy, with new perforation 4 cm proximal to the colorectal anastomosis , patient was treated with antibiotics for fecal peritonitis , patient improved and was discharged on 08/05/2018. Patient was admitted again from August 21-03/2018 for surgical wound infection and possible abscess where she was treated with further antibiotics, and then sent back to rehab. She presents again on 08/21/2018 4 dark blood from colostomy site. Patient underwent colonoscopy through ostomy site for her GI bleed yesterday on 08/23/2018: denuded balbina-ostomy area with normal exam up to cecum 08/25/2018 pt is lying in bed comfortable , no chest pain, no dyspnea , her colostomy back has brown stool , vitals are stable. pt is still on antibiotic , primary team are thinking of discharging pt tomorrow back to ECF 02/24/2018 Patient is more calm today. Her abdominal pain is more calm controlled. Patient feels better and she can be discharged. Patient is medically and surgically cleared for discharge pending authorization to get her placement into her shelter. An appointment was made with the GI and surgical team offices. Electrolytes replaced and monitored. Objective - Vital Signs Vital signs: Vital Signs Temp 98.1 F 08/26/18 15:00 Pulse 71 08/26/18 15:00 Resp 16 08/26/18 15:00 BP 129/77 08/26/18 15:00 Pulse Ox 94 L 08/26/18 15:00 Intake & Output 08/25/18 08/26/18 08/26/18 18:59 06:59 18:59 Intake Total 240 240 Output Total 1900 1450 800 Balance -1660 -1210 -800 Weight 86.183 kg Intake: Intake, IV Titration 240 Amount Sodium Chloride 0.9% 1, 240 000 ml @ 50 mls/hr IV . Q20H [facility] Rx#:[id number] Oral 240 Output: Urine 1900 1150 800 Stool 300 Other: Voiding Method Incontinent Incontinent - Exam GENERAL: The patient is alert and oriented x3, not in any acute distress. Well developed, well nourished. HEENT: Pupils are round and equally reacting to light. EOMI. No scleral icterus. No conjunctival pallor. Normocephalic, atraumatic. No pharyngeal erythema. No thyromegaly. CARDIOVASCULAR: S1 and S2 present. No murmurs, rubs, or gallops. PULMONARY: Chest is clear to auscultation, no wheezing or crackles. ABDOMEN: Soft, nontender, nondistended, normoactive bowel sounds. No palpable organomegaly. MUSCULOSKELETAL: No joint swelling or deformity. EXTREMITIES: No cyanosis, clubbing, or pedal edema. NEUROLOGICAL: Gross neurological examination did not reveal any focal deficits. SKIN: No rashes. - Labs CBC & Chem 7: 08/24/18 06:51 08/26/18 11:22 Labs: Abnormal Lab Results - Last 24 Hours (Table) 08/26/18 Range/Units 11:22 Magnesium 1.4 L (1.6-2.3) mg/dL Microbiology - Last 24 Hours (Table) 08/22/18 10:30 Stool Culture - Final Stool Assessment and Plan Assessment: Denuded ostomy site, with subsequent GI bleeds mostly secondary to above History of perforated diverticulitis status post colostomy Degenerative joint disease Plan: We recommend to continue with same treatment. Continue symptomatic treatment. Resume home medication. GI and surgery consult is appreciated. Monitor lytes and vitals. Hemoglobin is stable. GI and DVT prophylaxis. Further recommendation is based on the clinical course of the patient's GI prophylaxis: Protonix DVT prophylaxis: No heparin in view of GI bleed
--- NOTE | 2018-08-26 21:51 | PN ---
PROGRESS NOTE DATE OF SERVICE: 08/26/2018. REASON FOR FOLLOWUP: Abdominal abscess. INTERVAL HISTORY: The patient is currently afebrile. She is breathing comfortably. Denies having any chest pain or shortness of breath or cough. No abdominal pain. No nausea or vomiting. Overall drainage from the lower chin incision has decreased. EXAMINATION: Blood pressure is 129/77 with a pulse of 71, temperature of 98.1, she is 94% on room air. GENERAL DESCRIPTION: An elderly female, lying in bed in no distress. RESPIRATORY SYSTEM: Unlabored breathing. Clear to auscultation anteriorly. HEART: S1, S2. Regular rate and rhythm. ABDOMEN: Soft, no tenderness. EXTREMITIES: No edema of the feet. LABS: No CBC was done today. DIAGNOSTIC IMPRESSION AND PLAN: Patient with abdominal abscess from anastomosis leak. Abdominal cultures have been positive for Rosangela albicans. Patient was on Diflucan and did have recurrent abscesses, hence antifungals to identify anidulafungin, which the patient did not receive at the [facility]. Currently on anidulafungin and Flagyl. Continue for about a week to finish a course of therapy. Continue supportive care. MMODL / IJN: [id number] /
[2018-08-26 23:36] LABS: Magnesium 1.9 mg/dL (1.6-2.3); Potassium 3.1 mmol/L (3.5-5.1)
[2018-08-27] MEDS ORDERED: Potassium Replacement Protocol 1 EACH MISC MISCELLANE PRN (00:34)
[2018-08-27] MEDS: POTASSIUM CHLORIDE ER 20 MEQ TAB.ER PO SCH ×3 (01:49→08:50)
[2018-08-27 08:30] LABS: Magnesium 1.6 mg/dL (1.6-2.3); Potassium 3.6 mmol/L (3.5-5.1)
[2018-08-27] MEDS: FUROSEMIDE 40 MG TAB PO SCH ×2 (08:49→15:01)
[2018-08-27] MEDS: ESCITALOPRAM 10 MG TAB PO SCH (08:49)
[2018-08-27] MEDS: MAGNESIUM OXIDE 400 MG TAB PO SCH ×3 (08:49→22:42)
[2018-08-27] MEDS: amLODIPine 5 MG TAB PO SCH (08:49)
[2018-08-27] MEDS: PANTOPRAZOLE 40 MG TABLET PO SCH (08:50)
[2018-08-27] MEDS: METOPROLOL SUCCINATE (ER) 25 MG TAB.ER.24H PO SCH (08:50)
[2018-08-27] MEDS: HYDROCORTISONE 1% CREAM 30 GM TUBE TOPICAL SCH ×3 (08:50→22:43)
[2018-08-27] MEDS: metroNIDAZOLE 500 MG TAB PO SCH ×3 (08:52→22:42)
--- NOTE | 2018-08-27 09:26 | IR ---
PICC LINE PLACEMENT: HISTORY: Infection requiring long-term antibiotic therapy PROCEDURE: Ultrasound and fluoroscopic guidance of PICC line placement. COMPLICATIONS: None ANESTHESIA: 1. 1% Lidocaine locally. FINDINGS/TECHNIQUE: The procedure was explained to the patient. The risks, complications, benefits and alternatives were discussed and any questions were answered. Informed consent was obtained. The patient was placed supine on the fluoroscopic table and prepped and draped in the usual sterile critical access hospital ion. Utilizing a 21 gauge needle and sonographic and fluoroscopic guidance, access in the vein was achieved and there is placement of a 0.018 guidewire. The vein is patent. A 4-F sheath was placed o sonia the guidewire. The guidewire and dilator were removed and a 4-F. PICC line was placed through th e sheath with the tip at the level of the SVC. The sheath was removed, the catheter was flushed and sutured into position. The patient was stable throughout the procedure and remained stable upon disc harge from the Department of Radiology. The vein puncture was patent under ultrasound. A penn scale image was obtained to document patency of the vein punctured. All elements of the maximal barrier technique were utilized. FLUOROSCOPY TIME: 0.5 minutes and one image submitted IMPRESSION: Successful PICC line placement under ultrasound and fluoroscopic guidance.
[2018-08-27] MEDS: ACETAMINOPHEN TAB 325 MG TAB PO PRN ×2 (10:00→19:43)
[2018-08-27] MEDS: MAGNESIUM SULFATE-D5W PMX 1 GM in DEXTROSE/WATER 1 100ML.BAG IVPB SCH ×2 (11:55→13:09)
--- NOTE | 2018-08-27 12:04 | P.PN ---
Subjective Progress Note Date: 08/27/18 60-year-old female resting in bed no new events denies dizziness lightheadedness chest pain or shortness of breath denying any abdominal pain. Ostomy pink moderate amount of brown stool in the ostomy bag. Surgical dressing distal to the suture line well approximated no redness no drainage. Abdomen soft not distended Patient plan to return to the ECF is stable for discharge today from a surgical perspective defer to the timing to the attending recent July 19 exploratory lap sigmoid resection drainage of an abscess with appendectomy with reversal of ostomy in addition on July 26 patient underwent exploratory lap colon resection for perforation of ostomy Oma's procedure, additionally a recent ostomy reversal in July 19 Objective - Vital Signs Vital signs: Vital Signs Temp 98.3 F 08/27/18 07:02 Pulse 69 08/27/18 07:02 Resp 16 08/27/18 07:02 BP 167/88 08/27/18 07:02 Pulse Ox 96 08/27/18 07:02 Intake & Output 08/26/18 08/27/18 08/27/18 18:59 06:59 18:59 Intake Total 970 520 Output Total 800 2100 Balance -800 -1130 520 Weight 86.183 kg Intake: Intake, IV Titration 130 Amount Anidulafungin 100 mg In 100 Sodium Chloride 0.9% 100 ml @ 84 mls/hr IVPB Q24H [facility] Rx#:[id number] Sodium Chloride 0.9% 1, 30 000 ml @ 50 mls/hr IV . Q20H [facility] Rx#:[id number] Oral 840 520 Output: Urine 800 2100 Other: Voiding Method Incontinent Incontinent Incontinent # Voids 1 - Exam Physical exam 68-year-old female sitting up in bed appears in no acute distress of denies any abdominal pain when questioning Lungs adequate air movement bilaterally on room air Heart S1-S2 audible regular Abdomen ostomy in the left lower quadrant amount of brown stool stoma pink dressings distal to surgical site dry urinating no difficulty Extremities no edema - Labs CBC & Chem 7: 08/24/18 06:51 08/27/18 07:09 Labs: Abnormal Lab Results - Last 24 Hours (Table) 08/26/18 08/26/18 Range/Units 11:22 22:48 Potassium 3.1 L (3.5-5.1) mmol/L Magnesium 1.4 L (1.6-2.3) mg/dL Microbiology - Last 24 Hours (Table) 08/22/18 10:30 Stool Culture - Final Stool Assessment and Plan Assessment: Impression Present on admission acute GI bleed passing burgundy colored bowel movements through ostomy possible colitis or colonic diverticular bleed Acute blood loss anemia suspect due to GI bleed not ruled out A recent July 19 exploratory lap sigmoid resection and drainage of an abscess appendectomy reversal of ostomy July 26 exploratory lap colon resection for perforated ostomy Diverticulitis of intestine with perforation Recent July 28 exploratory laparotomy with descending colon resection for perforation descending ostomy, Oma's procedure for perforated A recent admission within the week surgical postop wound infection Chronic systolic heart failure without any evidence of an acute exacerbation Debilitated Small hiatal hernia, mild antral gastritis per EGD done on August 22 Hypokalemia Hypo-magnesium Status post colonoscopy August 23 ostomy to the cecum normal denuded friable area in the. Ostomy location Plan Magnesium replaced DVT and GI prophylaxis IV fluid as ordered Ostomy care as appropriate Okay to proceed with a discharge to the [facility] facility per surgical service defer to the timing to the attending Progress note dictated for Dr. lebron rounding on behalf of Dr. Kelly The above impression and plan of care have been discussed and directed by signing physician. Brigitte Bruce nurse practitioner acting as scribe for signing physician.
--- NOTE | 2018-08-27 17:37 | PN ---
PROGRESS NOTE DATE OF SERVICE: 08/27/2018 REASON FOR FOLLOWUP: Abdominal abscess. INTERVAL HISTORY: The patient is currently afebrile. She is breathing comfortably. Denies having any chest pain, shortness of breath or cough. No abdominal pain. Overall drainage has significantly decreased. No of the wound per the RN. PHYSICAL EXAMINATION: Blood pressure is 167/88 with a pulse of 69, temperature 98.3. She is 96% on room air. General description is an elderly female lying in bed in no distress. RESPIRATORY SYSTEM: Unlabored breathing. Clear to auscultation anteriorly. HEART: S1, S2. Regular rate and rhythm. ABDOMEN: Soft. No tenderness. LABS: No CBC has been done today. DIAGNOSTIC IMPRESSION AND PLAN: Patient with a pelvic abscess after anastomosis leak. Culture had been predominantly Rosangela albicans. [facility] the [facility] on anidulafungin, which the patient never got. Hence we will give her Diflucan 200 mg daily along with oral Flagyl for about a week with close outpatient followup. All questions were answered. MMODL / IJN: [id number] /
--- NOTE | 2018-08-27 20:05 | P.PN ---
Subjective This is a pleasant 68 years old female with past medical history of hypertension , hypernatremia, peptic ulcer, perforated diverticulum status post colostomy on 03/2016. Patient originally was transferred from [facility] for acute abdominal pain in the right upper quadrant. Patient had a reversal of her colostomy in this hospital, she was doing well in the postoperative period, and subsequently was discharged to [facility].On 07/28/2018 patient underwent exploratory laparotomy with sigmoid colostomy, with new perforation 4 cm proximal to the colorectal anastomosis , patient was treated with antibiotics for fecal peritonitis , patient improved and was discharged on 08/05/2018. Patient was admitted again from August 21-03/2018 for surgical wound infection and possible abscess where she was treated with further antibiotics, and then sent back to rehab. She presents again on 08/21/2018 4 dark blood from colostomy site. Patient underwent colonoscopy through ostomy site for her GI bleed yesterday on 08/23/2018: denuded balbina-ostomy area with normal exam up to cecum 08/25/2018 pt is lying in bed comfortable , no chest pain, no dyspnea , her colostomy back has brown stool , vitals are stable. pt is still on antibiotic , primary team are thinking of discharging pt tomorrow back to ECF 02/24/2018 Patient is more calm today. Her abdominal pain is more calm controlled. Patient feels better and she can be discharged. Patient is medically and surgically cleared for discharge pending authorization to get her placement into her fci. An appointment was made with the GI and surgical team offices. Electrolytes replaced and monitored. 02/25/18 pt is seen and examined by me at bed side, pt is feeling better , no abd pain , no chest pain , no dyspnea , her colostomy bag is functioning , no blood only brown stool , pt is afebrile and looks stable , pt is cleared for discharged today by medicine and other consultants ,pending placement to rehab/ECF. Objective - Vital Signs Vital signs: Vital Signs Temp 98 F 08/27/18 15:00 Pulse 75 08/27/18 15:00 Resp 16 08/27/18 15:00 BP 146/83 08/27/18 15:00 Pulse Ox 97 08/27/18 15:00 Intake & Output 08/27/18 08/27/18 08/28/18 06:59 18:59 06:59 Intake Total 970 742 240 Output Total 2100 Balance -1130 742 240 Intake: Intake, IV Titration 130 Amount Anidulafungin 100 mg In 100 Sodium Chloride 0.9% 100 ml @ 84 mls/hr IVPB Q24H [facility] Rx#:[id number] Sodium Chloride 0.9% 1, 30 000 ml @ 50 mls/hr IV . Q20H [facility] Rx#:[id number] Oral 840 742 240 Output: Urine 2100 Other: Voiding Method Incontinent Incontinent # Voids 1 - Exam GENERAL: The patient is alert and oriented x3, not in any acute distress. Well developed, well nourished. HEENT: Pupils are round and equally reacting to light. EOMI. No scleral icterus. No conjunctival pallor. Normocephalic, atraumatic. No pharyngeal erythema. No thyromegaly. CARDIOVASCULAR: S1 and S2 present. No murmurs, rubs, or gallops. PULMONARY: Chest is clear to auscultation, no wheezing or crackles. ABDOMEN: Soft, nontender, nondistended, normoactive bowel sounds. No palpable organomegaly. MUSCULOSKELETAL: No joint swelling or deformity. EXTREMITIES: No cyanosis, clubbing, or pedal edema. NEUROLOGICAL: Gross neurological examination did not reveal any focal deficits. SKIN: No rashes. - Labs CBC & Chem 7: 08/24/18 06:51 08/27/18 07:09 Labs: Abnormal Lab Results - Last 24 Hours (Table) 08/26/18 Range/Units 22:48 Potassium 3.1 L (3.5-5.1) mmol/L Assessment and Plan Assessment: Denuded ostomy site, with subsequent GI bleeds mostly secondary to above History of perforated diverticulitis status post colostomy Degenerative joint disease Plan: We recommend to continue with same treatment. Continue symptomatic treatment. Resume home medication. GI and surgery consult is appreciated. Monitor lytes and vitals. Hemoglobin is stable. GI and DVT prophylaxis. Further recommendation is based on the clinical course of the patient's GI prophylaxis: Protonix DVT prophylaxis: No heparin in view of GI bleed
[2018-08-27] MEDS ORDERED: ANIDULAFUNGIN 100 MG in SODIUM CHLORIDE 0.9% 100 ML IVPB SCH (23:00)
[2018-08-28] MEDS: SODIUM CHLORIDE 0.9% 1,000 ML IV SCH (01:29)
[2018-08-28] MEDS: ACETAMINOPHEN TAB 325 MG TAB PO PRN (07:35)
[2018-08-28 07:42] VITALS: TEMP 98.2
[2018-08-28] MEDS: POTASSIUM CHLORIDE ER 20 MEQ TAB.ER PO SCH (10:00)
[2018-08-28] MEDS: FUROSEMIDE 40 MG TAB PO SCH (10:00)
[2018-08-28] MEDS: PANTOPRAZOLE 40 MG TABLET PO SCH (10:00)
[2018-08-28] MEDS: metroNIDAZOLE 500 MG TAB PO SCH (10:01)
[2018-08-28] MEDS: amLODIPine 5 MG TAB PO SCH (10:01)
[2018-08-28] MEDS: METOPROLOL SUCCINATE (ER) 25 MG TAB.ER.24H PO SCH (10:01)
[2018-08-28] MEDS: MAGNESIUM OXIDE 400 MG TAB PO SCH (10:02)
[2018-08-28] MEDS: HYDROCORTISONE 1% CREAM 30 GM TUBE TOPICAL SCH (10:02)
[2018-08-28] MEDS: ESCITALOPRAM 10 MG TAB PO SCH (11:07)
--- NOTE | 2018-08-28 11:46 | P.DS ---
Providers Date of admission: 08/21/18 23:53 Attending physician: Poncho Cote Consults: 08/21/18 23:41 Consult Physician Routine Consulting Provider: Moon Kelly Consult Reason/Comments: GI Bleed; Recent Colostomy Placement Do you want consulting provider notified?: Yes 08/22/18 19:35 Consult Physician Routine Consulting Provider: Rakesh Estrada Consult Reason/Comments: Large bilateral pleural effusion Do you want consulting provider notified?: Yes, Notify in am 08/22/18 22:09 Consult Physician Routine Consulting Provider: Monalisa Hancock Consult Reason/Comments: abd abscess Do you want consulting provider notified?: Yes Primary care physician: Meek Disla Hospital Course: This is a pleasant 68 years old female with past medical history of hypertension , hypernatremia, peptic ulcer, perforated diverticulum status post colostomy on 03/2016. Patient originally was transferred from [facility] for acute abdominal pain in the right upper quadrant. Patient had a reversal of her colostomy in this hospital, she was doing well in the postoperative period, and subsequently was discharged to [facility]. during that admission originally On 07/28/2018 patient underwent exploratory laparotomy with sigmoid colostomy, with new perforation 4 cm proximal to the colorectal anastomosis , patient was treated with antibiotics for fecal peritonitis , patient improved and was discharged on 08/05/2018. Patient was admitted again from 08/12/2018 to 08/16/2018 for surgical wound infection and possible abscess where she was treated with further antibiotics, and then sent back to rehab. She presents again on 08/21/2018 for dark blood from colostomy site. Patient underwent colonoscopy through ostomy site for her GI bleed on 08/23/2018 : denuded balbina-ostomy area with normal exam up to cecum. Patient has been treated conservatively and her hemoglobin has been stable. Bleeding hasn't stopped. Patient was also on antibiotic Flagyl and antifungal as per ID team. Who recommended discharge patient on Flagyl for 7-10 more days. Pulmonary team evaluated the patient for pleural effusion and found no significant effusion per ultrasound per pulmonary. C. diff was negative. Electrolytes were replaced. Patient was cleared by surgery and GI team for discharge. Problems and management plan was discussed with the patient and she verbalized understanding and acceptance. Patient is found stable and can be discharged to ECF/rehab however she needs follow-up as an outpatient. physical exam Gen.: Patient alert awake and oriented X 3, NOT IN DISTRESS CVS: s1-s2, RRR, no murmur CHEST:bilateral CTA, no wheezing or crepitation Abdomen: Soft, no tenderness, no distention, positive bowel sounds. Right colostomy back is in place and functioning. No surrounding cellulitis. Has brown stool with no blood in it Extremities: No leg edema or induration Time spent more than 35 minutes Patient Condition at Discharge: Good Plan - Discharge Summary Discharge Rx Participant: No New Discharge Prescriptions: New amLODIPine [Norvasc] 5 mg PO DAILY #0 tab metroNIDAZOLE [Flagyl] 500 mg PO TID 7 Days #0 tab Fluconazole [Diflucan] 200 mg PO DAILY #10 tab Continue Acetaminophen Tab [Tylenol] 650 mg PO Q6HR PRN tab PRN Reason: Mild Pain Or Fever >= 100.5 Aspirin 81 mg PO HS chew Furosemide [Lasix] 40 mg PO BID@0900,1600 tab Pantoprazole [Protonix] 40 mg PO AC-BRKFST tablet. Potassium Chloride ER [K-Dur 20] 20 meq PO DAILY tab.er.prt Hydrocortisone Cream [Hydrocortisone 1% Cream] 1 applic TOPICAL TID Bisacodyl [Dulcolax] 10 mg RECTAL DAILY PRN PRN Reason: Constipation Magnesium Hydroxide [Milk of Magnesia] 800 mg PO DAILY PRN PRN Reason: Constipation Metoprolol Succinate [Toprol XL] 25 mg PO DAILY Na Phos,M-B/Na Phos,Di-Ba [Fleet Adult] 1 dose RECTAL DAILY PRN PRN Reason: Constipation Escitalopram [Lexapro] 10 mg PO DAILY tab Ipratropium-Albuterol Nebulize [Duoneb 0.5 mg-3 mg/3 ml Soln] 3 ml INHALATION RT-QID PRN ampul.neb PRN Reason: Shortness Of Breath Or Wheezing amLODIPine [Norvasc] 5 mg PO DAILY l Acidophil/B Lactis/B Longum [Florajen3 Capsule] 460 mg PO DAILY Magnesium Oxide [Mag-Ox] 400 mg PO BID #30 tab Discontinued cefTRIAXone [Rocephin] 2,000 mg IVP Q24HR #14 ml metroNIDAZOLE [Flagyl] 500 mg PO TID #42 tab Discharge Medication List Acetaminophen Tab [Tylenol] 650 mg PO Q6HR PRN tab 08/05/18 [Rx] Aspirin 81 mg PO HS chew 08/05/18 [Rx] Furosemide [Lasix] 40 mg PO BID@0900,1600 tab 08/05/18 [Rx] Pantoprazole [Protonix] 40 mg PO AC-BRKFST tablet. 08/05/18 [Rx] Potassium Chloride ER [K-Dur 20] 20 meq PO DAILY tab.er.prt 08/05/18 [Rx] Bisacodyl [Dulcolax] 10 mg RECTAL DAILY PRN 08/12/18 [History] Hydrocortisone Cream [Hydrocortisone 1% Cream] 1 applic TOPICAL TID 08/12/18 [ History] Magnesium Hydroxide [Milk of Magnesia] 800 mg PO DAILY PRN 08/12/18 [History] Metoprolol Succinate [Toprol XL] 25 mg PO DAILY 08/12/18 [History] Na Phos,M-B/Na Phos,Di-Ba [Fleet Adult] 1 dose RECTAL DAILY PRN 08/12/18 [ History] Escitalopram [Lexapro] 10 mg PO DAILY tab 08/16/18 [Rx] Ipratropium-Albuterol Nebulize [Duoneb 0.5 mg-3 mg/3 ml Soln] 3 ml INHALATION RT -QID PRN ampul.neb 08/16/18 [Rx] amLODIPine [Norvasc] 5 mg PO DAILY 08/21/18 [History] l Acidophil/B Lactis/B Longum [Florajen3 Capsule] 460 mg PO DAILY 08/21/18 [ History] Fluconazole [Diflucan] 200 mg PO DAILY #10 tab 08/27/18 [Rx] Magnesium Oxide [Mag-Ox] 400 mg PO BID #30 tab 08/27/18 [Rx] amLODIPine [Norvasc] 5 mg PO DAILY #0 tab 08/27/18 [Rx] metroNIDAZOLE [Flagyl] 500 mg PO TID 7 Days #0 tab 08/27/18 [Rx] Follow up Appointment(s)/Referral(s): Jamil Moore MD [STAFF PHYSICIAN] - 09/05/18 2:30 pm Meek Disla MD [Primary Care Provider] - 1-2 days Moon Kelly MD [STAFF PHYSICIAN] - 09/10/18 11:40 am Activity/Diet/Wound Care/Special Instructions: resume previous diet Activities Limited till you see your doctor monitor electrolytes (K and Mg) and hemoglobin Discharge Disposition: TRANSFER TO SNF/ECF
--- NOTE | 2018-08-28 14:14 | PN ---
PROGRESS NOTE DATE OF SERVICE: 08/28/2018 REASON FOR FOLLOWUP: Abdominal abscess. INTERVAL HISTORY: The patient is currently afebrile. She is breathing comfortably. Awaiting for placement. Denies having any chest pain, shortness of breath, cough. No nausea, no abdominal pain. PHYSICAL EXAMINATION: Blood pressure 166/84 with a pulse of 74, temperature 98.2, she is 94% on room air. General description is an elderly female, lying in bed in no distress. RESPIRATORY SYSTEM: Unlabored breathing, clear to auscultation anteriorly. HEART: S1, S2. Regular rate and rhythm. ABDOMEN: Soft, no tenderness. LABS: No new lab has been obtained today. DIAGNOSTIC IMPRESSION AND PLAN: Patient with abdominal abscess from anastomosis leak. Culture has been predominantly Rosangela albicans, treated with Diflucan, followed by which was not received at the [facility]. Currently identified on the Flagyl. Will switch it over to Diflucan and Flagyl for about a week. The PICC line should be discontinued on discharge with close outpatient followup. MMODL / IJN: [id number] /
[2018-08-28 15:54] VITALS: BP 149/80; PULSE 80; RESP 16
== END 2018-08-28 15:40 | DRG 393 ==
LOC: EC 23:07 → 3SUR 23:53 → 4SSUR 08-25 07:39
PROVIDERS: ADMIT Hospitalist; ATTEND Hospitalist
PROC: 0DJ08ZZ Inspection of Upper Intestinal Tract, Via Natural or Artificial Opening Endoscopic (ICD-10-PCS; 2018-08-22)
PROC: 0DJD8ZZ Inspection of Lower Intestinal Tract, Via Natural or Artificial Opening Endoscopic (ICD-10-PCS; 2018-08-23)
PROC: 02HV33Z Insertion of Infusion Device into Superior Vena Cava, Percutaneous Approach (ICD-10-PCS; principal; 2018-08-27)
DX: K94.01 Colostomy hemorrhage (principal); K65.1 Peritoneal abscess; I50.22 Chronic systolic (congestive) heart failure; T81.31XA Disruption of external operation (surgical) wound, not elsewhere classified, initial encounter; J98.11 Atelectasis; D62 Acute posthemorrhagic anemia; E44.1 Mild protein-calorie malnutrition; I11.0 Hypertensive heart disease with heart failure; E83.42 Hypomagnesemia; E87.6 Hypokalemia; K44.9 Diaphragmatic hernia without obstruction or gangrene; K29.60 Other gastritis without bleeding; M19.91 Primary osteoarthritis, unspecified site; Z79.2 Long term (current) use of antibiotics; Z79.82 Long term (current) use of aspirin; Z79.899 Other long term (current) drug therapy; Z87.11 Personal history of peptic ulcer disease; Z90.49 Acquired absence of other specified parts of digestive tract; Z96.651 Presence of right artificial knee joint; Z96.641 Presence of right artificial hip joint; Z87.891 Personal history of nicotine dependence; Z82.49 Family history of ischemic heart disease and other diseases of the circulatory system; Z84.1 Family history of disorders of kidney and ureter; Z80.0 Family history of malignant neoplasm of digestive organs; D50.0 Iron deficiency anemia secondary to blood loss (chronic); F32.9 Major depressive disorder, single episode, unspecified
CPT/HCPCS: 36415; 36569; 43235; 44388; 71045; 76604; 80048; 80053; 83735; 84132; 85025; 85027; 85610; 86850; 86900; 86901; 87045; 87046; 87324; 99285

== ENCOUNTER → 2018-10-22 | Outpatient (CLI) | payer MEDICARE, OTHER ==
--- NOTE | 2018-10-22 14:34 | CT ---
EXAMINATION TYPE: CT abdomen pelvis w con DATE OF EXAM: 10/22/2018 COMPARISON: 07/26/2018 INDICATION: Small bowel fistula DLP: 1115.5 mGycm, Automated exposure control for dose reduction was used. CONTRAST: 100 mL of Isovue 300. Study performed with Oral Contrast TECHNIQUE: Axial images were obtained from above the diaphragm to the pubic rami in the axial plane a t 5 mm thick sections. Reconstructed images are reviewed on the computer in the coronal plane. FINDINGS: Limited CT sections are obtained the lung bases. The lung bases are clear. Coronary artery calcific ation is noted. CT ABDOMEN: Liver: Normal Spleen: Normal Pancreas: Normal Adrenal glands: The adrenal glands are normal. Gallbladder: Normal Kidneys: No masses are evident. No hydronephrosis is present. There is a 1.0 cm cyst measuring 19 H [place] units superior medial upper pole left kidney. Delayed images were obtained through the kid neys, which remain unremarkable. Aorta: Vascular calcification is within the aorta. Inferior vena cava: Normal. CT PELVIS: Ostomy is in the left midabdomen. There may be some herniation of mesenteric fat into the periostomy site. Abundant retroperitoneal fat is evident within the abdomen. Loops of bowel within the abdomen and pelvis are normal. There are loops of bowel which are incom pletely distended or lack oral contrast limiting their evaluation. Appendix: Not identified Urinary bladder: Normal. Limited due to beam hardening artifact from right hip prosthesis. Genitourinary structures: Uterus appears unremarkable. There is a large cystlike structure measuring 4.0 cm on the left ovary. This may has some peripheral calcification. Right adnexal region appears no rmal. Osseous structures: No suspicious lytic or sclerotic lesions. Sacroiliac joint vacuum phenomenon is p resent. There may be a spondylolysis of L5. Facet hypertrophy and degenerative changes are present. M ild scoliosis is present. IMPRESSIONS: 1. A 4 cm cystlike structure left ovary with some peripheral calcification. Additional workup with pe lvic ultrasound is recommended. 2. Ostomy within the left midabdomen. 3. Abundant retroperitoneal fat. 4. Left renal cyst.
== END | disposition home or self-care (01) ==
LOC: RADCTMAIN 11:12
PROVIDERS: ATTEND Surgery Plastic and Reconstructive Surgery
DX: E65 Localized adiposity (principal); N28.1 Cyst of kidney, acquired
CPT/HCPCS: 74177; Q9967

== ENCOUNTER 2018-11-07 05:40 | Day surgery (SDC) | payer MEDICARE, OTHER ==
[2018-11-06 08:49] VITALS: BMI 28.3
[2018-11-07] MEDS ORDERED: LACTATED RINGERS 1,000 ML IV ONE (07:10)
[2018-11-07] MEDS ORDERED: ceFAZolin IN SWFI 2 GM/20 ML SYRINGE IVP ONE (07:35)
[2018-11-07] MEDS ORDERED: PROPOFOL 10 MG/ML 20 ML VIAL IV ONE (07:37)
[2018-11-07] MEDS ORDERED: LIDOCAINE 1% INJ 10MG/ML (20 ML MDV) ONE (07:37)
[2018-11-07] MEDS ORDERED: SUCCINYLCHOLINE CHLORIDE 100 MG/5 ML SYR IV ONE (07:37)
[2018-11-07] MEDS ORDERED: fentaNYL (PF) 50 MCG/ML 2 ML AMP ONE (07:37)
[2018-11-07] MEDS ORDERED: MIDAZOLAM 2 MG/2 ML VIAL ONE (07:37)
--- NOTE | 2018-11-07 07:38 | P.GSHP ---
History of Present Illness H&P Date: 11/07/18 CHIEF COMPLAINT: Chronic abdominal wound HISTORY OF PRESENT ILLNESS: The patient is a 68 year-old female with chronic lower abdominal wound. She presents for debridement. PAST MEDICAL HISTORY: Please see list. PAST SURGICAL HISTORY: Please see list. MEDICATIONS: Please see list. ALLERGIES: Please see list. SOCIAL HISTORY: No illicit drug use FAMILY HISTORY: No reports of Crohn disease or ulcerative colitis. REVIEW OF ORGAN SYSTEMS: CONSTITUTIONAL: No reports of fevers or chills. GI: Denies any blood in stools or constipation. PHYSICAL EXAM: VITAL SIGNS: Stable Musculoskeletal: No clubbing cyanosis SKIN: Well perfused. Good skin turgor GENERAL: Well developed and in no acute distress. Pleasant. HEENT: No sclera icterus. Extraocular movements grossly intact. Moist buccal mucosa. Head is atraumatic, normocephalic. Hears conversational speech. No nasal drainage. NECK: Supple without lymphadenopathy. No JV distention. CHEST: Non-labored respirations and equal bilateral excursions. CARDIOVASCULAR: Regular rate and rhythm. Palpable 2+ radial pulses. ABDOMEN: Soft. Non-tender. Nondistended. Pinpoint wound lower abdomen with 12 x 4 centimeter tunnel NEUROLOGIC: No focal or lateralizing signs. PSYCH: Appropriate affect. Alert and oriented to person, place and time. ASSESSMENT: 1. Chronic abdominal wound PLAN: 1. Will proceed of debridement of chronic abdominal wound or abdomen and placement of wound VAC 2. DVT prophylaxis. 3. Antibiotic prophylaxis. Past Medical History Past Medical History: Hypertension, Osteoarthritis (OA) Additional Past Medical History / Comment(s): abdominal wound,HX Low Sodium. djd,HX STOMACH ULCER. PERFORATED DIVERTICULTUM, COLOSTOMY 03/2016. past stress test pt state was wnl . History of Any Multi-Drug Resistant Organisms: None Reported Past Surgical History: Bowel Resection, Orthopedic Surgery Additional Past Surgical History / Comment(s): TOTAL RT Knee, total RT HIP replacment. 03-22-16 PERFORATED DIVERTICULUM -had exploratory lap/sigmoid resection/drainage of abcess/colostomy/appy. 07-19-18 lysis of adhesions/reversal of colostomy. 07-26-18 exp lap/colon resection(for perforation)/colostomy-has 2 drains Past Anesthesia/Blood Transfusion Reactions: No Reported Reaction Additional Past Anesthesia/Blood Transfusion Reaction / Comment(s): Pt states she did receive blood with total knee surgery-denies any reaction to it Smoking Status: Former smoker - Past Family History Father Family Medical History: Coronary Artery Disease (CAD), Myocardial Infarction (PR ), Renal Disease Additional Family Medical History / Comment(s): Father of renal failure at the age of 72 yrs. Mother Family Medical History: Cancer Additional Family Medical History / Comment(s): Mother had colon cancer and of this at age 67 yrs. Medications and Allergies Home Medications Medication Instructions Recorded Confirmed Type Aspirin 81 mg PO HS chew 08/05/18 11/07/18 Rx Furosemide [Lasix] 40 mg PO BID@0900,1600 tab 08/05/18 11/07/18 Rx Pantoprazole [Protonix] 40 mg PO AC-BRKFST tablet. 08/05/18 11/07/18 Rx Bisacodyl [Dulcolax] 10 mg RECTAL DAILY PRN 08/12/18 11/06/18 History Hydrocortisone Cream 1 applic TOPICAL TID 08/12/18 11/06/18 History [Hydrocortisone 1% Cream] Magnesium Hydroxide [Milk of 800 mg PO DAILY PRN 08/12/18 11/06/18 History Magnesia] Metoprolol Succinate [Toprol XL] 25 mg PO QAM 08/12/18 11/07/18 History Acetaminophen Tab [Tylenol] 650 mg PO Q4H PRN 11/06/18 11/06/18 History Acetaminophen [Tylenol] 650 mg PO BID 11/06/18 11/07/18 History Escitalopram [Lexapro] 10 mg PO QAM 11/06/18 11/07/18 History Magnesium Oxide [Mag-Ox] 800 mg PO BID 11/06/18 11/07/18 History Multivitamins, Thera [Multivitamin 1 tab PO DAILY 11/06/18 11/07/18 History (formulary)] Potassium Chloride ER [K-Dur 20] 20 meq PO BID 11/06/18 11/07/18 History amLODIPine [Norvasc] 5 mg PO QAM 11/06/18 11/07/18 History Allergies Allergy/AdvReac Type Severity Reaction Status Date / Time No Known Allergies Allergy Verified 11/07/18 06:54 Surgical - Exam Vital Signs Temp Pulse Resp BP Pulse Ox 98.0 F 85 16 169/77 98 11/07/18 07:02 11/07/18 07:02 11/07/18 07:02 11/07/18 07:02 11/07/18 07:02
[2018-11-07] MEDS ORDERED: SODIUM CHLORIDE 0.9% 50 ML with ceFAZolin 2,000 MG IV ONE ×2 (07:49)
[2018-11-07] MEDS ORDERED: SODIUM CHLORIDE 0.9% 50 ML with ceFAZolin 1,000 MG IV ONE ×2 (07:49)
[2018-11-07 08:39] VITALS: TEMP 96.8
--- NOTE | 2018-11-07 08:57 | P.OP ---
Date of Procedure: 11/07/18 Description of Procedure: SURGEON: MOON KELLY MD GEOLOGICAL SPECIALIST: NONE. PREOPERATIVE DIAGNOSES: 1. Chronic nonhealing lower abdominal wound, anterior abdominal wall 2. History of complex diverticulitis perforation 3. Previous history of sepsis 4. Congestive heart failure 5. Obesity due to excess calories, BMI 31.9 6. Descending colostomy status POSTOPERATIVE DIAGNOSES: 1. Chronic nonhealing lower abdominal wound, anterior abdominal wall to fascia 2. History of complex diverticulitis perforation 3. Previous history of sepsis 4. Congestive heart failure 5. Obesity due to excess calories, BMI 31.9 6. Descending colostomy status OPERATION: 1. Sharp excisional debridement with knife of 5 x 2 x 2.5 cm anterior abdominal wall, lower abdomen 2. Water pulse lavage 1-L normal saline debridement of anterior abdominal wall 5 x 2 x 2.5 cm to muscle and fascia 3. Application of negative therapy pressure KCI wound VAC, small sponge, 5 x 2 x 2.5 cm, lower abdomen ANESTHESIA: General ESTIMATED BLOOD LOSS: 5 mL. COMPLICATIONS: None. SPECIMENS: None. INDICATIONS: The patient is a 68-year-old female who presents with chronic abdominal wound following repair of parastomal hernia over 3 months ago. She presented with chronic drainage of an abdominal wound with a large cavernous sinus. Surgical intervention with debridement and application of wound VAC was described. Informed consent was obtained. DESCRIPTION: Patient was brought to the operating room, initially placed supine. After general induction, the abdomen was prepped and draped in a standard sterile fashion. The ostomy appliance was toweled off. After time out, the pinpoint cavernous sinus was probed with a depth of almost 3 cm. A #15 blade was used for debridement to healthy bleeding tissue and to extend an incision proximally and distally for a length of 5 cm. The wound was explored and the cavernous sinus was to the abdominal wall/fascia without entry into the peritoneum. The subcutaneous tissue and floor of the wound was copiously irrigated using Pulsavac 1 L normal saline solution for jet lavage. Final measurements of the wound is 5 cm length, 2 cm in width, 2.5 cm depth. The skin was cleansed. A medium-sized wound VAC sponge was cut to size. A petroleum gauze was also cut to size to prevent adherence of the black sponge to the skin. Mastisol was applied to the skin. Adhesive was placed over the wound VAC sponge which was placed into the depth of the wound. A suction adapter was placed and set to -125 mmHg pressure without leak in the system. She was awoken and taken to the postanesthesia care unit in stable condition. FINDINGS: 1. An 5 cm length, 2 cm in width, 2.5 cm depth to abdominal wound to the muscle/ fascia without entry into the peritoneum or evidence of enterocutaneous fistula or abscess pocket identified Plan - Discharge Summary New Discharge Prescriptions: Continue Aspirin 81 mg PO HS chew Furosemide [Lasix] 40 mg PO BID@0900,1600 tab Pantoprazole [Protonix] 40 mg PO AC-BRKFST tablet. Hydrocortisone Cream [Hydrocortisone 1% Cream] 1 applic TOPICAL TID Bisacodyl [Dulcolax] 10 mg RECTAL DAILY PRN PRN Reason: Constipation Magnesium Hydroxide [Milk of Magnesia] 800 mg PO DAILY PRN PRN Reason: Constipation Metoprolol Succinate [Toprol XL] 25 mg PO QAM Acetaminophen [Tylenol] 650 mg PO BID Potassium Chloride ER [K-Dur 20] 20 meq PO BID Acetaminophen Tab [Tylenol] 650 mg PO Q4H PRN PRN Reason: Mild Pain Or Fever >= 100.5 Escitalopram [Lexapro] 10 mg PO QAM amLODIPine [Norvasc] 5 mg PO QAM Magnesium Oxide [Mag-Ox] 800 mg PO BID Multivitamins, Thera [Multivitamin (formulary)] 1 tab PO DAILY Discharge Medication List Aspirin 81 mg PO HS chew 08/05/18 [Rx] Furosemide [Lasix] 40 mg PO BID@0900,1600 tab 08/05/18 [Rx] Pantoprazole [Protonix] 40 mg PO AC-BRKFST tablet. 08/05/18 [Rx] Bisacodyl [Dulcolax] 10 mg RECTAL DAILY PRN 08/12/18 [History] Hydrocortisone Cream [Hydrocortisone 1% Cream] 1 applic TOPICAL TID 08/12/18 [ History] Magnesium Hydroxide [Milk of Magnesia] 800 mg PO DAILY PRN 08/12/18 [History] Metoprolol Succinate [Toprol XL] 25 mg PO QAM 08/12/18 [History] Acetaminophen Tab [Tylenol] 650 mg PO Q4H PRN 11/06/18 [History] Acetaminophen [Tylenol] 650 mg PO BID 11/06/18 [History] Escitalopram [Lexapro] 10 mg PO QAM 11/06/18 [History] Magnesium Oxide [Mag-Ox] 800 mg PO BID 11/06/18 [History] Multivitamins, Thera [Multivitamin (formulary)] 1 tab PO DAILY 11/06/18 [History ] Potassium Chloride ER [K-Dur 20] 20 meq PO BID 11/06/18 [History] amLODIPine [Norvasc] 5 mg PO QAM 11/06/18 [History] Follow up Appointment(s)/Referral(s): Moon Kelly MD [STAFF PHYSICIAN] - 11/26/18 Patient Instructions/Handouts: Negative Pressure Wound Therapy (DC), Chronic Wounds (DC) Activity/Diet/Wound Care/Special Instructions: Change dressing on Sat, Tues, Thurs (3 x weekly at 125 mmHg). Wound 5 cm length , 2.5 cm depth, 2 cm width Discharge Disposition: TRANSFER TO SNF/ECF
[2018-11-07 09:08] VITALS: RESP 18
[2018-11-07 09:35] VITALS: BP 167/73; PULSE 78
== END 2018-11-07 09:42 ==
LOC: OR 05:40
PROVIDERS: ATTEND Surgery Plastic and Reconstructive Surgery
DX: S31.109A Unspecified open wound of abdominal wall, unspecified quadrant without penetration into peritoneal cavity, initial encounter (principal); I10 Essential (primary) hypertension; M19.90 Unspecified osteoarthritis, unspecified site; Z87.891 Personal history of nicotine dependence; I48.0 Paroxysmal atrial fibrillation; I11.0 Hypertensive heart disease with heart failure; I50.9 Heart failure, unspecified; E66.9 Obesity, unspecified; Z68.31 Body mass index [BMI] 31.0-31.9, adult; Z87.19 Personal history of other diseases of the digestive system; Z93.3 Colostomy status; Z82.49 Family history of ischemic heart disease and other diseases of the circulatory system; Z79.82 Long term (current) use of aspirin; Z79.899 Other long term (current) drug therapy
CPT/HCPCS: 11043; J2250; J2001; J3010; J0690; J0330; J2704